=== PATIENT | female | born 1960 | race Caucasian/White ===

== ENCOUNTER → 2022-08-02 | Outpatient (CLI) | payer OTHER, SELFPAY ==
--- NOTE | 2022-08-02 07:02 | CT_ITS ---
STUDY: CTA HEAD AND NECK WITH CONTRAST REASON FOR EXAM: Female, 61 years old. Right carotid artery stenosis seen on Doppler ultrasound. RADIATION DOSAGE (If Supplied By Facility): CTDIvol = ( 28.53 ) mGy, DLP = ( 1526.28 ) mGycm TECHNIQUE: CT angiography was performed with a multi-detector CT scanner. Data acquisition was obtained from the skull base through the vertex following intravenous administration of IV 100mL Isovue-[id number]. MIP images were reconstructed from the axial data set. Post-processing of the angiographic images was performed, with multiplanar reformation and 3D reconstruction. Individualized dose optimization techniques were used for this CT. COMPARISON: No relevant priors. FINDINGS: Normal bilateral petrous carotid arteries. Normal right cavernous carotid artery with a normal supraclinoid bifurcation. Normal left cavernous carotid artery with a normal supraclinoid bifurcation. Normal right A1 segments of the anterior cerebral artery. Normal left A1 segments of the anterior cerebral artery. Normal intact anterior communicating artery (ACOM). Normal bilateral A2 segments of the anterior cerebral arteries. Normal right M1 and M2 segments of the middle cerebral arteries, with a normal M1 bifurcation. Normal left M1 and M2 segments of the middle cerebral arteries, with a normal M1 bifurcation. Normal right posterior communicating artery (PCOM). Normal left posterior communicating artery (PCOM). Normal bilateral vertebral arteries. Normal basilar artery with a normal basilar bifurcation. The visualized bilateral superior cerebellar (SCA) arteries are normal. Normal bilateral P1, P2 and visualized P3 segments of the posterior cerebral arteries. There is no demonstrated aneurysm of the [place]. There is no demonstrated abnormality of the visualized brain. AORTIC ARCH: There is atherosclerotic calcific plaque formation of the aortic arch and great vessels arising from the aortic arch, without a hemodynamically significant stenosis. There is a normal origin of the brachiocephalic, left common carotid, and left subclavian arteries. Atherosclerotic plaque calcification at the origin of the left subclavian artery. RIGHT CAROTID ARTERIES: There is atherosclerotic plaque formation of the common carotid artery, but without a hemodynamically significant stenosis. Normal right common carotid bulb. There is severe atherosclerotic plaque formation of the origin of the right internal carotid artery with a near complete occlusion. Normal visualized cervical portion of the right internal carotid artery. Normal origin of the right external carotid artery (ECA). LEFT CAROTID ARTERIES: There is atherosclerotic plaque formation of the common carotid artery, but without a hemodynamically significant stenosis. Normal left common carotid bulb. There is severe atherosclerotic plaque formation of the origin of the left internal carotid artery with a near complete occlusion. Normal visualized cervical portion of the left internal carotid artery. Normal origin of the left external carotid artery (ECA). VERTEBRAL ARTERIES: Normal bilateral vertebral arteries. CT/CTA Head AND Neck W/ Contrast IMPRESSION: Tight stenosis at the origin of both the right and left internal carotid arteries worse on the right side. There is a short total occlusion of the internal carotid artery at its origin with reconstitution. Electronically Signed: Wilfredo Klein MD at 10:47 EDT ,
[2022-08-02 07:40] LABS: EGFR FINGERSTICK > 60.0000 mL/min (>60)
== END | disposition home or self-care (01) ==
PROVIDERS: PCP Nurse Practitioner Primary Care; Referring Provider Physician Assistant; Visit Provider Physician Assistant
DX: I65.29 Occlusion and stenosis of unspecified carotid artery (principal)
CPT/HCPCS: 70496; 70498; Q9967

== ENCOUNTER → 2022-08-05 | Outpatient (CLI) | payer OTHER, SELFPAY ==
[2022-08-07 18:07] LABS: QNTFERON TB Mitogen Value > 10.00 IU/mL (.); QNTFERON TB Nil Value 0.24 IU/mL (.); QNTFERON TB1+ Ag Value 0.04 IU/mL (.); QNTFERON TB2+ Ag Value 0.03 IU/mL (.); QNTIFERON TB Positive Criteria Negative (Negative)
== END | disposition home or self-care (01) ==
LOC: LAB 08:38
PROVIDERS: PCP Nurse Practitioner Primary Care; Referring Provider Internal Medicine Rheumatology; Visit Provider Internal Medicine Rheumatology
DX: M06.00 Rheumatoid arthritis without rheumatoid factor, unspecified site (principal); Z79.899 Other long term (current) drug therapy
CPT/HCPCS: 36415; 86480

== ENCOUNTER → 2022-08-25 13:37 | Observation (INO) | payer OTHER, SELFPAY ==
[2022-08-25] VITALS (12 sets, daily range): BP systolic 125–170; BP diastolic 65–91; PULSE 67–86; RESP 12–17; TEMP 36.7; O2SAT 93–99; BMI 38.2
--- NOTE | 2022-08-25 13:39 | PCM.OPRPT ---
Report of Operation Date of Procedure: 08/25/22 Pre-Operative Diagnosis: right carotid occlusion Post-Operative Diagnosis: right carotid occlusion Surgery/Procedure Performed:: aortogram, right carotid angiogram Surgeon: Glen Chau Type of Anesthesia: Local and Sedation,Conscious Estimated Blood Loss (mL): 5 Description of Procedure: HPI: Patient is a 62-year-old female who initially had a screening carotid duplex which suggested patent internal carotid artery but limited by calcification. She has CT angiography which surprisingly showed high-grade stenosis or total occlusion of the right internal carotid artery but were unable to confirm whether patent or not. She presents now for right carotid selective angiography. Description of procedure: Upon obtaining form consent and verification correct patient procedure site patient taken to the [facility] where she was positioned prepped and draped in usual sterile fashion. Time was then performed conscious sedation administered with Versed and fentanyl. Under ultrasound guidance the right common femoral artery was accessed in retrograde fashion with micropuncture needle and wire was then exchanged out for micropuncture sheath. Through the micropuncture sheath femoral angiogram was performed revealed satisfactory positioning with no extravasation or dissection. There is micropuncture sheath a starter wire was advanced and the micropuncture sheath exchanged out for a 5 [place] sheath. Through the 5 [place] sheath a pigtail catheter and Glidewire were advanced ultimately positioning in the ascending aorta. Patient was heparinized and allowed to circulate 3 minutes after which digital traction arch aortogram was performed which revealed the origin of the innominate artery. Using a H1 catheter and the angled glide wire we selectively cannulated the innominate artery and ultimately advanced into the common carotid artery. From this position multiple view subtraction angiography of the carotid and its bifurcation was performed. Once satisfactory imaging was obtained the wire and catheter withdrawn and a 5 [place] minx deployed followed by 2 minutes of manual pressure. Shortly after relieving pressure the patient developed a small but firm hematoma accompanied by vagal response of bradycardia and hypotension. Manual pressure was held a total of 15 minutes and the patient's hemodynamics improved with atropine and a small fluid bolus. After completion of manual pressure satisfactory stasis was noted the patient was taken to the PCU for observation and bedrest before discharged home. Radiographic interpretation: Aortic arch normal caliber with minimal atherosclerosis or calcification. Type I arch. Patent ostia of the innominate, left common carotid, left subclavian artery. The innominate artery was patent with no significant atherosclerosis or stenosis and a normal bifurcation into the subclavian and common carotid artery with no significant stenosis or atherosclerosis. Right common carotid artery patent with no significant atherosclerosis or stenosis. Occlusion at the origin of the internal carotid artery with reconstitution via what appeared to be ophthalmic branches filling from the external carotid. There is retrograde flow in the internal carotid artery down towards the bifurcation. The external carotid artery is very large caliber mature collateral suggesting longstanding occlusion.
[2022-08-25] MEDS: Acetaminophen 325 MG Tablet 650 MG PO (15:18)
--- NOTE | 2022-08-25 20:25 | NURSING ---
Pt d/c for outpt procedure, vitals stable and site to groin was c/d/i. Pt walked hallway with no issues.
== END | disposition home or self-care (01) ==
LOC: CLSP 09:17 → PCU 14:19
PROVIDERS: Admitting Provider Surgery Trauma Surgery; PCP Nurse Practitioner Primary Care; Visit Provider Surgery Trauma Surgery
DX: I65.21 Occlusion and stenosis of right carotid artery (principal); M06.9 Rheumatoid arthritis, unspecified; I95.9 Hypotension, unspecified; I97.418 Intraoperative hemorrhage and hematoma of a circulatory system organ or structure complicating other circulatory system procedure; Y92.234 Operating room of hospital as the place of occurrence of the external cause; Z79.82 Long term (current) use of aspirin; Z79.899 Other long term (current) drug therapy; I10 Essential (primary) hypertension; M19.90 Unspecified osteoarthritis, unspecified site; K21.9 Gastro-esophageal reflux disease without esophagitis
CPT/HCPCS: 36223; 76937; 99152; 99153; C1760; J7040; C1769

== ENCOUNTER → 2022-08-25 | Outpatient (CLI) | payer OTHER, SELFPAY ==
[2022-08-25 08:36] LABS: Hematocrit 43.1 % (37-47); Hemoglobin 14.3 g/dL (12.0-15.0); Mean Corp Hgb Conc 33.2 g/dL (32-36); Mean Corpuscular Hgb 32.9 pg (27.0-32.0); Mean Corpuscular Volume 99.1 fL (81-99); Mean Platelet Vol. 8.8 fl (6.2-12.0); Platelet Count 188 K/mm3 (150-450); RBC Distribution Width CV 13.5 % (11.6-14.6); Red Blood Count 4.35 M/mm3 (4.2-5.4); White Blood Count 5.7 K/mm3 (4.4-11.0)
[2022-08-25 08:52] LABS: Anion Gap 4 (5-15); BUN 16 mg/dL (7-18); BUN/Creat Ratio 17.9 RATIO (10-20); Calcium,Total 9.3 mg/dL (8.5-10.1); Chloride 111 mmol/L (98-107); EST Glomerular Filtration Rate 68 mL/min (>60); Est Glom Filt Rate - Afr Amer 83 mL/min (>60); Glucose 108 mg/dL (74-106); Potassium 4.3 mmol/L (3.5-5.1); Sodium Level 141 mmol/L (136-145)
[2022-08-25 08:56] LABS: AST(SGOT) 20 U/L (15-37); Alanine Aminotransfer ALT/SGPT 22 U/L (13-56); Albumin, Serum 3.6 g/dL (3.2-5.0); Alkaline Phosphatase 108 U/L (45-117); Bilirubin, Direct 0.18 mg/dL (0.00-0.30); Globulin 3.6 g/dL (2.2-4.2); International Normalized Ratio 0.9; Protein, Total 7.2 g/dL (6.4-8.2); Prothrombin Time (Protime)PT. 12.5 SECONDS (11.7-14.9)
[2022-08-25 08:57] LABS: Partial Thromboplast Time 29.6 Seconds (24.1-36.2)
== END | disposition home or self-care (01) ==
LOC: PAT 09-20 10:19
PROVIDERS: Anesthesiology; PCP Nurse Practitioner Primary Care; Visit Provider Surgery Trauma Surgery
DX: Z01.818 Encounter for other preprocedural examination (principal)
CPT/HCPCS: 36415; 80048; 80076; 85027; 85610; 85730; 86850; 86900; 86901

== ENCOUNTER → 2023-03-24 | Outpatient (CLI) | payer OTHER, SELFPAY ==
--- NOTE | 2023-03-24 07:51 | CDU_ITS ---
Reason For Study: Rt ICA Occlusion / Lt ICA Stenosis Rt. Velocities/BP Lt. Velocities/BP Prox CCA 59.7/9.3 cm/sec. Prox CCA 65.0/24.4 cm/sec. Mid CCA 74.4/13.0 cm/sec. Mid CCA 67.4/29.3 cm/sec. Dist CCA 75.6/13.0 cm/sec. Dist CCA 74.9/25.7 cm/sec. Artery appears occluded. Prox ICA 131.9/46.4 cm/sec. Prox ECA 120.7/20.0 cm/sec. Mid ICA 144.4/49.5 cm/sec. Rt. Vert. 68.6/26.9 cm/sec. Dist ICA 87.9/28.3 cm/sec. Prox ECA 208.0/13.4 cm/sec. Lt. Vert. 67.4/26.9 cm/sec. Right Extracranial There is heterogeneous, irregular atherosclerotic plaque noted in the right common carotid artery. There is heterogeneous, irregular atherosclerotic plaque noted in the right internal carotid artery. The atherosclerotic plaque causes acoustic shadowing. The right internal carotid artery is occluded. There is heterogeneous, irregular atherosclerotic plaque noted in the right external carotid artery. The atherosclerotic plaque causes acoustic shadowing. Antegrade flow is noted in the right vertebral artery. Left Extracranial There is heterogeneous, irregular atherosclerotic plaque noted in the left common carotid artery. There is heterogeneous, irregular atherosclerotic plaque noted in the left internal carotid artery. The atherosclerotic plaque causes acoustic shadowing. There is heterogeneous, irregular atherosclerotic plaque noted in the left external carotid artery. The atherosclerotic plaque causes acoustic shadowing. Antegrade flow is noted in the left vertebral artery. Procedure Carotid Duplex [id number]. This is a Carotid Duplex examination using B-mode, color flow and specral Doppler. The exam was diagnostic. Exam performed in department. VL/Carotid Duplex Ultrasound Interpretation Summary Occlusion of the right extracranial internal carotid. Moderate (50-69%) stenosis left extracranial internal carotid. Patent and antegrade vertebrals bilaterally. Ordering Physician: Jamila Grossman Referring Physician: Joanna Owens Performed By: Ge King RVT
== END | disposition home or self-care (01) ==
LOC: CVS 07:50
PROVIDERS: PCP Nurse Practitioner Primary Care; Referring Provider Surgery Trauma Surgery; Visit Provider Surgery Trauma Surgery
DX: I65.23 Occlusion and stenosis of bilateral carotid arteries (principal)
CPT/HCPCS: 93880

== ENCOUNTER → 2023-04-27 | Outpatient (CLI) | payer OTHER, SELFPAY ==
--- OUTSIDE RECORDS SUMMARY | 2023-04-27 07:30 | XMS RPT_ITS | CCD ---
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 Name Role Phone ASHLEY LOPEZ Primary Care Physicia n Tanya Nicole PT Unavailable Unavailable Ashley Martin Primary Care Provider Ashley Martin Primary Care Provider Ashley Martin Primary Care Provider ASHLEY LOPEZ Attending Unava ilable ASHLEY LOPEZ Primary Care Unava ilable ASHLEY LOPEZ Attending Unava ilable ASHLEY LOPEZ S Primary Care Unava ilable Ashley Martin Primary Care Provider LEIGH KATZ Referring Unavailable ASHLEY MARTIN Primary Care Unavailable LEIGH KATZ Attending Unavailable ASHLEY MARTIN Primary Care Unavailable Allergies Allergy Classification Reported Allergen(s) Allergy Type Date of Onset Reaction(s) Facility (5 sources) Acetaminophen / HYDROcodone; Translations: [acetaminophen-hyd rocodone] Drug Allergy nausea [facility] (16 sources) Erythromycin; Translations: [erythromycin] Drug Allergy 0 Hives [facility] (5 sources) influenza A virus A//[id number] (H1N1) antigen / influenza A virus A/[place]/[id number] (H3N2) antigen / influenza B virus B/[place] antigen / influenza B virus B/ antigen; Translations: [influenza virus vaccine] Drug Allergy nausea, muscle loss, edema [facility] (16 sources) Morphine; Translations: [morphine] Drug Allergy 0 Mental Status Change [facility] (5 sources) tetanus toxoid vaccine, inactivated; Translations: [tetanus toxoid] Drug Allergy nausea, muscle loss, edema [facility] (11 sources) diphtheria toxoid vaccine, inactivated / tetanus toxoid vaccine, inactivated; Translations: [TETANUS AND DIPHTHER. TOX (PF)] Drug Allergy 0 GI Upset [facility] Medications Current Medications Medication Drug Class(es) Dates Sig (Normalized) Sig (Original) acetic acid 20 mg/ml / hydrocortisone 10 mg/ml otic solution (3 sources) Corticosteroid Start: 06-10-2021 acetic acid-hydrocortis one otic solution Dose = 3 drop(s), Ear, right, QID, # 10 mL, 1 Refill(s), [id number], 169, cm, 06/10/21 14:14:00 EST, Height, kg, 06/10/21 14:14:00 EST, Dosing Weight Start Date: 06/10/21 Status: Ordered acetic acid-hydrocortisone otic solution (2 sources) Start: 02-20-2019 acetic acid-hydrocortis one otic solution Dose = 3 drop(s), Ear, right, QID, # 10 mL, 1 Refill(s), [facility]: [id number] Start Date: 02/20/19 Status: Ordered amLODIPine 10 mg oral tablet (2 sources) Dihydropyridine Calcium Channel Cirilo Start: 04-20-2021 amLODIPine 10 mg oral tablet Dose : 10 mg = 1 tab(s), Oral, qDay, # 90 tab(s), 0 Refill(s), Pharmacy: [facility] #[id number], 169.9, cm, 12/11/20 14:01:00 EDT, Height, kg, 06/12/20 15:38:00 EST, Dosing Weight Start Date: 04/20/21 Status: Ordered Completed/Discontinued Medications Medication Drug Class(es) Dates Sig (Normalized) Sig (Original) Acetaminophen (1 source) acetaminophen (T YLENOL ARTHRITIS ORAL) Take by mouth. PRN 0 Active Problems Active Problems Problem Classification Problem Date Documented Date Episodic/Chronic Cardiac dysrhythmias (1 source) Paroxysmal supraventricular tachycardia; Translations: [Supraventricular tachycardia] Chronic Disorders of lipid metabolism (6 sources) Hyperlipidemia; Translations: [Pure hypercholesterolemia] Onset: 03-14-2023 06-10-2021 Chronic Essential hypertension (17 sources) Hypertensive disorder; Translations: [Essential hypertension] Onset: 05-25-2021 06-17-2020 Chronic Occlusion or stenosis of precerebral arteries (2 sources) Right carotid artery occlusion; Translations: [Occlusion and stenosis of right carotid artery] Onset: 03-14-2023 03-14-2023 Chronic Other connective tissue disease (5 sources) Fibromyalgia 05-06-2020 Episodic Other connective tissue disease (5 sources) Pain in lower limb 05-06-2020 Episodic Other diseases of veins and lymphatics (5 sources) Venous stasis 02-13-2020 Episodic Other nutritional; endocrine; and metabolic disorders (10 sources) Body mass index 40+ - severely obese; Translations: [Morbid (severe) obesity due to excess calories] Onset: 05-25-2021 05-25-2021 Chronic Other nutritional; endocrine; and metabolic disorders (7 sources) Obese class II; Translations: [Obesity, unspecified] Onset: 08-17-2021 Chronic Residual codes; unclassified (4 sources) Swelling - edema - symptom 05-24-2019 Episodic Rheumatoid arthritis and related disease (5 sources) Rheumatoid arthritis 10-22-2019 Chronic Spondylosis; intervertebral disc disorders; other back problems (5 sources) Sciatica 01-29-2014 Episodic Unclassified (5 sources) Patient encounter status 08-21-2019 Past or Other Problems Problem Classification Problem Date Documented Da te Episodic/Chronic Other lower respiratory disease (11 sources) Dyspnea; Translations: [Shortness of breath] Onset: 05-25-2021 Episodic Results Test Name Value Interpretation Reference Range Facil ity Vital Signs Date Time Vital Sign Value Performing Clinician Faci lity 12-11-2023 14:16-0500 Body weight 114.4 kg Leigh Katz MD Work Phone: [facility] 03-14-2023 14:16-0500 Diastolic blood pressure 81 mm[Hg] Leigh Katz MD Work Phone: [facility] 03-14-2023 14:16-0500 Heart rate 84 /min Leigh Katz MD Work Phone: [facility] 03-14-2023 14:16-0500 SaO2% (BldA) [Mass fraction] 93 % Leigh Katz MD Work Phone: [facility] 03-14-2023 14:16-0500 Systolic blood pressure 153 mm[Hg] Leigh Katz MD Work Phone: [facility] 03-01-2022 16:04-0500 Body weight 111.13 kg Leigh Katz MD Work Phone: [facility] 03-01-2022 16:04-0500 Diastolic blood pressure 94 mm[Hg] Leigh Katz MD Work Phone: [facility] 03-01-2022 16:04-0500 Heart rate 80 /min Leigh Katz MD Work Phone: [facility] 03-01-2022 16:04-0500 Systolic blood pressure 162 mm[Hg] Leigh Katz MD Work Phone: [facility] 08-17-2021 12:57-0400 Body height 172.7 cm Leigh Katz MD Work Phone: [facility] 08-17-2021 12:57-0400 Body weight 113.4 kg Leigh Katz MD Work Phone: [facility] 08-17-2021 12:57-0400 Diastolic blood pressure 92 mm[Hg] Leigh Katz MD Work Phone: [facility] 08-17-2021 12:57-0400 Heart rate 90 /min Leigh Katz MD Work Phone: [facility] 08-17-2021 12:57-0400 Respiratory rate 20 /min Leigh Katz MD Work Phone: [facility] 08-17-2021 12:57-0400 Systolic blood pressure 154 mm[Hg] Leigh Katz MD Work Phone: [facility] Encounters Encounter Date Encounter Type Care Provider Facility Start: 03-17-2023 End: 03-18-20[facility] Start: 03-14-2023 End: 03-14-2023 ambulatory LEIGH KATZ Facility:[facility] Start: 03-14-2023 End: 03-14-2023 Patient encounter procedure Leigh Katz MD Work Phone: Cardiology Procedures Date Procedure Procedure Detail Performing Clinician Start: 07-30-2021 Echo tthrc r-t 2d w/ wo m-mode complete rest&st Leigh Katz MD Work Phone: Start: 04-04-2013 Hysterectomy ASHLEY LAQUITA TMER [employer] Start: 04-04-2008 Knee region structur e (body structure) DR JUDY RODRIGES MD Plan of Treatment Date Care Activity Detail Author Start: 03-21-2023 End: 06-20-2023 Lipid 1996 panel - Serum or Plasma LIPID PANEL BASIC Lab Routine Pure hypercholesterolemia Expected: 03/21/2023, Expires: 06/20/2023 [facility] Work Phone: Immunizations Immunization Date Immunization Notes Care Provider Fa cility 12-18-2020 COVID-19 vaccine (ZAC) Echocardiogram Wstr Work Phone: [facility] Payers Date Payer Category Payer Private Health Insurance [employer] A ETNA CHOICE POS II [id number] 2017-Present [phone] [address] [place] [address] POS [id number] 2017 Private Health Insurance [id number] 2017 Private Health Insurance [id number] 1960 Unknown [id number] 1960 Unknown [id number] Social History Date Type Detail Facility Start: 02-20-2019 End: 03-01-2022 Never smoked tobacco (finding) [facility] Clinical Notes 07-13-2021 to 03-14-2023 Leigh Katz MD - 03/14/2023 2:37 PM ESTTelephone Encounter - Romy Gómez RN - 09/01/2022 12:32 PM EDTLeigh Katz MD - 03/01/2022 4:17 PM EST Note Date & Type Note Facility 03-14-2023 Note HNO ID: [id number] Author: Leigh Katz MD Service: ? Author Type: Physician Type: Progress Notes Filed: 03/14/2023 2:40 PM Note Text: Leigh Katz MD Interventional Cardiology [address] [place] [address] Chief Complaint Patient presents with: Follow Up: 1 year ROBERT 03/01/22 HISTORY OF PRESENT ILLNESS: Ms. Jelani Villa is a 62 year old female in my office today for assessment of management prior history of hypertensive heart disease doing well from the cardiac point of view patient blood pressure is well-controlled recently she had ultrasound of the carotid as a screening measure which shows occluded right coronary artery confirmed by carotid angiography August 2022 medical therapy is recommended Asymptomatic No angina or symptoms or signs of congestive heart failure tolerating medication very well Cardiac Risk Factors age (male over 45, female over 55), hyperlipidemia, hypertension PAST MEDICAL HISTORY Diagnosis Date GERD (gastroesophageal reflux disease) Rheumatoid arthritis (HCC) PAST SURGICAL HISTORY Procedure Laterality Date CAROTID ANGIOGRAM 08/2022 Right Carotid artery- branch developed KNEE SURGERY HX Bilateral TOTAL ABDOM HYSTERECTOMY FAMILY HISTORY Problem Relation Age of Onset other (varicose veins) Paternal Grandmother Social History Tobacco Use Smoking status: Never Smokeless tobacco: Never Vaping Use Vaping Use: Never used Substance Use Topics Alcohol use: Yes Comment: twice a year Drug use: Never ALLERGIES Allergen Reactions Erythromycin Hives Morphine Mental Status Change Gets violent Tetanus And Diphthe* GI Upset Nausea, muscle weakness, fever Medications: Current Outpatient Medications Medication Sig Dispense Refill aspirin 81 mg cap Take 1 tablet by mouth once daily. acetaminophen (TYLENOL ARTHRITIS ORAL) Take by mouth. PRN DULoxetine (CYMBALTA) 30 mg capsule Take 60 mg by mouth once daily. OTC NUTRITIONAL SUPPLEMENT once daily. Rusty Pro Multivitamin atorvastatin (LIPITOR) 10 mg tablet Take 40 mg by mouth once daily. pantoprazole DR (PROTONIX) 40 mg tablet Take 40 mg by mouth once daily. methotrexate sodium (METHOTREXATE, ANTI-RHEUMATIC, ORAL) Take 2.5 mg by mouth. 6 tabs of 2.5 mg/tab on tuesday Etanercept (ENBREL) 50 mg/mL (1 mL) injection Inject subcutaneously one time a week. calcium carbonate/vitamin D3 (CALCIUM 600 + D,3, ORAL) Take by mouth once daily. folic acid 1 mg tablet Take 1 mg by mouth once daily. 2 tabs daily acetic acid (ACETASOL OTIC) Use in the ears. In R ear as needed carvedilol (COREG) 12.5 mg tablet Take 1 tablet by mouth two times a day. 180 tablet 3 OTC PRODUCT Rusty Pro Multivitamin 1 tab daily (Patient not taking: Reported on 03/14/2023) No current facility-administered medications for this visit. Review of Systems Constitutional: Negative for chills, diaphoresis, fever, malaise/fatigue and weight loss. HENT: Negative for congestion, ear discharge, ear pain, hearing loss, nosebleeds, sinus pain, sore throat and tinnitus. Eyes: Negative for blurred vision, double vision, photophobia, pain, discharge and redness. Respiratory: Negative for cough, hemoptysis, sputum production, shortness of breath, wheezing and stridor. Cardiovascular: Negative for chest pain, palpitations, orthopnea, claudication, leg swelling and PND. Gastrointestinal: Negative for abdominal pain, blood in stool, constipation, diarrhea, heartburn, melena, nausea and vomiting. Genitourinary: Negative for dysuria, flank pain, frequency, hematuria and urgency. Musculoskeletal: Negative for back pain, falls, joint pain, myalgias and neck pain. Skin: Negative for itching and rash. Neurological: Negative for dizziness, tingling, tremors, sensory change, speech change, focal weakness, seizures, loss of consciousness, weakness and headaches. Endo/Heme/Allergies: Negative for environmental allergies and polydipsia. Does not bruise/bleed easily. Psychiatric/Behavioral: Negative for depression, hallucinations, memory loss, substance abuse and suicidal ideas. The patient is not nervous/anxious and does not have insomnia. Physical Examination: Vitals:BP 153/81 Pulse 84 Wt 252 lb 3.2 oz (114.4kg) SpO2 93% BP w/Orthostatic Vitals Date and Time Orthostatic BP Orthostatic Pulse BP Pulse BP Position BP Site BP Cuff Size 03/14/23 1416 -- -- 153/81 84 Sitting Right Arm Regular Adult Last 2 Encounter Wt Readings: Date: Wt: 03/14/2023 114.4 kg (252 lb 3.2 oz) 03/01/2022 111.1 kg (245 lb) Physical Exam Constitutional: General: She is not in acute distress. Appearance: She is not diaphoretic. HENT: Head: Normocephalic and atraumatic. Right Ear: External ear normal. Left Ear: External ear normal. Nose: Nose normal. Mouth/Throat: Pharynx: Oropharynx is clear. Eyes: General: Right eye: No discharge. Left eye: No discharge. Conjunctiva/scler (more content not included)... [facility] 03-14-2023 History of Present illness Narrative Images from the original note were not included. Leigh Katz MD Interventional Cardiology [address] [place] [address] Chief Complaint Patient presents with: Follow Up: 1 year ROBERT 03/01/22 HISTORY OF PRESENT ILLNESS: Ms. Jelani Villa is a 62 year old female in my office today for assessment of management prior history of hypertensive heart disease doing well from the cardiac point of view patient blood pressure is well-controlled recently she had ultrasound of the carotid as a screening measure which shows occluded right coronary artery confirmed by carotid angiography August 2022 medical therapy is recommended Asymptomatic No angina or symptoms or signs of congestive heart failure tolerating medication very well Cardiac Risk Factors age (male over 45, female over 55), hyperlipidemia, hypertension PAST MEDICAL HISTORY Diagnosis Date GERD (gastroesophageal reflux disease) Rheumatoid arthritis (HCC) PAST SURGICAL HISTORY Procedure Laterality Date CAROTID ANGIOGRAM 08/2022 Right Carotid artery- branch developed KNEE SURGERY HX Bilateral TOTAL ABDOM HYSTERECTOMY FAMILY HISTORY Problem Relation Age of Onset other (varicose veins) Paternal Grandmother Social History Tobacco Use Smoking status: Never Smokeless tobacco: Never Vaping Use Vaping Use: Never used Substance Use Topics Alcohol use: Yes Comment: twice a year Drug use: Never ALLERGIES Allergen Reactions Erythromycin Hives Morphine Mental Status Change Gets violent Tetanus And Diphthe* GI Upset Nausea, muscle weakness, fever Medications: Current Outpatient Medications Medication Sig Dispense Refill aspirin 81 mg cap Take 1 tablet by mouth once daily. acetaminophen (TYLENOL ARTHRITIS ORAL) Take by mouth. PRN DULoxetine (CYMBALTA) 30 mg capsule Take 60 mg by mouth once daily. OTC NUTRITIONAL SUPPLEMENT once daily. Rusty Pro Multivitamin atorvastatin (LIPITOR) 10 mg tablet Take 40 mg by mouth once daily. pantoprazole DR (PROTONIX) 40 mg tablet Take 40 mg by mouth once daily. methotrexate sodium (METHOTREXATE, ANTI-RHEUMATIC, ORAL) Take 2.5 mg by mouth. 6 tabs of 2.5 mg/tab on tuesday Etanercept (ENBREL) 50 mg/mL (1 mL) injection Inject subcutaneously one time a week. calcium carbonate/vitamin D3 (CALCIUM 600 + D,3, ORAL) Take by mouth once daily. folic acid 1 mg tablet Take 1 mg by mouth once daily. 2 tabs daily acetic acid (ACETASOL OTIC) Use in the ears. In R ear as needed carvedilol (COREG) 12.5 mg tablet Take 1 tablet by mouth two times a day. 180 tablet 3 OTC PRODUCT Rusty Pro Multivitamin 1 tab daily (Patient not taking: Reported on 03/14/2023) No current facility-administered medications for this visit. Review of Systems Constitutional: Negative for chills, diaphoresis, fever, malaise/fatigue and weight loss. HENT: Negative for congestion, ear discharge, ear pain, hearing loss, nosebleeds, sinus pain, sore throat and tinnitus. Eyes: Negative for blurred vision, double vision, photophobia, pain, discharge and redness. Respiratory: Negative for cough, hemoptysis, sputum production, shortness of breath, wheezing and stridor. Cardiovascular: Negative for chest pain, palpitations, orthopnea, claudication, leg swelling and PND. Gastrointestinal: Negative for abdominal pain, blood in stool, constipation, diarrhea, heartburn, melena, nausea and vomiting. Genitourinary: Negative for dysuria, flank pain, frequency, hematuria and urgency. Musculoskeletal: Negative for back pain, falls, joint pain, myalgias and neck pain. Skin: Negative for itching and rash. Neurological: Negative for dizziness, tingling, tremors, sensory change, speech change, focal weakness, seizures, loss of consciousness, weakness and headaches. Endo/Heme/Allergies: Negative for environmental allergies and polydipsia. Does not bruise/bleed easily. Psychiatric/Behavioral: Negative for depression, hallucinations, memory loss, substance abuse and suicidal ideas. The patient is not nervous/anxious and does not have insomnia. Physical Examination: Vitals:BP 153/81 Pulse 84 Wt 252 lb 3.2 oz (114.4kg) SpO2 93% BP w/Orthostatic Vitals Date and Time Orthostatic BP Orthostatic Pulse BP Pulse BP Position BP Site BP Cuff Size 03/14/23 1416 -- -- 153/81 84 Sitting Right Arm Regular Adult Last 2 Encounter Wt Readings: Date: Wt: 03/14/2023 114.4 kg (252 lb 3.2 oz) 03/01/2022 111.1 kg (245 lb) Physical Exam Constitutional: General: She is not in acute distress. Appearance: She is not diaphoretic. HENT: Head: Normocephalic and atraumatic. Right Ear: External ear normal. Left Ear: External ear normal. Nose: Nose normal. Mouth/Throat: Pharynx: Oropharynx is clear. Eyes: General: Right eye: No discharge. Left eye: No discharge. Conjunctiva/sclera: Conjunctivae normal. Pupils: Pupils are equal, round, and reactive to light. Cardiovascular: Rate and Rhythm: Normal rate and regular rhythm. Heart sounds: Normal heart sounds, S1 normal and S2 normal. No murmur heard. No friction rub. No gallop. No S3 or S4 sounds. Pulmonary: Effort: Pulmonary effort is normal. No respiratory distress. Breath sounds: Normal breath sounds. No wheezing or rales. Chest: Chest wall: No tenderness. Musculoskeletal: General: Normal range of motion. Cervical back: Normal range of motion and neck supple. Skin: General: Skin is warm and dry. Neurological: Mental Status: She is alert and oriented to person, place, and time. Psychiatric: Mood and Affect: Mood normal. Thought Content: Thought content normal. Judgment: Judgment normal. Pertinent Labs: CBC: No results found for: HB , HCT , WBC , PLT BMP: No results found for: GLUC , K , NA , CHLOR , CO2 , CREAT , BUN , ANION , CA INR: Lipid Profile: No results found for: CHOL , HDL , LDL , TG Hemoglobin A1C: No results found for: HGBA1C TSH: No results found for: TSHREFL Prior Cardiac Testing none Assessment and Plan: 62 years old female patient with hypertensive heart disease and carotid artery disease ASSESSMENT/PLAN: 1. Pure hypercholesterolemia - ICD9: 272.0, ICD10: E78.00 (primary diagnosis) On statin - LIPID PANEL BASIC 2. Primary hypertension - ICD9: 401.9, ICD10: I10 - Controlled - Continue current medications - Recommend home blood pressure monitoring, to bring results to next visit - Encouraged sodium restriction, DASH or Mediterranean diet - Recommend regular aerobic exercise 3. Occlusion of right carotid artery - ICD9: 433.10, ICD10: I65.21 Per vascular Leigh Katz MD Follow up planning: One year Electronically signed by Leigh Katz MD on March 14, 2023, 2:37 PM The above note was partially created using a dictation recognition software. A reasonable attempt has been made to correct any errors. documented in this encounter [facility] 09-01-2022 Miscellaneous Notes Copy of the attached operative report sent to medical records to be scanned into chart. Romy Gómez RN documented in this encounter [facility] 03-01-2022 History of Present illness Narrative Images from the original note were not included. Leigh Katz MD Interventional Cardiology [facility] [address] [place], [place] [address] [phone] Chief Complaint Patient presents with: 6 month check HISTORY OF PRESENT ILLNESS: Ms. Jelani Villa is a 61 year old female with hypertensive heart disease seen today for follow-up doing well from a cardiac point of view blood pressures well controlled with current medical treatment No angina No symptoms or signs of congestive heart failure Cardiac Risk Factors age (male over 45, female over 55), hypertension, family history of CAD PAST MEDICAL HISTORY Diagnosis Date GERD (gastroesophageal reflux disease) Rheumatoid arthritis (HCC) PAST SURGICAL HISTORY Procedure Laterality Date KNEE SURGERY HX Bilateral TOTAL ABDOM HYSTERECTOMY FAMILY HISTORY Problem Relation Age of Onset other (varicose veins) Paternal Grandmother Social History Tobacco Use Smoking status: Never Smokeless tobacco: Never Substance Use Topics Alcohol use: Yes Comment: twice a year Drug use: Never ALLERGIES Allergen Reactions Erythromycin Hives Morphine Mental Status Change Gets violent Tetanus And Diphthe* GI Upset Nausea, muscle weakness, fever Medications: Current Outpatient Medications Medication Sig Dispense Refill DULoxetine (CYMBALTA) 30 mg capsule Take 30 mg by mouth once daily. atorvastatin (LIPITOR) 10 mg tablet Take 10 mg by mouth once daily. pantoprazole DR (PROTONIX) 40 mg tablet Take 40 mg by mouth once daily. methotrexate sodium (METHOTREXATE, ANTI-RHEUMATIC, ORAL) Take 2.5 mg by mouth. 4 tabs on tuesday Etanercept (ENBREL) 50 mg/mL (1 mL) injection Inject subcutaneously one time a week. calcium carbonate/vitamin D3 (CALCIUM 600 + D,3, ORAL) Take by mouth once daily. OTC PRODUCT Rusty Pro Multivitamin 1 tab daily folic acid 1 mg tablet Take 1 mg by mouth once daily. 2 tabs daily acetic acid (ACETASOL OTIC) Use in the ears. In R ear as needed OTC NUTRITIONAL SUPPLEMENT once daily. Rusty Pro Multivitamin carvedilol (COREG) 12.5 mg tablet Take 1 tablet by mouth twice daily. 180 tablet 3 Current Facility-Administered Medications Medication Dose Route Frequency Provider Last Rate Last Admin perflutren lipid microspheres 1.3 mL in NaCl (PF) 0.9% 10 mL injection (DEFINITY) INTRAVENOUS DIRECTED PRN Leigh Katz MD sodium chloride 0.9 % (flush) 10 mL (BD POSIFLUSH) 10 mL INTRAVENOUS DIRECTED NEPTALI Katz MD perflutren lipid microspheres 1.3 mL in NaCl (PF) 0.9% 10 mL injection (DEFINITY) INTRAVENOUS DIRECTED NEPTALI Katz MD sodium chloride 0.9 % (flush) 10 mL (BD POSIFLUSH) 10 mL INTRAVENOUS DIRECTED NEPTALI Katz MD perflutren lipid microspheres 1.3 mL in NaCl (PF) 0.9% 10 mL injection (DEFINITY) INTRAVENOUS DIRECTED NEPTALI Katz MD sodium chloride 0.9 % (flush) 10 mL (BD POSIFLUSH) 10 mL INTRAVENOUS DIRECTED NEPTALI Katz MD Review of Systems Constitutional: Negative for chills, diaphoresis, fever, malaise/fatigue and weight loss. HENT: Negative for congestion, ear discharge, ear pain, hearing loss, nosebleeds, sinus pain, sore throat and tinnitus. Eyes: Negative for blurred vision, double vision, photophobia, pain, discharge and redness. Respiratory: Negative for cough, hemoptysis, sputum production, shortness of breath, wheezing and stridor. Cardiovascular: Negative for chest pain, palpitations, orthopnea, claudication, leg swelling and PND. Gastrointestinal: Negative for abdominal pain, blood in stool, constipation, diarrhea, heartburn, melena, nausea and vomiting. Genitourinary: Negative for dysuria, flank pain, frequency, hematuria and urgency. Musculoskeletal: Negative for back pain, falls, joint pain, myalgias and neck pain. Skin: Negative for itching and rash. Neurological: Negative for dizziness, tingling, tremors, sensory change, speech change, focal weakness, seizures, loss of consciousness, weakness and headaches. Endo/Heme/Allergies: Negative for environmental allergies and polydipsia. Does not bruise/bleed easily. Psychiatric/Behavioral: Negative for depression, hallucinations, memory loss, substance abuse and suicidal ideas. The patient is not nervous/anxious and does not have insomnia. Physical Examination: Vitals:BP 162/94 Pulse 80 Wt 245 lb (111.1kg) BP w/Orthostatic Vitals Date and Time Orthostatic BP Orthostatic Pulse BP Pulse BP Position BP Site BP Cuff Size 03/01/22 1604 -- -- 162/94 80 -- -- -- Last 2 Encounter Wt Readings: Date: Wt: 03/01/2022 245 lb (111.1 kg) 08/17/2021 250 lb (113.4 kg) Physical Exam Constitutional: General: She is not in acute distress. Appearance: She is not diaphoretic. HENT: Head: Normocephalic and atraumatic. Right Ear: External ear normal. Left Ear: External ear normal. Nose: Nose normal. Mouth/Throat: Pharynx: Oropharynx is clear. Eyes: General: Right eye: No discharge. Left eye: No discharge. Conjunctiva/sclera: Conjunctivae normal. Pupils: Pupils are equal, round, and reactive to light. Cardiovascular: Rate and Rhythm: Normal rate and regular rhythm. Heart sounds: Normal heart sounds, S1 normal and S2 normal. No murmur heard. No friction rub. No gallop. No S3 or S4 sounds. Pulmonary: Effort: Pulmonary effort is normal. No respiratory distress. Breath sounds: Normal breath sounds. No wheezing or rales. Chest: Chest wall: No tenderness. Musculoskeletal: General: Normal range of motion. Cervical back: Normal range of motion and neck supple. Skin: General: Skin is warm and dry. Neurological: Mental Status: She is alert and oriented to person, place, and time. Psychiatric: Mood and Affect: Mood normal. Thought Content: Thought content normal. Judgment: Judgment normal. Pertinent Labs: CBC: No results found for: HB, HCT, WBC, PLT BMP: No results found for: GLUC, K, NA, CHLOR, CO2, CREAT, BUN, ANION, CA INR: Lipid Profile: No results found for: CHOL, HDL, LDL, TG Hemoglobin A1C: No results found for: HGBA1C TSH: No results found for: TSHREFL Prior Cardiac Testing none Assessment and Plan: 61 years old with hypertensive heart disease blood pressures log at home shows well-controlled blood pressure number continue same cardiac medical therapy follow-up Follow up planning: One year Electronically signed by Leigh Katz MD on March 01, 2022, 4:17 PM The above note was partially created using a dictation recognition software. A reasonable attempt has been made to correct any errors. documented in this encounter [facility] 08-25-2021 Miscellaneous Notes Patient's request for medication is as follows: Pending Prescriptions Disp Refills CARVEDILOL 12.5 MG TABLET 180 tablet 3 Sig: Take 1 tablet by mouth twice daily. JEAN PAUL: No Last seen 08/17/2021. Dose increased to 12.5 mg twice daily. Pharmacy asking for new script for 90 day supply due to insurance coverage and cost. Prescription(s) as above. Please process accordingly. Ashley Montoya LPN documented in this encounter [facility] 08-20-2021 Miscellaneous Notes Patient's request for medication is as follows: Refused Prescriptions Disp Refills carvedilol (COREG) 6.25 mg tablet [Pharmacy Med Name: CARVEDILOL 6.25 MG TABLET] 30 tablet 7 Sig: TAKE 1/2 TABLET BY MOUTH TWICE DAILY JEAN PAUL: No Filled 08/17/2021 60 tabs 3 refills [facility] Prescription(s) as above. Please process accordingly. Brianna Beyer LPN documented in this encounter [facility] 08-17-2021 History of Present illness Narrative Images from the original note were not included. Leigh Katz MD Interventional Cardiology [facility] [address] [place], [place] [address] [phone] Chief Complaint Patient presents with: Established Patient Follow-Up: stress echo review HISTORY OF PRESENT ILLNESS: Ms. Jelani Villa is a 60 year old female hypertensive heart disease poorly controlled blood pressure doing well from the cardiac point of view stress echo shows no evidence of ischemia Blood pressure slightly improved but not completely controlled Patient is asymptomatic Cardiac Risk Factors age (male over 45, female over 55), hypertension, family history of CAD PAST MEDICAL HISTORY Diagnosis Date GERD (gastroesophageal reflux disease) Rheumatoid arthritis (HCC) PAST SURGICAL HISTORY Procedure Laterality Date KNEE SURGERY HX Bilateral TOTAL ABDOM HYSTERECTOMY FAMILY HISTORY Problem Relation Age of Onset other (varicose veins) Paternal Grandmother Social History Tobacco Use Smoking status: Never Smoker Smokeless tobacco: Never Used Substance Use Topics Alcohol use: Yes Comment: twice a year Drug use: Never ALLERGIES Allergen Reactions Erythromycin Hives Morphine Mental Status Change Gets violent Tetanus And Diphthe* GI Upset Nausea, muscle weakness, fever Medications: Current Outpatient Medications Medication Sig Dispense Refill carvedilol (COREG) 6.25 mg tablet Take 2 tablets by mouth twice daily. 60 tablet 3 atorvastatin (LIPITOR) 10 mg tablet Take 10 mg by mouth once daily. pantoprazole DR (PROTONIX) 40 mg tablet Take 40 mg by mouth once daily. methotrexate sodium (METHOTREXATE, ANTI-RHEUMATIC, ORAL) Take 2.5 mg by mouth. 4 tabs on tuesday Etanercept (ENBREL) 50 mg/mL (1 mL) injection Inject subcutaneously one time a week. calcium carbonate/vitamin D3 (CALCIUM 600 + D,3, ORAL) Take by mouth once daily. OTC PRODUCT Rusty Pro Multivitamin 1 tab daily folic acid 1 mg tablet Take 1 mg by mouth once daily. 2 tabs daily acetic acid (ACETASOL OTIC) Use in the ears. In R ear as needed Current Facility-Administered Medications Medication Dose Route Frequency Provider Last Rate Last Admin perflutren lipid microspheres 1.3 mL in NaCl (PF) 0.9% 10 mL injection (DEFINITY) INTRAVENOUS DIRECTED NEPTALI Katz MD sodium chloride 0.9 % (flush) 10 mL (BD POSIFLUSH) 10 mL INTRAVENOUS DIRECTED NEPTALI Katz MD perflutren lipid microspheres 1.3 mL in NaCl (PF) 0.9% 10 mL injection (DEFINITY) INTRAVENOUS DIRECTED NEPTALI Katz MD sodium chloride 0.9 % (flush) 10 mL (BD POSIFLUSH) 10 mL INTRAVENOUS DIRECTED NEPTALI Katz MD perflutren lipid microspheres 1.3 mL in NaCl (PF) 0.9% 10 mL injection (DEFINITY) INTRAVENOUS DIRECTED NEPTALI Katz MD sodium chloride 0.9 % (flush) 10 mL (BD POSIFLUSH) 10 mL INTRAVENOUS DIRECTED NEPTALI Katz MD Review of Systems Constitutional: Negative for chills, diaphoresis, fever, malaise/fatigue and weight loss. HENT: Negative for congestion, ear discharge, ear pain, hearing loss, nosebleeds, sinus pain, sore throat and tinnitus. Eyes: Negative for blurred vision, double vision, photophobia, pain, discharge and redness. Respiratory: Negative for cough, hemoptysis, sputum production, shortness of breath, wheezing and stridor. Cardiovascular: Negative for chest pain, palpitations, orthopnea, claudication, leg swelling and PND. Gastrointestinal: Negative for abdominal pain, blood in stool, constipation, diarrhea, heartburn, melena, nausea and vomiting. Genitourinary: Negative for dysuria, flank pain, frequency, hematuria and urgency. Musculoskeletal: Negative for back pain, falls, joint pain, myalgias and neck pain. Skin: Negative for itching and rash. Neurological: Negative for dizziness, tingling, tremors, sensory change, speech change, focal weakness, seizures, loss of consciousness, weakness and headaches. Endo/Heme/Allergies: Negative for environmental allergies and polydipsia. Does not bruise/bleed easily. Psychiatric/Behavioral: Negative for depression, hallucinations, memory loss, substance abuse and suicidal ideas. The patient is not nervous/anxious and does not have insomnia. Physical Examination: Vitals:BP 154/92 Pulse 90 Resp 20 Ht 5' 8 (1.73m) Wt 250 lb (113.4kg) BMI 38.02 kg/(m^2). BP w/Orthostatic Vitals Date and Time Orthostatic BP Orthostatic Pulse BP Pulse BP Position BP Site BP Cuff Size 08/17/21 1257 -- -- 154/92 90 Sitting Right Arm Large Adult Peak Flow Date and Time PF Resp 08/17/21 1257 -- 20 Last 2 Encounter Wt Readings: Date: Wt: 08/17/2021 113.4 kg (250 lb) 07/20/2021 113.4 kg (250 lb) Physical Exam Constitutional: General: She is not in acute distress. Appearance: She is not diaphoretic. HENT: Head: Normocephalic and atraumatic. Right Ear: External ear normal. Left Ear: External ear normal. Nose: Nose normal. Mouth/Throat: Mouth: Mucous membranes are moist. Eyes: General: Right eye: No discharge. Left eye: No discharge. Conjunctiva/sclera: Conjunctivae normal. Pupils: Pupils are equal, round, and reactive to light. Cardiovascular: Rate and Rhythm: Normal rate and regular rhythm. Heart sounds: Normal heart sounds, S1 normal and S2 normal. No murmur heard. No friction rub. No gallop. No S3 or S4 sounds. Pulmonary: Effort: Pulmonary effort is normal. No respiratory distress. Breath sounds: Normal breath sounds. No wheezing or rales. Chest: Chest wall: No tenderness. Musculoskeletal: General: Normal range of motion. Cervical back: Normal range of motion and neck supple. Skin: General: Skin is warm and dry. Neurological: Mental Status: She is alert and oriented to person, place, and time. Psychiatric: Mood and Affect: Mood normal. Thought Content: Thought content normal. Judgment: Judgment normal. Pertinent Labs: CBC: No results found for: HB, HCT, WBC, PLT BMP: No results found for: GLUC, K, NA, CHLOR, CO2, CREAT, BUN, ANION, CA INR: Lipid Profile: No results found for: CHOL, HDL, LDL, TG Hemoglobin A1C: No results found for: HGBA1C TSH: No results found for: TSHREFL Prior Cardiac Testing none Assessment and Plan: 60 years old doing well from the cardiac point of view. Her Coreg to 12.5 mg twice a day Continue with the monitor blood pressure Follow-up in 6 months Follow up plannin months Electronically signed by Leigh Katz MD on August 17, 2021, 1:09 PM The above note was partially created using a dictation recognition software. A reasonable attempt has been made to correct any errors. documented in this encounter [facility] 08-07-2021 Miscellaneous Notes Left detailed message on identified voicemail with below information. Instructed pt. to call back if any questions/ concerns. Erika Vogt RN LVM to contact office in regards to below ----- Message from Ashley Valdez APRN.CNP sent at 08/04/2021 10:37 AM EDT ----- Covering for Dr. Katz. Please call patient and notify them of normal results. Stress echo was without suggestion of ischemia. Thank you! documented in this encounter [facility] 07-29-2021 Miscellaneous Notes Left message regarding reminder for stress test tomorrow and given instructions. documented in this encounter [facility] 07-13-2021 Nurse Note Pt presented to Stress echo lab, pt prepped and obtained 12-lead EKG per protocol. Initial reading on automatic BP unattainable per technical project manager. Manual BP done by this RN 198/100. Consult with before proceeding with stress echo and concluded to hold stress test at this time and follow up with next week as scheduled and try to get BP under better control and then proceed with testing. Pt also stated she has had both knees and hip replaced and not sure if she will be capable of walking on treadmill, pt does not exercise at home. Joselyn Hernández RN documented in this encounter [facility] Evaluation + Plan note Future Appointments Appointment Date:06/10/2021 02:15:00 PM Scheduled Provider:ASHLEY MARTIN Location:[facility] Appointment Type:PC [facility] Evaluation + Plan note Future Appointments Appointment Date:12/16/2021 03:00:00 PM Scheduled Provider:ASHLEY MARTIN APRN-ROMERO Location:[facility] Appointment Type:PC Wellness Annual [facility] Evaluation + Plan note Future Appointments Appointment Date:06/15/2022 03:30:00 PM Scheduled Provider:ASHLEY MARTIN Location:[facility] Appointment Type:PC [facility] documented in this encounter [facility] note* Diagnosis Paroxysmal supraventricular tachycardia (HCC) Paroxysmal supraventricular tachycardia documented in this encounter [facility] note* Diagnosis Obesity, Class II, BMI 35-39.9 Obesity, unspecified documented in this encounter [facility] note* Diagnosis Primary hypertension- Primary Unspecified essential hypertension documented in this encounter [facility] note* Diagnosis Pure hypercholesterolemia- Primary Primary hypertension Unspecified essential hypertension Occlusion of right carotid artery Occlusion and stenosis of carotid artery without mention of cerebral infarction documented in this encounter [facility] course Narrative No data available for this section [facility] Hospital Discharge instructions No data available for this section [facility] Progress note No data available for this section [facility] Reason for referral (narrative)* Outpatient Procedure (Routine) - Closed Specialty Diagnoses / Procedures Referred By Adin toth Referred To Contact [facility] [place] Diagnoses Paroxysmal supraventricular tachycardia (HCC) Procedures STRESS ECHO TREADMILL ECHO TTHRC R-T 2D W/WO M-MODE COMPLETE REST&ST Leigh Katz MD [address] [place] [address] [facility] [place] [address] [place] [id number] Referral ID Status Reason Start Date Expiration Date V isits Requested Visits Authorized [id number] Closed Auto-Generate d Referral 07/27/2021 07/20/2022 1 1 [facility] for visit Narrative* Outpatient Procedure (Routine) - Authorized Specialty Diagnoses / Procedures Referred By Adin toth [facility] Diagnoses Shortness of breath Procedures STRESS ECHO TREADMILL ECHO TTHRC R-T 2D W/WO M-MODE COMPLETE REST&ST Leigh Katz MD [address] [place] [address] [facility] [address] [place] [address] Referral ID Status Reason Start Date Expiration Date Visits Requested Visits Authorized [id number] Authorized Auto-Generat ed Referral 05/25/2021 05/25/2022 1 1 [facility]patient Procedure (Routine) - Closed Specialty Diagnoses / Procedures Referred By Contac t Referred To Contact [facility] [place] Diagnoses Paroxysmal supraventricular tachycardia (HCC) Procedures STRESS ECHO TREADMILL ECHO TTHRC R-T 2D W/WO M-MODE COMPLETE REST&ST Leigh Katz MD [address] [place] [address] [facility] [address] [place] [address] Referral ID Status Reason Start Date Expiration Date V isits Requested Visits Authorized [id number] Closed Auto-Generate d Referral 07/27/2021 07/20/2022 1 1 [facility] Summary Purpose Family History No Family History Records FoundNo Family History Records FoundNo Family History Records FoundNo Family History Records Found Advance Directives No Advanced Directives Records FoundNo Advanced Directives Records FoundNo Advanced Directives Records FoundNo Advanced Directives Records Found Additional Source Comments Source Comments (unrecognize d section and content) In the event this informatio n is protected by the Federal Confidentiality of Alcohol and Drug Abuse Patient Records regulations: The Federal rules restrict any use of the information to criminally investigate or prosecute any alcohol or drug abuse patient.[facility] the event this information is protected by the Federal Confidentiality of Alcohol and Drug Abuse Patient Records regulations: The Federal rules restrict any use of the information to criminally investigate or prosecute any alcohol or drug abuse patient.[facility] the event this information is protected by the Federal Confidentiality of Alcohol and Drug Abuse Patient Records regulations: The Federal rules restrict any use of the information to criminally investigate or prosecute any alcohol or drug abuse patient.[facility] the event this information is protected by the Federal Confidentiality of Alcohol and Drug Abuse Patient Records regulations: The Federal rules restrict any use of the information to criminally investigate or prosecute any alcohol or drug abuse patient.[facility] the event this information is protected by the Federal Confidentiality of Alcohol and Drug Abuse Patient Records regulations: The Federal rules restrict any use of the information to criminally investigate or prosecute any alcohol or drug abuse patient.[facility] the event this information is protected by the Federal Confidentiality of Alcohol and Drug Abuse Patient Records regulations: The Federal rules restrict any use of the information to criminally investigate or prosecute any alcohol or drug abuse patient.[facility] the event this information is protected by the Federal Confidentiality of Alcohol and Drug Abuse Patient Records regulations: The Federal rules restrict any use of the information to criminally investigate or prosecute any alcohol or drug abuse patient.[facility] the event this information is protected by the Federal Confidentiality of Alcohol and Drug Abuse Patient Records regulations: The Federal rules restrict any use of the information to criminally investigate or prosecute any alcohol or drug abuse patient.[facility] the event this information is protected by the Federal Confidentiality of Alcohol and Drug Abuse Patient Records regulations: The Federal rules restrict any use of the information to criminally investigate or prosecute any alcohol or drug abuse patient.[facility] the event this information is protected by the Federal Confidentiality of Alcohol and Drug Abuse Patient Records regulations: The Federal rules restrict any use of the information to criminally investigate or prosecute any alcohol or drug abuse patient.[facility] Teams (unrecognized sec tion and content) Elevator Repairer Helper Relationship Specialty Start Date End Date Ashley Martin S [address] [place] [address] PCP - General Family Practice 03/03/20 Elevator Repairer Helper Relationship Specialty Start Date End Date Ashley Martin [address] [place] [address] PCP - General Family Practice 03/03/20 Elevator Repairer Helper Relationship Specialty Start Date End Date Ashley Martin [address] [place] [address] PCP - General Family Practice 03/03/20 Elevator Repairer Helper Relationship Specialty Start Date End Date Ashley Martin [address] [place] [address] PCP - General Family Practice 03/03/20 Elevator Repairer Helper Relationship Specialty Start Date End Date Ashley Martin [address] [place] [address] PCP - General Family Medicine 03/03/20 Elevator Repairer Helper Relationship Specialty Start Date End Date Ashley Martin [address] [place] [address] PCP - General Family Medicine 03/03/20 Elevator Repairer Helper Relationship Specialty Start Date End Date Ashley Martin [address] [place] [address] PCP - General Family Medicine 03/03/20 Reason for Visit (unrecogniz ed section and content) Reason Comments Results Reason Comments Established Patient Follow-Up stress ech o review Reason Comments Refill Request Reason Comments 6 month check Reason Comments Follow Up 1 year ROBERT 03/01/22 INFORMATION SOURCE (unrecogn ized section and content) DATE CREATED AUTHOR AUTHOR'S ORGANIZ ATION 10/24/2022 [facility] ([place]) DATE CREATED AUTHOR AUTHOR'S ORGANIZ ATION 03/19/2023 [facility] DATE CREATED AUTHOR AUTHOR'S ORGANIZ ATION 04/11/2023 [facility] Care Team (unrecognized sect ion and content) Care Team Personnel Name: Arturo Nicole Clerray Martínez PT Position: P3 Scheduling - Clerk General Office Advanced Member Role: Other Name: ASHLEY MARTIN Position: P4 Advanced Practice Nurse Med Service: Employed Provider Member Role: Primary Care Physician Address: Address: [address] [place] [address]- Care Team Related Persons Name: PANCHO BERRY Care Team Personnel Name: Arturo Nicole PT Position: P3 Scheduling - Clerk General Office Advanced Member Role: Other Name: ASHLEY MARTIN Position: P4 Advanced Practice Nurse Med Service: Employed Provider Member Role: Primary Care Physician Address: Address: [address] [place] [address] Care Team Related Persons Name: PANCHO BERRY FOR RECORDS PERTAINING TO PATIENTS WHO ARE OR HAVE BEEN ENROLLED IN A CHEMICAL DEPENDENCY/SUBSTANCEABUSE PROGRAM, SOME INFORMATION MAY BE OMITTED. This clinical summary was aggregated from multiple sources. Caution should be exercised in using it in the provision of clinical care. This summary normalizes information from multiple sources, and as a consequence, information in this document may materially change the coding, format and clinical context of patient data. In addition, data may be omitted in some cases. CLINICAL DECISIONS SHOULD BE BASED ON THE PRIMARY CLINICAL RECORDS. [facility]. provides no warranty or guarantee of the accuracy or completeness of information in this document.
[2023-04-27 08:34] LABS: Absolute Lymphocyte Count 1.11 X10^3/uL (0.83-4.51); Absolute Neutrophil Count 3.3 X10^3/uL (2.0-7.7); Basophil# 0.03 X10^3/uL; Basophil% 0.6 % (0-1); Eosinophil# 0.08 X10^3/uL; Eosinophils% 1.6 % (0-5); Hematocrit 43.3 % (37-47); Hemoglobin 13.8 g/dL (12.0-15.0); Lymphocyte # 1.11 X10^3/ul (0.83-4.51); Lymphocyte % 21.9 % (19-41); Mean Corp Hgb Conc 31.9 g/dL (32-36); Mean Corpuscular Hgb 31.7 pg (27.0-32.0); Mean Corpuscular Volume 99.3 fL (81-99); Mean Platelet Vol. 9.4 fl (6.2-12.0); Monocyte# 0.53 X10^3/uL; Monocyte% 10.4 % (0-10); NRBC Flagged by Analyzer 0 % (0-5); Neutrophil # 3.32 X10^3/uL (2.7-7.7); Neutrophil % 65.3 % (47-70); Platelet Count 206 K/mm3 (150-450); RBC Distribution Width CV 13.5 % (11.6-14.6); RBC Distribution Width SD 48.6 fl (35.1-43.9); Red Blood Count 4.36 M/mm3 (4.2-5.4); White Blood Count 5.1 K/mm3 (4.4-11.0)
[2023-04-27 09:00] LABS: AST(SGOT) 21 U/L (15-37); Alanine Aminotransfer ALT/SGPT 23 U/L (13-56); Albumin, Serum 3.7 g/dL (3.2-5.0); Alkaline Phosphatase 111 U/L (45-117); Anion Gap 4 (5-15); BUN 18 mg/dL (7-18); BUN/Creat Ratio 19.6 RATIO (10-20); Calcium,Total 9.4 mg/dL (8.5-10.1); Chloride 105 mmol/L (98-107); Creatinine, Serum 0.92 mg/dL (0.55-1.02); EST Glomerular Filtration Rate 66 mL/min (>60); Est Glom Filt Rate - Afr Amer 80 mL/min (>60); Globulin 3.8 g/dL (2.2-4.2); Glucose 105 mg/dL (74-106); Protein, Total 7.5 g/dL (6.4-8.2); Sodium Level 136 mmol/L (136-145)
== END | disposition home or self-care (01) ==
PROVIDERS: PCP Nurse Practitioner Primary Care; Referring Provider Internal Medicine Rheumatology; Visit Provider Internal Medicine Rheumatology
DX: M06.00 Rheumatoid arthritis without rheumatoid factor, unspecified site (principal); Z79.899 Other long term (current) drug therapy
CPT/HCPCS: 36415; 80053; 85025

== ENCOUNTER → 2023-07-22 | Outpatient (CLI) | payer OTHER, SELFPAY ==
[2023-07-22 10:31] LABS: Absolute Lymphocyte Count 1.24 X10^3/uL (0.83-4.51); Absolute Neutrophil Count 2.8 X10^3/uL (2.0-7.7); Basophil# 0.04 X10^3/uL; Basophil% 0.9 % (0-1); Eosinophil# 0.06 X10^3/uL; Eosinophils% 1.3 % (0-5); Hematocrit 41.6 % (37-47); Hemoglobin 13.5 g/dL (12.0-15.0); Lymphocyte # 1.24 X10^3/ul (0.83-4.51); Lymphocyte % 27.3 % (19-41); Mean Corp Hgb Conc 32.5 g/dL (32-36); Mean Corpuscular Hgb 31.8 pg (27.0-32.0); Mean Corpuscular Volume 97.9 fL (81-99); Mean Platelet Vol. 9.2 fl (6.2-12.0); Monocyte# 0.44 X10^3/uL; Monocyte% 9.7 % (0-10); NRBC Flagged by Analyzer 0 % (0-5); Neutrophil # 2.75 X10^3/uL (2.7-7.7); Neutrophil % 60.6 % (47-70); Platelet Count 188 K/mm3 (150-450); RBC Distribution Width CV 13.5 % (11.6-14.6); RBC Distribution Width SD 48.4 fl (35.1-43.9); Red Blood Count 4.25 M/mm3 (4.2-5.4); White Blood Count 4.5 K/mm3 (4.4-11.0)
[2023-07-22 11:09] LABS: AST(SGOT) 21 U/L (15-37); Alanine Aminotransfer ALT/SGPT 21 U/L (13-56); Albumin, Serum 3.6 g/dL (3.2-5.0); Alkaline Phosphatase 99 U/L (45-117); Anion Gap 6 (5-15); BUN 15 mg/dL (7-18); BUN/Creat Ratio 14.9 RATIO (10-20); Calcium,Total 9.1 mg/dL (8.5-10.1); Chloride 106 mmol/L (98-107); Creatinine, Serum 1.01 mg/dL (0.55-1.02); EST Glomerular Filtration Rate 59 mL/min (>60); Est Glom Filt Rate - Afr Amer 72 mL/min (>60); Globulin 3.6 g/dL (2.2-4.2); Glucose 112 mg/dL (74-106); Potassium 4.7 mmol/L (3.5-5.1); Protein, Total 7.2 g/dL (6.4-8.2); Sodium Level 140 mmol/L (136-145)
== END | disposition home or self-care (01) ==
LOC: LAB 09:55
PROVIDERS: PCP Nurse Practitioner Primary Care; Referring Provider Internal Medicine Rheumatology; Visit Provider Internal Medicine Rheumatology
DX: M06.00 Rheumatoid arthritis without rheumatoid factor, unspecified site (principal); Z79.899 Other long term (current) drug therapy
CPT/HCPCS: 36415; 80053; 85025

== ENCOUNTER → 2023-10-07 | Outpatient (CLI) | payer OTHER, SELFPAY ==
[2023-10-07 10:42] LABS: Absolute Neutrophil Count 2.3 X10^3/uL (2.0-7.7); Basophil# 0.05 X10^3/uL; Basophil% 1.2 % (0-1); Eosinophil# 0.11 X10^3/uL; Eosinophils% 2.7 % (0-5); Hematocrit 43.1 % (37-47); Hemoglobin 13.8 g/dL (12.0-15.0); Lymphocyte % 29.3 % (19-41); Mean Corpuscular Hgb 31.3 pg (27.0-32.0); Mean Corpuscular Volume 97.7 fL (81-99); Mean Platelet Vol. 9.3 fl (6.2-12.0); Monocyte# 0.42 X10^3/uL; Monocyte% 10.2 % (0-10); NRBC Flagged by Analyzer 0 % (0-5); Neutrophil # 2.28 X10^3/uL (2.7-7.7); Neutrophil % 55.6 % (47-70); Platelet Count 202 K/mm3 (150-450); RBC Distribution Width CV 13.3 % (11.6-14.6); RBC Distribution Width SD 47.8 fl (35.1-43.9); Red Blood Count 4.41 M/mm3 (4.2-5.4); White Blood Count 4.1 K/mm3 (4.4-11.0)
[2023-10-07 11:13] LABS: ALB/GLOB Ratio 0.9 RATIO (0.9-2.4); AST(SGOT) 19 U/L (15-37); Alanine Aminotransfer ALT/SGPT 17 U/L (13-56); Albumin, Serum 3.5 g/dL (3.2-5.0); Alkaline Phosphatase 112 U/L (45-117); Anion Gap 6 (5-15); BUN 14 mg/dL (7-18); BUN/Creat Ratio 14.2 RATIO (10-20); Calcium,Total 9.7 mg/dL (8.5-10.1); Chloride 105 mmol/L (98-107); Creatinine, Serum 0.98 mg/dL (0.55-1.02); EST Glomerular Filtration Rate 61 mL/min (>60); Est Glom Filt Rate - Afr Amer 74 mL/min (>60); Globulin 3.8 g/dL (2.2-4.2); Glucose 110 mg/dL (74-106); Potassium 4.8 mmol/L (3.5-5.1); Protein, Total 7.3 g/dL (6.4-8.2); Sodium Level 139 mmol/L (136-145)
== END | disposition home or self-care (01) ==
PROVIDERS: PCP Nurse Practitioner Primary Care; Referring Provider Internal Medicine Rheumatology; Visit Provider Internal Medicine Rheumatology
DX: M06.00 Rheumatoid arthritis without rheumatoid factor, unspecified site (principal); Z79.899 Other long term (current) drug therapy
CPT/HCPCS: 36415; 80053; 85025

== ENCOUNTER → 2023-12-30 | Outpatient (CLI) | payer OTHER, SELFPAY ==
[2023-12-30 08:28] LABS: Absolute Lymphocyte Count 1.13 X10^3/uL (0.83-4.51); Absolute Neutrophil Count 2.2 X10^3/uL (2.0-7.7); Basophil# 0.05 X10^3/uL; Basophil% 1.2 % (0-1); Eosinophil# 0.08 X10^3/uL; Eosinophils% 1.9 % (0-5); Hematocrit 43.2 % (37-47); Hemoglobin 13.8 g/dL (12.0-15.0); Lymphocyte # 1.13 X10^3/ul (0.83-4.51); Lymphocyte % 27.5 % (19-41); Mean Corp Hgb Conc 31.9 g/dL (32-36); Mean Corpuscular Hgb 31.1 pg (27.0-32.0); Mean Corpuscular Volume 97.3 fL (81-99); Mean Platelet Vol. 10.7 fl (6.2-12.0); Monocyte% 14.6 % (0-10); NRBC Flagged by Analyzer 0 % (0-5); Neutrophil # 2.24 X10^3/uL (2.7-7.7); Neutrophil % 54.6 % (47-70); Platelet Count 199 K/mm3 (150-450); RBC Distribution Width CV 14.2 % (11.6-14.6); RBC Distribution Width SD 50.6 fl (35.1-43.9); Red Blood Count 4.44 M/mm3 (4.2-5.4); White Blood Count 4.1 K/mm3 (4.4-11.0)
[2023-12-30 09:01] LABS: ALB/GLOB Ratio 1.2 RATIO (0.9-2.4); AST(SGOT) 31 U/L (15-37); Alanine Aminotransfer ALT/SGPT 33 U/L (13-56); Albumin, Serum 4.1 g/dL (3.2-5.0); Alkaline Phosphatase 97 U/L (45-117); Anion Gap 5 (5-15); BUN 14 mg/dL (7-18); BUN/Creat Ratio 13.5 RATIO (10-20); Calcium,Total 9.7 mg/dL (8.5-10.1); Chloride 105 mmol/L (98-107); Creatinine, Serum 1.04 mg/dL (0.55-1.02); EST Glomerular Filtration Rate 57 mL/min (>60); Est Glom Filt Rate - Afr Amer 69 mL/min (>60); Globulin 3.5 g/dL (2.2-4.2); Glucose 115 mg/dL (74-106); Potassium 4.3 mmol/L (3.5-5.1); Protein, Total 7.6 g/dL (6.4-8.2); Sodium Level 137 mmol/L (136-145)
== END | disposition home or self-care (01) ==
LOC: LAB 07:13
PROVIDERS: PCP Nurse Practitioner Primary Care; Referring Provider Internal Medicine Rheumatology; Visit Provider Internal Medicine Rheumatology
DX: M06.00 Rheumatoid arthritis without rheumatoid factor, unspecified site (principal); Z79.899 Other long term (current) drug therapy
CPT/HCPCS: 36415; 80053; 85025

== ENCOUNTER → 2024-03-29 | Outpatient (CLI) | payer OTHER, SELFPAY ==
[2024-03-29 11:36] LABS: Absolute Lymphocyte Count 1.14 X10^3/uL (0.83-4.51); Basophil# 0.05 X10^3/uL; Basophil% 1.1 % (0-1); Eosinophil# 0.08 X10^3/uL; Eosinophils% 1.7 % (0-5); Hematocrit 41.4 % (37-47); Hemoglobin 13.5 g/dL (12.0-15.0); Lymphocyte # 1.14 X10^3/ul (0.83-4.51); Lymphocyte % 24.1 % (19-41); Mean Corp Hgb Conc 32.6 g/dL (32-36); Mean Corpuscular Hgb 32.2 pg (27.0-32.0); Mean Corpuscular Volume 98.8 fL (81-99); Monocyte# 0.45 X10^3/uL; Monocyte% 9.5 % (0-10); NRBC Flagged by Analyzer 0 % (0-5); Neutrophil # 2.99 X10^3/uL (2.7-7.7); Neutrophil % 63.2 % (47-70); Platelet Count 214 K/mm3 (150-450); RBC Distribution Width CV 13.7 % (11.6-14.6); RBC Distribution Width SD 49.7 fl (35.1-43.9); Red Blood Count 4.19 M/mm3 (4.2-5.4); White Blood Count 4.7 K/mm3 (4.4-11.0)
[2024-03-29 12:08] LABS: AST(SGOT) 17 U/L (15-37); Alanine Aminotransfer ALT/SGPT 23 U/L (13-56); Albumin, Serum 3.7 g/dL (3.2-5.0); Alkaline Phosphatase 106 U/L (45-117); Anion Gap 2 (5-15); BUN 20 mg/dL (7-18); BUN/Creat Ratio 19.4 RATIO (10-20); Calcium,Total 9.6 mg/dL (8.5-10.1); Chloride 105 mmol/L (98-107); Creatinine, Serum 1.03 mg/dL (0.55-1.02); EST Glomerular Filtration Rate 58 mL/min (>60); Est Glom Filt Rate - Afr Amer 70 mL/min (>60); Globulin 3.6 g/dL (2.2-4.2); Glucose 107 mg/dL (74-106); Protein, Total 7.3 g/dL (6.4-8.2); Sodium Level 135 mmol/L (136-145)
== END | disposition home or self-care (01) ==
LOC: LAB 11:09
PROVIDERS: PCP Nurse Practitioner Primary Care; Referring Provider Internal Medicine Rheumatology; Visit Provider Internal Medicine Rheumatology
DX: M06.00 Rheumatoid arthritis without rheumatoid factor, unspecified site (principal); Z79.899 Other long term (current) drug therapy
CPT/HCPCS: 36415; 80053; 85025

== ENCOUNTER → 2024-09-03 | Outpatient (CLI) | payer OTHER, SELFPAY ==
--- NOTE | 2024-09-03 10:53 | CDU_ITS ---
Reason For Study Reason For Study: Rt ICA Occlusion Rt. Velocities/BP Lt. Velocities/BP Prox CCA 62.5/12.0 cm/sec. Prox CCA 49.7/21.4 cm/sec. Mid CCA 89.1/14.2 cm/sec. Mid CCA 55.4/26.1 cm/sec. Dist CCA 99.0/20.4 cm/sec. Dist CCA 94.2/41.3 cm/sec. Rt ICA Known Occlusion. Prox ICA 144.0/56.2 cm/sec. Prox ECA 205.5/24.1 cm/sec. Mid ICA 173.3/63.4 cm/sec. Rt. Vert. 80.2/34.5 cm/sec. Dist ICA 95.7/40.8 cm/sec. Lt. ICA/CCA = 3.1. Prox ECA 401.8/75.3 cm/sec. Lt. Vert. 95.2/32.5 cm/sec. Right Extracranial There is heterogeneous, irregular atherosclerotic plaque noted in the right common carotid artery. There is heterogeneous, irregular atherosclerotic plaque noted in the right internal carotid artery. The right internal carotid artery is occluded. There is heterogeneous, irregular atherosclerotic plaque noted in the right external carotid artery. Antegrade flow is noted in the right vertebral artery. Left Extracranial There is heterogeneous, irregular atherosclerotic plaque noted in the left common carotid artery. There is intimal thickening but no significant atherosclerotic plaque noted in the left internal carotid artery. There is intimal thickening but no significant atherosclerotic plaque noted in the left external carotid artery. The atherosclerotic plaque causes acoustic shadowing. Antegrade flow is noted in the left vertebral artery. Procedure Carotid Duplex 93610. This is a Carotid Duplex examination using B-mode, color flow and specral Doppler. The exam was diagnostic. Exam performed in department. VL/Carotid Duplex Ultrasound Interpretation Summary Occlusion of the right extracranial internal carotid. Moderate (50-69%) stenosis left extracranial internal carotid. Patent and antegrade vertebrals bilaterally. Ordering Physician: Jamila Grossman Referring Physician: Joanna Owens Performed By: Ge King RVT
== END | disposition home or self-care (01) ==
LOC: CVS 10:51
PROVIDERS: PCP Nurse Practitioner Primary Care; Referring Provider Physician Assistant; Visit Provider Physician Assistant
DX: I65.23 Occlusion and stenosis of bilateral carotid arteries (principal)
CPT/HCPCS: 93880

== ENCOUNTER → 2024-09-12 | Outpatient (CLI) | payer OTHER, SELFPAY ==
[2024-09-12 10:29] LABS: Absolute Lymphocyte Count 1.14 X10^3/uL (0.83-4.51); Basophil# 0.02 X10^3/uL; Basophil% 0.4 % (0-1); Eosinophil# 0.15 X10^3/uL; Eosinophils% 3.1 % (0-5); Hematocrit 41.6 % (37-47); Hemoglobin 13.5 g/dL (12.0-15.0); Lymphocyte # 1.14 X10^3/ul (0.83-4.51); Lymphocyte % 23.5 % (19-41); Mean Corp Hgb Conc 32.5 g/dL (32-36); Mean Corpuscular Hgb 31.4 pg (27.0-32.0); Mean Corpuscular Volume 96.7 fL (81-99); Mean Platelet Vol. 8.9 fl (6.2-12.0); Monocyte# 0.55 X10^3/uL; Monocyte% 11.3 % (0-10); NRBC Flagged by Analyzer 0 % (0-5); Neutrophil # 2.98 X10^3/uL (2.7-7.7); Neutrophil % 61.5 % (47-70); Platelet Count 197 K/mm3 (150-450); RBC Distribution Width CV 13.9 % (11.6-14.6); RBC Distribution Width SD 48.9 fl (35.1-43.9); White Blood Count 4.9 K/mm3 (4.4-11.0)
[2024-09-12 11:52] LABS: ALB/GLOB Ratio 1.4 RATIO (0.9-2.4); AST(SGOT) 30 U/L (<=31); Alanine Aminotransfer ALT/SGPT 20 U/L (<=34); Albumin, Serum 4.1 g/dL (3.4-4.8); Alkaline Phosphatase 106 U/L (35-104); Anion Gap 11 (5-15); BUN 19 mg/dL (4-19); BUN/Creat Ratio 21.2 RATIO (10-20); Calcium,Total 9.9 mg/dL (7.6-11.0); Carbon Dioxide 24.1 mmol/L (21.0-32.0); Chloride 104 mmol/L (98-108); Creatinine, Serum 0.88 mg/dL (0.70-1.20); EST Glomerular Filtration Rate 74 (>60); Globulin 2.9 g/dL (2.2-4.2); Glucose 113 mg/dL (70-99); Potassium 4.9 mmol/L (3.3-5.1); Sodium Level 139 mmol/L (133-145); Total Bilirubin 0.54 mg/dL (0.00-1.30)
== END | disposition home or self-care (01) ==
LOC: LAB 09:41
PROVIDERS: PCP Nurse Practitioner Primary Care; Referring Provider Internal Medicine Rheumatology; Visit Provider Internal Medicine Rheumatology
DX: M06.00 Rheumatoid arthritis without rheumatoid factor, unspecified site (principal); Z79.899 Other long term (current) drug therapy
CPT/HCPCS: 36415; 80053; 85025

== ENCOUNTER → 2024-12-10 | Outpatient (CLI) | payer OTHER, SELFPAY ==
--- OUTSIDE RECORDS SUMMARY | 2024-12-10 07:21 | XMS RPT_ITS | CCD ---
Author Organization [facility] Care Team Providers Care Revenue Cycle Analyst Name Role Phone GRACIELA WELL PULLER HEAD-REVENUE INSPECTOR, JOANNA S Primary Care Physicia n Corey PT, Tanya Unavailable Unavailable Lizzy Martinica S Primary Care Provider [phone] Lizzy Martinica S Primary Care Provider [phone] Efraín Martinssica S Primary Care Provider Graciela GRE TUTOR, GRE TUTOR-C Joanna Primary Care Provider [phone] Graciela GRE TUTOR, GRE TUTOR-C Joanna Referring Provider [phone] KANG Rodriges Attending Provider Dr. Glen Chau Attending Provider [phone] Dr. Glen Chau Referring Provider [phone] Dr. Glen Chau Other Provider Lizzy Martinica S Primary Care Provider [phone] Graciela GRE TUTOR, GRE TUTOR-C Joanna Referring Provider [phone] KANG Grossman Attending Provider [phone] Graciela GRE TUTOR, GRE TUTOR-C Joanna Primary Care Provider [phone] Dr. Glen Chau Attending Provider [phone] KANG Grossman Referring Provider [phone] GRACIELA ARIAS-EFRAÍN JASSOSSICA S Attending Unava ilable GRACIELA NGUYENN-REVENUE INSPECTOR, JOANNA S Primary Care Unava ilable Graciela JASSO, Joanna S Primary Care Provider [phone] ZOË KATZ Referring Unavailable ZOË KATZ Attending Unavailable GRACIELA, JOANNA S Primary Care Unavailable Graciela GRE TUTOR-C, Joanna Primary Care Provider [phone] Ngoc KAPADIA, Jamila Attending Provider [phone] Jamila Coburn Referring Provider [phone] Kandi MEZA, Dr. Carroll Attending Provider [phone] Jimmy MEZA, Dr. Ramírez Attending Provider Jimmy MEZA, Dr. Ramírez Referring Provider Graciela GRE TUTOR-C, Joanna Referring Provider [phone] Vellanki, Desiree Attending Unavailable Vellanki, Desiree Referring Unavailable Graciela GRE TUTOR, Joanna Primary Care Unavailable Vellanki, Desiree Attending Unavailable Vellanki, Desiree Referring Unavailable [place] GRE TUTOR, Joanna Primary Care Unavailable Grossman, Jamila Attending Unavailable Grossman, Jamila Referring Unavailable Graciela GRE TUTOR, Joanna Primary Care Unavailable Vellanki, Desiree Attending Unavailable Vellanki, Desiree Referring Unavailable [place] GRE TUTOR, Joanna Primary Care Unavailable Glen Chau Attending Unavailable Grossman, Jamila Referring Unavailable [place] GRE TUTOR, Joanna Primary Care Unavailable [place] GRE TUTOR, Joanna Referring Unavailable [place] GRE TUTOR, Joanna Primary Care Unavailable Grossman, Jamila Attending Unavailable Vellanki, Desiree Attending Unavailable Vellanki, Desiree Referring Unavailable Graciela GRE TUTOR, Joanna Primary Care Unavailable GRACIELA WELL PULLER HEAD-REVENUE INSPECTOR, JOANNA S Attending Unava ilable GRACIELA WELL PULLER HEAD-REVENUE INSPECTOR, JOANNA S Primary Care Unava ilable Nate MEZA, Glynn Duke Unavailable NONE, NONE Unavailable Unavailable Graciela DOUGHNUT ICER, Joanna S Unavailable [phone] Allergies Allergy Classification Reported Allergen(s) Allergy Type Date of Onset Reaction(s) Facility (7 sources) Acetaminophen / HYDROcodone; Translations: [acetaminophen-hydr ocodone] Drug Allergy nausea [facility] (20 sources) Erythromycin; Translations: [erythromycin] Drug Allergy 017 Hives [facility] (7 sources) influenza A virus A/[place]/2014 (H1N1) antigen / influenza A virus A/2014 (H3N2) antigen / influenza B virus B/[place] antigen / influenza B virus B/ antigen; Translations: [influenza virus vaccine] Drug Allergy nausea, muscle loss, edema [facility] (20 sources) Morphine; Translations: [morphine] Drug Allergy Mental Status Change [facility] (7 sources) tetanus toxoid vaccine, inactivated; Translations: [tetanus toxoid] Drug Allergy nausea, muscle loss, edema [facility] (12 sources) diphtheria toxoid vaccine, inactivated / tetanus toxoid vaccine, inactivated; Translations: [TETANUS AND DIPHTHER. TOX (PF)] Drug Allergy GI Upset [facility] (2 sources) DPT vaccine Propensity to adverse reactions 023 severe muscle weakness, nausea [facility] (8 sources) diphtheria, pertussis, tetanus vacc; Translations: [diphtheria, pertussis, tetanus vacc] Propensity to adverse reactions Nausea [facility] (7 sources) Opioids - Morphine Analogues Propensity to adverse reactions 023 Nausea/Vom/Diarr hea [facility] (1 source) Erythromycin Drug Allergy [facility] (1 source) Morphine Drug Allergy [facility] (1 source) Opioids - Morphine Analogues Drug allergy (disorder) 025 [facility] (1 source) Cortisone Drug Allergy 017 [facility] (1 source) Ibuprofen Drug Allergy 019 [facility] (1 source) Morphine Drug Allergy 019 itching [facility] (1 source) Sulfacetamide Drug Allergy 017 hives [facility] (1 source) Sulfamethoxazole / Trimethoprim Drug Allergy 019 rash [facility] (1 source) PLANT POLLENS Allergy to substance (disorder) hay fever [facility] (1 source) STINGING INSECTS Allergy to substance (disorder) anaphylaxis [facility] (1 source) PAIN MEDICATIONS Drug allergy (disorder) hallucinations [facility] (1 source) TETANUS TOXOID ADSORBED Drug allergy (disorder) [facility] Medications Current Medications Medication Drug Class(es) Dates Sig (Normalized) Sig (Original) 8 hr acetaminophen 650 mg extended release oral tablet (3 sources) Start: 09-11-2018 take 2 tablets by mouth every eight hours as needed for pain Tylenol Arthritis Pain 650 mg tablet,extended release 2 tablet by mouth every eight hours as needed for pain active [facility] acetaminophen (T YLENOL ARTHRITIS ORAL) Take by mouth. PRN Active acetaminophen (T YLENOL ARTHRITIS ORAL) Take by mouth. PRN 0 Active Comment on above: Take by mouth. PRN acetic acid 20 mg/ml / hydrocortisone 10 mg/ml otic solution (3 sources) Corticosteroid Start: 06-11-19 acetic acid-hydrocortison e otic solution Dose = 3 drop(s), Ear, right, QID, # 10 mL, 1 Refill(s), Pharmacy: [facility]/pharmacy #[id number], 169, cm, 06/10/21 14:14:00 EST, Height, kg, 06/10/21 14:14:00 EST, Dosing Weight Start Date: 06/10/21 Status: Ordered acetic acid-hydrocortisone otic solution (2 sources) Start: 02-21-20 acetic acid-hydrocortison e otic solution Dose = 3 drop(s), Ear, right, QID, # 10 mL, 1 Refill(s), Pharmacy: [facility]/pharmacy #[id number] Start Date: 02/20/19 Status: Ordered ACETOSAL EAR DROPS (1 source) Start: 05-05-19 ACETOSAL EAR DROPS Use as needed as directed active [facility] LPN [facility] Adult Low Dose Aspirin 81 mg tablet,delayed release (1 source) take 1 tablet by mouth once daily Adult Low Dose Aspirin 81 mg tablet,delayed release 1 tablet by mouth once a day active [facility]ence Covarrubias LPN [facility] amLODIPine 10 mg oral tablet (2 sources) Dihydropyridine Calcium Channel Cirilo Start: 04-20-19 amLODIPine 10 mg oral tablet Dose : 10 mg = 1 tab(s), Oral, qDay, # 90 tab(s), 0 Refill(s), Pharmacy: [facility]/pharmacy #[id number], 169.9, cm, 12/11/20 14:01:00 EDT, Height, kg, 06/12/20 15:38:00 EST, Dosing Weight Start Date: 04/20/21 Status: Ordered Start: 09-11-2020 amLODIPine 5 m g oral tablet Dose : 5 mg = 1 tab(s), Oral, qDay, # 90 tab(s), 3 Refill(s), Pharmacy: [facility]/pharmacy #[id number], 168, cm, 06/12/20 15:38:00 EST, Height, kg, 06/12/20 15:38:00 EST, Dosing Weight Start Date: 09/11/20 Status: Ordered aspirin 81 mg delayed release oral tablet (11 sources) Platelet Aggregation Inhibitor, Nonsteroidal Anti-inflammatory Drug Start: 08-24-2022 aspirin 81 mg ora l delayed release tablet Dose : 81 mg = 1 tab(s), Oral, qDay, 0 Refill(s) Start Date: 06/09/23 Status: Ordered Medication Dispense Status: Completed Total Allowed Fills: 1 Fills Dispensed: 0 take 1 tablet by mouth once felicita y aspirin 81 mg cap Take 1 tablet by mouth once daily. Active Comment on above: Take 1 tablet by rebekah once daily. atorvastatin 40 mg oral tablet (20 sources) HMG-CoA Reductase Inhibitor Start: 07-06-2022 End: 08-24-2024 atorvastatin 40 mg oral tablet Dose : 40 mg = 1 tab(s), Oral, qDay, # 30 tab(s), 0 Refill(s) Start Date: 12/16/22 Status: Ordered Medication Dispense Status: Completed Quantity: 30.0 Unit: tab(s) Total Allowed Fills: 1 Fills Dispensed: 0 Start: 06-10-2021 atorvastatin 1 0 mg oral tablet Dose : 10 mg = 1 tab(s), Oral, qDay, # 30 tab(s), 11 Refill(s), Pharmacy: [facility]/pharmacy #[id number], 169, cm, 06/10/21 14:14:00 EST, Height, kg, 06/10/21 14:14:00 EST, Dosing Weight Start Date: 06/10/21 Status: Ordered take 4 tablets by mo uth once daily atorvastatin (LIPITOR) 10 mg tablet Take 40 mg by mouth once daily. Active Comment on above: Take 10 mg by mouth once daily. Take 40 mg by mouth once daily. Calcium (8 sources) Phosphate Binder, Calcium Start: 05-05-2016 take 1 tablet by mouth once daily CALCIUM 600+D3 TABLET 1 tablet by mouth once a day active [facility] Cov[facility] LPN [facility] Start: 01-29-2014 take 1 tablet by rebekah th once daily Calcium 600+D Dose = 1 tab(s), Oral, Daily, 0 Refill(s) Start Date: 01/29/14 Status: Ordered Medication Dispense Status: Completed Total Allowed Fills: 1 Fills Dispensed: 0 Start: 01-29-2014 take 1 tablet by rebekah th once daily Calcium 600+D Dose = 1 tab(s), Oral, Daily, 0 Refill(s) Start Date: 01/29/14 Status: Ordered calcium carbonate 1500 mg / cholecalciferol 200 unt oral tablet (7 sources) Vitamin D Start: 08-24-2022 Calcium Carbon ate-Vitamin D3 (Calcium + D) 600 mg-5 mcg (200 unit) Tablet Active 1 {tbl} PO DAILY August 24, 2022 12:00am Calcium Carbonate / vitamin D3 (11 sources) calcium carbonat e/vitamin D3 (CALCIUM 600 + D,3, ORAL) Take by mouth once daily. Active calcium carbonat e/vitamin D3 (CALCIUM 600 + D,3, ORAL) Take by mouth once daily. 0 Active Comment on above: Take by mouth once d aily. carvedilol 12.5 mg oral tablet (20 sources) alpha-Adrenergic Cirilo, beta-Adrenergic Cirilo Start: 08-26-2021 End: 03-07-2025 carvedilol 12.5 mg oral tablet Dose : 12.5 mg = 1 tab(s), Oral, BID, 0 Refill(s) Start Date: 06/15/22 Status: Ordered Medication Dispense Status: Completed Total Allowed Fills: 1 Fills Dispensed: 0 Start: 08-17-2021 End: 11-15-2021 take 2 tablets by mouth twice daily carvedilol (COREG) 6.25 mg tablet Take 2 tablets by mouth twice daily. 60 tablet 3 08/17/2021 08/25/2021 Discontinued Start: 07-20-2021 End: 08-17-2021 take 0.5 tablet by mouth twice daily carvedilol (COREG) 6.25 mg tablet Take 0.5 tablets by mouth twice daily. 60 tablet 3 07/20/2021 08/17/2021 Discontinued Start: 06-18-2021 take 1 tablet by rebekah twice daily carvedilol (COREG) 3.125 mg tablet TAKE 1 TABLET BY MOUTH TWICE A DAY 180 tablet 3 06/18/2021 Active Start: 06-10-2021 carvedilol 3.1 25 mg oral tablet Dose : 3.125 mg = 1 tab(s), Oral, BIDM, 0 Refill(s) Start Date: 06/10/21 Status: Ordered Comment on above: TAKE 1 TABLET BY REBEKAH TWICE A DAY Take 0.5 tablets by mouth twice daily. Take 2 tablets by mo [facility] twice daily. Take 1 tablet by rebekah twice daily. Take 1 tablet by rebekah two times a day. DULoxetine 60 mg delayed release oral capsule (20 sources) Serotonin and Norepinephrine Reuptake Inhibitor Start: take 60 mg by mouth once daily Duloxetine Active 60 MG PO DAILY March 17, 2023 11:35am Start: 12-16-2022 Cymbalta 60 mg oral delayed release capsule Dose : 60 mg = 1 cap(s), Oral, qDay, # 90 cap(s), 3 Refill(s), Pharmacy: [facility]/pharmacy #[id number], 167.5, cm, 12/08/23 14:47:00 EDT, Height, kg, 12/08/23 14:47:00 EDT, Dosing Weight Start Date: 12/08/23 Status: Ordered Medication Dispense Status: Completed Quantity: 90.0 Unit: cap(s) Total Allowed Fills: 4 Fills Dispensed: 0 Start: 12-20-2021 take 2 capsules by m outh once daily Duloxetine 30 mg capsule,delayed release(DR/EC) Active 60 mg PO DAILY March 17, 2023 11:35am Start: 06-10-2021 End: 03-17-2023 take 1 capsule by mouth once daily Duloxetine 30 mg capsule,delayed release(DR/EC) Discontinued 30 mg PO DAILY July 06, 2022 12:00am March 17, 2023 11:37am Start: 06-26-2020 Cymbalta 30 mg oral delayed release capsule Dose : 30 mg = 1 cap(s), Oral, qDay, # 90 cap(s), 3 Refill(s), Pharmacy: [facility]/pharmacy #[id number], 168, cm, 06/12/20 15:38:00 EST, Height, kg, 06/12/20 15:38:00 EST, Dosing Weight Start Date: 06/26/20 Status: Ordered Comment on above: Take 30 mg by mouth once daily. Take 60 mg by mouth once daily. 1 ml etanercept 50 mg/ml auto-injector (20 sources) Tumor Necrosis Factor Cirilo Start: 07-06-2022 Etanercept (Enbrel Sureclick) 50 mg/mL (1 mL) pen injector Active 50 mg SC EVERY WEEK July 06, 2022 12:00am Start: 08-09-2018 Enbrel 50 mg/m L (1 mL) subcutaneous syringe 1 syringe subcutaneously once a week Sundays active [facility] LPN [facility] Start: 04-20-2018 Enbrel Prefill ed Syringe 50 mg/mL subcutaneous solution See Instructions, 1 mL Subcutaneous 1 x/week, 0 Refill(s) Start Date: 04/20/18 Status: Ordered Medication Dispense Status: Completed Total Allowed Fills: 1 Fills Dispensed: 0 Start: 04-20-2018 Enbrel Prefill ed Syringe 50 mg/mL subcutaneous solution See Instructions, 1 mL Subcutaneous 1 x/week, 0 Refill(s) Start Date: 04/20/18 Status: Ordered Enbrel SureClick 50 mg/mL (1 mL) subcutaneous pen injector active Not Available Not Available Not Available inject 50 mg by subc utaneous injection every week Etanercept (ENBREL) 50 mg/mL (1 mL) injection Inject subcutaneously one time a week. Active Comment on above: Inject subcutaneousl y one time a week. folic acid 1 mg oral tablet (20 sources) Start: 03-17-2023 take 2 tablets by mouth once daily Folic Acid 1 mg tablet Active 2 mg PO DAILY March 17, 2023 11:36am Start: 03-17-2023 take 2 mg by mouth once daily Folic Acid Active 2 MG PO DAILY March 17, 2023 11:36am Start: 02-20-2019 End: 03-17-2023 folic acid 1 mg oral tablet Dose : 2 mg = 2 tab(s), Oral, qDay, 0 Refill(s) Start Date: 02/20/19 Status: Ordered Medication Dispense Status: Completed Total Allowed Fills: 1 Fills Dispensed: 0 Comment on above: Take 1 mg by mouth o nce daily. 2 tabs daily methotrexate 2.5 mg oral tablet (20 sources) Folate Analog Metabolic Inhibitor Start: 07-06-2022 Methotrexate Sodium 2.5 mg tablet Active 15 mg PO July 06, 2022 12:00am Start: 07-06-2022 Methotrexate S odium Active 15 MG PO July 06, 2022 12:00am Start: 04-20-2018 methotrexate 2 .5 mg oral tablet Dose : 15 mg = 6 tab(s), Oral, qWeek, tu, 0 Refill(s) Start Date: 04/20/18 Status: Ordered Medication Dispense Status: Completed Total Allowed Fills: 1 Fills Dispensed: 0 methotrexate sod ium 2.5 mg tablet 6 tablet by mouth Tuesdays active [facility] Comment on above: Take 2.5 mg by mouth . 4 tabs on tuesday Take 2.5 mg by mouth . 6 tabs of 2.5 mg/tab on tuesday MULTIVITAMIN ADULT (MULTIPLE VITAMIN) TABS (1 source) Start: 7 take 1 tablet by mouth once daily MULTIVITAMIN ADULT (MULTIPLE VITAMIN) TABS 1 tablet by mouth once a day active [facility]ence Covarrub[facility] NURSE INFORMATICIST [facility] Multivitamin Capsule (3 sources) Start: 3 Multivitamin Capsule Active 1 NMA PO DAILY August 24, 2022 12:00am Multivitamin preparation (11 sources) Start: 3 take 1 capsule by mouth once daily Multivitamin Active 1 CAP PO DAILY August 23, 2022 11:00pm Start: 08-24-2022 take 1 capsule by mo [facility] once daily Multivitamin Active 1 CAP PO DAILY August 24, 2022 12:00am Start: 01-29-2014 take 1 tablet by rebekah th once daily Multivitamin Dose = 1 tab(s), Oral, Daily, 0 Refill(s) Start Date: 01/29/14 Status: Ordered Medication Dispense Status: Completed Total Allowed Fills: 1 Fills Dispensed: 0 Start: 01-29-2014 take 1 tablet by rebekah th once daily Multivitamin Dose = 1 tab(s), Oral, Daily, 0 Refill(s) Start Date: 01/29/14 Status: Ordered mupirocin 0.02 mg/mg topical ointment (1 source) RNA Synthetase Inhibitor Antibacterial Start: 06-09-2023 mupirocin 2% topical ointment Apply 1 david, Topical, TID, use x 3 days, # 15 gram(s), 0 Refill(s), Pharmacy: [facility]/pharmacy #[id number], Ointment, 167.5, cm, 06/09/23 14:25:00 EST, Height, 114.9, kg, 06/09/23 14:25:00 EST, Dosing Weight Start Date: 06/09/23 Status: Ordered omeprazole 40 mg delayed release oral capsule (1 source) Proton Pump Inhibitor Start: 08-09-2018 take 1 capsule by mouth once daily omeprazole 40 mg capsule,delayed release 1 capsule by mouth once a day active [facility] LPN [facility] OTC PRODUCT (11 sources) OTC PRODUCT Bosl ey Pro Multivitamin 1 tab daily Active OTC PRODUCT Bosl ey Pro Multivitamin 1 tab daily 0 Active Comment on above: Rusty Pro Multivita min 1 tab daily pantoprazole 40 mg delayed release oral tablet (20 sources) Proton Pump Inhibitor Start: 02-13-2020 pantoprazole 40 mg oral enteric coated tablet Dose : 40 mg = 1 tab(s), Oral, qDay, # 30 tab(s), 0 Refill(s) Start Date: 02/13/20 Status: Ordered Medication Dispense Status: Completed Quantity: 30.0 Unit: tab(s) Total Allowed Fills: 1 Fills Dispensed: 0 Comment on above: Take 40 mg by mouth once daily. perflutren lipid microspheres 1.3 mL in NaCl (PF) 0.9% 10 mL injection (DEFINITY) (20 sources) Start: 07-20-2021 End: 10-19-2022 perflutren lipid microspheres 1.3 mL in NaCl (PF) 0.9% 10 mL injection (DEFINITY) Start: 05-25-2021 End: 08-24-2022 perflutren lipid microsphere s 1.3 mL in NaCl (PF) 0.9% 10 mL injection (DEFINITY) Start: 05-25-2021 End: 08-24-2022 perflutren lipid microsphere s 1.3 mL in NaCl (PF) 0.9% 10 mL injection (DEFINITY) 125 ml sodium chloride 9 mg/ ml prefilled syringe (20 sources) Start: 05-25-2021 End: 10-19-2022 sodium chloride 0.9 % (flush ) 10 mL (BD POSIFLUSH) Completed/Discontinued Medications Medication Drug Class(es) Dates Sig (Normalized) Sig (Original) Acetic Acid (11 sources) End: 03-12-2024 acetic acid (ACETASOL OTIC) Use in the ears. In R ear as needed 03/12/2024 Discontinued (Course of therapy completed) acetic acid (LÓPEZ TASOL OTIC) Use in the ears. In R ear as needed 0 Active Comment on above: Use in the ears. In R ear as needed amoxicillin 500 mg oral tablet (1 source) Penicillin-class Antibacterial Start: 2 take 1 tablet by mouth three times daily Amoxicillin 500 mg tablet TAKE 1 TABLET BY MOUTH THREE TIMES A DAY FOR 7 DAYS 0 05/19/2021 Active Comment on above: TAKE 1 TABLET BY REBEKAH THREE TIMES A DAY FOR 7 DAYS OTC NUTRITIONAL SUPPLEMENT (4 sources) End: 4 OTC NUTRITIONAL SUPPLEMENT once daily. Rusty Pro Multivitamin 03/12/2024 Discontinued OTC NUTRITIONAL SUPPLEMENT once daily. Rusty Pro Multivitamin 0 Active Comment on above: once daily. Rusty stevens Multivitamin ticagrelor 90 mg oral tablet (16 sources) Start: 3 End: 3 take 1 tablet by mouth twice daily Ticagrelor (Brilinta) 90 mg tablet Discontinued 90 mg PO TWICE A DAY August 24, 2022 2:11pm March 17, 2023 11:37am Problems Active Problems Problem Classification Problem Date Documented Date Episodic/Chronic Cardiac dysrhythmias (1 source) Paroxysmal supraventricular tachycardia; Translations: [Supraventricular tachycardia] Chronic Disorders of lipid metabolism (9 sources) Hyperlipidemia; Translations: [Pure hypercholesterolemia] Onset: 03-14-2023 06-10-2021 Chronic Essential hypertension (20 sources) Hypertensive disorder; Translations: [Essential hypertension] Onset: 05-25-2021 06-17-2020 Chronic Occlusion or stenosis of precerebral arteries (20 sources) Carotid artery stenosis; Translations: [Occlusion and stenosis of unspecified carotid artery] Onset: 03-14-2023 07-06-2022 Chronic Osteoarthritis (2 sources) Osteoarthrosis of the carpometacarpal joint of the thumb; Translations: [Osteoarthritis of knee] Onset: 05-10-2016 09-11-2018 Chronic Other connective tissue disease (7 sources) Fibromyalgia 05-06-2020 Episodic Other connective tissue disease (7 sources) Pain in lower limb 05-06-2020 Episodic Other diseases of veins and lymphatics (7 sources) Venous stasis 02-13-2020 Episodic Other nutritional; endocrine; and metabolic disorders (11 sources) Body mass index 40+ - severely obese; Translations: [Morbid (severe) obesity due to excess calories] Onset: 05-25-2021 05-25-2021 Chronic Other nutritional; endocrine; and metabolic disorders (8 sources) Obese class II; Translations: [Obesity, unspecified] Onset: 08-17-2021 Chronic Residual codes; unclassified (4 sources) Swelling - edema - symptom 05-24-2019 Episodic Rheumatoid arthritis and related disease (9 sources) Rheumatoid arthritis; Translations: [Rheumatoid arthritis without rheumatoid factor, unspecified site] Onset: 09-16-2024 10-22-2019 Chronic Spondylosis; intervertebral disc disorders; other back problems (7 sources) Sciatica 01-29-2014 Episodic Unclassified (8 sources) Patient encounter status 08-21-2019 Unclassified (2 sources) Finding of systemic arterial pressure 06-16-2022 Past or Other Problems Problem Classification Problem Date Documented Da te Episodic/Chronic Administrative/social admission (1 source) Laboratory test due; Translations: [Persons encountering health services in other specified circumstances] Onset: 06-21-2024 Resolved: 06-21-2024 Episodic Other lower respiratory disease (12 sources) Dyspnea; Translations: [Shortness of breath] Onset: 05-25-2021 Episodic Results Test Name Value Interpretation Reference Range Facility Relevant diagnostic tests/la boratory data Narrativeon 12-04-2024 Fall risk assessment no [facility] Work Phone: MEDS REVIEW Done [employer] Work Phone: MEDS REVIEWD Medications reviewed with changes [employer] Work Phone: [place] MAMMOGRAM SCREENING BILAT ERAL W/TOMOon 11-28-2024 MA MAMMOGRAM SCREENING BILATERAL W/KADE ORIGINAL FROM: [address] [address] PROCEDURE FOR: FELICITA CRAWFORD [facility] [address] [place] [address] Home: PID#: [id number] Exam#: [id number] : 1960 Age: 64 TO: JOANNA GRACIELA WELL [employer] [address] [address] Fax: NO FAX EXAMINATION: SCREENING DIGITAL BILATERAL MAMMOGRAM WITH TOMOSYNTHESIS, 11/28/2024 8:05 am TECHNIQUE: Screening mammography of the bilateral breasts was performed with tomosynthesis. 2D standard and 3D tomosynthesis combination imaging performed through both breasts in the MLO and CC projection. Computer aided detection was utilized in the interpretation of this exam. COMPARISON: 11/21/2023 HISTORY: Breast cancer screening. FINDINGS: BREAST DENSITY: There are scattered areas of fibroglandular density. There are no significant masses or calcifications. IMPRESSION: No mammographic evidence of malignancy. Continued screening with annual mammograms is recommended. Cooper Porras risk calculations, generated with the history provided, report this patient's 10 year risk and lifetime risk for developing breast cancer at 4.5% and 10.5%, respectively. Based on this assessment tool, if the patient's calculated lifetime risk is below 20%, then the patient is considered at average risk for developing breast cancer. If the patient's calculated lifetime risk is at or above 20%, then the patient is considered high risk for developing breast cancer and may be a candidate for supplemental breast MRI screening in addition to annual mammographic screening per the [place] [employer]. BIRADS: BI-RADS: 1: Negative RECALL: 1 year screening RECALL TYPE: mammo LETTER SENT: Normal BI-RADS 1 and 2 Interpreted by: Ruddy Martínez MD Preliminary Report By: Ruddy Martínez MD Electronically signed By Ruddy Martínez MD Dictated Date: 11/28/2024 1:02:03 PM Prelim Date: 11/28/2024 1:05:58 PM Sign Date: 11/28/2024 1:05:58 PM Ordering Provider: JOANNA MARTIN Filter Tip Inspector: MAIKEL PATTON RT(R)(M)(CT) letter sent: Normal BI-RADS 1 and 2 Mammogram BI-RADS: 1 Negative Normal [facility] MR/BMS.BVSon 09-18-2024 MR/BMS.BVS [facility] Vascular Surgery [address] [facility] [place] [address] OFFICE VISIT Date of Service: 09/18/24 MR#: [id number] Acct: [id number] Name: FELICITA VILLA Rep #: [id number] : 1960 Provider: KANG Reece Age/Sex: 64/F Location: [facility] Status: Signed Intake Vital Signs 08/25/22 09:23 09/18/24 10:37 Height 5 ft 6 in Weight: 245 lb BP 146/84 H Blood Pressure Location Lt brachial Position Sitting Respiration 16 Pulse 94 Pulse Source Monitor Temp 97.8 F Temp Source Temporal Pulse Oximetry (%) 94 Oxygen Delivery Method room air Intake Visit Reasons: 2 Y FU Is patient in pain?: Yes Allergies erythromycin base Allergy (Verified 09/18/24 10:39) Hives morphine Adverse Reaction (Intermediate, Verified 09/18/24 10:39) violent hallucinations diphtheria, pertussis, tetanus vacc Adverse Reaction (Verified 09/18/24 10:39) Nausea Opioids - Morphine Analogues (narcotics) Adverse Reaction (Verified 09/18/24 10:39) Nausea/Vom/Diarrhea Medications ???Medication ???Instructions ???Recorded ???Confirmed ???Type carvedilol 12.5 mg tablet 12.5 mg PO BID HEART 07/06/2209/02 History etanercept 50 mg/mL (1 mL) 50 mg subcut QWEEK ARTHRITIS 07/0609/18/24 History subcutaneous pen injector (Enbrel SureClick) methotrexate sodium 2.5 mg tablet 15 mg PO TU RA 07/06/22 09/18/24 History pantoprazole 40 mg tablet,delayed 40 mg PO DAILY GERD 07/06/2209/02 History release (Protonix) aspirin 81 mg tablet,delayed 81 mg PO DAILY HEART 08/24/2209/02 History release calcium 600 mg (as 1 tab PO DAILY SUPPLEMENT 08/24/22 09/18/24 History carbonate)-vitamin D3 5 mcg (200 unit) tablet multivitamin 1 cap PO DAILY SUPPLEMENT 08/24/22 09/18/24 History duloxetine 30 mg capsule,delayed 60 mg PO DAILY DEPRESSION 03/17/23 09/18/24 History release folic acid 1 mg tablet 2 mg PO DAILY SUPPLEMENT 03/17/23 09/18/24 History atorvastatin 40 mg tablet 40 mg PO DAILY CHOLESTEROL #90 tab s 08/24/24 09/18/24 Rx Is last menstrual period known: No Post menopausal: Yes Patient : No Have you fallen in the past year?: Yes [facility] Medical History (Updated 09/18/24 @ 12:01 by KANG Reece) Vasovagal syncope Loss of hearing Wears glasses Wears partial dentures Post-menopausal Alcohol use Rheumatoid arthritis High cholesterol Easy bruising Restless legs Back pain Migraine headache History of hiatal hernia Gastric reflux Non-smoker Shortness of breath on exertion Leg cramps History of pain when walking History of edema History of echocardiogram History of stress test Cardiology follow-up encounter Hypertension Surgical History Hx of esophagogastroduodenoscopy Hx of colonoscopy History of dental surgery H/O: hysterectomy ( 2013) Hx of total knee arthroplasty ( 2018) History of total knee arthroplasty ( 2004) H/O oral surgery ( 1980) Family History Other Cancer Diabetes Sudden cardiac Uterine cancer Social History Smoking Status: Never smoker HPI HPI HPI: FELICITA VILLA, is a 64 F who presents to the office today for follow-up regarding her carotid artery disease. She was initially seen in the office in July 2022 after an abnormal blood flow screening which showed significant R ICA calcification. A CTA was obtained which suggested severe stenosis and possible occlusion of the R ICA. She had angiogram on 08/25/22 which confirmed R ICA occlusion. She does also have L carotid disease which we are continuing to monitor via duplex; most recent duplex 09/06/24 demonstrated moderate 50-69% L ICA stenosis with max PSV 144/56.2 cm/s which is stable from prior duplex in 2022. She reports no interval changes to her medical history or medications since her last office visit. She continues to take ASA 81mg daily and Atorvastatin 40mg daily without issue. She has no specific complaints today. ROS General General: Yes fatigue; No weight change, appetite, colon cancer, breast cancer or weakness HEENT HEENT: No difficulty swallowing, eye injury, eye surgery, swollen glands or hoarseness Endo Endocrine: Yes heat intolerance and cold intolerance; No thyroid disease, diabetes mellitus, thyroid cancer or Hair loss Skin Skin: No rash or changing moles Musc Musculoskeletal: Yes arthritis, rheumatoid arthritis and joint pain; No back problems or gout Cardio Cardiovascular: Yes high blood pressure; No murmur, pacemaker, heart disease, atrial fibrillation, heart attack, heart stent, palpitations, shortness of breath with exertion or chest (more content not included)... Normal [facility] Absolute lymphocyte countOrd ered By: Desiree Marquez on 09-12-2024 Lymphocytes Auto (Unsp spec) [#/Vol] 1.14 10*3/uL 0.83-4.51 [facility] Absolute neutrophil countOrd ered By: Desiree Marquez on 09-12-2024 Neutrophils (Bld) [#/Vol] 3.0 10*3/uL 2.0-7.7 [facility] Anion gap in Serum or Plasma Ordered By: Desiree Marquez on 09-12-2024 Anion gap [Moles/Vol] 11 mmol/L 5-15 [facility] Automated lymphocyte count a s percentage of total leukocytesOrdered By: Desiree Marquez on 09-12-2024 Lymphocytes/100 WBC Auto (Unsp spec) 23.5 % 19-41 [facility] BUN/creatinine ratioOrdered By: Desireeleatha Marquez on 09-12-2024 Urea nitrogen/Creatinine [Mass ratio] 21.2 mg/mg High 10-20 [facility] Basophil percentageOrdered B y: Desiree Marquez on 09-12-2024 Basophils/100 WBC (Bld) 0.4 % 0-1 [facility] Bilirubin, totalOrdered By: [facility] on 09-12-2024 Bilirubin [Mass/Vol] 0.54 mg/dL 0.00-1.30 [facility] CBC W/Diff, Automatedon 09-02 Absolute Lymph 1.14 X10 3/uL Normal 0.83-4.51 [facility] Comment on above: Performed By: #### L 500.4050, L100.0100 #### [facility] [address] [place], [address] Absolute Neut 3.0 X10 3/uL Normal 2.0-7.7 [facility] Comment on above: Performed By: #### L 500.4050, L100.0100 #### [facility] [address] [place], [address] Basophils/100 WBC (Bld) 0.4 % Normal 0-1 [facility] Comment on above: Performed By: #### L 500.4050, L100.0100 #### [facility] [address] [place], [address] Eosinophils/100 WBC (Bld) 3.1 % Normal 0-5 [facility] Comment on above: Performed By: #### L 500.4050, L100.0100 #### [facility] [address] [place], [address] Erythrocyte distribution width (RBC) [Ratio] 13.9 % Normal 11.6-14.6 [facility] Comment on above: Performed By: #### L 500.4050, L100.0100 #### [facility] [address] [place], [address] Hematocrit (Bld) [Volume fraction] 41.6 % Normal 37-47 [facility] Comment on above: Performed By: #### L 500.4050, L100.0100 #### [facility] [address] [place], [address] Hemoglobin (Bld) [Mass/Vol] 13.5 g/dL Normal 12.0-15.0 [facility] Comment on above: Performed By: #### L 500.4050, L100.0100 #### [facility] [address] [place], [address] IG% 0.200 Normal 0.0-0.9 [facility] Comment on above: Result Comment: IG% - Immature Granulocytes (promyelocytes, myelocytes and metamyelocytes) > 1% indicates that a LEFT SHIFT is Present. Performed By: #### L 500.4050, L100.0100 #### [facility] [address] [place], [address] Lymphocytes/100 WBC (Bld) 23.5 % Normal 19-41 [facility] Comment on above: Performed By: #### L 500.4050, L100.0100 #### [facility] [address] [place], [address] MCH (RBC) [Entitic mass] 31.4 pg Normal 27.0-32.0 [facility] Comment on above: Performed By: #### L 500.4050, L100.0100 #### [facility] [address] [place], [address] MCHC (RBC) [Mass/Vol] 32.5 g/dL Normal 32-36 [facility] Comment on above: Performed By: #### L 500.4050, L100.0100 #### [facility] [address] [place], [address] MCV (RBC) [Entitic vol] 96.7 fL Normal 81-99 [facility] Comment on above: Performed By: #### L 500.4050, L100.0100 #### [facility] [address] [place], [address] Monocytes/100 WBC (Bld) 11.3 % High 0-10 [facility] Comment on above: Performed By: #### L 500.4050, L100.0100 #### [facility] [address] [place], [address] Neutrophils/100 WBC (Bld) 61.5 % Normal 47-70 [facility] Comment on above: Performed By: #### L 500.4050, L100.0100 #### [facility] [address] [place], [address] Nucleated RBC (Bld) [#/Vol] 0 10*3/uL Normal 0-5 [facility] Comment on above: Performed By: #### L 500.4050, L100.0100 #### [facility] [address] [place], [address] Platelet mean volume (Bld) [Entitic vol] 8.9 fL Normal 6.2-12.0 [facility] Comment on above: Performed By: #### L 500.4050, L100.0100 #### [facility] [address] [place], [address] Platelets (Bld) [#/Vol] 197 10*3/uL Normal 150-450 [facility] Comment on above: Performed By: #### L 500.4050, L100.0100 #### [facility] [address] [place], [address] RBC (Bld) [#/Vol] 4.30 10*6/uL Normal 4.2-5.4 [facility] Comment on above: Performed By: #### L 500.4050, L100.0100 #### [facility] [address] [place], [address] RDW SD 48.9 fl High 35.1-43.9 [facility] Comment on above: Performed By: #### L 500.4050, L100.0100 #### [facility] [address] [place], [address] WBC (Bld) [#/Vol] 4.9 10*3/uL Normal 4.4-11.0 [facility] Comment on above: Performed By: #### L 500.4050, L100.0100 #### [facility] [address] [place], [address] Carbon dioxide, total [Moles /volume] in Central venous bloodOrdered By: Desiree Marquez on 09-12-2024 CO2 [Moles/Vol] 24.1 mmol/L 21.0-32.0 [facility] Chloride assayOrdered By: Kang Marquez on 09-12-2024 Chloride [Moles/Vol] 104 mmol/L 98-108 [facility] Comprehensive Metabolic Prof ilon 09-12-2024 Albumin [Mass/Vol] 4.1 g/dL Normal 3.4-4.8 [facility] Comment on above: Performed By: #### L 500.4050, L100.0100 #### [facility] [address] [place], [address] Albumin/Globulin [Mass ratio] 1.4 {ratio} Normal 0.9-2.4 [facility] Comment on above: Performed By: #### L 500.4050, L100.0100 #### [facility] [address] [place], [address] ALK PHOS 106 U/L High 35-104 [facility] Comment on above: Performed By: #### L 500.4050, L100.0100 #### [facility] [address] [place], [address] ALT [Catalytic activity/Vol] 20 U/L Normal <=34 [facility] Comment on above: Performed By: #### L 500.4050, L100.0100 #### [facility] [address] [place], [address] AST [Catalytic activity/Vol] 30 U/L Normal <=31 [facility] Comment on above: Performed By: #### L 500.4050, L100.0100 #### [facility] [address] [place], [address] Bilirubin [Mass/Vol] 0.54 mg/dL Normal 0.00-1.30 [facility] Comment on above: Performed By: #### L 500.4050, L100.0100 #### [facility] [address] [place], [address] BUN/CRE 21.2 RATIO High 10-20 [facility] Comment on above: Performed By: #### L 500.4050, L100.0100 #### [facility] [address] [place], [address] Calcium [Mass/Vol] 9.9 mg/dL Normal 7.6-11.0 [facility] Comment on above: Performed By: #### L 500.4050, L100.0100 #### [facility] [address] [place], [address] Chloride [Moles/Vol] 104 mmol/L Normal 98-108 [facility] Comment on above: Performed By: #### L 500.4050, L100.0100 #### [facility] [address] [place], [address] CO2 [Moles/Vol] 24.1 mmol/L Normal 21.0-32.0 [facility] Comment on above: Performed By: #### L 500.4050, L100.0100 #### [facility] [address] [place], [address] Creatinine [Mass/Vol] 0.88 mg/dL Normal 0.70-1.20 [facility] Comment on above: Performed By: #### L 500.4050, L100.0100 #### [facility] [address] [place], [address] GAP 11 Normal 5-15 [facility] Comment on above: Performed By: #### L 500.4050, L100.0100 #### [facility] [address] [place], [address] GFR/1.73 sq M.predicted among non-blacks MDRD (S/P/Bld) [Vol rate/Area] 74 mL/min/{1.73_m2} Normal >60 [facility] Comment on above: Result Comment: mL/m in/1.73m2 CKD-EPI Creatinine Equation (2020) Performed By: #### L 500.4050, L100.0100 #### [facility] [address] [place], [address] Globulin (S) [Mass/Vol] 2.9 g/dL Normal 2.2-4.2 [facility] Comment on above: Performed By: #### L 500.4050, L100.0100 #### [facility] [address] [place], [address] Glucose [Mass/Vol] 113 mg/dL High 70-99 [facility] Comment on above: Performed By: #### L 500.4050, L100.0100 #### [facility] [address] [place], [address] Potassium [Moles/Vol] 4.9 mmol/L Normal 3.3-5.1 [facility] Comment on above: Performed By: #### L 500.4050, L100.0100 #### [facility] [address] [place], [address] Sodium [Moles/Vol] 139 mmol/L Normal 133-145 [facility] Comment on above: Performed By: #### L 500.4050, L100.0100 #### [facility] [address] [place], [address] T PROT 7.0 g/dL Normal 5.9-8.4 [facility] Comment on above: Performed By: #### L 500.4050, L100.0100 #### [facility] [address] [place], [address] Urea nitrogen [Mass/Vol] 19 mg/dL Normal 4-19 [facility] Comment on above: Performed By: #### L 500.4050, L100.0100 #### [facility] [address] [place], [address] Eosinophil percentageOrdered By: Desiree Marquez on 09-12-2024 Eosinophils/100 WBC (Bld) 3.1 % 0-5 [facility] Erythrocyte distribution wid th ratioOrdered By: Desiree Marquez on 09-12-2024 Erythrocyte distribution width (RBC) [Ratio] 13.9 % 11.6-14.6 [facility] Erythrocyte distribution wid th standard deviationOrdered By: Desiree Marquez on 09-12-2024 Erythrocyte distribution width (RBC) [Ratio] 48.9 fl High 35.1-43.9 [facility] Glomerular filtration rate ( GFR) estimation/1.73 sq m using serum, plasma, or whole bOrdered By: Desiree Marquez on 09-12-2024 GFR/1.73 sq M.predicted among non-blacks MDRD (S/P/Bld) [Vol rate/Area] 74 mL/min/{1.73_m2} >60 [facility] Comment on above: mL/min/1.73m2 CKD-EP I Creatinine Equation (2020) Hematocrit Auto (Bld) [Volum e fraction]Ordered By: Desiree Marquez on 09-12-2024 Hematocrit (Bld) [Volume fraction] 41.6 % 37-47 [facility] Hemoglobin measurementOrdere d By: Desiree Marquez on 09-12-2024 Hemoglobin (Bld) [Mass/Vol] 13.5 g/dL 12.0-15.0 [facility] Immature granulocytes/100 WB C Auto (Bld)Ordered By: Desiree Marquez on 09-12-2024 Immature granulocytes/100 WBC (Bld) 0.200 % 0.0-0.9 [facility] Comment on above: IG% - Immature Granu locytes (promyelocytes, myelocytes and metamyelocytes) > 1% indicates that a LEFT SHIFT is Present. Laboratory - Chemistry and C hemistry - challengeOrdered By: Desiree Marquez on 09-12-2024 AST [Catalytic activity/Vol] 30 U/L <32 [facility] MCV (mean corpuscular volume ) determinationOrdered By: Desiree Marquez on 09-12-2024 MCV (RBC) [Entitic vol] 96.7 fL 81-99 [facility] Mean corpuscular hemoglobin (MCH) determinationOrdered By: Desiree Marquez on 09-12-2024 MCH (RBC) [Entitic mass] 31.4 pg 27.0-32.0 [facility] Mean corpuscular hemoglobin concentration (MCHC) determinationOrdered By: Desiree Marquez on 09-12-2024 MCHC (RBC) [Mass/Vol] 32.5 g/dL 32-36 [facility] Mean platelet volume determi nationOrdered By: Desiree Marquez on 09-12-2024 Platelet mean volume (Bld) [Entitic vol] 8.9 fL 6.2-12.0 [facility] Monocyte percentageOrdered B y: Desiree Marquez on 09-12-2024 Monocytes/100 WBC (Bld) 11.3 % High 0-10 [facility] Neutrophil percentageOrdered By: Desiree Marquez on 09-12-2024 Neutrophils/100 WBC (Bld) 61.5 % 47-70 [facility] Nucleated red blood cell per centageOrdered By: Desiree Marquez on 09-12-2024 Nucleated RBC/100 WBC (Bld) [Ratio] 0 % 0-5 [facility] Platelet countOrdered By: Kang Marquez on 09-12-2024 Platelets (Bld) [#/Vol] 197 10*3/uL 150-450 [facility] Potassium measurement (mass/ volume)Ordered By: Desiree Marquez on 09-12-2024 Potassium (Unsp spec) [Mass/Vol] 4.9 mmol/L 3.3-5.1 [facility] RBC Auto (Bld) [#/Vol]Ordere d By: Desiree Marquez on 09-12-2024 RBC (Bld) [#/Vol] 4.30 10*6/uL 4.2-5.4 [facility] Serum creatinine measurement (mass/volume)Ordered By: Desiree Marquez on 09-12-2024 Creatinine [Mass/Vol] 0.88 mg/dL 0.70-1.20 [facility] Serum globulin measurementOr dered By: Desiree Marquez on 09-12-2024 Globulin (S) [Mass/Vol] 2.9 g/dL 2.2-4.2 [facility] Serum glucose measurement (m ass/volume)Ordered By: Desiree Marquez on 09-12-2024 Glucose [Mass/Vol] 113 mg/dL High 70-99 [facility] Serum or plasma alanine nguyen otransferase (ALT) measurementOrdered By: Desiree Marquez on 09-12-2024 ALT [Catalytic activity/Vol] 20 U/L <35 [facility] Serum or plasma albumin susan urement (mass/volume)Ordered By: Desiree Marquez on 09-12-2024 Albumin [Mass/Vol] 4.1 g/dL 3.4-4.8 [facility] Serum or plasma albumin/glob ulin mass ratioOrdered By: Desiree Marquez on 09-12-2024 Albumin/Globulin [Mass ratio] 1.4 {ratio} 0.9-2.4 [facility] Serum or plasma alkaline raquel sphatase measurementOrdered By: Desiree Marquez on 09-12-2024 ALP [Catalytic activity/Vol] 106 U/L High 35-104 [facility] Serum or plasma calcium susan urement (mass/volume)Ordered By: Desiree Marquez on 09-12-2024 Calcium [Mass/Vol] 9.9 mg/dL 7.6-11.0 [facility] Serum or plasma urea nitroge n measurement (mass/volume)Ordered By: Desiree Marquez on 09-12-2024 Urea nitrogen [Mass/Vol] 19 mg/dL 4-19 [facility] Sodium levelOrdered By: Baron Marquez on 09-12-2024 Sodium [Moles/Vol] 139 mmol/L 133-145 [facility] Total proteinOrdered By: Messi Marquez on 09-12-2024 Protein [Mass/Vol] 7.0 g/dL 5.9-8.4 [facility] White blood cell (WBC) count Ordered By: Desiree Marquez on 09-12-2024 WBC (Bld) [#/Vol] 4.9 10*3/uL 4.4-11.0 [facility] Duplex ultrasound of carotid artery reportOrdered By: Glen Chau on 09-06-2024 Study report [facility] [address] [place] [address] Carotid Duplex Ultrasound 09/03/24 1102 MR#: [id number] Acct: [id number] Name: FELICITA VILLA BEHZAD CRAWFORD Rep #:[id number] : 1960 64 From: Glen Ellis Attending Dr: KANG Reece Stat us: REG CLI Ordering Dr: Jamila Grossman Date: Location: [facility] Sex: F C Admitted: Reason For Study Reason For Study: Rt ICA Occlusion Rt. Velocities/BP Lt. Velocities/BP Prox CCA 62.5/12.0 cm/sec. Prox CCA 49.7/21.4 cm/sec. Mid CCA 89.1/14.2 cm/sec. Mid CCA 55.4/26.1 cm/sec. Dist CCA 99.0/20.4 cm/sec. Dist CCA 94.2/41.3 cm/sec. Rt ICA Known Occlusion. Prox ICA 144.0/56.2 cm/sec. Prox ECA 205.5/24.1 cm/sec. Mid ICA 173.3/63.4 cm/sec. Rt. Vert. 80.2/34.5 cm/sec. Dist ICA 95.7/40.8 cm/sec. Lt. ICA/CCA = 3.1. Prox ECA 401.8/75.3 cm/sec. Lt. Vert. 95.2/32.5 cm/sec. Right Extracranial There is heterogeneous, irregular atherosclerotic plaque noted in the right common carotid artery. There is heterogeneous, irregular atherosclerotic plaque noted in the right internal carotid artery. The right internal carotid artery is occluded. There is heterogeneous, irregular atherosclerotic plaque noted in the right external carotid artery. Antegrade flow is noted in the right vertebral artery. Left Extracranial There is heterogeneous, irregular atherosclerotic plaque noted in the left common carotid artery. There is intimal thickening but no significant atherosclerotic plaque noted in the left internal carotid artery. There is intimal thickening but no significant atherosclerotic plaque noted in the left external carotid artery. The atherosclerotic plaque causes acoustic shadowing. Antegrade flow is noted in the left vertebral artery. Procedure Carotid Duplex [id number]. This is a Carotid Duplex examination using B-mode, color flow and specral Doppler. The exam was diagnostic. Exam performed in department. VL/Carotid Duplex Ultrasound Interpretation Summary Occlusion of the right extracranial internal carotid. Moderate (50-69%) stenosis left extracranial internal carotid. Patent and antegrade vertebrals bilaterally. Ordering Physician: Jamila Grossman Referring Physician: Joanna Martin Performed By: Ge King RVJuana 09/06/24 1034 Date _ Glen Chau MD CC: GRE TUTOR-C Joanna Martin; KANG Reece ~ Date Dictated: 09/03/24 1102 Date Transcribed: 09/06/24 1034 Registered Dental Hygienist: Signed [facility] Work Phone: Carotid Duplex Ultrasoundon 09-03-2024 Carotid Duplex Ultrasound [facility] [address] [place] [address] Carotid Duplex Ultrasound 09/03/24 110 MR#: [id number] Acct: [id number] Name: FELICITA VILLA Rep #: [id number] : 1960 64 From: Glen Chau MD Attending Dr: KANG Reece Status: REG CLI Ordering Dr: Jamila Grossman Date: 09/03/24 Location: [facility] Sex: F C Admitted: Reason For Study Reason For Study: Rt ICA Occlusion Rt. Velocities/BP Lt. Velocities/BP Prox CCA 62.5/12.0 cm/sec. Prox CCA 49.7/21.4 cm/sec. Mid CCA 89.1/14.2 cm/sec. Mid CCA 55.4/26.1 cm/sec. Dist CCA 99.0/20.4 cm/sec. Dist CCA 94.2/41.3 cm/sec. Rt ICA Known Occlusion. Prox ICA 144.0/56.2 cm/sec. Prox ECA 205.5/24.1 cm/sec. Mid ICA 173.3/63.4 cm/sec. Rt. Vert. 80.2/34.5 cm/sec. Dist ICA 95.7/40.8 cm/sec. Lt. ICA/CCA = 3.1. Prox ECA 401.8/75.3 cm/sec. Lt. Vert. 95.2/32.5 cm/sec. Right Extracranial There is heterogeneous, irregular atherosclerotic plaque noted in the right common carotid artery. There is heterogeneous, irregular atherosclerotic plaque noted in the right internal carotid artery. The right internal carotid artery is occluded. There is heterogeneous, irregular atherosclerotic plaque noted in the right external carotid artery. Antegrade flow is noted in the right vertebral artery. Left Extracranial There is heterogeneous, irregular atherosclerotic plaque noted in the left common carotid artery. There is intimal thickening but no significant atherosclerotic plaque noted in the left internal carotid artery. There is intimal thickening but no significant atherosclerotic plaque noted in the left external carotid artery. The atherosclerotic plaque causes acoustic shadowing. Antegrade flow is noted in the left vertebral artery. Procedure Carotid Duplex [id number]. This is a Carotid Duplex examination using B-mode, color flow and specral Doppler. The exam was diagnostic. Exam performed in department. VL/Carotid Duplex Ultrasound Interpretation Summary Occlusion of the right extracranial internal carotid. Moderate (50-69%) stenosis left extracranial internal carotid. Patent and antegrade vertebrals bilaterally. Ordering Physician: Jamila Grossman Referring Physician: Joanna Martin Performed By: Ge King, T 09/06/24 1034 Date Glen Chau MD CC: GRE TUTORBill Martin; KANG Reece Date Dictated: 09/03/24 1102 Date Transcribed: 09/06/24 1034 Registered Dental Hygienist: Signed Normal [facility] CBC W/Diff, Automatedon 12-2 Absolute Lymph 1.14 X10 3/uL Normal 0.83-4.51 [facility] Comment on above: Performed By: #### L 500.4050, L100.0100 #### [facility] [address] [place], [address] Absolute Neut 3.0 X10 3/uL Normal 2.0-7.7 [facility] Comment on above: Performed By: #### L 500.4050, L100.0100 #### [facility] [address] [place], [address] Basophils/100 WBC (Bld) 1.1 % High 0-1 [facility] Comment on above: Performed By: #### L 500.4050, L100.0100 #### [facility] [address] [place], [address] Eosinophils/100 WBC (Bld) 1.7 % Normal 0-5 [facility] Comment on above: Performed By: #### L 500.4050, L100.0100 #### [facility] [address] [place], [address] Erythrocyte distribution width (RBC) [Ratio] 13.7 % Normal 11.6-14.6 [facility] Comment on above: Performed By: #### L 500.4050, L100.0100 #### [facility] [address] [place], [address] Hematocrit (Bld) [Volume fraction] 41.4 % Normal 37-47 [facility] Comment on above: Performed By: #### L 500.4050, L100.0100 #### [facility] [address] [place], [address] Hemoglobin (Bld) [Mass/Vol] 13.5 g/dL Normal 12.0-15.0 [facility] Comment on above: Performed By: #### L 500.4050, L100.0100 #### [facility] [address] [place], [address] IG% 0.400 Normal 0.0-0.9 [facility] Comment on above: Result Comment: IG% - Immature Granulocytes (promyelocytes, myelocytes and metamyelocytes) > 1% indicates that a LEFT SHIFT is Present. Performed By: #### L 500.4050, L100.0100 #### [facility] [address] [place], [address] Lymphocytes/100 WBC (Bld) 24.1 % Normal 19-41 [facility] Comment on above: Performed By: #### L 500.4050, L100.0100 #### [facility] [address] [place], [address] MCH (RBC) [Entitic mass] 32.2 pg High 27.0-32.0 [facility] Comment on above: Performed By: #### L 500.4050, L100.0100 #### [facility] [address] [place], [address] MCHC (RBC) [Mass/Vol] 32.6 g/dL Normal 32-36 [facility] Comment on above: Performed By: #### L 500.4050, L100.0100 #### [facility] [address] [place], [address] MCV (RBC) [Entitic vol] 98.8 fL Normal 81-99 [facility] Comment on above: Performed By: #### L 500.4050, L100.0100 #### [facility] [address] [place], [address] Monocytes/100 WBC (Bld) 9.5 % Normal 0-10 [facility] Comment on above: Performed By: #### L 500.4050, L100.0100 #### [facility] [address] [place], [address] Neutrophils/100 WBC (Bld) 63.2 % Normal 47-70 [facility] Comment on above: Performed By: #### L 500.4050, L100.0100 #### [facility] [address] [place], [address] Nucleated RBC (Bld) [#/Vol] 0 10*3/uL Normal 0-5 [facility] Comment on above: Performed By: #### L 500.4050, L100.0100 #### [facility] [address] [place], [address] Platelet mean volume (Bld) [Entitic vol] 9.0 fL Normal 6.2-12.0 [facility] Comment on above: Performed By: #### L 500.4050, L100.0100 #### [facility] [address] [place], [address] Platelets (Bld) [#/Vol] 214 10*3/uL Normal 150-450 [facility] Comment on above: Performed By: #### L 500.4050, L100.0100 #### [facility] [address] [place], [address] RBC (Bld) [#/Vol] 4.19 10*6/uL Low 4.2-5.4 [facility] Comment on above: Performed By: #### L 500.4050, L100.0100 #### [facility] [address] [place], [address] RDW SD 49.7 fl High 35.1-43.9 [facility] Comment on above: Performed By: #### L 500.4050, L100.0100 #### [facility] [address] [place], [address] WBC (Bld) [#/Vol] 4.7 10*3/uL Normal 4.4-11.0 [facility] Comment on above: Performed By: #### L 500.4050, L100.0100 #### [facility] [address] [place], [address] Comprehensive Metabolic Prof ilon 03-29-2024 Albumin [Mass/Vol] 3.7 g/dL Normal 3.2-5.0 [facility] Comment on above: Performed By: #### L 500.4050, L100.0100 #### [facility] [address] [place], [address] Albumin/Globulin [Mass ratio] 1.0 {ratio} Normal 0.9-2.4 [facility] Comment on above: Performed By: #### L 500.4050, L100.0100 #### [facility] [address] [place], [address] ALK P 106 U/L Normal 45-117 [facility] Comment on above: Performed By: #### L 500.4050, L100.0100 #### [facility] [address] [place], [address] ALT [Catalytic activity/Vol] 23 U/L Normal 13-56 [facility] Comment on above: Performed By: #### L 500.4050, L100.0100 #### [facility] [address] [place], [address] AST [Catalytic activity/Vol] 17 U/L Normal 15-37 [facility] Comment on above: Performed By: #### L 500.4050, L100.0100 #### [facility] [address] [place], [address] Bilirubin [Mass/Vol] 0.70 mg/dL Normal 0.20-1.00 [facility] Comment on above: Result Comment: For patients on eltrombopag therapy, use of Dimension [place] TBIL is not recommended. Performed By: #### L 500.4050, L100.0100 #### [facility] [address] [place], [address] BUN/CRE 19.4 RATIO Normal 10-20 [facility] Comment on above: Performed By: #### L 500.4050, L100.0100 #### [facility] [address] [place], [address] CA,Total 9.6 mg/dL Normal 8.5-10.1 [facility] Comment on above: Performed By: #### L 500.4050, L100.0100 #### [facility] [address] [place], [address] Chloride [Moles/Vol] 105 mmol/L Normal 98-107 [facility] Comment on above: Performed By: #### L 500.4050, L100.0100 #### [facility] [address] [place], [address] CO2 [Moles/Vol] 28.0 mmol/L Normal 21.0-32.0 [facility] Comment on above: Performed By: #### L 500.4050, L100.0100 #### [facility] [address] [place], [address] Creatinine [Mass/Vol] 1.03 mg/dL High 0.55-1.02 [facility] Comment on above: Result Comment: The validity of the calculated GFR GFRAA in patients over 70 years has not been determined. Clinical correlation is essential. Performed By: #### L 500.4050, L100.0100 #### [facility] [address] [place], [address] EST GFR - AA 70 mL/min Normal >60 [facility] Comment on above: Result Comment: Afri can Danish GFR Calc Performed By: #### L 500.4050, L100.0100 #### [facility] [address] [place], [address] GAP 2 Low 5-15 [facility] Comment on above: Performed By: #### L 500.4050, L100.0100 #### [facility] [address] [place], [address] GFR/1.73 sq M.predicted among non-blacks MDRD (S/P/Bld) [Vol rate/Area] 58 mL/min/{1.73_m2} Low >60 [facility] Comment on above: Result Comment: Non- GFR Calc Performed By: #### L 500.4050, L100.0100 #### [facility] [address] [place], [address] Globulin (S) [Mass/Vol] 3.6 g/dL Normal 2.2-4.2 [facility] Comment on above: Performed By: #### L 500.4050, L100.0100 #### [facility] [address] [place], [address] Glucose [Mass/Vol] 107 mg/dL High 74-106 [facility] Comment on above: Result Comment: Fast ing Glucose result from 100 to 125 mg/dL suggests IMPAIRED HOMEOSTASIS per A.D.A. criteria. Performed By: #### L 500.4050, L100.0100 #### [facility] [address] [place], [address] Potassium [Moles/Vol] 5.0 mmol/L Normal 3.5-5.1 [facility] Comment on above: Performed By: #### L 500.4050, L100.0100 #### [facility] [address] [place], [address] Sodium [Moles/Vol] 135 mmol/L Low 136-145 [facility] Comment on above: Performed By: #### L 500.4050, L100.0100 #### [facility] [address] [place], [address] T PROT 7.3 g/dL Normal 6.4-8.2 [facility] Comment on above: Performed By: #### L 500.4050, L100.0100 #### [facility] [address] [place], [address] Urea nitrogen [Mass/Vol] 20 mg/dL High 7-18 [facility] Comment on above: Performed By: #### L 500.4050, L100.0100 #### [facility] [address] [place], [place], [id number] CNOVon 03-12-2024 CNOV Office Visit (CAWSTR ) JELANI VILLAFELICITA Leilani ([id number]) 1960 F Date Time Provider Department 03/12/24 3:20 PM ZOË KATZ [facility] During your visit today, we recorded the following information about you: Pulse Blood pressure Weight 87/minute 152/96 106.4 kg Zoë Katz MD 03/12/2024 5:35 PM Signed Zoë Katz MD Interventional Cardiology [address] [phone] Chief Complaint Patient presents with: Follow Up Established Patient Follow-Up: 1 year follow up HISTORY OF PRESENT ILLNESS: Ms. Jelani Villa is a 63 year old female seen in office today for assessment management prior history of hypertensive heart disease doing well from a cardiac point of view asymptomatic denies chest pain or shortness of breath EKG is normal sinus rhythm with no abnormality Pressure well-controlled Cardiac Risk Factors age (male over 45, female over 55), hypertension, family history of CAD PAST MEDICAL HISTORY Diagnosis Date GERD (gastroesophageal reflux disease) High blood pressure Hypercholesteremia Obesity Rheumatoid arthritis (HCC) PAST SURGICAL HISTORY Procedure Laterality Date CAROTID ANGIOGRAM 08/2022 Right Carotid artery- branch developed KNEE SURGERY HX Bilateral TOTAL ABDOM HYSTERECTOMY FAMILY HISTORY Problem Relation Age of Onset other (varicose veins) Paternal Grandmother Social History Tobacco Use Smoking status: Never Smokeless tobacco: Never Vaping Use Vaping status: Never Used Substance Use Topics Alcohol use: [...] Take 60 mg by mouth once daily. atorvastatin (LIPITOR) 10 mg tablet Take 40 [...] by mouth once daily. 2 tabs daily carvedilol (COREG) 12.5 mg tablet Take 1 tablet by mouth two times a day. 180 tablet 3 No current facility-administered medications for this visit. [...] does not have insomnia. Physical Examination: Vitals:BP 152/96 Pulse 87 Wt 234 lb 9.6 oz (106.4kg) SpO2 98% BP w/Orthostatic Vitals Date and Time Orthostatic BP Orthostatic Pulse BP Pulse BP Position BP Site BP Cuff Size 03/12/24 1510 -- -- 152/96 87 -- -- -- Last 2 Encounter Wt Readings: Date: Wt: 03/12/2024 106.4 kg (234 lb 9.6 oz) 03/14/2023 114.4 kg (252 lb 3.2 oz) Physical Exam Constitutional: General: She is not in acute distress. Appearance: She is not diaphoretic. HENT: Head: Normocephalic and atraumatic. Right Ear: External ear normal. Left Ear: External ear normal. Nose: Nose normal. Mouth/Throat: Mouth: Mucous membranes are moist. Eyes: General: Right eye: No discharge. Left eye: No discharge. Conjunctiva/sclera: Conjunctivae normal. Pupils: Pup (more content not included)... Normal [facility] ECG COMPLETEon 03-12-2024 ECG COMPLETE Ventricular Rate : 6 9 BPM Atrial Rate : 69 BPM P-R Interval : 164 ms QRS Duration : 74 ms Q-T Interval : 388 ms QTC Calculation(Bazett) : 415 ms Calculated P [place] : 55 degrees Calculated R [place] : 2 degrees Calculated T [place] : 19 degrees NORMAL SINUS RHYTHM MINIMAL VOLTAGE CRITERIA FOR LVH, MAY BE NORMAL VARIANT ( R in aVL ) BORDERLINE ECG Confirmed by MD TERRAZAS GREGORY () on 03/22/2024 9:35:13 AM NAME : FELICITA STUBBS PID : [id number] : 1960 Gender : Female Race : ORD : [id number] Procedure Date : Mar 12 2024 15:19:51 Edit Date : Mar 22 2024 09:35:19 Diagnosis: NORMAL SINUS RHYTHM MINIMAL VOLTAGE CRITERIA FOR LVH, MAY BE NORMAL VARIANT ( R in aVL ) BORDERLINE ECG Confirmed by MD TERRAZAS GREGORY () on 03/22/2024 9:35:13 AM Test Reason : Location : 136 : [facility] Overread By : MD TERRAZAS GREGORY Edited By : MD TERRAZAS GREGORY Referred By : ZOË KATZ Acquired by : lh, Normal [facility] CBC W/Diff, Automatedon 12-04 Absolute Lymph 1.13 X10 3/uL Normal 0.83-4.51 [facility] Comment on above: Performed By: #### L 100.0100, L500.4050 #### [facility] [address] [place], [address] Absolute Neut 2.2 X10 3/uL Normal 2.0-7.7 [facility] Comment on above: Performed By: #### L 100.0100, L500.4050 #### [facility] [address] [place], [address] Basophils/100 WBC (Bld) 1.2 % High 0-1 [facility] Comment on above: Performed By: #### L 100.0100, L500.4050 #### [facility] [address] [place], [address] Eosinophils/100 WBC (Bld) 1.9 % Normal 0-5 [facility] Comment on above: Performed By: #### L 100.0100, L500.4050 #### [facility] [address] [place], [address] Erythrocyte distribution width (RBC) [Ratio] 14.2 % Normal 11.6-14.6 [facility] Comment on above: Performed By: #### L 100.0100, L500.4050 #### [facility] [address] [place], [address] Hematocrit (Bld) [Volume fraction] 43.2 % Normal 37-47 [facility] Comment on above: Performed By: #### L 100.0100, L500.4050 #### [facility] [address] [place], [address] Hemoglobin (Bld) [Mass/Vol] 13.8 g/dL Normal 12.0-15.0 [facility] Comment on above: Performed By: #### L 100.0100, L500.4050 #### [facility] [address] [place], [address] IG% 0.200 Normal 0.0-0.9 [facility] Comment on above: Result Comment: IG% - Immature Granulocytes (promyelocytes, myelocytes and metamyelocytes) > 1% indicates that a LEFT SHIFT is Present. Performed By: #### L 100.0100, L500.4050 #### [facility] [address] [place], [address] Lymphocytes/100 WBC (Bld) 27.5 % Normal 19-41 [facility] Comment on above: Performed By: #### L 100.0100, L500.4050 #### [facility] [address] [place], [address] MCH (RBC) [Entitic mass] 31.1 pg Normal 27.0-32.0 [facility] Comment on above: Performed By: #### L 100.0100, L500.4050 #### [facility] [address] [place], [address] MCHC (RBC) [Mass/Vol] 31.9 g/dL Low 32-36 [facility] Comment on above: Performed By: #### L 100.0100, L500.4050 #### [facility] [address] [place], [address] MCV (RBC) [Entitic vol] 97.3 fL Normal 81-99 [facility] Comment on above: Performed By: #### L 100.0100, L500.4050 #### [facility] [address] [place], [address] Monocytes/100 WBC (Bld) 14.6 % High 0-10 [facility] Comment on above: Performed By: #### L 100.0100, L500.4050 #### [facility] [address] [place], [address] Neutrophils/100 WBC (Bld) 54.6 % Normal 47-70 [facility] Comment on above: Performed By: #### L 100.0100, L500.4050 #### [facility] [address] [place], [address] Nucleated RBC (Bld) [#/Vol] 0 10*3/uL Normal 0-5 [facility] Comment on above: Performed By: #### L 100.0100, L500.4050 #### [facility] [address] [place], [address] Platelet mean volume (Bld) [Entitic vol] 10.7 fL Normal 6.2-12.0 [facility] Comment on above: Performed By: #### L 100.0100, L500.4050 #### [facility] [address] [place], [address] Platelets (Bld) [#/Vol] 199 10*3/uL Normal 150-450 [facility] Comment on above: Performed By: #### L 100.0100, L500.4050 #### [facility] [address] [place], [address] RBC (Bld) [#/Vol] 4.44 10*6/uL Normal 4.2-5.4 [facility] Comment on above: Performed By: #### L 100.0100, L500.4050 #### [facility] [address] [place], [address] RDW SD 50.6 fl High 35.1-43.9 [facility] Comment on above: Performed By: #### L 100.0100, L500.4050 #### [facility] [address] [place], [address] WBC (Bld) [#/Vol] 4.1 10*3/uL Low 4.4-11.0 [facility] Comment on above: Performed By: #### L 100.0100, L500.4050 #### [facility] [address] [place], [address] Comprehensive Metabolic Prof ilon 12-30-2023 Albumin [Mass/Vol] 4.1 g/dL Normal 3.2-5.0 [facility] Comment on above: Performed By: #### L 100.0100, L500.4050 #### [facility] [address] [place], [address] Albumin/Globulin [Mass ratio] 1.2 {ratio} Normal 0.9-2.4 [facility] Comment on above: Performed By: #### L 100.0100, L500.4050 #### [facility] [address] [place], [address] ALK P 97 U/L Normal 45-117 [facility] Comment on above: Performed By: #### L 100.0100, L500.4050 #### [facility] [address] [place], [address] ALT [Catalytic activity/Vol] 33 U/L Normal 13-56 [facility] Comment on above: Performed By: #### L 100.0100, L500.4050 #### [facility] [address] [place], [address] AST [Catalytic activity/Vol] 31 U/L Normal 15-37 [facility] Comment on above: Performed By: #### L 100.0100, L500.4050 #### [facility] [address] [place], [address] Bilirubin [Mass/Vol] 0.60 mg/dL Normal 0.20-1.00 [facility] Comment on above: Result Comment: For patients on eltrombopag therapy, use of Dimension [place] TBIL is not recommended. Performed By: #### L 100.0100, L500.4050 #### [facility] [address] [place], [address] BUN/CRE 13.5 RATIO Normal 10-20 [facility] Comment on above: Performed By: #### L 100.0100, L500.4050 #### [facility] [address] [place], [address] CA,Total 9.7 mg/dL Normal 8.5-10.1 [facility] Comment on above: Performed By: #### L 100.0100, L500.4050 #### [facility] [address] [place], [address] Chloride [Moles/Vol] 105 mmol/L Normal 98-107 [facility] Comment on above: Performed By: #### L 100.0100, L500.4050 #### [facility] [address] [place], [address] CO2 [Moles/Vol] 27.0 mmol/L Normal 21.0-32.0 [facility] Comment on above: Performed By: #### L 100.0100, L500.4050 #### [facility] [address] [place], [address] Creatinine [Mass/Vol] 1.04 mg/dL High 0.55-1.02 [facility] Comment on above: Result Comment: The validity of the calculated GFR GFRAA in patients over 70 years has not been determined. Clinical correlation is essential. Performed By: #### L 100.0100, L500.4050 #### [facility] [address] [place], [address] EST GFR - AA 69 mL/min Normal >60 [facility] Comment on above: Result Comment: Afri can Danish GFR Calc Performed By: #### L 100.0100, L500.4050 #### [facility] [address] [place], [address] GAP 5 Normal 5-15 [facility] Comment on above: Performed By: #### L 100.0100, L500.4050 #### [facility] [address] [place], [address] GFR/1.73 sq M.predicted among non-blacks MDRD (S/P/Bld) [Vol rate/Area] 57 mL/min/{1.73_m2} Low >60 [facility] Comment on above: Result Comment: Non- GFR Calc Performed By: #### L 100.0100, L500.4050 #### [facility] [address] [place], [address] Globulin (S) [Mass/Vol] 3.5 g/dL Normal 2.2-4.2 [facility] Comment on above: Performed By: #### L 100.0100, L500.4050 #### [facility] [address] [place], [address] Glucose [Mass/Vol] 115 mg/dL High 74-106 [facility] Comment on above: Result Comment: Fast ing Glucose result from 100 to 125 mg/dL suggests IMPAIRED HOMEOSTASIS per A.D.A. criteria. Performed By: #### L 100.0100, L500.4050 #### [facility] [address] [place], [address] Potassium [Moles/Vol] 4.3 mmol/L Normal 3.5-5.1 [facility] Comment on above: Performed By: #### L 100.0100, L500.4050 #### [facility] [address] [place], [address] Sodium [Moles/Vol] 137 mmol/L Normal 136-145 [facility] Comment on above: Performed By: #### L 100.0100, L500.4050 #### [facility] [address] [place], [address] T PROT 7.6 g/dL Normal 6.4-8.2 [facility] Comment on above: Performed By: #### L 100.0100, L500.4050 #### [facility] [address] [place], [address] Urea nitrogen [Mass/Vol] 14 mg/dL Normal 7-18 [facility] Comment on above: Performed By: #### L 100.0100, L500.4050 #### [facility] [address] [place], [address] MA MAMMOGRAM SCREENING BILAT ERAL W/TOMOon 11-21-2023 MA MAMMOGRAM SCREENING BILATERAL W/KADE ORIGINAL FROM: [place] [address] PROCEDURE FOR: FELICITA CRAWFORD [facility] [address] [place] [id number] Home: PID#: [id number] Exam#: [id number] : 1960 Age: 63 TO: JOANNA MARTIN [address] [address] Fax: NO FAX EXAMINATION: SCREENING DIGITAL BILATERAL MAMMOGRAM WITH TOMOSYNTHESIS, 11/21/2023 7:26 am TECHNIQUE: Screening mammography of the bilateral breasts was performed with tomosynthesis. 2D standard and 3D tomosynthesis combination imaging performed through both breasts in the MLO and CC projection. Computer aided detection was utilized in the interpretation of this exam. COMPARISON: 10/22/2022, 10/13/2021 HISTORY: Breast cancer screening. FINDINGS: BREAST DENSITY: There are scattered areas of fibroglandular density. There are benign appearing calcifications in both breasts. There are no significant masses or calcifications. IMPRESSION: No mammographic evidence of malignancy. Continued screening with annual mammograms is recommended. Cooper Moonjosefina risk calculations, generated with the history provided, report this patient's 10 year risk and lifetime risk for developing breast cancer at 4.2% and 9.9%, respectively. Based on this assessment tool, if the patient's calculated lifetime risk is below 20%, then the patient is considered at average risk for developing breast cancer. If the patient's calculated lifetime risk is at or above 20%, then the patient is considered high risk for developing breast cancer and may be a candidate for supplemental breast MRI screening in addition to annual mammographic screening per the [place] [employer]. BIRADS: BI-RADS: 2: Benign RECALL: 1 year screening RECALL TYPE: mammo LETTER SENT: Normal BI-RADS 1 and 2 Interpreted by: Emmanuel Solorzano MD Preliminary Report By: Emmanuel Solorzano MD Electronically signed By Emmanuel Solorzano MD Dictated Date: 11/21/2023 9:17:56 AM Prelim Date: 11/21/2023 9:22:14 AM Sign Date: 11/21/2023 9:22:14 AM Ordering Provider: JOANNA MARTIN Filter Tip Inspector: GENARO LITTLE RT(R)(M)(CT) TICKET COLLECTOR OR USHER letter sent: Normal BI-RADS 1 and 2 Mammogram BI-RADS: 2 Benign Normal [facility] CBC W/Diff, Automatedon 07-0 Absolute Lymph 1.20 X10 3/uL Normal 0.83-4.51 [facility] Comment on above: Performed By: #### L 100.0100, L500.4050 #### [facility] [address] [facility] [place], [address] Absolute Neut 2.3 X10 3/uL Normal 2.0-7.7 [facility] Comment on above: Performed By: #### L 100.0100, L500.4050 #### [facility] [address] [place], [address] Basophils/100 WBC (Bld) 1.2 % High 0-1 [facility] Comment on above: Performed By: #### L 100.0100, L500.4050 #### [facility] [address] [place], [address] Eosinophils/100 WBC (Bld) 2.7 % Normal 0-5 [facility] Comment on above: Performed By: #### L 100.0100, L500.4050 #### [facility] [address] [place], [address] Erythrocyte distribution width (RBC) [Ratio] 13.3 % Normal 11.6-14.6 [facility] Comment on above: Performed By: #### L 100.0100, L500.4050 #### [facility] [address] [place], [address] Hematocrit (Bld) [Volume fraction] 43.1 % Normal 37-47 [facility] Comment on above: Performed By: #### L 100.0100, L500.4050 #### [facility] [address] [place], [address] Hemoglobin (Bld) [Mass/Vol] 13.8 g/dL Normal 12.0-15.0 [facility] Comment on above: Performed By: #### L 100.0100, L500.4050 #### [facility] [address] [place], [address] IG% 1.000 High 0.0-0.9 [facility] Comment on above: Result Comment: IG% - Immature Granulocytes (promyelocytes, myelocytes and metamyelocytes) > 1% indicates that a LEFT SHIFT is Present. Performed By: #### L 100.0100, L500.4050 #### [facility] [address] [place], [address] Lymphocytes/100 WBC (Bld) 29.3 % Normal 19-41 [facility] Comment on above: Performed By: #### L 100.0100, L500.4050 #### [facility] [address] [place], [address] MCH (RBC) [Entitic mass] 31.3 pg Normal 27.0-32.0 [facility] Comment on above: Performed By: #### L 100.0100, L500.4050 #### [facility] [address] [place], [address] MCHC (RBC) [Mass/Vol] 32.0 g/dL Normal 32-36 [facility] Comment on above: Performed By: #### L 100.0100, L500.4050 #### [facility] [address] [place], [address] MCV (RBC) [Entitic vol] 97.7 fL Normal 81-99 [facility] Comment on above: Performed By: #### L 100.0100, L500.4050 #### [facility] [address] [place], [address] Monocytes/100 WBC (Bld) 10.2 % High 0-10 [facility] Comment on above: Performed By: #### L 100.0100, L500.4050 #### [facility] [address] [place], [address] Neutrophils/100 WBC (Bld) 55.6 % Normal 47-70 [facility] Comment on above: Performed By: #### L 100.0100, L500.4050 #### [facility] [address] [place], [address] Nucleated RBC (Bld) [#/Vol] 0 10*3/uL Normal 0-5 [facility] Comment on above: Performed By: #### L 100.0100, L500.4050 #### [facility] [address] [place], [address] Platelet mean volume (Bld) [Entitic vol] 9.3 fL Normal 6.2-12.0 [facility] Comment on above: Performed By: #### L 100.0100, L500.4050 #### [facility] [address] [place], [address] Platelets (Bld) [#/Vol] 202 10*3/uL Normal 150-450 [facility] Comment on above: Performed By: #### L 100.0100, L500.4050 #### [facility] [address] [place], [address] RBC (Bld) [#/Vol] 4.41 10*6/uL Normal 4.2-5.4 [facility] Comment on above: Performed By: #### L 100.0100, L500.4050 #### [facility] [address] [place], [address] RDW SD 47.8 fl High 35.1-43.9 [facility] Comment on above: Performed By: #### L 100.0100, L500.4050 #### [facility] [address] [place], [address] WBC (Bld) [#/Vol] 4.1 10*3/uL Low 4.4-11.0 [facility] Comment on above: Performed By: #### L 100.0100, L500.4050 #### [facility] [address] [place], [address] Comprehensive Metabolic Prof [facility] 10-07-2023 Albumin [Mass/Vol] 3.5 g/dL Normal 3.2-5.0 [facility] Comment on above: Performed By: #### L 100.0100, L500.4050 #### [facility] [address] [place], [address] Albumin/Globulin [Mass ratio] 0.9 {ratio} Normal 0.9-2.4 [facility] Comment on above: Performed By: #### L 100.0100, L500.4050 #### [facility] [address] [place], [address] ALK P 112 U/L Normal 45-117 [facility] Comment on above: Performed By: #### L 100.0100, L500.4050 #### [facility] [address] [place], [address] ALT [Catalytic activity/Vol] 17 U/L Normal 13-56 [facility] Comment on above: Performed By: #### L 100.0100, L500.4050 #### [facility] [address] [place], [address] AST [Catalytic activity/Vol] 19 U/L Normal 15-37 [facility] Comment on above: Performed By: #### L 100.0100, L500.4050 #### [facility] [address] [place], [address] Bilirubin [Mass/Vol] 0.60 mg/dL Normal 0.20-1.00 [facility] Comment on above: Result Comment: For patients on eltrombopag therapy, use of Dimension [place] TBIL is not recommended. Performed By: #### L 100.0100, L500.4050 #### [facility] [address] [place], [address] BUN/CRE 14.2 RATIO Normal 10-20 [facility] Comment on above: Performed By: #### L 100.0100, L500.4050 #### [facility] [address] [place], [address] CA,Total 9.7 mg/dL Normal 8.5-10.1 [facility] Comment on above: Performed By: #### L 100.0100, L500.4050 #### [facility] [address] [place], [address] Chloride [Moles/Vol] 105 mmol/L Normal 98-107 [facility] Comment on above: Performed By: #### L 100.0100, L500.4050 #### [facility] [address] [place], [address] CO2 [Moles/Vol] 28.0 mmol/L Normal 21.0-32.0 [facility] Comment on above: Performed By: #### L 100.0100, L500.4050 #### [facility] [address] [place], [address] Creatinine [Mass/Vol] 0.98 mg/dL Normal 0.55-1.02 [facility] Comment on above: Result Comment: The validity of the calculated GFR GFRAA in patients over 70 years has not been determined. Clinical correlation is essential. Performed By: #### L 100.0100, L500.4050 #### [facility] [address] [place], [address] EST GFR - AA 74 mL/min Normal >60 [facility] Comment on above: Result Comment: Afri can Danish GFR Calc Performed By: #### L 100.0100, L500.4050 #### [facility] [address] [place], [address] GAP 6 Normal 5-15 [facility] Comment on above: Performed By: #### L 100.0100, L500.4050 #### [facility] [address] [place], [address] GFR/1.73 sq M.predicted among non-blacks MDRD (S/P/Bld) [Vol rate/Area] 61 mL/min/{1.73_m2} Normal >60 [facility] Comment on above: Result Comment: Non- GFR Calc Performed By: #### L 100.0100, L500.4050 #### [facility] [address] [place], [address] Globulin (S) [Mass/Vol] 3.8 g/dL Normal 2.2-4.2 [facility] Comment on above: Performed By: #### L 100.0100, L500.4050 #### [facility] [address] [place], [address] Glucose [Mass/Vol] 110 mg/dL High 74-106 [facility] Comment on above: Result Comment: Fast ing Glucose result from 100 to 125 mg/dL suggests IMPAIRED HOMEOSTASIS per A.D.A. criteria. Performed By: #### L 100.0100, L500.4050 #### [facility] [address] [place], [address] Potassium [Moles/Vol] 4.8 mmol/L Normal 3.5-5.1 [facility] Comment on above: Performed By: #### L 100.0100, L500.4050 #### [facility] [address] [place], [address] Sodium [Moles/Vol] 139 mmol/L Normal 136-145 [facility] Comment on above: Performed By: #### L 100.0100, L500.4050 #### [facility] [address] [place], [address] T PROT 7.3 g/dL Normal 6.4-8.2 [facility] Comment on above: Performed By: #### L 100.0100, L500.4050 #### [facility] [address] [place], [address] Urea nitrogen [Mass/Vol] 14 mg/dL Normal 7-18 [facility] Comment on above: Performed By: #### L 100.0100, L500.4050 #### [facility] [address] [place], [address] Absolute lymphocyte countOrd ered By: Desiree Marquez on 07-22-2023 Lymphocytes Auto (Unsp spec) [#/Vol] 1.24 10*3/uL 0.83-4.51 [facility] Automated lymphocyte count a s percentage of total leukocytesOrdered By: Desiree Marquez on 07-22-2023 Lymphocytes/100 WBC Auto (Unsp spec) 27.3 % 19-41 [facility] Basophil percentageOrdered B y: Desiree Marquez on 07-22-2023 Basophils/100 WBC (Bld) 0.9 % 0-1 [facility] Bilirubin [Mass/Vol] 0.80 mg/dL 0.20-1.00 [facility] Comment on above: For patients on eltr ombopag therapy, use of Dimension [place] TBIL is not recommended. Chloride [Moles/Vol] 106 mmol/L 98-107 [facility] Eosinophils/100 WBC (Bld) 1.3 % 0-5 [facility] Glucose [Mass/Vol] 112 mg/dL 74-106 [facility] Comment on above: Fasting Glucose resu lt from 100 to 125 mg/dL suggests IMPAIRED HOMEOSTASIS per A.D.A. criteria. Hemoglobin (Bld) [Mass/Vol] 13.5 g/dL 12.0-15.0 [facility] Monocytes/100 WBC (Bld) 9.7 % 0-10 [facility] Neutrophils (Bld) [#/Vol] 2.8 10*3/uL 2.0-7.7 [facility] Neutrophils/100 WBC (Bld) 60.6 % 47-70 [facility] Potassium [Moles/Vol] 4.7 mmol/L 3.5-5.1 [facility] Protein [Mass/Vol] 7.2 g/dL 6.4-8.2 [facility] Sodium [Moles/Vol] 140 mmol/L 136-145 [facility] WBC (Bld) [#/Vol] 4.5 10*3/uL 4.4-11.0 [facility] Determination of erythrocyte mean corpuscular volume (MCV)Ordered By: Desiree Marquez on 07-22-2023 MCV (RBC) [Entitic vol] 97.9 fL 81-99 [facility] Erythrocyte distribution wid th ratioOrdered By: Desiree Marquez on 07-22-2023 Erythrocyte distribution width (RBC) [Ratio] 13.5 % 11.6-14.6 [facility] Erythrocyte distribution wid th standard deviationOrdered By: Desiree Marquez on 07-22-2023 Erythrocyte distribution width (RBC) [Entitic vol] 48.4 fL 35.1-43.9 [facility] Hematocrit Auto (Bld) [Volum e fraction]Ordered By: Desiree Marquez on 07-22-2023 Hematocrit (Bld) [Volume fraction] 41.6 % 37-47 [facility] Immature granulocytes/100 WB C Auto (Bld)Ordered By: [facility] on 07-22-2023 Immature granulocytes/100 WBC (Bld) 0.200 % 0.0-0.9 [facility] Comment on above: IG% - Immature Granu locytes (promyelocytes, myelocytes and metamyelocytes) > 1% indicates that a LEFT SHIFT is Present. Laboratory - Chemistry and C hemistry - challengeOrdered By: Desireeleatha Marquez on 07-22-2023 Albumin/Globulin [Mass ratio] 1.0 {ratio} 0.9-2.4 [facility] ALP [Catalytic activity/Vol] 99 U/L 45-117 [facility] ALT [Catalytic activity/Vol] 21 U/L 13-56 [facility] CO2 [Moles/Vol] 28.0 mmol/L 21.0-32.0 [facility] Globulin (S) [Mass/Vol] 3.6 g/dL 2.2-4.2 [facility] Urea nitrogen/Creatinine [Mass ratio] 14.9 mg/mg 10-20 [facility] - Hematology and Cell countsOrdered By: Desireeleatha Marquez on 07-22-2023 MCH (RBC) [Entitic mass] 31.8 pg 27.0-32.0 [facility] MCHC (RBC) [Mass/Vol] 32.5 g/dL 32-36 [facility] Nucleated RBC/100 WBC (Bld) [Ratio] 0 % 0-5 [facility] Platelet mean volume (Bld) [Entitic vol] 9.2 fL 6.2-12.0 [facility] Platelets (Bld) [#/Vol] 188 10*3/uL 150-450 [facility] No Panel InformationOrdered By: Desiree Marquez on 07-22-2023 Estimated GFR (MDRD) Amer 72 mL/min >60 [facility] Comment on above: GFR Calc Estimated GFR (MDRD) Non-Af Amer 59 mL/min >60 [facility] Comment on above: Non- GFR Calc RBC Auto (Bld) [#/Vol]Ordere d By: Desiree Marquez on 07-22-2023 RBC (Bld) [#/Vol] 4.25 10*6/uL 4.2-5.4 [facility] Serum or plasma calcium susan urement (mass/volume)Ordered By: Desiree Marquez on 07-22-2023 Calcium [Mass/Vol] 9.1 mg/dL 8.5-10.1 [facility] Serum or plasma creatinine m easurement (mass/volume)Ordered By: Desiree Marquez on 07-22-2023 Creatinine [Mass/Vol] 1.01 mg/dL 0.55-1.02 [facility] Comment on above: The validity of the calculated GFR & GFRAA in patients over 70 years has not been determined. Clinical correlation is essential. Serum or plasma urea nitroge n measurement (mass/volume)Ordered By: Desiree Marquez on 07-22-2023 Urea nitrogen [Mass/Vol] 15 mg/dL 7-18 [facility] Thin prep Papanicolaou smear with manual screeningOrdered By: Desiree Marquez on 07-22-2023 Thin prep Papanicolaou smear with manual screening 3.6 g/dL 3.2-5.0 [facility] Thin prep Papanicolaou smear with manual screening 21 U/L 15-37 [facility] Thin prep Papanicolaou smear with manual screening 6 5-15 [facility] Absolute lymphocyte countOrd ered By: Desiree Marquez on 04-27-2023 Lymphocytes Auto (Unsp spec) [#/Vol] 1.11 10*3/uL 0.83-4.51 [facility] Automated lymphocyte count a s percentage of total leukocytesOrdered By: Desiree Marquez on 04-27-2023 Lymphocytes/100 WBC Auto (Unsp spec) 21.9 % 19-41 [facility] Basophil percentageOrdered B y: Desiree Marquez on 04-27-2023 Basophils/100 WBC (Bld) 0.6 % 0-1 [facility] Bilirubin [Mass/Vol] 0.60 mg/dL 0.20-1.00 [facility] Comment on above: For patients on eltr ombopag therapy, use of Dimension [place] TBIL is not recommended. Chloride [Moles/Vol] 105 mmol/L 98-107 [facility] Eosinophils/100 WBC (Bld) 1.6 % 0-5 [facility] Glucose [Mass/Vol] 105 mg/dL 74-106 [facility] Comment on above: Fasting Glucose resu lt from 100 to 125 mg/dL suggests IMPAIRED HOMEOSTASIS per A.D.A. criteria. Hemoglobin (Bld) [Mass/Vol] 13.8 g/dL 12.0-15.0 [facility] Monocytes/100 WBC (Bld) 10.4 % 0-10 [facility] Neutrophils (Bld) [#/Vol] 3.3 10*3/uL 2.0-7.7 [facility] Neutrophils/100 WBC (Bld) 65.3 % 47-70 [facility] Potassium [Moles/Vol] 4.0 mmol/L 3.5-5.1 [facility] Protein [Mass/Vol] 7.5 g/dL 6.4-8.2 [facility] Sodium [Moles/Vol] 136 mmol/L 136-145 [facility] WBC (Bld) [#/Vol] 5.1 10*3/uL 4.4-11.0 [facility] Determination of erythrocyte mean corpuscular volume (MCV)Ordered By: Desiree Marquez on 04-27-2023 MCV (RBC) [Entitic vol] 99.3 fL 81-99 [facility] Erythrocyte distribution wid th ratioOrdered By: Desiree Marquez on 04-27-2023 Erythrocyte distribution width (RBC) [Ratio] 13.5 % 11.6-14.6 [facility] Erythrocyte distribution wid th standard deviationOrdered By: Desiree Marquez on 04-27-2023 Erythrocyte distribution width (RBC) [Entitic vol] 48.6 fL 35.1-43.9 [facility] Hematocrit Auto (Bld) [Volum e fraction]Ordered By: Desiree Marquez on 04-27-2023 Hematocrit (Bld) [Volume fraction] 43.3 % 37-47 [facility] Immature granulocytes/100 WB C Auto (Bld)Ordered By: Desiree Marquez on 04-27-2023 Immature granulocytes/100 WBC (Bld) 0.200 % 0.0-0.9 [facility] Comment on above: IG% - Immature Granu locytes (promyelocytes, myelocytes and metamyelocytes) > 1% indicates that a LEFT SHIFT is Present. Laboratory - Chemistry and C hemistry - challengeOrdered By: Desiree Marquez on 04-27-2023 Albumin/Globulin [Mass ratio] 1.0 {ratio} 0.9-2.4 [facility] ALP [Catalytic activity/Vol] 111 U/L 45-117 [facility] ALT [Catalytic activity/Vol] 23 U/L 13-56 [facility] CO2 [Moles/Vol] 27.0 mmol/L 21.0-32.0 [facility] Globulin (S) [Mass/Vol] 3.8 g/dL 2.2-4.2 [facility] Urea nitrogen/Creatinine [Mass ratio] 19.6 mg/mg 10-20 [facility] - Hematology and Cell countsOrdered By: Desiree Marquez on 04-27-2023 MCH (RBC) [Entitic mass] 31.7 pg 27.0-32.0 [facility] MCHC (RBC) [Mass/Vol] 31.9 g/dL 32-36 [facility] Nucleated RBC/100 WBC (Bld) [Ratio] 0 % 0-5 [facility] Platelets (Bld) [#/Vol] 206 10*3/uL 150-450 [facility] No Panel InformationOrdered By: Desiree Marquez on 04-27-2023 Estimated GFR (MDRD) Amer 80 mL/min >60 [facility] Comment on above: GFR Calc Estimated GFR (MDRD) Non-Af Amer 66 mL/min >60 [facility] Comment on above: Non- GFR Calc Platelet mean volume Herminio-Ec ker (Bld) [Entitic vol]Ordered By: Desiree Marquez on 04-27-2023 Platelet mean volume (Bld) [Entitic vol] 9.4 fL 6.2-12.0 [facility] RBC Auto (Bld) [#/Vol]Ordere d By: Desiree Marquez on 04-27-2023 RBC (Bld) [#/Vol] 4.36 10*6/uL 4.2-5.4 [facility] Serum or plasma calcium susan urement (mass/volume)Ordered By: Desiree Marquez on 04-27-2023 Calcium [Mass/Vol] 9.4 mg/dL 8.5-10.1 [facility] Serum or plasma creatinine m easurement (mass/volume)Ordered By: Desiree Marquez on 04-27-2023 Creatinine [Mass/Vol] 0.92 mg/dL 0.55-1.02 [facility] Comment on above: The validity of the calculated GFR & GFRAA in patients over 70 years has not been determined. Clinical correlation is essential. Serum or plasma urea nitroge n measurement (mass/volume)Ordered By: Desiree Marquez on 04-27-2023 Urea nitrogen [Mass/Vol] 18 mg/dL 7-18 [facility] Thin prep Papanicolaou smear with manual screeningOrdered By: Desiree Marquez on 04-27-2023 Thin prep Papanicolaou smear with manual screening 3.7 g/dL 3.2-5.0 [facility] Thin prep Papanicolaou smear with manual screening 21 U/L 15-37 [facility] Thin prep Papanicolaou smear with manual screening 4 5-15 [facility] FELICITA STUBBS ([id number]) 1960 F Date Time Provider Department 04/11/23 ZOË KATZ During your visit today, we recorded the following information about you: Joanna Powell LPN 04/11/2023 12:42 PM Signed ----- Message from Zoë Katz MD sent at 04/11/2023 12:40 PM EST ----- Please call the patient The lipid profile is normal Joanna Perry LPN 04/11/2023 12:43 PM Signed I spoke to Ms.Leathers Villa and informed them of 's response to lipid panel results and recommendations. Patient voiced understanding. Joanna Powell LPN Allergies As of Date: 04/11/2023 Noted Allergy Reaction ERYTHROMYCIN 03/17/2020 4 - Hives MORPHINE 03/17/2020 1 - Mental Status Change Comments: Gets violent TETANUS AND DIPHTHER. TOX (PF) 03/17/2020 8 - GI Upset Comments: Nausea, muscle weakness, fever Date Reviewed: 03/14/2023 Reviewed by: Dinah Oconnor, RN - Fully Assessed Reason for Visit: Results [95] Prescriptions as of 04/11/2023 - aspirin 81 mg cap Take 1 tablet by mouth once daily. - acetaminophen (TYLENOL ARTHRITIS ORAL) Take by mouth. PRN - carvedilol (COREG) 12.5 mg tablet Take 1 tablet by mouth two times a day. - DULoxetine (CYMBALTA) 30 mg capsule Take 60 mg by mouth once daily. - OTC NUTRITIONAL SUPPLEMENT once daily. Rusty Pro Multivitamin - atorvastatin (LIPITOR) 10 mg tablet Take 40 mg by mouth once daily. - pantoprazole DR (PROTONIX) 40 mg tablet Take 40 mg by mouth once daily. - methotrexate sodium (METHOTREXATE, ANTI-RHEUMATIC, ORAL) Take 2.5 mg by mouth. 6 tabs of 2.5 mg/tab on tuesday - Etanercept (ENBREL) 50 mg/mL (1 mL) injection Inject subcutaneously one time a week. - calcium carbonate/vitamin D3 (CALCIUM 600 + D,3, ORAL) Take by mouth once daily. - OTC PRODUCT Rusty Pro Multivitamin 1 tab daily - folic acid 1 mg tablet Take 1 mg by mouth once daily. 2 tabs daily - acetic acid (ACETASOL OTIC) Use in the ears. In R ear as needed Problem List As Of Date 04/11/2023 Noted Resolved Obesity, Class III, BMI >= 40 [E66.01] 05/25/2021 Shortness of breath [R06.02] 05/25/2021 Primary hypertension [I10] 05/25/2021 Obesity, Class II, BMI 35-39.9 [E66.9] 08/17/2021 Occlusion of right carotid artery [I65.21] 03/14/2023 Pure hypercholesterolemia [E78.00] 03/14/2023 Encounter Status:Closed by JOANNA POWELL on 04/11/23 [facility] Basophil percentageOrdered B y: Glen Chau on 08-25-2022 Chloride [Moles/Vol] 111 mmol/L 98-107 [facility] Glucose [Mass/Vol] 108 mg/dL 74-106 [facility] Comment on above: Fasting Glucose resu lt from 100 to 125 mg/dL suggests IMPAIRED HOMEOSTASIS per A.D.A. criteria. Potassium [Moles/Vol] 4.3 mmol/L 3.5-5.1 [facility] Sodium [Moles/Vol] 141 mmol/L 136-145 [facility] WBC (Bld) [#/Vol] 5.7 10*3/uL 4.4-11.0 [facility] Basophil percentageOrdered B y: Glen Rodriguez on 08-25-2022 Bilirubin [Mass/Vol] 0.70 mg/dL 0.20-1.00 [facility] Comment on above: For patients on eltr ombopag therapy, use of Dimension [place] TBIL is not recommended. Protein [Mass/Vol] 7.2 g/dL 6.4-8.2 [facility] Blood erythrocytes count (nu mber/volume)Ordered By: Glen Chau on 08-25-2022 RBC (Bld) [#/Vol] 4.35 10*6/uL 4.2-5.4 [facility] Blood hemoglobin measurement (mass/volume)Ordered By: Glen Chau on 08-25-2022 Hemoglobin (Bld) [Mass/Vol] 14.3 g/dL 12.0-15.0 [facility] Blood platelet mean volumeOr dered By: Glen Chau on 08-25-2022 Platelet mean volume (Bld) [Entitic vol] 8.8 fL 6.2-12.0 [facility] Determination of erythrocyte mean corpuscular volume (MCV)Ordered By: Glen Chau on 08-25-2022 MCV (RBC) [Entitic vol] 99.1 fL 81-99 [facility] Direct bilirubinOrdered By: Glen Rodriguez on 08-25-2022 Bilirubin.direct [Mass/Vol] 0.18 mg/dL 0.00-0.30 [facility] Hematocrit Auto (Bld) [Volum e fraction]Ordered By: Glen Chau on 08-25-2022 Hematocrit (Bld) [Volume fraction] 43.1 % 37-47 [facility] INR in Blood by Coagulation assayOrdered By: Glen Rodriguez on 08-25-2022 INR Coag (Bld) [Relative time] 0.9 {INR} [facility] Laboratory - Chemistry and C hemistry - challengeOrdered By: Glen Chau on 08-25-2022 CO2 [Moles/Vol] 26.0 mmol/L 21.0-32.0 [facility] Urea nitrogen/Creatinine [Mass ratio] 17.9 mg/mg 10-20 [facility] - Chemistry and C hemistry - challengeOrdered By: Glen Rodriguez on 08-25-2022 ALP [Catalytic activity/Vol] 108 U/L 45-117 [facility] ALT [Catalytic activity/Vol] 22 U/L 13-56 [facility] Globulin (S) [Mass/Vol] 3.6 g/dL 2.2-4.2 [facility] - CoagulationOrde red By: Glen Rodriguez on 08-25-2022 aPTT Coag (Bld) [Time] 29.6 s 24.1-36.2 [facility] PT Coag (PPP) [Time] 12.5 s 11.7-14.9 [facility] - Hematology and Cell countsOrdered By: Glen Chau on 08-25-2022 Erythrocyte distribution width (RBC) [Entitic vol] 49.0 fL 35.1-43.9 [facility] Erythrocyte distribution width (RBC) [Ratio] 13.5 % 11.6-14.6 [facility] MCH (RBC) [Entitic mass] 32.9 pg 27.0-32.0 [facility] MCHC Auto (RBC) [Mass/Vol]Or dered By: Glen Chau on 08-25-2022 MCHC (RBC) [Mass/Vol] 33.2 g/dL 32-36 [facility] No Panel InformationOrdered By: Glen Chau on 08-25-2022 Estimated GFR (MDRD) Amer 83 mL/min >60 [facility] Comment on above: GFR Calc Estimated GFR (MDRD) Non-Af Amer 68 mL/min >60 [facility] Comment on above: Non- GFR Calc Platelets bldOrdered By: Alla Chau on 08-25-2022 Platelets (Bld) [#/Vol] 188 10*3/uL 150-450 [facility] Serum or plasma albumin susan urement (mass/volume)Ordered By: Glen Rodriguez on 08-25-2022 Albumin [Mass/Vol] 3.6 g/dL 3.2-5.0 [facility] Serum or plasma calcium susan urement (mass/volume)Ordered By: Glen Chau on 08-25-2022 Calcium [Mass/Vol] 9.3 mg/dL 8.5-10.1 [facility] Serum or plasma creatinine m easurement (mass/volume)Ordered By: Glen Chau on 08-25-2022 Creatinine [Mass/Vol] 0.90 mg/dL 0.55-1.02 [facility] Comment on above: The validity of the calculated GFR & GFRAA in patients over 70 years has not been determined. Clinical correlation is essential. Serum or plasma urea nitroge n measurement (mass/volume)Ordered By: Glen Chau on 08-25-2022 Urea nitrogen [Mass/Vol] 16 mg/dL 7-18 [facility] Thin prep Papanicolaou smear with manual screeningOrdered By: Glen Chau on 08-25-2022 Thin prep Papanicolaou smear with manual screening 4 5-15 [facility] Thin prep Papanicolaou smear with manual screeningOrdered By: Glen Rodriguez on 08-25-2022 Thin prep Papanicolaou smear with manual screening 20 U/L 15-37 [facility] Qualitative QuantiFERON-TB g old in tube testOrdered By: Dr. Marquez on 08-05-2022 M. tuberculosis tuberculin stim IFN-g Ql (Bld) 0.04 IU/mL . [facility] Thin prep Papanicolaou smear with manual screeningOrdered By: Dr. Marquez on 08-05-2022 Thin prep Papanicolaou smear with manual screening Comment . [facility] Comment on above: QuantiFERON-TB Gold Plus is a qualitative indirect test forM tuberculosis infection (including disease) and isintended for use in conjunction with risk assessment,radiography, and other medical and diagnostic evaluations.The QuantiFERON-TB Gold Plus result is determined bysubtracting the Nil value from either TB antigen (Ag)value. The Mitogen tube serves as a control for the test. Thin prep Papanicolaou smear with manual screening 0.03 IU/mL . [facility] Thin prep Papanicolaou smear with manual screening 0.24 IU/mL . [facility] Thin prep Papanicolaou smear with manual screening > 10.00 IU/mL . [facility] Thin prep Papanicolaou smear with manual screening Negative Negative [facility] Comment on above: No response to M tub erculosis antigens detected.Infection with M tuberculosis is unlikely, but high riskindividuals should be considered for additional testing(ATS/IDSA/CDC Clinical Practice Guidelines, 2017). Thereference range is an Antigen minus Nil result of <0.35IU/mL.The specimen received for QuantiFERON testing was incubatedby the ordering institution. Specific procedures outlinedin our Directory of Services and in the package insert forthe QuantiFERON Gold (In Tube) test must be followed toenable for proper stimulation of cells for the productionof interferon gamma. Chemiluminescence immunoassaymethodologyPerformed at: [employer] [facility] [address] [id number] Director: Robel Monteiro PhD, Phone: [phone] Basophil percentageOrdered B y: Jamila Rodriges on 08-02-2022 Creatinine [Mass/Vol] 1.0 mg/dL 0.55-1.02 [facility] No Panel InformationOrdered By: Jamila Rodriges on 08-02-2022 Bedside Estimated GFR (eGFR) > 60.0000 mL/min >60 [facility] LABORATORYOrdered By: Beatriz Garcia on 12-19-2021 Cholesterol [Mass/Vol] 185 mg/dL Invalid Interpretation Code 0 - 200 mg/dL AO ADM SS Cholesterol in HDL [Mass/Vol] 50 mg/dL Invalid Interpretation Code 40 - 60 mg/dL AO ADM SS Cholesterol in LDL [Mass/Vol] 99 mg/dL Invalid Interpretation Code 0 - 130 mg/dL AO ADM SS Triglyceride [Mass/Vol] 178 mg/dL Invalid Interpretation Code 0 - 150 mg/dL AO ADM SS LABORATORYOrdered By: Beartiz Garcia on 08-12-2021 Albumin BCP dye [Mass/Vol] 3.7 G/dL Invalid Interpretation Code 3.5 - 5.0 G/dL AO ADM SS Albumin/Globulin [Mass ratio] 1.1 {ratio} Invalid Interpretation Code 1.1 - 2.5 ratio AO ADM SS ALP [Catalytic activity/Vol] 122 U/L Invalid Interpretation Code 40 - 135 U/L AO ADM SS ALT With P-5'-P [Catalytic activity/Vol] 23 U/L Invalid Interpretation Code 14 - 59 U/L AO ADM SS AST With P-5'-P [Catalytic activity/Vol] 16 U/L Invalid Interpretation Code 10 - 40 U/L AO ADM SS Bilirubin [Mass/Vol] 0.6 mg/dL Invalid Interpretation Code 0.2 - 1.0 mg/dL AO ADM SS Calcium [Mass/Vol] 9.2 mg/dL Invalid Interpretation Code 8.4 - 10.2 mg/dL AO ADM SS Chloride [Moles/Vol] 103 mmol/L Invalid Interpretation Code 98 - 107 mmol/L AO ADM SS CO2 [Moles/Vol] 29 mmol/L Invalid Interpretation Code 22 - 29 mmol/L AO ADM SS Creatinine [Mass/Vol] 0.99 mg/dL Invalid Interpretation Code 0.55 - 1.02 mg/dL AO ADM SS Electrolyte Balance 7.0 mEq/L Invalid Interpretation Code 4.0 - 15.0 mEq/L AO ADM SS Globulin 3.5 G/dL Invalid Interpretation Code AO ADM SS Glucose [Mass/Vol] 94 mg/dL Invalid Interpretation Code 70 - 105 mg/dL AO ADM SS Potassium [Moles/Vol] 4.6 mmol/L Invalid Interpretation Code 3.5 - 5.1 mmol/L AO ADM SS Protein [Mass/Vol] 7.2 G/dL Invalid Interpretation Code 6.4 - 8.2 G/dL AO ADM SS Sodium [Moles/Vol] 139 mmol/L Invalid Interpretation Code 136 - 145 mmol/L AO ADM SS Urea nitrogen [Mass/Vol] 19 mg/dL Invalid Interpretation Code 7 - 18 mg/dL AO ADM SS Urea nitrogen/Creatinine [Mass ratio] 19 ratio Invalid Interpretation Code 7 - 27 ratio AO ADM SS LABORATORYOrdered By: Apolinar Ortiz on 08-12-2021 Basophil, Absolute 0.10 103/mcL Invalid Interpretation Code 0.00 - 0.19 10^3/mcL AO Auto Heme SS Basophils/100 WBC (Bld) 1.1 % Invalid Interpretation Code 0.0 - 2.5 % AO Auto Heme SS Eosinophil, Absolute 0.10 103/mcL Invalid Interpretation Code 0.00 - 0.40 10^3/mcL AO Auto Heme SS Eosinophils/100 WBC (Bld) 1.1 % Invalid Interpretation Code 0.0 - 7.0 % AO Auto Heme SS Erythrocyte distribution width (RBC) [Ratio] 14.6 % Invalid Interpretation Code 11.5 - 14.5 % AO Auto Heme SS Hematocrit (Bld) [Volume fraction] 41.0 % Invalid Interpretation Code 37.0 - 47.0 % AO Auto Heme SS Hemoglobin (Bld) [Mass/Vol] 13.6 G/dL Invalid Interpretation Code 12.0 - 16.0 G/dL AO Auto Heme SS Lymphocyte, Absolute 1.10 103/mcL Invalid Interpretation Code 0.77 - 3.85 10^3/mcL AO Auto Heme SS Lymphocytes/100 WBC (Bld) 22.4 % Invalid Interpretation Code 10.0 - 50.0 % AO Auto Heme SS MCH (RBC) [Entitic mass] 30.4 pg Invalid Interpretation Code 27.0 - 31.2 pg AO Auto Heme SS MCHC (RBC) [Mass/Vol] 33.2 G/dL Invalid Interpretation Code 33.0 - 37.0 G/dL AO Auto Heme SS MCV (RBC) [Entitic vol] 91.5 fL Invalid Interpretation Code 80.0 - 94.0 fL AO Auto Heme SS Monocyte, Absolute 0.40 103/mcL Invalid Interpretation Code 0.15 - 1.00 10^3/mcL AO Auto Heme SS Monocytes/100 WBC (Bld) 8.1 % Invalid Interpretation Code 1.7 - 13.0 % AO Auto Heme SS Neutrophil, Absolute 3.20 103/mcL Invalid Interpretation Code 2.85 - 6.16 10^3/mcL AO Auto Heme SS Neutrophils/100 WBC (Bld) 67.3 % Invalid Interpretation Code 37.0 - 80.0 % AO Auto Heme SS Platelet mean volume (Bld) [Entitic vol] 7.7 fL Invalid Interpretation Code 7.4 - 10.4 fL AO Auto Heme SS Platelets (Bld) [#/Vol] 215 103/mcL Invalid Interpretation Code 130 - 400 10^3/mcL AO Auto Heme SS RBC (Bld) [#/Vol] 4.49 106/mcL Invalid Interpretation Code 4.20 - 5.40 10^6/mcL AO Auto Heme SS WBC (Bld) [#/Vol] 4.80 103/mcL Invalid Interpretation Code 4.60 - 10.80 10^3/mcL AO Auto Heme SS LABORATORYOrdered By: SYSTEM SYSTEM on 08-12-2021 GFR 70 ml/min/1.73sqm Invalid Interpretation Code AO Chemistry S GFR Non- 58 ml/min/1.73sqm Invalid Interpretation Code AO Chemistry S STRESS ECHO TREADMILLon 04-2 [facility] FELICITA STUBBS ([id number]) 1960 F Date Time Provider Department 07/29/21 MARTINE LEGGETTEnrrique During your visit today, we recorded the following information about you: Martine Leggett RN 07/29/2021 2:24 PM Signed Left message regarding reminder for stress test tomorrow and given instructions. Allergies As of Date: 07/29/2021 Noted Allergy Reaction ERYTHROMYCIN 03/17/2020 4 - Hives MORPHINE 03/17/2020 1 - Mental Status Change Comments: Gets violent TETANUS AND DIPHTHER. TOX (PF) 03/17/2020 8 - GI Upset Comments: Nausea, muscle weakness, fever Date Reviewed: 07/20/2021 Reviewed by: Heydi Palm - Fully Assessed Reason for Visit: Reminder Call [[id number]] Prescriptions as of 07/29/2021 - atorvastatin (LIPITOR) 10 mg tablet Take 10 mg by mouth once daily. - carvedilol (COREG) 6.25 mg tablet Take 0.5 tablets by mouth twice daily. - pantoprazole DR (PROTONIX) 40 mg tablet Take 40 mg by mouth once daily. - methotrexate sodium (METHOTREXATE, ANTI-RHEUMATIC, ORAL) Take 2.5 mg by mouth. 4 tabs on tuesday - Etanercept (ENBREL) 50 mg/mL (1 mL) injection Inject subcutaneously one time a week. - calcium carbonate/vitamin D3 (CALCIUM 600 + D,3, ORAL) Take by mouth once daily. - OTC PRODUCT Rusty Pro Multivitamin 1 tab daily - folic acid 1 mg tablet Take 1 mg by mouth once daily. 2 tabs daily - acetic acid (ACETASOL OTIC) Use in the ears. In R ear as needed Facility-Administered Medications as of 07/29/2021 - perflutren lipid microspheres 1.3 mL in NaCl (PF) 0.9% 10 mL injection (DEFINITY) - sodium chloride 0.9 % (flush) 10 mL (BD POSIFLUSH) - perflutren lipid microspheres 1.3 mL in NaCl (PF) 0.9% 10 mL injection (DEFINITY) - sodium chloride 0.9 % (flush) 10 mL (BD POSIFLUSH) - perflutren lipid microspheres 1.3 mL in NaCl (PF) 0.9% 10 mL injection (DEFINITY) - sodium chloride 0.9 % (flush) 10 mL (BD POSIFLUSH) Problem List As Of Date 07/29/2021 Noted Resolved Obesity, Class III, BMI >= 40 [E66.01] 05/25/2021 Shortness of breath [R06.02] 05/25/2021 Primary hypertension [I10] 05/25/2021 Encounter Status:Closed by MARTINE LEGGETT on 07/29/21 [facility] LABORATORYOrdered By: Apolinar Ortiz on 05-19-2021 Calcium [Mass/Vol] 9.4 mg/dL Invalid Interpretation Code 8.4 - 10.2 mg/dL AO ADM SS Chloride [Moles/Vol] 101 mmol/L Invalid Interpretation Code 98 - 107 mmol/L AO ADM SS CO2 [Moles/Vol] 30 mmol/L Invalid Interpretation Code 22 - 29 mmol/L AO ADM SS Creatinine [Mass/Vol] 1.06 mg/dL Invalid Interpretation Code 0.55 - 1.02 mg/dL AO ADM SS Electrolyte Balance 9.0 mEq/L Invalid Interpretation Code 4.0 - 15.0 mEq/L AO ADM SS Glucose [Mass/Vol] 104 mg/dL Invalid Interpretation Code 70 - 105 mg/dL AO ADM SS Potassium [Moles/Vol] 4.4 mmol/L Invalid Interpretation Code 3.5 - 5.1 mmol/L AO ADM SS Sodium [Moles/Vol] 140 mmol/L Invalid Interpretation Code 136 - 145 mmol/L AO ADM SS Urea nitrogen [Mass/Vol] 12 mg/dL Invalid Interpretation Code 7 - 18 mg/dL AO ADM SS Urea nitrogen/Creatinine [Mass ratio] 11 ratio Invalid Interpretation Code 7 - 27 ratio AO ADM SS LABORATORYOrdered By: SYSTEM SYSTEM on 05-19-2021 GFR 65 ml/min/1.73sqm Invalid Interpretation Code AO Chemistry S GFR Non- 53 ml/min/1.73sqm Invalid Interpretation Code AO Chemistry S LABORATORYOrdered By: Apolinar Ortiz on 02-11-2021 Albumin BCP dye [Mass/Vol] 3.7 G/dL Invalid Interpretation Code 3.5 - 5.0 G/dL AO ADM SS Albumin/Globulin [Mass ratio] 1.1 {ratio} Invalid Interpretation Code 1.1 - 2.5 ratio AO ADM SS ALP [Catalytic activity/Vol] 119 U/L Invalid Interpretation Code 40 - 135 U/L AO ADM SS ALT With P-5'-P [Catalytic activity/Vol] 27 U/L Invalid Interpretation Code 14 - 59 U/L AO ADM SS AST With P-5'-P [Catalytic activity/Vol] 26 U/L Invalid Interpretation Code 10 - 40 U/L AO ADM SS Bilirubin [Mass/Vol] 0.6 mg/dL Invalid Interpretation Code 0.2 - 1.0 mg/dL AO ADM SS Calcium [Mass/Vol] 9.0 mg/dL Invalid Interpretation Code 8.4 - 10.2 mg/dL AO ADM SS Chloride [Moles/Vol] 100 mmol/L Invalid Interpretation Code 98 - 107 mmol/L AO ADM SS CO2 [Moles/Vol] 29 mmol/L Invalid Interpretation Code 22 - 29 mmol/L AO ADM SS Creatinine [Mass/Vol] 0.91 mg/dL Invalid Interpretation Code 0.55 - 1.02 mg/dL AO ADM SS Electrolyte Balance 9.0 mEq/L Invalid Interpretation Code AO ADM SS Globulin 3.4 G/dL Invalid Interpretation Code AO ADM SS Glucose [Mass/Vol] 87 mg/dL Invalid Interpretation Code 70 - 105 mg/dL AO ADM SS Potassium [Moles/Vol] 4.5 mmol/L Invalid Interpretation Code 3.5 - 5.1 mmol/L AO ADM SS Protein [Mass/Vol] 7.1 G/dL Invalid Interpretation Code 6.4 - 8.2 G/dL AO ADM SS Sodium [Moles/Vol] 138 mmol/L Invalid Interpretation Code 136 - 145 mmol/L AO ADM SS Urea nitrogen [Mass/Vol] 14 mg/dL Invalid Interpretation Code 7 - 18 mg/dL AO ADM SS Urea nitrogen/Creatinine [Mass ratio] 15 ratio Invalid Interpretation Code 7 - 27 ratio AO ADM SS LABORATORYOrdered By: Tomy Hall on 02-11-2021 Basophil, Absolute 0.00 103/mcL Invalid Interpretation Code 0.00 - 0.19 10^3/mcL AO Auto Heme SS Basophils/100 WBC (Bld) 1.0 % Invalid Interpretation Code 0.0 - 2.5 % AO Auto Heme SS Eosinophil, Absolute 0.10 103/mcL Invalid Interpretation Code 0.00 - 0.40 10^3/mcL AO Auto Heme SS Eosinophils/100 WBC (Bld) 1.6 % Invalid Interpretation Code 0.0 - 7.0 % AO Auto Heme SS Erythrocyte distribution width (RBC) [Ratio] 14.7 % Invalid Interpretation Code 11.5 - 14.5 % AO Auto Heme SS Hematocrit (Bld) [Volume fraction] 42.8 % Invalid Interpretation Code 37.0 - 47.0 % AO Auto Heme SS Hemoglobin (Bld) [Mass/Vol] 14.2 G/dL Invalid Interpretation Code 12.0 - 16.0 G/dL AO Auto Heme SS Lymphocyte, Absolute 1.10 103/mcL Invalid Interpretation Code 0.77 - 3.85 10^3/mcL AO Auto Heme SS Lymphocytes/100 WBC (Bld) 22.1 % Invalid Interpretation Code 10.0 - 50.0 % AO Auto Heme SS MCH (RBC) [Entitic mass] 31.4 pg Invalid Interpretation Code 27.0 - 31.2 pg AO Auto Heme SS MCHC (RBC) [Mass/Vol] 33.2 G/dL Invalid Interpretation Code 33.0 - 37.0 G/dL AO Auto Heme SS MCV (RBC) [Entitic vol] 94.4 fL Invalid Interpretation Code 80.0 - 94.0 fL AO Auto Heme SS Monocyte, Absolute 0.50 103/mcL Invalid Interpretation Code 0.15 - 1.00 10^3/mcL AO Auto Heme SS Monocytes/100 WBC (Bld) 9.9 % Invalid Interpretation Code 1.7 - 13.0 % AO Auto Heme SS Neutrophil, Absolute 3.30 103/mcL Invalid Interpretation Code 2.85 - 6.16 10^3/mcL AO Auto Heme SS Neutrophils/100 WBC (Bld) 65.4 % Invalid Interpretation Code 37.0 - 80.0 % AO Auto Heme SS Platelet mean volume (Bld) [Entitic vol] 7.5 fL Invalid Interpretation Code 7.4 - 10.4 fL AO Auto Heme SS Platelets (Bld) [#/Vol] 279 103/mcL Invalid Interpretation Code 130 - 400 10^3/mcL AO Auto Heme SS RBC (Bld) [#/Vol] 4.53 106/mcL Invalid Interpretation Code 4.20 - 5.40 10^6/mcL AO Auto Heme SS WBC (Bld) [#/Vol] 5.00 103/mcL Invalid Interpretation Code 4.60 - 10.80 10^3/mcL AO Auto Heme SS LABORATORYOrdered By: SYSTEM SYSTEM on 02-11-2021 GFR 77 ml/min/1.73sqm Invalid Interpretation Code AO Chemistry S GFR Non- 63 ml/min/1.73sqm Invalid Interpretation Code AO Chemistry S Vital Signs Date Time Vital Sign Value Performing Clinician Facility 12-04-2024 09:36-0400 Body height 166 cm Glynn Sullivan MD Work Phone: [facility] 12-04-2024 09:36-0400 Body height 166.37 cm Glynn Sullivan MD Work Phone: [facility] 12-04-2024 09:36-0400 Body mass index (BMI) [Ratio] 40.3 kg/m2 Glynn Sullivan MD Work Phone: [facility] 12-04-2024 09:36-0400 Body weight 111 kg Glynn Sullivan MD Work Phone: [facility] 12-04-2024 09:36-0400 Body weight 111.13 kg Glynn Sullivan MD Work Phone: [facility] 12-04-2024 09:36-0400 BP SITE #1 Glynn Sullivan MD Work Phone: [facility] 12-04-2024 09:36-0400 Diastolic blood pressure 80 mm[Hg] Glynn Sullivan MD Work Phone: [facility] 12-04-2024 09:36-0400 Heart rate 92 /min Glynn Sullivan MD Work Phone: [facility] 12-04-2024 09:36-0400 HGHTCHNVIS Glynn Sullivan MD Work Phone: [facility] 12-04-2024 09:36-0400 Systolic blood pressure 112 mm[Hg] Glynn Sullivan MD Work Phone: [facility] 12-04-2024 09:36-0400 VITALSDONE Glynn Sullivan MD Work Phone: [facility] 09-18-2024 10:37-0400 Body temperature 97.8 [degF] Joanna Martin GRE TUTORHernanC Work Phone: [facility] 09-18-2024 10:37-0400 Body weight 111.13 kg Joanna Dela Cruzmer GRE TUTOR-C Work Phone: [facility] 09-18-2024 10:37-0400 Diastolic blood pressure 84 mm[Hg] Joanna Dela Cruzmer GRE TUTOR-C Work Phone: [facility] 09-18-2024 10:37-0400 Heart rate 94 /min Joannajoe Dela Cruzmer GRE TUTOR-C Work Phone: [facility] 09-18-2024 10:37-0400 Respiratory rate 16 /min Joanna Dela Cruzmer GRE TUTOR-C Work Phone: [facility] 09-18-2024 10:37-0400 SaO2% (BldA) [Mass fraction] 94 % Joanna Martin GRE T[employer]OR-C Work Phone: [facility] 09-18-2024 10:37-0400 Systolic blood pressure 146 mm[Hg] Joanna Dela Cruzmer GRE TUTOR-C Work Phone: [facility] 06-21-2024 01:00-0400 Body height 167.64 cm Joanna Conklinr [place] [facility] 06-21-2024 01:00-0400 Body mass index (BMI) [Ratio] 38.7 kg/m2 Joanna Tyiller [place] [facility] 06-21-2024 01:00-0400 Body surface area Derived from formula 2.25 m2 Joanna Tyiller [place] [facility] 06-21-2024 01:00-0400 Body weight 108.86 kg Joanna Tyiller [place] [facility] 06-21-2024 01:00-0400 Diastolic blood pressure 85 mm[Hg] Joanna Tyiller [place] [facility] 06-21-2024 01:00-0400 Heart rate 80 /min Joanna Nicole [place] - [facility] 06-21-2024 01:00-0400 Respiratory rate 16 /min Joanna Nicole [place] - [facility] 06-21-2024 01:00-0400 Systolic blood pressure 130 mm[Hg] Joanna Nicole [place] - [facility] 03-12-2024 15:10-0500 Body mass index (BMI) [Ratio] 35.67 kg/m2 Zoë Katz MD Work Phone: [facility] 03-12-2024 15:10-0500 Body weight 106.41 kg Zoë Katz MD Work Phone: [facility] 03-12-2024 15:10-0500 Diastolic blood pressure 96 mm[Hg] Zoë Katz MD Work Phone: [facility] 03-12-2024 15:10-0500 Heart rate 87 /min Zoë aKtz MD Work Phone: [facility] 03-12-2024 15:10-0500 SaO2% (BldA) [Mass fraction] 98 % Zoë Katz MD Work Phone: [facility] 03-12-2024 15:10-0500 Systolic blood pressure 152 mm[Hg] Zoë Katz MD Work Phone: [facility] 03-17-2023 10:30-0500 Body temperature 97.7 [degF] GRE [employer]OR-C Joanna Martin GRE TUTOR Work Phone: [facility] 03-17-2023 10:30-0500 Body weight 114.3 kg GRE TUTOR-C Joanna Martin GRE TUTOR Work Phone: [facility] 03-17-2023 10:30-0500 Diastolic blood pressure 82 mm[Hg] GRE TUTOR-C Joanna Dela Cruzmer GRE TUTOR Work Phone: [facility] 03-17-2023 10:30-0500 Heart rate 88 /min GRE T[employer]OR-C Joanna Graciela GRE TUTOR Work Phone: [facility] 03-17-2023 10:30-0500 Respiratory rate 16 /min GRE T[employer]-C Joanna Graciela GRE TUTOR Work Phone: [facility] 03-17-2023 10:30-0500 SaO2% (BldA) [Mass fraction] 94 % GRE T[employer]OR-C Joanna Graciela GRE TUTOR Work Phone: [facility] 03-17-2023 10:30-0500 Systolic blood pressure 146 mm[Hg] GRE T[employer]OR-C Joanna Graciela GRE TUTOR Work Phone: [facility] 03-14-2023 14:16-0500 Body weight 114.4 kg Zoë Katz MD Work Phone: [facility] 03-14-2023 14:16-0500 Diastolic blood pressure 81 mm[Hg] Zoë Katz MD Work Phone: [facility] 03-14-2023 14:16-0500 Heart rate 84 /min Zoë Katz MD Work Phone: [facility] 03-14-2023 14:16-0500 SaO2% (BldA) [Mass fraction] 93 % Zoë Katz MD Work Phone: [facility] 03-14-2023 14:16-0500 Systolic blood pressure 153 mm[Hg] Zoë Katz MD Work Phone: [facility] 08-25-2022 20:02-0400 Body temperature 98 [degF] GRE TUTOR-C Joanna Martin GRE TUTOR Work Phone: [facility] 08-25-2022 20:02-0400 Diastolic blood pressure 84 mm[Hg] GRE TUTOR-C Joanna Martin GRE TUTOR Work Phone: [facility] 08-25-2022 20:02-0400 Heart rate 67 /min GRE T[employer]OR-C Joanna Graciela GRE TUTOR Work Phone: [facility] 08-25-2022 20:02-0400 Respiratory rate 17 /min GRE T[employer]OR-C Joanna Graciela GRE TUTOR Work Phone: [facility] 08-25-2022 20:02-0400 SaO2% (BldA) [Mass fraction] 93 % GRE T[employer]OR-C Joanna Martin GRE TUTOR Work Phone: [facility] 08-25-2022 20:02-0400 Systolic blood pressure 170 mm[Hg] GRE TUTOR-C Joanna Martin GRE TUTOR Work Phone: [facility] 08-25-2022 13:45-0400 Inhaled oxygen flow rate 2 L/min GRE T[employer]OR-C Joanna Martin GRE TUTOR Work Phone: [facility] 08-25-2022 09:23-0400 Body height 167.64 cm GRE TUTOR-C Joanna Martin GRE TUTOR Work Phone: [facility] 08-25-2022 09:23-0400 Body weight 107.5 kg GRE TUTOR-C Joanna Martin GRE TUTOR Work Phone: [facility] 08-25-2022 09:20-0400 Body mass index (BMI) [Ratio] 38.2 kg/m2 GRE T[employer]OR-C Joanna Martin GRE TUTOR Work Phone: [facility] 08-10-2022 14:42-0400 Body height 167.64 cm GRE TUTOR-C Joanna Martin GRE TUTOR Work Phone: [facility] 08-10-2022 14:42-0400 Body mass index (BMI) [Ratio] 39.6 kg/m2 GRE T[employer]OR-C Joanna Martin GRE TUTOR Work Phone: [facility] 08-10-2022 14:42-0400 Body weight 111.58 kg GRE T[employer]OR-C Joanna Martin GRE TUTOR Work Phone: [facility] 08-10-2022 14:42-0400 Diastolic blood pressure 96 mm[Hg] GRE T[employer]OR-C Joanna Martin GRE TUTOR Work Phone: [facility] 08-10-2022 14:42-0400 Heart rate 82 /min GRE T[employer]OR-C Joanna Dela Cruzmer GRE TUTOR Work Phone: [facility] 08-10-2022 14:42-0400 Respiratory rate 18 /min GRE T[employer]OR-C Joanna Dela Cruzmer GRE TUTOR Work Phone: [facility] 08-10-2022 14:42-0400 SaO2% (BldA) [Mass fraction] 97 % GRE T[employer]OR-C Joanna Dela Cruzmer GRE TUTOR Work Phone: [facility] 08-10-2022 14:42-0400 Systolic blood pressure 147 mm[Hg] GRE TUTOR-C Joanna Dela Cruzmer GRE TUTOR Work Phone: [facility] 07-06-2022 10:27-0400 Diastolic blood pressure 88 mm[Hg] GRE TUTOR-C Joanna Dela Cruzmer GRE TUTOR Work Phone: [facility] 07-06-2022 10:27-0400 Heart rate 67 /min GRE T[employer]OR-C Joanna Dela Cruzmer GRE TUTOR Work Phone: [facility] 07-06-2022 10:27-0400 SaO2% (BldA) [Mass fraction] 98 % GRE T[employer]OR-C Joanna Dela Cruzmer GRE TUTOR Work Phone: [facility] 07-06-2022 10:27-0400 Systolic blood pressure 150 mm[Hg] GRE TUTOR-C oJanna Dela Cruzmer GRE TUTOR Work Phone: [facility] 03-01-2022 16:04-0500 Body weight 111.13 kg Zoë Katz MD Work Phone: [facility] 03-01-2022 16:04-0500 Diastolic blood pressure 94 mm[Hg] Zoë Katz MD Work Phone: [facility] 03-01-2022 16:04-0500 Heart rate 80 /min Zoë Katz MD Work Phone: [facility] 03-01-2022 16:04-0500 Systolic blood pressure 162 mm[Hg] Zoë Katz MD Work Phone: [facility] 08-17-2021 12:57-0400 Body height 172.7 cm Zoë Katz MD Work Phone: [facility] 08-17-2021 12:57-0400 Body weight 113.4 kg Zoë Katz MD Work Phone: [facility] 08-17-2021 12:57-0400 Diastolic blood pressure 92 mm[Hg] Zoë Katz MD Work Phone: [facility] 08-17-2021 12:57-0400 Heart rate 90 /min Zoë Katz MD Work Phone: [facility] 08-17-2021 12:57-0400 Respiratory rate 20 /min Zoë Katz MD Work Phone: [facility] 08-17-2021 12:57-0400 Systolic blood pressure 154 mm[Hg] Zoë Katz MD Work Phone: [facility] Encounters Encounter Date Encounter Type Care Provider Facility Start: 12-04-2024 In-person encounter Glynn Sullivan MD Work Phone: [facility] Work Phone: Start: 12-04-2024 Visit out of hours Glynn Sullivan MD Work Phone: [facility] Work Phone: Start: 11-28-2024 End: 11-28-2024 ambulatory JOANNA MARTIN [employer]LL [employer] Facility:[facility] Start: 11-28-2024 End: 11-28-2024 Patient encounter procedure JOANNA MARTIN WELL [employer] [facility] Start: 09-18-2024 End: 09-18-2024 ambulatory Joanna Martin GRE TUTOR-C Work Phone: [facility] Work Phone: Start: 09-18-2024 End: 09-18-2024 Patient encounter procedure Jamila KAPADIA -[facility] Work Phone: Start: 09-12-2024 End: 09-12-2024 ambulatory Joanna Martin GRE TUTOR-C Work Phone: [facility] Work Phone: Start: 09-12-2024 End: 09-12-[address] Desiree Marquez MD -Laboratory Work Phone: Start: 09-12-2024 End: 09-12-2024 ambulatory [facility] Facility:[facility] Start: 09-03-2024 Non-patient / Non-visit Dr. Glen guerrero MD -[facility] Start: 09-03-2024 End: 09-03-2024 ambulatory Joanna Martin GRE T[employer]OR-C Work Phone: [facility] Work Phone: Start: 09-03-2024 End: 09-03-2024 Patient encounter procedure Jamila KAPADIA -[facility] Work Phone: Start: 09-03-2024 End: 09-03-2024 ambulatory Jamila Grossman Facility:[facility] Start: 06-21-2024 Joanna mckeon [facility] Start: 03-29-2024 End: 03-29-2024 ambulatory [facility] Facility:[facility] Start: 03-12-2024 End: 03-12-2024 ambulatory ZOË KATZ Facility:[facility] Start: 03-12-2024 End: 03-12-2024 Patient encounter procedure Zoë Katz MD Work Phone: Cardiology Comment on above: Pure hypercholestero lemia (Primary Dx); Primary hypertension Start: 12-30-2023 End: 12-30-2023 ambulatory [facility] [facility] Start: 11-21-2023 End: 11-21-2023 ambulatory JOANNA S GRACIELA WELL [employer]ER [employer]UE INSPECTOR Facility:B Start: 11-21-2023 End: 11-21-2023 Patient encounter procedure JOANNA S GRACIELA WELL [employer] HEAD-REVENUE INSPECTOR [facility] Start: 10-07-2023 End: 10-07-2023 [facility] Facility[facility] Start: 07-22-2023 End: 07-22-2023 ambulatory [facility] Work Phone: Start: 07-22-2023 End: 07-22-2023 Patient encounter procedure [facility] [place] Work Phone: Start: 04-27-2023 End: 04-27-2023 ambulatory GRE TUTOR-C Joanna Martin GRE TUTOR Work Phone: [facility] Work Phone: Start: 04-27-2023 End: 04-27-2023 Patient encounter procedure GRE TUTOR-C Joanna Martin GRE TUTOR Work Phone: [facility]-Laboratory Work Phone: Start: 03-24-2023 Non-patient / Non-visit GRE TUTOR-C Cynthia Martin GRE TUTOR Work Phone: [facility] Start: 03-24-2023 End: 03-24-2023 ambulatory GRE TUTOR-C Joanna Martin GRE TUTOR Work Phone: [facility] Work Phone: Start: 03-24-2023 End: 03-24-2023 Patient encounter procedure GRE TUTOR-C Joanna Martin GRE TUTOR Work Phone: [facility]-Cardiovascu lar Services Work Phone: Start: 03-17-2023 End: 03-17-2023 Patient encounter procedure GRE TUTOR-C Joanna Martin GRE TUTOR Work Phone: [facility] Work Phone: Start: 03-14-2023 End: 03-14-2023 Patient encounter procedure Zoë Katz MD Work Phone: Cardiology Comment on above: Pure hypercholestero lemia (Primary Dx); Primary hypertension; Occlusion of right carotid artery Start: 08-31-2022 ambulatory Zoë Katz MD Work Phone: Cardiology Comment on above: Medical Record to ad d Start: 08-25-2022 Non-patient / Non-visit GRE TUTOR-C Cynthia aMrtin GRE TUTOR Work Phone: [facility] Start: 08-25-2022 End: 08-25-2022 Evaluation and management of inpatient GRE TUTOR-C Joanna Martin GRE TUTOR Work Phone: [facility]-Progressive Care Unit Work Phone: Start: 08-25-2022 End: 08-25-2022 ambulatory GRE TUTOR-C Joanna Martin GRE TUTOR Work Phone: [facility] Work Phone: Start: 08-25-2022 End: 08-25-2022 Patient encounter procedure GRE TUTOR-C Joanna Martin GRE TUTOR Work Phone: [facility]-Pre-Admissi on Testing Work Phone: Start: 08-10-2022 End: 08-10-2022 Patient encounter procedure GRE TUTOR-C Joanna Martin GRE TUTOR Work Phone: [facility] Start: 08-05-2022 End: 08-05-2022 ambulatory GRE TUTOR-C Joanna Martin GRE TUTOR Work Phone: [facility] Work Phone: Start: 08-05-2022 End: 08-05-2022 Patient encounter procedure GRE TUTOR-C Joanna Martin GRE TUTOR Work Phone: [facility]-Laboratory Start: 08-02-2022 End: 08-02-2022 ambulatory GRE TUTOR-C Joanna Martin GRE TUTOR Work Phone: [facility] Work Phone: Start: 08-02-2022 End: 08-02-2022 Patient encounter procedure GRE TUTOR-Amarjit Martin GRE TUTOR Work Phone: [facility] Start: 07-06-2022 End: 07-06-2022 Patient encounter procedure GRE TUTOR-Amarjit Martin GRE TUTOR Work Phone: [facility] Start: 05-27-2022 Registered Referred GRE TUTOR-Amarjit Martin GRE TUTOR Work Phone: [facility]-Cardiovascu lar Services Start: 03-01-2022 End: 03-01-2022 Patient encounter procedure Zoë Katz MD Work Phone: Cardiology Comment on above: Primary hypertension (Primary Dx) Start: 12-19-2021 End: 12-19-2021 Patient encounter procedure JOANNA MARTIN WELL P[employer]ER HEAD-REVENUE INSPECTOR [facility] Start: 10-13-2021 End: 10-13-2021 Patient encounter procedure JOANNA MARTIN WELL P[employer]ER HEAD[employer]REVENUE INSPECTOR [facility] Start: 08-25-2021 Refill Zoë Katz MD Work Phone: Cardiology Comment on above: Refill Request Start: 08-20-2021 Refill Zoë Katz MD Work Phone: Cardiology Comment on above: Refill Request Start: 08-17-2021 End: 08-17-2021 Patient encounter procedure Zoë Katz MD Work Phone: Cardiology Comment on above: Obesity, Class II, B CT 35-39.9 Start: 08-12-2021 End: 08-12-[address] DESIREE MARQUEZ MD [facility] Start: 08-04-2021 Telephone encounter Zoë Katz MD Work Phone: Cardiology Comment on above: Results Start: 07-30-2021 End: 07-30-2021 Subsequent hospital visit by physician Kathie Devi Work Phone: Cardiology Lab Comment on above: Paroxysmal supravent ricular tachycardia (HCC) [I47.1] Start: 07-29-2021 Telephone encounter Martine Mireles RN Cardiology Lab Comment on above: Reminder Call Start: 07-13-2021 End: 07-13-2021 Patient encounter procedure Nurse Card Admin [facility] Work Phone: Cardiology Comment on above: Shortness of breath Start: 05-19-2021 End: 05-19-[address] DESIREE MARQUEZ MD [facility] Start: 02-11-2021 End: 02-11-[address] DESIREE MARQUEZ MD [facility] Procedures Date Procedure Procedure Detail Performing Clinician Start: 12-04-2024 Blood pressure withi n normal parameters - no follow-up required Glynn Sullivan MD Work Phone: Start: 12-04-2024 BMI documented as ab ove normal parameters - follow-up documented Glynn Sullivan MD Work Phone: Start: 12-04-2024 Current tobacco non- user cad cap copd pv dm Glynn Sullivan MD Work Phone: Start: 12-04-2024 Documentation of cur rent medications Glynn Sullivan MD Work Phone: Start: 12-04-2024 Pain assessment documented as positive - follow-up documented Glynn Sullivan MD Work Phone: Start: 12-04-2024 Physical therapy management Glynn Sullivan MD Work Phone: Start: 03-17-2023 Lipid 1996 panel - S donn or Plasma Zoë Katz MD Work Phone: Start: 08-02-2022 CT angiography of he ad and neck GRE TUTOR-C Joanna Martin GRE TUTOR Work Phone: Start: 07-30-2021 Echo tthrc r-t 2d w/ wo m-mode complete rest&st Zoë Katz MD Work Phone: Start: 05-10-2016 History of operative procedure on knee Status post right knee replacement Glynn Sullivan MD Work Phone: Start: 04-04-2013 Hysterectomy JOANNA COELHO TMER WE[employer]ER [employer]VENUE INSPECTOR Start: 04-04-2008 Knee region structur e (body structure) DR DESIREE MARQUEZ MD Comment on above: Right knee revision of top replacement Start: 04-04-[address] DESIREE MARQUEZ MD Comment on above: Right Start: 04-04-[address] DESIREE MARQUEZ MD Comment on above: Right knee Start: 04-04-[address] DESIREE MARQUEZ MD Comment on above: R knee Adult health examination Eliz Nicole Plan of Treatment Date Care Activity Detail Author Start: 03-17-2028 Lipid panel Lipid Screening [facility] Start: 03-25-2025 End: 03-25-2025 Patient encounter procedure 03/25/2025 3:00 PM EST Office Visit Cardiology [address] [place] [address] Zoë Katz MD [address] [place] [address] 1 year follow up Cardiology Comment on above: 1 year follow up Start: 06-21-2024 CBC W Auto Differential panel - Blood [facility] Start: 06-21-2024 Comprehensive metabolic 2000 panel - Serum or Plasma [facility] Start: 06-21-2024 Lipid 1995 panel - Serum or Plasma [facility] Start: 06-21-2024 InPerson; Nurse Triage InPerson; Nurse Triage IN [facility] Start: 12-04-2023 Influenza vaccination Influenza Vaccine (#[facility]) [facility] Start: 03-21-2023 End: 06-20-2023 Lipid 1995 panel - Serum or Plasma LIPID PANEL BASIC Lab Routine Pure hypercholesterolemia Expected: 03/21/2023, Expires: 06/20/2023 [facility] Work Phone: Comment on above: Expected: 03/21/2023, Expires: Start: 12-03-2022 Influenza vaccination [facility] Start: 08-25-2022 Admission procedure [facility] Start: 08-25-2022 Bedrest [facility] Start: 08-25-2022 Notification of physician [facility] Start: 08-25-2022 Patient discharge [facility] Start: 08-25-2022 Provision of activity privileges [facility] Start: 08-25-2022 Scheduling [facility] Start: 08-25-2022 Taking patient vital signs [facility] Start: 08-25-2022 Vascular disease risk assessment [facility] Start: 08-25-2022 [facility] Start: 2022 RSV Vaccine (1 - 1-dose 60+ series) RSV Vaccine (1 - 1-dose 60+ series) [facility] Start: 2022 RSV Vaccine (1 - Risk 60-74 years 1-dose series) RSV Vaccine (1 - Risk 60-74 years 1-dose series) [facility] Start: 04-04-2022 DEPRESSION ASSESSMENT DEPRESSION ASSESSMENT [facility] Start: 12-03-2021 Influenza vaccination [facility] Start: 04-04-2021 DEPRESSION ASSESSMENT DEPRESSION ASSESSMENT [facility] Start: 01-15-2021 COVID-19 VACCINE (2 - Zac risk 3-dose series) COVID-19 VACCINE (2 - Zac risk 3-dose series) [facility] Start: 01-15-2021 COVID-19 VACCINE (2 - Zac risk series) COVID-19 VACCINE (2 - Zac risk series) [facility] Start: 2012 SHINGRIX VACCINE (1 of 2) SHINGRIX VACCINE (1 of 2) [facility] Start: 08-19-2007 COLOGUARD (FIT-DNA) COLOGUARD (FIT-DNA) [facility] Start: 08-19-2007 Colonoscopy COLONOSCOPY [facility] Start: 08-19-2007 COLORECTAL CANCER SCREENING COLORECTAL CANCER SCREENING [facility] Start: 08-19-[address] COLONOGRAPHY [facility] Start: 08-19-2007 DIABETES SCREEN DIABETES SCREEN [facility] Start: 08-19-2007 Diabetes Screening Diabetes Screening [facility] Start: 08-19-2007 FECAL OCCULT BLOOD FECAL OCCULT BLOOD [facility] Start: 08-19-2007 Lipid 1996 panel - Serum or Plasma Lipid Screening [facility] Start: 08-19-2007 LIPID SCREEN LIPID SCREEN [facility] Start: 08-19-2007 Screening for malignant neoplasm of colon [facility] Start: 08-19-2007 SIGMOIDOSCOPY SIGMOIDOSCOPY [facility] Start: 2002 Mammography [facility] Start: 2002 Screening for malignant neoplasm of breast Mammogram Screening [facility] Start: 1992 HPV TESTING HPV TESTING [facility] Start: 08-19-1983 PAP TESTING PAP TESTING [facility] Start: 1981 SHINGRIX VACCINE (1 of 2) SHINGRIX VACCINE (1 of 2) [facility] Start: 1981 Urine microalbumin profile [facility] Start: 1980 ANNUAL PCP TEAM CHRONIC DISEASE VISIT ANNUAL PCP TEAM CHRONIC DISEASE VISIT [facility] Start: 1980 Anxiety Screening Anxiety Screening [facility] Start: 1980 BP CONTROLLED (<130/80) BP CONTROLLED (<130/80) [facility] Start: 1980 Depression Screening Depression Screening [facility] Start: 1980 HEPATITIS C SCREENING HEPATITIS C SCREENING [facility] Start: 1980 Hepatitis C screening Hepatitis C Screening [facility] Start: 1980 HIV SCREENING HIV SCREENING [facility] Start: 1980 HIV screening HIV Screening [facility] Start: 1974 Adult depression screening assessment DEPRESSION SCREENING [facility] Start: 1973 Screening for malignant neoplasm of cervix Cervical Cancer Screening [facility] Start: 1968 PNEUMOCOCCAL (1 - PCV) PNEUMOCOCCAL (1 - PCV) [facility] Start: 1968 Pneumococcal vaccination [facility] ECG COMPLETE ECG COMPLETE ECG Routine Pure hypercholesterolemia Primary hypertension Ordered: 03/12/2024 [facility] Work Phone: Comment on above: Ordered: 03/12/2024 Electrocardiographic procedure [facility] In-vitro immunologic test [facility] 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 [Presence] in Blood [facility] Patient referral [facility] Work Phone: [facility] Immunizations Immunization Date Immunization Notes Care Provider Doyle fisher 12-18-2020 COVID-19 vaccine (ZAC) Echocardiogram [facility] Work Phone: [facility] Payers Date Payer Category Payer Self-pay [id number] 2023 Self-pay [id number] 2023 Private Health Insurance [id number] 2017 Private Health Insurance AETNA A ETNA CHOICE POS II [id number] 2017-Present [phone] [address] [place] [address] POS [id number] 2017 Private Health Insurance [id number] 1962 Unknown [id number] 1962 Unknown [id number] Private Health Insurance [place] [id number] Unknown [id number] Unknown [id number] Unknown [id number] Unknown [id number] Unknown [id number] Unknown [id number] Unknown [id number] Social History Date Type Detail Facility Start: 02-20-2019 End: 06-06-2024 Never smoked tobacco (finding) [facility] Comment on above: no smoke exposure Sex Assigned At [facility] Start: 03-17-2020 End: 03-01-2022 Tobacco use and exposure Smokeless tobacco non-user [facility] Start: 05-25-2021 End: 03-12-2024 Alcohol intake Current drinker of alcohol (finding) [facility] Start: 04-21-2020 History SDOH Alcohol Frequency 1 [facility] Start: 04-21-2020 History SDOH Alcohol Comment twice a year [facility] Start: 1960 Sex Assigned At Female [facility] Start: 07-10-2021 End: 03-01-2022 Exposure to SARS-CoV-2 (event) Not sure [facility] Work Phone: Start: 07-06-2022 End: 03-17-2023 Tobacco smoking status NHIS Unknown if ever smoked [facility] Start: 04-21-2020 End: 03-12-2024 History of Social function [facility] Start: 04-21-2020 End: 12-04-2024 Alcohol Use Disorder Identification Test - Consumption [AUDIT-C] [facility] How often to you hav e a drink containing alcohol? Never [facility] Average Number of Drinks Not on file [facility] Start: 05-18-2021 Gender identity Identifies as female gender (finding) [facility] Start: 05-18-2021 Sexual orientation Bisexual (finding ) [facility] Start: 06-27-2013 Sex Female (finding) [facility] NEGATED: Highlighted row [facility] Medical Equipment Procedure Code Equipment Code Equipment Origin al Text Equipment Identifier Dates Implant ([id number]), [id number] Start: 08-25-2022 Clinical Notes 07-13-2021 to 03-12-2024 Zoë Katz MD - 03/12/2024 5:33 PM ESTSleikZoë MD - 03/14/2023 2:37 PM ESTTelephone Encounter - Romy Gómez RN - 09/01/2022 12:32 PM EDTRadiology Note Date & Type Note Facility 03-12-2024 Note HNO ID: [id number] Author: ZOË KATZ MD Service: ? Author Type: Physician Type: Progress Notes Filed: 03/12/2024 17:35 Note Text: Zoë Katz MD Interventional Cardiology [address] [place] [phone] Chief Complaint Patient presents with: Follow Up Established Patient Follow-Up: 1 year follow up HISTORY OF PRESENT ILLNESS: Ms. Jelani Villa is a 63 year old female seen in office today for assessment management prior history of hypertensive heart disease doing well from a cardiac point of view asymptomatic denies chest pain or shortness of breath EKG is normal sinus rhythm with no abnormality Pressure well-controlled Cardiac Risk Factors age (male over 45, female over 55), hypertension, family history of CAD PAST MEDICAL HISTORY Diagnosis Date GERD (gastroesophageal reflux disease) High blood pressure Hypercholesteremia Obesity Rheumatoid arthritis (HCC) PAST SURGICAL HISTORY Procedure Laterality Date CAROTID ANGIOGRAM 08/2022 Right Carotid artery- branch developed KNEE SURGERY HX Bilateral TOTAL ABDOM HYSTERECTOMY FAMILY HISTORY Problem Relation Age of Onset other (varicose veins) Paternal Grandmother Social History Tobacco Use Smoking status: Never Smokeless tobacco: Never Vaping Use Vaping status: Never Used Substance Use Topics Alcohol use: [...] Take 60 mg by mouth once daily. atorvastatin (LIPITOR) 10 mg tablet Take 40 [...] by mouth once daily. 2 tabs daily carvedilol (COREG) 12.5 mg tablet Take 1 tablet by mouth two times a day. 180 tablet 3 No current facility-administered medications for this visit. [...] does not have insomnia. Physical Examination: Vitals:BP 152/96 Pulse 87 Wt 234 lb 9.6 oz (106.4kg) SpO2 98% BP w/Orthostatic Vitals Date and Time Orthostatic BP Orthostatic Pulse BP Pulse BP Position BP Site BP Cuff Size 03/12/24 1510 -- -- 152/96 87 -- -- -- Last 2 Encounter Wt Readings: Date: Wt: 03/12/2024 106.4 kg (234 lb 9.6 oz) 03/14/2023 114.4 kg (252 lb 3.2 oz) Physical Exam Constitutional: General: She is not [...] No S3 or S4 sounds. Pulmonary: Effort: Pulmon (more content not included)... [facility] 03-12-2024 History of Present illness Narrative Images from the original note were not included. Zoë Katz MD Interventional Cardiology [address] [place] [address] [phone] Chief Complaint Patient presents with: Follow Up Established Patient Follow-Up: 1 year follow up HISTORY OF PRESENT ILLNESS: Ms. Jelani Villa is a 63 year old female seen in office today for assessment management prior history of hypertensive heart disease doing well from a cardiac point of view asymptomatic denies chest pain or shortness of breath EKG is normal sinus rhythm with no abnormality Pressure well-controlled Cardiac Risk Factors age (male over 45, female over 55), hypertension, family history of CAD PAST MEDICAL HISTORY Diagnosis Date GERD (gastroesophageal reflux disease) High blood pressure Hypercholesteremia Obesity Rheumatoid arthritis (HCC) PAST SURGICAL HISTORY Procedure Laterality Date CAROTID ANGIOGRAM 08/2022 Right Carotid artery- branch developed KNEE SURGERY HX Bilateral TOTAL ABDOM HYSTERECTOMY FAMILY HISTORY Problem Relation Age of Onset other (varicose veins) Paternal Grandmother Social History Tobacco Use Smoking status: Never Smokeless tobacco: Never Vaping Use Vaping status: Never Used Substance Use Topics Alcohol use: [...] Take 60 mg by mouth once daily. atorvastatin (LIPITOR) 10 mg tablet Take 40 [...] by mouth once daily. 2 tabs daily carvedilol (COREG) 12.5 mg tablet Take 1 tablet by mouth two times a day. 180 tablet 3 No current facility-administered medications for this visit. [...] does not have insomnia. Physical Examination: Vitals:BP 152/96 Pulse 87 Wt 234 lb 9.6 oz (106.4kg) SpO2 98% BP w/Orthostatic Vitals Date and Time Orthostatic BP Orthostatic Pulse BP Pulse BP Position BP Site BP Cuff Size 03/12/24 1510 -- -- 152/96 87 -- -- -- Last 2 Encounter Wt Readings: Date: Wt: 03/12/2024 106.4 kg (234 lb 9.6 oz) 03/14/2023 114.4 kg (252 lb 3.2 oz) Physical Exam Constitutional: General: She is not [...] or rales. Chest: Chest wall: No tenderness. Abdominal: General: Bowel sounds are normal. Musculoskeletal: General: Normal range of motion. Cervical back: Normal range of motion and neck supple. Skin: General: Skin is warm and dry. Neurological: Mental Status: She is alert and oriented to person, place, and time. Psychiatric: Mood and Affect: Mood normal. Thought Content: Thought content normal. Pertinent Labs: CBC: No results found for: HB, HCT, WBC, PLT BMP: No results found for: GLUC, K, NA, CHLOR, CO2, CREAT, BUN, ANION, CA INR: Lipid Profile: Cholesterol, Total Date Value Ref Range Status 03/17/2023 149 <200 mg/dL Final Comment: <200 mg/dL, Desirable 200-239 mg/dL, Borderline high >239 mg/dL, High HDL Cholesterol Date Value Ref Range Status 03/17/2023 51 >39 mg/dL Final Comment: 40-59 mg/dL, Acceptable >59 mg/dL, High: Negative risk factor for coronary heart disease <40 mg/dL, Low: Positive risk factor for coronary heart disease LDL Cholesterol Date Value Ref Range Status 03/17/2023 70 <100 mg/dL Final Comment: <100 mg/dL, Optimal 100-129 mg/dL, Near optimal/above optimal 130-159 mg/dL, Borderline high 160-189 mg/dL, High >189 mg/dL, Very high Secondary prevention optimal LDL Cholesterol levels are recommended to be < 70 mg/dL Triglyceride Date Value Ref Range Status 03/17/2023 141 <150 mg/dL Final Comment: <150 mg/dL, Normal 150-199 mg/dL, Borderline high 200-499 mg/dL, High >499 mg/dL, Very high Hemoglobin A1C: No results found for: HGBA1C TSH: No results found for: TSHREFL Prior Cardiac Testing EKG Assessment and Plan: 63 years old female patient with hypertensive heart disease ASSESSMENT/PLAN: 1. Pure hypercholesterolemia - ICD9: 272.0, ICD10: E78.00 (primary diagnosis) ON Therapy - ECG COMPLETE 2. Primary hypertension - ICD9: 401.9, ICD10: I10 - Controlled - Continue current medications - Recommend home blood pressure monitoring, to bring results to next visit - Encouraged sodium restriction, DASH or Mediterranean diet - Recommend regular aerobic exercise - ECG COMPLETE Zoë Katz MD Follow up planning: ONE YEAR Electronically signed by Zoë Katz MD on March 12, 2024, 5:33 PM The above note was partially created using a dictation recognition software. A reasonable attempt has been made to correct any errors. documented in this encounter [facility] 03-14-2023 History of Present illness Narrative Images from the original note were not included. Zoë Katz MD Interventional Cardiology [address] [place] [address] Chief Complaint Patient presents with: Follow Up: [...] - ICD9: 433.10, ICD10: I65.21 Per vascular Zoë Katz MD Follow up planning: One year Electronically signed by Zoë Katz MD on March 14, 2023, 2:37 PM The above note was partially created using a dictation recognition software. A reasonable attempt has been made to correct any errors. documented in this encounter [facility] 09-01-2022 Miscellaneous Notes Copy of the attached operative report sent to medical records to be scanned into chart. Romy Gómez RN documented in this encounter [facility] 03-01-2022 History of Present illness Narrative Images from the original note were not included. Zoë Katz MD Interventional Cardiology [facility] [address] [place], [place] [address] [phone] Chief Complaint Patient presents with: 6 month [...] 0.9% 10 mL injection (DEFINITY) INTRAVENOUS DIRECTED NEPTAIL Katz MD sodium chloride 0.9 % (flush) [...] up planning: One year Electronically signed by Zoë Katz MD on March 01, 2022, 4:17 PM The above note was partially created using a dictation recognition software. A reasonable attempt has been made to correct any errors. documented in this encounter [facility] 08-25-2021 Miscellaneous Notes Patient's request [...] cost. Prescription(s) as above. Please process accordingly. Joanna Powell LPN documented in this encounter [facility] 08-20-2021 Miscellaneous Notes Patient's request for medication is as follows: Refused Prescriptions Disp Refills carvedilol (COREG) 6.25 mg tablet [Pharmacy Med Name: CARVEDILOL 6.25 MG TABLET] 30 tablet 7 Sig: TAKE 1/2 TABLET BY MOUTH TWICE DAILY JEAN PAUL: No Filled 08/17/2021 60 tabs 3 refills [facility] Prescription(s) as above. Please process accordingly. Brianna Beyer LPN documented in this encounter [facility] 08-17-2021 History of Present illness Narrative Images from the original note were not included. Zoë Katz MD Interventional Cardiology [facility] [address] [place], [place] [address] [phone] Chief Complaint Patient presents with: Established Patient [...] Follow up plannin months Electronically signed by Zoë Katz MD on August 17, 2021, 1:09 PM The above note was partially created using a dictation recognition software. A reasonable attempt has been made to correct any errors. documented in this encounter [facility] 08-07-2021 Miscellaneous Notes Left detailed message on identified voicemail with below information. Instructed pt. to call back if any questions/ concerns. Erika Vogt RN LVM to contact office in regards to below ----- Message from Joanna Valdez APRN.REVENUE INSPECTOR sent at 08/04/2021 10:37 AM EDT ----- Covering for Dr. Katz. Please call patient and notify them of normal results. Stress echo was without suggestion of ischemia. Thank you! documented in this encounter [facility] 07-29-2021 Miscellaneous Notes Left message regarding reminder for stress test tomorrow and given instructions. documented in this encounter [facility] 07-13-2021 Nurse Note Pt presented to Stress echo lab, pt prepped and obtained 12-lead EKG per protocol. Initial reading on automatic BP unattainable per gas plant technician. Manual BP done by this RN 198/100. [...] Joselyn Hernández RN documented in this encounter [facility] Evaluation + Plan note Future Appointments Appointment Date:06/10/2021 02:15:00 PM Scheduled Provider:JOANNA MARTIN APRN-ROMERO Location:[facility] Appointment Type: OV [facility] Evaluation + Plan note Future Appointments Appointment Date:12/16/2021 03:00:00 PM Scheduled Provider:JOANNA MARTIN APRN-ROMERO Location:[facility] Appointment Type: Wellness Annual [facility] Evaluation + Plan note Future Appointments Appointment Date:06/15/2022 03:30:00 PM Scheduled Provider:JOANNA MARTIN APRN-REVENUE INSPECTOR Location:[facility] Appointment Type: OV [facility] Evaluation + Plan note Future Appointments Appointment Date:12/08/2023 03:00:00 PM Scheduled Provider:JOANNA MARTIN APRN-REVENUE INSPECTOR Location:[facility] Appointment Type: OV Future Scheduled TestsMA Mammo Screening Bilateral w/ Kade 10/31/23 [facility] Evaluation + Plan note Future Appointments Appointment Date:06/06/2025 03:30:00 PM Scheduled Provider:JOANNA MARTIN WELL PULLER HEAD-REVENUE INSPECTOR Location:[facility] Appointment Type: OV [facility] Evaluation note Diagnosis Shortness of breath [facility] Diagnosis Paroxysmal supraventricular tachycardia (HCC) Paroxysmal supraventricular tachycardia documented in this encounter [facility] note* Diagnosis Obesity, Class II, BMI 35-39.9 Obesity, unspecified [facility] Primary hypertension- Primary Unspecified essential hypertension [facility] Diagnosis Onset Date Resolution Status Carotid artery stenosis acut e [facility] Work Phone: Evaluation note* Diagnosis Onset Date Resolution Status Carotid artery stenosis german tutor zbigniew Carotid artery stenosis german tutor zbigniew [facility] Work Phone: Evaluation note* Diagnosis Pure hypercholesterolemia- Primary Primary hypertension Unspecified essential hypertension Occlusion of right carotid artery Occlusion and stenosis of carotid artery without mention of cerebral infarction [facility] Diagnosis Onset Date Resolution Status Carotid artery stenosis german tutor zbigniew [facility] Work Phone: Evaluation noteNo assessment information available [facility] Work Phone: Evaluation note* Diagnosis Pure hypercholesterolemia- Primary Primary hypertension Unspecified essential hypertension documented in this encounter [facility] note No assessment recorded. [place] [facility] History general Narrative - ReportedNo medical history recorded. Gynecological HistoryNo gynecological history recorded. Obstetrics History GPAL:G 0 P 0 0 0 0 [place] [facility] Hospital course Narrative No data available for this section [facility] Hospital Discharge instructions No data available for this section [facility] Progress note No data available for this section [facility] Reason for referral (narrative)* Outpatient Procedure (Routine) - Closed Specialty Diagnoses / Procedures Referred By Contac t Referred [facility] Diagnoses Paroxysmal supraventricular tachycardia (HCC) Procedures STRESS ECHO TREADMILL ECHO TTHRC R-T 2D W/WO M-MODE COMPLETE REST&ST Zëo Katz MD [address] [place] [address] [facility] [place] [address] [place] [address] Referral ID Status Reason Start Date Expiration Date V isits Requested Visits Authorized [id number] Closed Auto-Generate d Referral 07/27/2021 07/20/2022 1 1 [facility] for referral (narrative)* Outpatient Procedure (Routine) - New Request Specialty Diagnoses / Procedures Referred By Adin t Referred To Contact [facility] Diagnoses Pure hypercholesterolemia Primary hypertension Procedures ECG COMPLETE ECG ROUTINE ECG W/LEAST 12 LDS W/I&R Zoë Katz MD [address], [address] [place] [id number] [facility] [place] [address] [place] [address] Referral ID Status Reason Start Date Expiration Date Visits Requested Visits Authorized [id number] New Request Auto-Generat ed Referral 03/12/2024 03/12/2025 1 1 [facility] for referral (narrative)No reason for referral [facility] Narrative* Outpatient Procedure (Routine) - Authorized Specialty Diagnoses / Procedures Referred By Adin t Referred To Contact [facility] Diagnoses Shortness of breath Procedures STRESS ECHO TREADMILL ECHO TTHRC R-T 2D W/WO M-MODE COMPLETE REST&ST Zoë Katz MD [address] [place] [address] [facility] [place] [address] [place] [address] Referral ID Status Reason Start Date Expiration Date Visits Requested Visits Authorized [id number] Authorized Auto-Generat ed Referral 05/25/2021 05/25/2022 1 1 [facility] for visit Narrative* Outpatient Procedure (Routine) - Closed Specialty Diagnoses / Procedures Referred By Contziggy t Referred To Contact [facility] Diagnoses Paroxysmal supraventricular tachycardia (HCC) Procedures STRESS ECHO TREADMILL ECHO TTHRC R-T 2D W/WO M-MODE COMPLETE REST&ST Zoë Katz MD [address] [place] [address] Fax: [facility] [place] [address] [place], [place] [address] [address] Referral ID Status Reason Start Date Expiration Date V isits Requested Visits Authorized [id number] Closed Auto-Generate d Referral 07/27/2021 07/20/2022 1 1 [facility] Summary Purpose Family History Relationship Condition Age at Onset Recorded Date/T shayna Not Specified Diabetes mellitus Unknown Sudden cardiac Unknown Malignant neoplasm Unknown Malignant neoplasm of uterus Unknown Family Member Condition Father Heart disease Father Full Sister Obesity Full Sister Hyperthyroidism Full Sister High blood pressure Full Sister Arthritis Father Obesity Father Blood clots Mother Osteoporosis Mother Obesity Mother High blood pressure Mother Diabetes - non-insul in dependent Mother Cancer Mother Arthritis Mother Advance Directives Advance Directive Response Recorded Date/ Time Name of Medical Power of Lock Plater SPOUSE August 24, 2022 2:11pm Advance Directives on File Yes August 032022 9:23am Name of Medical Power of Lock Plater Chris garrett ou August 25, 2022 9:23am Advance Directives Yes August 25 9:23am Living Will Yes August 25, 2022 9 :23am Power of Lock Plater Yes August 25, 2022 9:23am Advance Directive Response Recorded Date/ Time Advance Directives Yes August 25 8:23am Living Will Yes August 25, 2022 8 :23am Power of Lock Plater Yes August 25, 2022 8:23am Advance Directive Response Recorded Date/ Time Advance Directives Yes August 25 9:23am Living Will Yes August 25, 2022 9 :23am Power of Lock Plater Yes August 25, 2022 9:23am Advance Directive Response Recorded Date/ Time Advance Directives Yes August 25 9:23am Chief Complaint and Reason for Visit Chief Complaint SCREENING CAROTID ARTERY STENOSIS Occlusion and stenosis of unspecified carotid amy Reason for Visit Carotid artery steno sis Chief Complaint SCREENING CAROTID ARTERY STENOSIS Occlusion and stenosis of unspecified carotid amy DISCUSS RESULTS Reason for Visit Carotid artery steno sis Carotid artery stenosis Chief Complaint CAROTID ARTERY STENO SIS Occlusion and stenosis of unspecified carotid amy DISCUSS RESULTS RT CAROTID ENDARTERECTOMY CAROTIS STENOISIS CAROTIS STENOISIS Reason for Visit Carotid artery steno sis Carotid artery stenosis Chief Complaint 6 M FU OCCLUSION AND STENOSIS OF ARTERY Reason for Visit Carotid artery steno sis Chief Complaint Admit Date R ICA occlusion, L ICA stenosis September 10:43am Chief Complaint Admit Date R ICA occlusion, L ICA stenosis September 10:43am 2 Y FU September 18, 2024 10:2 0am Additional Source Comments Source Comments (unrecognize d section and content) In the event this informatio n is protected by the Federal Confidentiality of Alcohol and Drug Abuse Patient Records regulations: The Federal rules restrict any use of the information to criminally investigate or prosecute any alcohol or drug abuse patient.[facility] the event this information is protected by the Federal Confidentiality of Alcohol and Drug Abuse Patient Records regulations: The Federal rules restrict any use of the information to criminally investigate or prosecute any alcohol or drug abuse patient.[facility] the event this information is protected by the Federal Confidentiality of Alcohol and Drug Abuse Patient Records regulations: The Federal rules restrict any use of the information to criminally investigate or prosecute any alcohol or drug abuse patient.[facility] the event this information is protected by the Federal Confidentiality of Alcohol and Drug Abuse Patient Records regulations: The Federal rules restrict any use of the information to criminally investigate or prosecute any alcohol or drug abuse patient.[facility] the event this information is protected by the Federal Confidentiality of Alcohol and Drug Abuse Patient Records regulations: The Federal rules restrict any use of the information to criminally investigate or prosecute any alcohol or drug abuse patient.[facility] the event this information is protected by the Federal Confidentiality of Alcohol and Drug Abuse Patient Records regulations: The Federal rules restrict any use of the information to criminally investigate or prosecute any alcohol or drug abuse patient.[facility] the event this information is protected by the Federal Confidentiality of Alcohol and Drug Abuse Patient Records regulations: The Federal rules restrict any use of the information to criminally investigate or prosecute any alcohol or drug abuse patient.[facility] the event this information is protected by the Federal Confidentiality of Alcohol and Drug Abuse Patient Records regulations: The Federal rules restrict any use of the information to criminally investigate or prosecute any alcohol or drug abuse patient.[facility] the event this information is protected by the Federal Confidentiality of Alcohol and Drug Abuse Patient Records regulations: The Federal rules restrict any use of the information to criminally investigate or prosecute any alcohol or drug abuse patient.[facility] the event this information is protected by the Federal Confidentiality of Alcohol and Drug Abuse Patient Records regulations: The Federal rules restrict any use of the information to criminally investigate or prosecute any alcohol or drug abuse patient.[facility] the event this information is protected by the Federal Confidentiality of Alcohol and Drug Abuse Patient Records regulations: The Federal rules restrict any use of the information to criminally investigate or prosecute any alcohol or drug abuse patient.[facility] Care Teams (unrecognized sec tion and content) Revenue Cycle Analyst Relationship Specialty Start Date End Date Joanna Martin [address] [place] [address] PCP - General Family Practice 03/03/20 Revenue Cycle Analyst Relationship Specialty Start Date End Date Joanna Martin [address] [place] [address] PCP - General Family Practice 03/03/20 Revenue Cycle Analyst Relationship Specialty Start Date End Date Joanna Martin [address] [place] [address] PCP - General Family Practice 03/03/20 Revenue Cycle Analyst Relationship Specialty Start Date End Date Joanna Martin [address] [place] [address] PCP - General Family Practice 03/03/20 Revenue Cycle Analyst Relationship Specialty Start Date End Date Joanna Martin [address] [place] [address] PCP - General Family Practice 03/03/20 Revenue Cycle Analyst Relationship Specialty Start Date End Date Joanna Martin [address] [place] [address] PCP - General Family Medicine 03/03/20 Team Status: Active Member Role Status Dates Joanna Martin GRE TUTOR, GRE TUTOR-C Primary Care Provider Active Team Status: Inactive Member Role Status Dates Joanna Martin GRE TUTOR, GRE TUTOR-C Primary Care Provider, Referri ng Provider Active KANG Isaac Attending Provider Active Team Status: Active Member Role Status Dates Self Referred Attending Provider Active Joanna Martin GRE TUTOR, GRE TUTOR-C Primary Care Provider Active Team Status: Inactive Member Role Status Dates Joanna Martin GRE TUTOR, GRE TUTOR-C Primary Care Provider Active KANG Isaac Attending Provider, Referring Provider Active Team Status: Active Member Role Status Dates Joanna Martin GRE TUTOR, GRE TUTOR-C Primary Care Provider Active Dr. Desiree Marquez MD Attending Provider, Referring Provider Active Team Status: Inactive Member Role Status Dates Joanna aMrtin GRE TUTOR, GRE TUTOR-C Primary Care Provider, Referri ng Provider Active Dr. Glen Chau MD Attending Provider Active Team Status: Inactive Member Role Status Dates Joanna Martin NP, GRE TUTOR-C Primary Care Provider Active Dr. Desiree Marquez MD Attending Provider, Referring Provider Active Revenue Cycle Analyst Relationship Specialty Start Date End Date Joanna Martin S [address] [place] [id number] (Work) PCP - General Family Medicine 03/03/20 Team Status: Active Member Role Status Dates Joanna Martin NP, GRE TUTOR-C Primary Care Provider Active Dr. Glen Chau MD Attending Provider, Referring Provider, Other Provider Active Team Status: Inactive Member Role Status Dates Joanna Martin NP, GRE TUTOR-C Primary Care Provider Active Dr. Glen Chau MD Attending Provider Active Team Status: Inactive Member Role Status Dates Joanna Martin GRE TUTOR, GRE TUTOR-C Primary Care Provider Active Dr. Glen Chau MD Admit Provider, Attending Provide r Active Revenue Cycle Analyst Relationship Specialty Start Date End Date Efraín Martinssica S [address] [place] [address] (Work) PCP - General Family Medicine 03/03/20 Team Status: Inactive Member Role Status Dates Joanna Martin GRE TUTOR, GRE TUTOR-C Referring Provider Active KANG Reece Attending Provider Active Team Status: Active Member Role Status Dates Joanna Martin GRE TUTOR, GRE TUTOR-C Primary Care Provider Active Dr. Glen Chau MD Attending Provider Active Team Status: Inactive Member Role Status Dates Dr. Glen Chau MD Attending Provider, Referring Pro vider Active Joanna Martin GRE TUTOR, GRE TUTOR-C Primary Care Provider Active Team Status: Active Member Role Status Dates Joanna Martin NP, GRE TUTOR-C Primary Care Provider Active Dr. Glen Chau MD Attending Provider Active KANG Reece Referring Provider Active Revenue Cycle Analyst Relationship Specialty Start Date End Date GracielaJoanna S, REVENUE INSPECTOR [address] [place] [address] PCP - General Family Medicine 03/03/20 Team Status: Inactive Member Role Status Dates Joanna Martin GRE TUTOR, GRE TUTOR-C Primary Care Provider Active Start: September 03, 2024 End: September 03, 2024 KANG Reece Attending Provider Active Star t: September 03, 2024 End: September 03, 2024 KANG Reece Referring Provider Active Star t: September 03, 2024 End: September 03, 2024 Team Status: Active Member Role Status Dates Joanna Martin NP, GRE TUTOR-C Primary Care Provider Active Start: September 03, 2024 Dr. Glen Chau MD Attending Provider Active S tart: September 03, 2024 Team Status: Active Member Role Status Dates Joanna Martin NP, GRE TUTOR-C Primary Care Provider Active Start: September 03, 2024 Dr. Glen Chau MD Attending Provider Active S tart: September 03, 2024 KANG Reece Referring Provider Active Star t: September 03, 2024 Team Status: Inactive Member Role Status Dates Joanna Martin NP, GRE TUTOR-C Primary Care Provider Active Start: September 12, 2024 End: September 12, 2024 Dr. Desiree Marquez MD Attending Provider Active Start: September 12, 2024 End: September 12, 2024 Dr. Desiree Marquez MD Referring Provider Active Start: September 12, 2024 End: September 12, 2024 Team Status: Inactive Member Role Status Dates Joanna Martin NP, GRE TUTOR-C Primary Care Provider Active Start: September 18, 2024 End: September 18, 2024 Joanna Martin NP, GRE TUTOR-C Referring Provider Active Start: September 18, 2024 End: September 18, 2024 KANG Reece Attending Provider Active Star t: September 18, 2024 End: September 18, 2024 Reason for Visit (unrecogniz ed section and content) bilateral knee pain, New - 1 st visit with practice Reason Comments Reminder Call Reason Comments Results Reason Comments Established Patient Follow-Up stress ech o review Reason Comments Refill Request Reason Comments 6 month check Reason Comments Follow Up 1 year ROBERT 03/01/22 Reason Comments Follow Up Established Patient Follow-Up 1 year fol low up INFORMATION SOURCE (unrecogn ized section and content) DATE CREATED AUTHOR 08/01/2021 [facility] DATE CREATED AUTHOR AUTHOR'S ORGANIZ ATION 04/11/2023 [facility] DATE CREATED AUTHOR AUTHOR'S ORGANIZ ATION 11/27/2023 [facility] ([place]) DATE CREATED AUTHOR AUTHOR'S ORGANIZ ATION 03/25/2024 [facility] DATE CREATED AUTHOR AUTHOR'S ORGANIZ ATION 09/25/2024 [facility] DATE CREATED AUTHOR AUTHOR'S ORGANIZ ATION 12/02/2024 [facility] Care Team (unrecognized sect ion and content) Care Team Personnel Name: Arturo Nicolerray Martínez PT Position: P3 Scheduling - Educational Resource Coordinator Advanced Member Role: Other Name: JOANNA MARTIN APRN-REVENUE INSPECTOR Position: P4 Advanced Practice Nurse Med Service: Employed Provider Member Role: Primary Care Physician Address: Address: [address] [place] [address] Care Team Related Persons Name: PANCHO BERRY Care Team Personnel Name: Arturo Nicole PT Position: P3 Scheduling - Educational Resource Coordinator Advanced Member Role: Other Name: JOANNA MARTIN WELL PULLER HEAD-REVENUE INSPECTOR Position: P4 Advanced Practice Nurse Med Service: Employed Provider Member Role: Primary Care Physician Address: Address: [address] [place] [address] Care Team Related Persons Name: PANCHO BERRY Goals (unrecognized section and content) Goals may be documented in a n alternate section FOR RECORDS PERTAINING TO PATIENTS WHO ARE [...] BE BASED ON THE PRIMARY CLINICAL RECORDS. [facility]. provides no warranty or guarantee of the accuracy or completeness of information in this document.
[2024-12-10 08:10] LABS: Hematocrit 41.2 % (37-47); Hemoglobin 13.6 g/dL (12.0-15.0); Immature Granulocytes Count 0.010 X10^3/uL (0.0-0.0); Mean Corp Hgb Conc 33.0 g/dL (32-36); Mean Corpuscular Volume 95.6 fL (81-99); Mean Platelet Vol. 9.2 fl (6.2-12.0); NRBC Flagged by Analyzer 0 % (0-5); Platelet Count 202 K/mm3 (150-450); RBC Distribution Width CV 13.2 % (11.6-14.6); RBC Distribution Width SD 46.3 fl (35.1-43.9); Red Blood Count 4.31 M/mm3 (4.2-5.4); White Blood Count 5.5 K/mm3 (4.4-11.0)
[2024-12-10 09:21] LABS: AST(SGOT) 23 U/L (<=31); Alanine Aminotransfer ALT/SGPT 13 U/L (<=34); Albumin, Serum 3.8 g/dL (3.4-4.8); Alkaline Phosphatase 115 U/L (35-104); Anion Gap 12 (5-15); BUN 17 mg/dL (4-19); BUN/Creat Ratio 19.0 RATIO (10-20); Calcium,Total 9.4 mg/dL (7.6-11.0); Carbon Dioxide 20.8 mmol/L (21.0-32.0); Chloride 105 mmol/L (98-108); Globulin 2.9 g/dL (2.2-4.2); Glucose 109 mg/dL (70-99); Potassium 4.3 mmol/L (3.3-5.1)
== END | disposition home or self-care (01) ==
LOC: LAB 07:04
PROVIDERS: PCP Nurse Practitioner Primary Care; Referring Provider Internal Medicine Rheumatology; Visit Provider Internal Medicine Rheumatology
DX: M06.00 Rheumatoid arthritis without rheumatoid factor, unspecified site (principal); R76.8 Other specified abnormal immunological findings in serum; Z79.899 Other long term (current) drug therapy
CPT/HCPCS: 36415; 80053; 85025

== ENCOUNTER 2025-01-28 16:30 | Outpatient (RCR) | payer OTHER, SELFPAY ==
--- NOTE | 2024-12-20 17:38 | HP.PTEVAL ---
Patient's Visit Information Visit Information Visit Information: FELICITA ROSAS is a 64 year old F referred to Physical Therapy by Dr. Glynn Sullivan MD with a diagnosis of S/P RIGHT TOTL KNEE REPLACEMENT. Date of Evaluation: 12/20/24 Physical Therapist: Osvaldo Pitt, PT, Cert MDT, OCS Visit Plan Frequency: 2x /Week Duration: 6 Weeks Plan: PT INTERVENTIONS BLE STRENGTHENING QUADS/HAMS/HIP ,FUNCTIONAL STRENGTHENING ,BALANCE/PROPRIOCEPTION TRAINING AND NUSTEP Subjective Subjective: This 64 y/o female presents to physical therapy with right TKA 2004 ~ 20 years ago . Then revised 2008. Seen Dr Sullivan for both TKA . Patient c/o right knee giving way and feels unstable. Did x-rays showed some a dark region. Recommended PT to stabilize knee. If PT doesn't help would do a bone scan. Patient has medial knee pain and tender. Aggravating unable to kneel or squat, little with stairs ,standing and extended walking. Alleviating rest ,stretches. Denies paresthesia .otherwise a small area . Patient sleeping okay. Patient to manage housework .Patient has difficulty with stiffness after sitting. Patient condition affects QOL and function. Patient goals to get stronger. 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 Right Back: Pain Intensity (Out of 10): 3 Pain Intensity Range: 8 Objective Objective: POSTURE: mild forward posture ,knee valgus GAIT :reciprocal pattern mild decrease stance time PALPATION: tender medial joint line tenderness STAIRS: alternating NEURO: denies paresthesia/tingling EDEMA: Has edema from old bursae per patient AROM: flexion 5-125 degrees MMT: quads/hams 4/5 ,hip flexion 21.1 ,abduction 14.4 ,ankle 4/5 FLEXABILITY: hamstrings min tight Special Tests R Knee Valgus - MCL: Negative Comments: INSTABIITY Balance/Special Test Scores Lower Extremity Functional Score: 38 Goals Goal 1:: Patient to be I with HEP for TKA to improve stability Goal Time Frame: 4-6 Weeks Goal 2:: Patient to normalize gait with improved stability Goal Time Frame: 4-6 Weeks Goal 3:: Patient to improve LFES score by 5 points to improve QOL and function /gait Goal Time Frame: 4-6 Weeks Goal 4:: Patient to improve peak force hip by 5 # to improve function and gait Goal Time Frame: 4-6 Weeks Rehabilitation Potential Physical Therapy Diagnosis: This patient underwent s/p right TKA 2004b and had revision 2008m ,noticed some pain and instability thus needs strengthening and will benefit from skilled PT Rehabilitation Potential: Good Anticipated Interventions Patient/Client Instruction: Educate patient on: Condition and Plan of Care For the Purpose of:: To decrease pain, To increase ROM, To improve muscle performance and motor function, To improve ability to perform ADL's, To increase tolerance to activity/condition/position, To improve ability of physical actions for home/community/work/leisure, To improve health of tissue, To decrease soft tissue restriction and To increase flexibility/ROM Therapeutic Exercise to Include: Strength training, Endurance training, Balance training, Flexibilty training and Active ROM Comment: QUADS/HAMS/HIP For the Purpose of:: To decrease pain, To increase oxygenation perfusion, To improve ability to perform ADL's, To increase tolerance to activity/condition/position, To improve ability of physical actions for home/community/work/leisure, To improve endurance, To improve balance and To improve tolerance to ADL's Text: Thank you for the opportunity to evaluate your patient. For Medicare and Medicare HMO plans, please review the plan of care and approve it. It will need to be FAXED BACK to us at [phone] for Medicare purposes. For Medicare only, by signing this I certify the plan of care. Please let me know if there are questions or concerns regarding this plan of care. Physician Signature: Date:
--- NOTE | 2025-01-28 17:16 | HP.PTDCSUM ---
Discharge Summary D/C summary: It has been my pleasure to treat FELICITA ROSAS referred by Dr. Glynn Sullivan MD, with the diagnosis of S/P RIGHT TOTL KNEE REPLACEMENT for a total of 12 visit(s). Discharge Date: 01/28/25 Please see the following information for a summary of their discharge status. Subjective Subjective: More stable in knee Knee is not giving Pain Right Back: Pain Intensity (Out of 10): 0 Overall Improvement % Improvement: 50 Objective Objective/Function: POSTURE: mild forward posture ,knee valgus GAIT :reciprocal pattern mild decrease stance time PALPATION: tender medial joint line tenderness STAIRS: alternating NEURO: denies paresthesia/tingling EDEMA: Has edema from old bursae per patient AROM: flexion 5-125 degrees MMT: quads/hams 4/5 ,hip flexion 38.1 ,abduction 29.1 ankle 4/5 FLEXABILITY: hamstrings min tight Goals Goal 1:: Patient to be I with HEP for TKA to improve stability Goal Progress: Goal Met Goal 2:: Patient to normalize gait with improved stability Goal Progress: Goal Met Goal 3:: Patient to improve LFES score by 5 points to improve QOL and function /gait Goal Progress: Goal Met Goal 4:: Patient to improve peak force hip by 5 # to improve function and gait Goal Progress: Goal Met Plan Plan: D/C TO HEP D/C Information Discharge Comments: HEP d/c sentence: If there are questions or concerns regarding this patient's physical therapy, please feel free to call me at [phone]. Thank you for the referral of this patient. Sincerely, Osvaldo Pitt, PT, Cert MDT, OCS Balance/Gait/Functional tests Balance/Special Test Scores Lower Extremity Functional Score: 61 Improvement % Improvement: 50
== END 2025-01-28 19:00 | disposition home or self-care (01) ==
LOC: PT 16:30
PROVIDERS: PCP Nurse Practitioner Primary Care; Referring Provider Orthopaedic Surgery; Visit Provider Orthopaedic Surgery
DX: Z96.651 Presence of right artificial knee joint (principal)
CPT/HCPCS: 97110; 97162; 97530

== ENCOUNTER → 2025-03-01 | Outpatient (CLI) | payer OTHER, SELFPAY ==
--- OUTSIDE RECORDS SUMMARY | 2025-03-01 12:23 | XMS RPT_ITS | CCD ---
Author Organization [facility] Care Team Providers Care Supervisor Receiving And Processing Name Role Phone JOANNA LOPEZ Primary Care Physicia n Corey PT, Tanya Unavailable Unavailable Joanna Owens Primary Care Provider [phone] Joanna Owens Primary Care Provider [phone] Joanna Owens Primary Care Provider Graciela FINANCIAL SYSTEMS DIRECTOR, FINANCIAL SYSTEMS DIRECTOR-C Joanna Primary Care Provider [phone] Graciela FINANCIAL SYSTEMS DIRECTOR, FINANCIAL SYSTEMS DIRECTOR-C Joanna Referring Provider [phone] KANG Rodriges Attending Provider Dr. Glen Chau Attending Provider [phone] Dr. Glen Chau Referring Provider [phone] Dr. Glen Chau Other Provider Joanna Owens Primary Care Provider Graciela FINANCIAL SYSTEMS DIRECTOR, FINANCIAL SYSTEMS DIRECTOR-C Joanna Referring Provider [phone] Grossman Attending Provider [phone] Graciela DE LA GARZA, FINANCIAL SYSTEMS DIRECTOR-C Joanna Primary Care Provider [phone] Dr. Glen Chau Attending Provider [phone] KANG Grossman Referring Provider [phone] JOANNA LOPEZ Attending Unava ilable JOANNA LOPEZ Primary Care Unava ilable [place] CLOTH WINDING SUPERVISOR, Joanna S Primary Care Provider [phone] ZOË KATZPAMELLA Referring Unavailable JESICA ZOË DEDRA Attending Unavailable GRACIELA, JOANNA S Primary Care Unavailable Graciela FINANCIAL SYSTEMS DIRECTOR-C, Joanna Primary Care Provider [phone] Ngoc PA, Jamila Attending Provider [phone] Ngoc PA, Jamila Referring Provider [phone] Kandi MEZA, Dr. Carroll Attending Provider [phone] Jimmy MEZA, Dr. Ramírez Attending Provider Jimmy MEZA, Dr. Ramírez Referring Provider Graciela FINANCIAL SYSTEMS DIRECTOR-C, Joanna Referring Provider [phone] GRACIELA CHEMICAL EQUIPMENT REPAIRER-CLOTH WINDING SUPERVISOR, JOANNA S Attending Unava ilable GRACIELA CHEMICAL EQUIPMENT REPAIRER-CLOTH WINDING SUPERVISOR, JOANNA S Primary Care Unava ilable Nate MEZA, Glynn Duke Unavailable NONE, NONE Unavailable Unavailable Graciela GOLF SUPERINTENDENT, Joanna S Unavailable [phone] Grossman, Jamila Attending Unavailable Grossman, Jamila Referring Unavailable Graciela FINANCIAL SYSTEMS DIRECTOR, Joanna Primary Care Unavailable Vellanki, Desiree Attending Unavailable Mehranlanki, Desiree Referring Unavailable Graciela FINANCIAL SYSTEMS DIRECTOR, Joanna Primary Care Unavailable Vellanki, Desiree Attending Unavailable Vellanki, Desiree Referring Unavailable Graciela FINANCIAL SYSTEMS DIRECTOR, Joanna Primary Care Unavailable Glynn Sullivan Attending Unavailable Graciela FINANCIAL SYSTEMS DIRECTOR, Joanna Primary Care Unavailable Glynn Sullivan Referring Unavailable Glen Chau Attending Unavailable Grossman, Jamila Referring Unavailable [place] FINANCIAL SYSTEMS DIRECTOR, Joanna Primary Care Unavailable Graciela FINANCIAL SYSTEMS DIRECTOR, Joanna Referring Unavailable Grossman, Jamila Attending Unavailable Graciela FINANCIAL SYSTEMS DIRECTOR, Joanna Primary Care Unavailable Vellanki, Desiree Attending Unavailable Vellanki, Desiree Referring Unavailable [place] FINANCIAL SYSTEMS DIRECTOR, Joanna Primary Care Unavailable Allergies Allergy Classification Reported Allergen(s) Allergy Type Date of Onset Reaction(s) Facility (7 sources) Acetaminophen / HYDROcodone; Translations: [acetaminophen-hydr ocodone] Drug Allergy nausea [facility] (20 sources) Erythromycin; Translations: [erythromycin] Drug Allergy 017 Hives [facility] (7 sources) influenza A virus A//2014 (H1N1) antigen / influenza A virus A/2014 (H3N2) antigen / influenza B virus B/[facility] antigen / influenza B virus B/ antigen; Translations: [influenza virus vaccine] Drug Allergy nausea, muscle loss, edema [facility] (20 sources) Morphine; Translations: [morphine] Drug Allergy Mental Status Change [facility] (7 sources) tetanus toxoid vaccine, inactivated; Translations: [tetanus toxoid] Drug Allergy nausea, muscle loss, edema [facility] (12 sources) diphtheria toxoid vaccine, inactivated / tetanus toxoid vaccine, inactivated; Translations: [TETANUS AND DIPHTHER. TOX (PF)] Drug Allergy GI Upset [facility] (2 sources) DPT vaccine Propensity to adverse reactions severe muscle weakness, nausea [facility] (9 sources) diphtheria, pertussis, tetanus vacc; Translations: [diphtheria, pertussis, tetanus vacc] Propensity to adverse reactions Nausea [facility] (8 sources) Opioids - Morphine Analogues Propensity to adverse reactions 023 Nausea/Vom/Diarr hea [facility] (1 source) Cortisone Drug Allergy 017 [facility] (1 source) Ibuprofen Drug Allergy [facility] (1 source) Morphine Drug Allergy itching [facility] (1 source) Sulfacetamide Drug Allergy 017 hives [facility] (1 source) Sulfamethoxazole / Trimethoprim Drug Allergy rash [facility] (1 source) PLANT POLLENS Allergy to substance (disorder) 05-29-2 020 hay fever [facility] (1 source) STINGING INSECTS Allergy to substance (disorder) anaphylaxis [facility] (1 source) PAIN MEDICATIONS Drug allergy (disorder) 017 hallucinations [facility] (1 source) TETANUS TOXOID ADSORBED Drug allergy (disorder) 017 [facility] (1 source) Erythromycin Drug Allergy [facility] (1 source) Morphine Drug Allergy [facility] (1 source) Opioids - Morphine Analogues Drug allergy (disorder) [facility] Medications Current Medications Medication Drug Class(es) Dates Sig (Normalized) Sig (Original) 8 hr acetaminophen 650 mg extended release oral tablet (3 sources) Start: 09-11-2018 take 2 tablets by mouth every eight hours as needed for pain Tylenol Arthritis Pain 650 mg tablet,extended release 2 tablet by mouth every eight hours as needed for pain active Essence Covarrubias LPN [facility] acetaminophen (T YLENOL ARTHRITIS ORAL) Take by mouth. PRN Active acetaminophen (T YLENOL ARTHRITIS ORAL) Take by mouth. PRN 0 Active Comment on above: Take by mouth. PRN acetic acid 20 mg/ml / hydrocortisone 10 mg/ml otic solution (3 sources) Corticosteroid Start: 06-11-19 acetic acid-hydrocortison e otic solution Dose = 3 drop(s), Ear, right, QID, # 10 mL, 1 Refill(s), Pharmacy: [id number], 169, cm, 06/10/21 14:14:00 EST, Height, kg, 06/10/21 14:14:00 EST, Dosing Weight Start Date: 06/10/21 Status: Ordered acetic acid-hydrocortisone otic solution (2 sources) Start: 02-21-20 acetic acid-hydrocortison e otic solution Dose = 3 drop(s), Ear, right, QID, # 10 mL, 1 Refill(s), Pharmacy: [id number] Start Date: 02/20/19 Status: Ordered ACETOSAL EAR DROPS (1 source) Start: 05-05-19 ACETOSAL EAR DROPS Use as needed as directed [facility] Low Dose Aspirin 81 mg tablet,delayed release (1 source) take 1 tablet by mouth once daily Adult Low Dose Aspirin 81 mg tablet,delayed release 1 tablet by mouth once a day active [facility] amLODIPine 10 mg oral tablet (2 sources) Dihydropyridine Calcium Channel Cirilo Start: 04-20-19 amLODIPine 10 mg oral tablet Dose : 10 mg = 1 tab(s), Oral, qDay, # 90 tab(s), 0 Refill(s), Pharmacy: [facility]/pharmacy #[id number], 169.9, cm, 12/11/20 14:01:00 EDT, Height, kg, 06/12/20 15:38:00 EST, Dosing Weight Start Date: 04/20/21 Status: Ordered Start: 09-11-2020 amLODIPine 5 m g oral tablet Dose : 5 mg = 1 tab(s), Oral, qDay, # 90 tab(s), 3 Refill(s), Pharmacy: [facility]/pharmacy #[id number], 168, cm, 06/12/20 15:38:00 EST, Height, kg, 06/12/20 15:38:00 EST, Dosing Weight Start Date: 09/11/20 Status: Ordered aspirin 81 mg delayed release oral tablet (12 sources) Platelet Aggregation Inhibitor, Nonsteroidal Anti-inflammatory Drug Start: 08-24-2022 take 1 tablet by mouth once daily Aspirin (Aspir-81) 81 mg Tablet,Delayed Release (Dr/Ec) Active 81 mg PO DAILY August 24, 2022 12:00am HEART take 1 tablet by mouth once felicita y aspirin 81 mg cap Take 1 tablet by mouth once daily. Active Comment on above: Take 1 tablet by rebekah th once daily. Calcium (8 sources) Phosphate Binder, Calcium Start: 05-05-2016 take 1 tablet by mouth once daily CALCIUM 600+D3 TABLET 1 tablet by mouth once a day active [facility] Start: 01-29-2014 take 1 tablet by rebekah [...] mg / cholecalciferol 200 unt oral tablet (8 sources) Vitamin D Start: 08-24-2022 Calcium Carbon ate-Vitamin D3 (Calcium + D) 600 mg-5 mcg (200 unit) Tablet Active 1 {tbl} PO DAILY August 24, 2022 12:00am SUPPLEMENT Calcium Carbonate / vitamin D3 (11 sources) calcium carbonat e/vitamin D3 (CALCIUM 600 + D,3, ORAL) Take by mouth once daily. Active calcium carbonat e/vitamin D3 (CALCIUM 600 + D,3, ORAL) Take by mouth once daily. 0 Active Comment on above: Take by mouth once d aily. carvedilol 12.5 mg oral tablet (20 sources) alpha-Adrenergic Cirilo, beta-Adrenergic Cirilo Start: 08-26-2021 End: 03-07-2025 take 1 tablet by mouth twice daily at mealtime Carvedilol 12.5 mg tablet Active 12.5 mg PO TWICE A DAY July 06, 2022 12:00am HEART must administer with a meal/food Start: 08-17-2021 End: 11-15-2021 take 2 tablets [...] Start: 06-18-2021 take 1 tablet by rebekah th twice daily carvedilol (COREG) 3.125 mg tablet TAKE 1 TABLET BY MOUTH TWICE A DAY 180 tablet 3 06/18/2021 Active Start: 06-10-2021 carvedilol 3.1 25 mg oral tablet Dose : 3.125 mg = 1 tab(s), Oral, BIDM, 0 Refill(s) Start Date: 06/10/21 Status: Ordered Comment on above: TAKE [address] [facility] TWICE A DAY Take 0.5 tablets by mouth twice daily. Take 2 tablets by [facility] twice daily. Take 1 tablet by [facility] twice daily. Take 1 tablet by [facility] two times a day. DULoxetine 30 mg delayed release oral capsule (20 sources) Serotonin and Norepinephrine Reuptake Inhibitor Start: take 60 mg by mouth once daily Duloxetine Active 60 MG PO DAILY March 17, 2023 11:35am Start: 12-16-2022 Cymbalta 60 mg oral delayed release capsule Dose : 60 mg = 1 cap(s), Oral, qDay, # 90 cap(s), 3 Refill(s), Pharmacy: [facility]/pharmacy #[id number], 167.5, cm, 12/08/23 14:47:00 EDT, Height, kg, 12/08/23 14:47:00 EDT, Dosing Weight Start Date: 12/08/23 Status: Ordered Medication Dispense Status: Completed Quantity: 90.0 Unit: cap(s) Total Allowed Fills: 4 Fills Dispensed: 0 Start: 12-20-2021 take 2 capsules by [facility] once daily Duloxetine 30 mg capsule,delayed release(DR/EC) Active 60 mg PO DAILY March 17, 2023 11:35am DEPRESSION Start: 06-10-2021 End: 03-17-2023 take 1 capsule by mouth once daily Duloxetine 30 mg capsule,delayed release(DR/EC) Discontinued 30 mg PO DAILY July 06, 2022 12:00am March 17, 2023 11:37am DEPRESSION Start: 06-26-2020 Cymbalta 30 mg oral delayed release capsule Dose : 30 mg = 1 cap(s), Oral, qDay, # 90 cap(s), 3 Refill(s), Pharmacy: [facility]/pharmacy #[id number], 168, cm, 06/12/20 15:38:00 EST, Height, [...] SC EVERY WEEK July 06, 2022 12:00am ARTHRITIS Start: 08-09-2018 Enbrel 50 mg/m L (1 mL) subcutaneous syringe 1 syringe subcutaneously once a week Sundays active Essence Covarrubias LPN [facility] Start: 04-20-2018 Enbrel Prefill ed Syringe 50 [...] 1 mg oral tablet (20 sources) Start: 3 take 2 tablets by mouth once daily Folic Acid 1 mg tablet Active 2 mg PO DAILY March 17, 2023 11:36am SUPPLEMENT Start: 03-17-2023 take 2 mg by mouth once daily Folic Acid Active 2 MG PO DAILY March 17, 2023 11:36am Start: 02-20-2019 End: 03-17-2023 take 1 tablet by mouth once daily Folic Acid 1 mg tablet Discontinued 1 mg PO DAILY July 06, 2022 12:00am March 17, 2023 11:37am SUPPLEMENT Comment on above: Take 1 mg by mouth o nce daily. 2 tabs daily methotrexate 2.5 mg oral tablet (20 sources) Folate Analog Metabolic Inhibitor Start: 07-06-2022 Methotrexate Sodium 2.5 mg tablet Active 15 mg PO July 06, 2022 12:00am RA Start: 07-06-2022 Methotrexate S odium Active 15 MG PO July 06, 2022 12:00am Start: 04-20-2018 methotrexate 2 .5 mg oral tablet Dose : 15 mg = 6 tab(s), Oral, qWeek, , 0 Refill(s) Start Date: 04/20/18 Status: Ordered Medication Dispense Status: Completed Total Allowed Fills: 1 Fills Dispensed: 0 methotrexate sod ium 2.5 mg tablet 6 tablet by mouth Tuesdays active Essence Covarrubias [facility] Comment on above: Take 2.5 mg by mouth . 4 tabs on tuesday Take 2.5 mg by mouth . 6 tabs of 2.5 mg/tab on tuesday MULTIVITAMIN ADULT (MULTIPLE VITAMIN) TABS (1 source) Start: 05-05-2016 take 1 tablet by mouth once daily MULTIVITAMIN ADULT (MULTIPLE VITAMIN) TABS 1 tablet by mouth once a day active Essence Covarrubias [facility] Multivitamin Capsule (4 sources) Start: 08-24-2022 Multivitamin Capsule Active 1 NMA PO DAILY August 24, 2022 12:00am SUPPLEMENT Start: 08-24-2022 Multivitamin C apsule Active 1 NMA PO DAILY August 24, 2022 12:00am Multivitamin preparation (11 sources) Start: 08-24-2022 take 1 capsule by mouth once daily Multivitamin Active 1 CAP PO DAILY August 23, 2022 11:00pm Start: 08-24-2022 take 1 capsule by mo uth once daily Multivitamin Active 1 CAP PO [...] days, # 15 gram(s), 0 Refill(s), Pharmacy: [facility]/pharmacy #[id number], Ointment, 167.5, cm, 06/09/23 14:25:00 EST, Height, 114.9, kg, 06/09/23 14:25:00 EST, Dosing Weight Start Date: 06/09/23 Status: Ordered omeprazole 40 mg delayed release oral capsule (1 source) Proton Pump Inhibitor Start: 08-09-2018 take 1 capsule by mouth once daily omeprazole 40 mg capsule,delayed release 1 capsule by mouth once a day active Essence Covarrubias LPN [facility] OTC PRODUCT (11 sources) OTC PRODUCT Bosl ey Pro Multivitamin 1 tab daily Active OTC PRODUCT Bosl ey Pro Multivitamin 1 tab daily 0 Active Comment on above: Rusty Pro Multivita min 1 tab daily pantoprazole 40 mg delayed release oral tablet (20 sources) Proton Pump Inhibitor Start: 0 take 1 tablet by mouth once daily Pantoprazole (Protonix) 40 mg tablet,delayed release (DR/EC) Active 40 mg PO DAILY July 06, 2022 12:00am GERD Comment on above: Take 40 mg by mouth once daily. perflutren lipid microspheres 1.3 mL in NaCl (PF) 0.9% 10 mL injection (DEFINITY) (20 sources) Start: 2 End: 3 perflutren lipid microspheres 1.3 mL in NaCl [...] oral tablet (1 source) Penicillin-class Antibacterial Start: 05-19-19 take 1 tablet by mouth three times daily Amoxicillin 500 mg tablet TAKE 1 TABLET BY MOUTH THREE TIMES A DAY FOR 7 DAYS 0 05/19/2021 Active Comment on above: [facility] A [facility] FOR 7 DAYS atorvastatin 40 mg oral tablet (20 sources) HMG-CoA Reductase Inhibitor Start: 07-07-19 End: 08-25-19 take 1 tablet by mouth once daily Atorvastatin 40 mg tablet Discontinued 40 mg PO DAILY 90 3 August 30, 2023 9:16am August 24, 2024 9:33am CHOLESTEROL Start: 06-10-2021 atorvastatin 1 0 mg oral tablet Dose : 10 mg = 1 tab(s), Oral, qDay, # 30 tab(s), 11 Refill(s), Pharmacy: [facility]/pharmacy #[id number], 169, cm, 06/10/21 14:14:00 EST, Height, kg, 06/10/21 14:14:00 EST, Dosing Weight Start Date: 06/10/21 Status: Ordered take 4 tablets by mo [facility] once daily atorvastatin (LIPITOR) 10 mg tablet Take 40 mg by mouth once daily. Active Comment on above: Take 10 mg by mouth once daily. Take 40 mg by mouth once daily. OTC NUTRITIONAL SUPPLEMENT (4 sources) End: 03-12-2024 OTC NUTRITIONAL SUPPLEMENT once daily. Rusty Pro Multivitamin 03/12/2024 Discontinued OTC NUTRITIONAL SUPPLEMENT once daily. Rusty Pro Multivitamin 0 Active Comment on above: once daily. 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 [place] [address] / REHABILITATION SERVICES DISCHARGE SUMMARY MR#: [id number] Acct: [id number] Name: FELICITA VILLA Rep #: [id number] : 1960 64 From: Osvaldo Pitt PT, Cert. T, OCS Referring Dr.: Dr. Glynn Sullivan MD Status: REG RCR Insurance: [employer] SELF PAY INSURANCE Discharge Summary D/C summary: It has been my pleasure to treat FELICITA VILLA referred by Dr. Glynn Sullivan MD, with the diagnosis of S/P RIGHT TOTL KNEE REPLACEMENT for a total of 12 visit(s). Discharge Date: 01/28/25 Please see the following information for a summary of their discharge status. Subjective Subjective: More stable in knee Knee is not giving Pain Right Back: Pain Intensity (Out of 10): 0 Overall Improvement % Improvement: 50 Objective Objective/Function: POSTURE: mild forward posture ,knee valgus GAIT :reciprocal pattern mild decrease stance time PALPATION: tender medial joint line tenderness STAIRS: alternating NEURO: denies paresthesia/tingling EDEMA: Has edema from old bursae per patient AROM: flexion 5-125 degrees MMT: quads/hams 4/5 ,hip flexion 38.1 ,abduction 29.1 ankle 4/5 FLEXABILITY: hamstrings min tight Goals Goal 1:: Patient to be I with HEP for TKA to improve stability Goal Progress: Goal Met Goal 2:: Patient to normalize gait with improved stability Goal Progress: Goal Met Goal 3:: Patient to improve LFES score by 5 points to improve QOL and function /gait Goal Progress: Goal Met Goal 4:: Patient to improve peak force hip by 5 # to improve function and gait Goal Progress: Goal Met Plan Plan: D/C TO HEP D/C Information Discharge Comments: HEP d/c sentence: If there are questions or concerns regarding this patient's physical therapy, please feel free to call me at [phone]. Thank you for the referral of this patient. Sincerely, Osvaldo Pitt PT, Wilmar ORTIZ, OCS Balance/Gait/Functional tests Balance/Special Test Scores Lower Extremity Functional Score: 61 Improvement % Improvement: 50 02/06/25 1721 CC: NIMO Owens; Dr. Glynn Sullivan MD JLA Signed Normal [facility] Inital Evaluation (1) - PTon 12-20-2024 Inital Evaluation (1) - PT [facility] [address] [place] [address] / REHABILITATION SERVICES INITIAL EVALUATION MR#: [id number] Acct: [id number] Name: FELICITA VILLA Rep #: [id number] : 1960 64 From: Wilmar Sharma PT. MD Arias, OCS Referring Dr.: Dr. Glynn Sullivan MD Status: REG R Insurance: [employer] SELF PAY INSURANCE Patient's Visit Information Visit Information Visit Information: FELICITA VILLA is a 64 year old F referred to Physical Therapy by Dr. Glynn Sullivan MD with a diagnosis of S/P RIGHT TOTL KNEE REPLACEMENT. Date of Evaluation: 12/20/24 Physical Therapist: Osvaldo Pitt PT, Cert MDT, OCS Visit Plan Frequency: 2x /Week Duration: 6 Weeks Plan: PT INTERVENTIONS BLE STRENGTHENING QUADS/HAMS/HIP ,FUNCTIONAL STRENGTHENING ,BALANCE/PROPRIOCEPTION TRAINING AND NUSTEP Subjective Subjective: This 64 y/o female presents to physical therapy with right TKA 2004 20 years ago . Then revised 2008. Seen Dr Sullivan for both TKA . Patient c/o right knee giving way and feels unstable. Did x-rays showed some a dark region. Recommended PT to stabilize knee. If PT doesn't help would do a bone scan. Patient has medial knee pain and tender. Aggravating unable to kneel or squat, little with stairs ,standing and extended walking. Alleviating rest ,stretches. Denies paresthesia .otherwise a small area . Patient sleeping okay. Patient to manage housework .Patient has difficulty with stiffness after sitting. Patient condition affects QOL and function. Patient goals to get stronger. 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 Pain Right Back: Pain Intensity (Out of 10): 3 Pain Intensity Range: 8 Objective Objective: POSTURE: mild forward posture ,knee valgus GAIT :reciprocal pattern mild decrease stance time PALPATION: tender medial joint line tenderness STAIRS: alternating NEURO: denies paresthesia/tingling EDEMA: Has edema from old bursae per patient AROM: flexion 5-125 degrees MMT: quads/hams 4/5 ,hip flexion 21.1 ,abduction 14.4 ,ankle 4/5 FLEXABILITY: hamstrings min tight Special Tests R Knee Valgus - MCL: Negative Comments: INSTABIITY Balance/Special Test Scores Lower Extremity Functional Score: 38 Goals Goal 1:: Patient to be I with HEP for TKA to improve stability Goal Time Frame: 4-6 Weeks Goal 2:: Patient to normalize gait with improved stability Goal Time Frame: 4-6 Weeks Goal 3:: Patient to improve LFES score by 5 points to improve QOL and function /gait Goal Time Frame: 4-6 Weeks Goal 4:: Patient to improve peak force hip by 5 # to improve function and gait Goal Time Frame: 4-6 Weeks Rehabilitation Potential Physical Therapy Diagnosis: This patient underwent s/p right TKA and had revision ,noticed some pain and instability thus needs strengthening and will benefit from skilled PT Rehabilitation Potential: Good Anticipated Interventions Patient/Client Instruction: Educate patient on: Condition and Plan of Care For the Purpose of:: To decrease pain, To increase ROM, To improve muscle performance and motor function, To improve ability to perform ADL's, To increase tolerance to activity/condition/position, To improve ability of physical actions for home/community/work/leisure, To improve health of tissue, To decrease soft tissue restriction and To increase flexibility/ROM Therapeutic Exercise to Include: Strength training, Endurance training, Balance training, Flexibilty training and Active ROM Comment: QUADS/HAMS/HIP For the Purpose of:: To decrease pain, To increase oxygenation perfusion, To improve ability to perform ADL's, To increase tolerance to activity/condition/position, To improve ability of physical actions for home/community/work/leisure, To improve endurance, To improve balance and To improve tolerance to ADL's Text: Thank you for the opportunity to evaluate your patient. For Medicare and Medicare HMO plans, please review the plan of care and approve it. It will need to be FAXED BACK to us at [phone] for Medicare purposes. For Medicare only, by signing this I certify the plan of care. Please let me know if there are questions or concerns regarding this plan of care. Physician Signature: ___Date: 12/21/24912 CC: NIMO Owens; Dr. Glynn Sullivan MD CESAR Signed Normal [facility] Absolute lymphocyte countOrd ered By: Desiree Marquez on 12-10-2024 Lymphocytes Auto (Unsp spec) [#/Vol] 1.56 10*3/uL 0.83-4.51 [facility] Absolute neutrophil countOrd ered By: Desireeleatha Marquez on 12-10-2024 Neutrophils (Bld) [#/Vol] 3.2 10*3/uL 2.0-7.7 [facility] Anion gap in Serum or Plasma Ordered By: Desiree Marquez on 12-10-2024 Anion gap [Moles/Vol] 12 mmol/L 5-15 [facility] Automated lymphocyte count a s percentage of total leukocytesOrdered By: Desiree Marquez on 12-10-2024 Lymphocytes/100 WBC Auto (Unsp spec) 28.6 % 19-41 [facility] BUN/creatinine ratioOrdered By: [facility] Jimmy on 12-10-2024 Urea nitrogen/Creatinine [Mass ratio] 19.0 mg/mg 10-20 [facility] Basophil percentageOrdered B y: Desiree Marquez on 12-10-2024 Basophils/100 WBC (Bld) 0.9 % 0-1 [facility] Bilirubin, totalOrdered By: Desiree Marquez on 12-10-2024 Bilirubin [Mass/Vol] 0.39 mg/dL 0.00-1.30 [facility] CBC W/Diff, Automatedon 09-0 8-2024 Absolute Lymph 1.56 X10 3/uL Normal 0.83-4.51 [facility] Comment on above: Performed By: #### L 100.0100, L500.4050 #### [facility] [address] [place], [address] Absolute Neut 3.2 X10 3/uL Normal 2.0-7.7 [facility] Comment on above: Performed By: #### L 100.0100, L500.4050 #### [facility] [address] [place], [address] Basophils/100 WBC (Bld) 0.9 % Normal 0-1 [facility] Comment on above: Performed By: #### L 100.0100, L500.4050 #### [facility] [address] [place], [address] Eosinophils/100 WBC (Bld) 1.8 % Normal 0-5 [facility] Comment on above: Performed By: #### L 100.0100, L500.4050 #### [facility] [address] [place], [address] Erythrocyte distribution width (RBC) [Ratio] 13.2 % Normal 11.6-14.6 [facility] Comment on above: Performed By: #### L 100.0100, L500.4050 #### [facility] [address] [place], [address] Hematocrit (Bld) [Volume fraction] 41.2 % Normal 37-47 [facility] Comment on above: Performed By: #### L 100.0100, L500.4050 #### [facility] [address] [place], [address] Hemoglobin (Bld) [Mass/Vol] 13.6 g/dL Normal 12.0-15.0 [facility] Comment on above: Performed By: #### L 100.0100, L500.4050 #### [facility] [address] [place], [address] IG% 0.200 Normal 0.0-0.9 [facility] Comment on above: Result Comment: IG% - Immature Granulocytes (promyelocytes, myelocytes and metamyelocytes) > 1% indicates that a LEFT SHIFT is Present. Performed By: #### L 100.0100, L500.4050 #### [facility] [address] [place], [address] Lymphocytes/100 WBC (Bld) 28.6 % Normal 19-41 [facility] Comment on above: Performed By: #### L 100.0100, L500.4050 #### [facility] [address] [place], [address] MCH (RBC) [Entitic mass] 31.6 pg Normal 27.0-32.0 [facility] Comment on above: Performed By: #### L 100.0100, L500.4050 #### [facility] [address] [place], [address] MCHC (RBC) [Mass/Vol] 33.0 g/dL Normal 32-36 [facility] Comment on above: Performed By: #### L 100.0100, L500.4050 #### [facility] [address] [place], [address] MCV (RBC) [Entitic vol] 95.6 fL Normal 81-99 [facility] Comment on above: Performed By: #### L 100.0100, L500.4050 #### [facility] [address] [place], [address] Monocytes/100 WBC (Bld) 10.4 % High 0-10 [facility] Comment on above: Performed By: #### L 100.0100, L500.4050 #### [facility] [address] [place], [address] Neutrophils/100 WBC (Bld) 58.1 % Normal 47-70 [facility] Comment on above: Performed By: #### L 100.0100, L500.4050 #### [facility] [address] [place], [address] Nucleated RBC (Bld) [#/Vol] 0 10*3/uL Normal 0-5 [facility] Comment on above: Performed By: #### L 100.0100, L500.4050 #### [facility] [address] [place], [address] Platelet mean volume (Bld) [Entitic vol] 9.2 fL Normal 6.2-12.0 [facility] Comment on above: Performed By: #### L 100.0100, L500.4050 #### [facility] [address] [place], [address] Platelets (Bld) [#/Vol] 202 10*3/uL Normal 150-450 [facility] Comment on above: Performed By: #### L 100.0100, L500.4050 #### [facility] [address] [place], [address] RBC (Bld) [#/Vol] 4.31 10*6/uL Normal 4.2-5.4 [facility] Comment on above: Performed By: #### L 100.0100, L500.4050 #### [facility] [address] [place], [address] RDW SD 46.3 fl High 35.1-43.9 [facility] Comment on above: Performed By: #### L 100.0100, L500.4050 #### [facility] [address] [place], [address] WBC (Bld) [#/Vol] 5.5 10*3/uL Normal 4.4-11.0 [facility] Comment on above: Performed By: #### L 100.0100, L500.4050 #### [facility] [address] [place], [address] Carbon dioxide, total [Moles /volume] in Central venous bloodOrdered By: Desiree Marquez on 12-10-2024 CO2 [Moles/Vol] 20.8 mmol/L Low 21.0-32.0 [facility] Chloride assayOrdered By: Kang Marquez on 12-10-2024 Chloride [Moles/Vol] 105 mmol/L 98-108 [facility] Comprehensive Metabolic Prof ilon 12-10-2024 Albumin [Mass/Vol] 3.8 g/dL Normal 3.4-4.8 [facility] Comment on above: Performed By: #### L 100.0100, L500.4050 #### [facility] [address] [place], [address] Albumin/Globulin [Mass ratio] 1.3 {ratio} Normal 0.9-2.4 [facility] Comment on above: Performed By: #### L 100.0100, L500.4050 #### [facility] [address] [place], [address] ALK PHOS 115 U/L High 35-104 [facility] Comment on above: Performed By: #### L 100.0100, L500.4050 #### [facility] [address] [place], [address] ALT [Catalytic activity/Vol] 13 U/L Normal <=34 [facility] Comment on above: Performed By: #### L 100.0100, L500.4050 #### [facility] [address] [place], [address] AST [Catalytic activity/Vol] 23 U/L Normal <=31 [facility] Comment on above: Performed By: #### L 100.0100, L500.4050 #### [facility] [address] [place], [address] Bilirubin [Mass/Vol] 0.39 mg/dL Normal 0.00-1.30 [facility] Comment on above: Performed By: #### L 100.0100, L500.4050 #### [facility] [address] [place], [address] BUN/CRE 19.0 RATIO Normal 10-20 [facility] Comment on above: Performed By: #### L 100.0100, L500.4050 #### [facility] [address] [place], [address] Calcium [Mass/Vol] 9.4 mg/dL Normal 7.6-11.0 [facility] Comment on above: Performed By: #### L 100.0100, L500.4050 #### [facility] [address] [place], [address] Chloride [Moles/Vol] 105 mmol/L Normal 98-108 [facility] Comment on above: Performed By: #### L 100.0100, L500.4050 #### [facility] [address] [place], [address] CO2 [Moles/Vol] 20.8 mmol/L Low 21.0-32.0 [facility] Comment on above: Performed By: #### L 100.0100, L500.4050 #### [facility] [address] [place], [address] Creatinine [Mass/Vol] 0.88 mg/dL Normal 0.70-1.20 [facility] Comment on above: Performed By: #### L 100.0100, L500.4050 #### [facility] [address] [place], [address] GAP 12 Normal 5-15 [facility] Comment on above: Performed By: #### L 100.0100, L500.4050 #### [facility] [address] [place], [address] GFR/1.73 sq M.predicted among non-blacks MDRD (S/P/Bld) [Vol rate/Area] 74 mL/min/{1.73_m2} Normal >60 [facility] Comment on above: Result Comment: mL/m in/1.73m2 CKD-EPI Creatinine Equation (2020) Performed By: #### L 100.0100, L500.4050 #### [facility] [address] [place], [address] Globulin (S) [Mass/Vol] 2.9 g/dL Normal 2.2-4.2 [facility] Comment on above: Performed By: #### L 100.0100, L500.4050 #### [facility] [address] [place], [address] Glucose [Mass/Vol] 109 mg/dL High 70-99 [facility] Comment on above: Performed By: #### L 100.0100, L500.4050 #### [facility] [address] [place], [address] Potassium [Moles/Vol] 4.3 mmol/L Normal 3.3-5.1 [facility] Comment on above: Performed By: #### L 100.0100, L500.4050 #### [facility] [address] [place], [address] Sodium [Moles/Vol] 138 mmol/L Normal 133-145 [facility] Comment on above: Performed By: #### L 100.0100, L500.4050 #### [facility] [address] [place], [address] T PROT 6.7 g/dL Normal 5.9-8.4 [facility] Comment on above: Performed By: #### L 100.0100, L500.4050 #### [facility] [address] [place], [place], [address] Urea nitrogen [Mass/Vol] 17 mg/dL Normal 4-19 [facility] Comment on above: Performed By: #### L 100.0100, L500.4050 #### [facility] [address] [place], [address] Eosinophil percentageOrdered By: Desiree Marquez on 12-10-2024 Eosinophils/100 WBC (Bld) 1.8 % 0-5 [facility] Erythrocyte distribution wid th ratioOrdered By: Desiree Marquez on 12-10-2024 Erythrocyte distribution width (RBC) [Ratio] 13.2 % 11.6-14.6 [facility] Erythrocyte distribution wid th standard deviationOrdered By: Desiree Marquez on 12-10-2024 Erythrocyte distribution width (RBC) [Ratio] 46.3 fl High 35.1-43.9 [facility] Glomerular filtration rate ( GFR) estimation/1.73 sq m using serum, plasma, or whole bOrdered By: Desiree Marquez on 12-10-2024 GFR/1.73 sq M.predicted among non-blacks MDRD (S/P/Bld) [Vol rate/Area] 74 mL/min/{1.73_m2} >60 [facility] Comment on above: mL/min/1.73m2 CKD-EP I Creatinine Equation (2020) Hematocrit Auto (Bld) [Volum e fraction]Ordered By: Desiree Marquez on 12-10-2024 Hematocrit (Bld) [Volume fraction] 41.2 % 37-47 [facility] Hemoglobin measurementOrdere d By: Desiree Marquez on 12-10-2024 Hemoglobin (Bld) [Mass/Vol] 13.6 g/dL 12.0-15.0 [facility] Immature granulocytes/100 WB C Auto (Bld)Ordered By: Desiree Marquez on 09-08-2025 Immature granulocytes/100 WBC (Bld) 0.200 % 0.0-0.9 [facility] Comment on above: IG% - Immature Granu locytes (promyelocytes, myelocytes and metamyelocytes) > 1% indicates that a LEFT SHIFT is Present. Laboratory - Chemistry and C hemistry - challengeOrdered By: Desiree Marquez on 12-10-2024 AST [Catalytic activity/Vol] 23 U/L <32 [facility] MCV (mean corpuscular volume ) determinationOrdered By: Desiree Marquez on 12-10-2024 MCV (RBC) [Entitic vol] 95.6 fL 81-99 [facility] Mean corpuscular hemoglobin (MCH) determinationOrdered By: Desiree Marquez on 12-10-2024 MCH (RBC) [Entitic mass] 31.6 pg 27.0-32.0 [facility] Mean corpuscular hemoglobin concentration (MCHC) determinationOrdered By: Desiree Marquez on 12-10-2024 MCHC (RBC) [Mass/Vol] 33.0 g/dL 32-36 [facility] Mean platelet volume determi nationOrdered By: Desiree Marquez on 12-10-2024 Platelet mean volume (Bld) [Entitic vol] 9.2 fL 6.2-12.0 [facility] Monocyte percentageOrdered B y: Desiree Marquez on 12-10-2024 Monocytes/100 WBC (Bld) 10.4 % High 0-10 [facility] Neutrophil percentageOrdered By: Desiree Marquez on 12-10-2024 Neutrophils/100 WBC (Bld) 58.1 % 47-70 [facility] Nucleated red blood cell per centageOrdered By: Desiree Marquez on 12-10-2024 Nucleated RBC/100 WBC (Bld) [Ratio] 0 % 0-5 [facility] Platelet countOrdered By: Kang Marquez on 12-10-2024 Platelets (Bld) [#/Vol] 202 10*3/uL 150-450 [facility] Potassium measurement (mass/ volume)Ordered By: Desiree Marquez on 12-10-2024 Potassium (Unsp spec) [Mass/Vol] 4.3 mmol/L 3.3-5.1 [facility] RBC Auto (Bld) [#/Vol]Ordere d By: Desiree Marquez on 12-10-2024 RBC (Bld) [#/Vol] 4.31 10*6/uL 4.2-5.4 [facility] Serum creatinine measurement (mass/volume)Ordered By: Desiree Marquez on 12-10-2024 Creatinine [Mass/Vol] 0.88 mg/dL 0.70-1.20 [facility] Serum globulin measurementOr dered By: Desiree Marquez on 12-10-2024 Globulin (S) [Mass/Vol] 2.9 g/dL 2.2-4.2 [facility] Serum glucose measurement (m ass/volume)Ordered By: Desiree Marquez on 12-10-2024 Glucose [Mass/Vol] 109 mg/dL High 70-99 [facility] Serum or plasma alanine nguyen otransferase (ALT) measurementOrdered By: Desiree Marquez on 12-10-2024 ALT [Catalytic activity/Vol] 13 U/L <35 [facility] Serum or plasma albumin susan urement (mass/volume)Ordered By: Desiree Marquez on 12-10-2024 Albumin [Mass/Vol] 3.8 g/dL 3.4-4.8 [facility] Serum or plasma albumin/glob ulin mass ratioOrdered By: Desiree Marquez on 12-10-2024 Albumin/Globulin [Mass ratio] 1.3 {ratio} 0.9-2.4 [facility] Serum or plasma alkaline raquel sphatase measurementOrdered By: Desiree Marquez on 12-10-2024 ALP [Catalytic activity/Vol] 115 U/L High 35-104 [facility] Serum or plasma calcium susan urement (mass/volume)Ordered By: Desiree Marquez on 12-10-2024 Calcium [Mass/Vol] 9.4 mg/dL 7.6-11.0 [facility] Serum or plasma urea nitroge n measurement (mass/volume)Ordered By: Desiree Marquez on 12-10-2024 Urea nitrogen [Mass/Vol] 17 mg/dL 4-19 [facility] Sodium levelOrdered By: Baron Marquez on 12-10-2024 Sodium [Moles/Vol] 138 mmol/L 133-145 [facility] Total proteinOrdered By: Messi zhang Jimmy on 12-10-2024 Protein [Mass/Vol] 6.7 g/dL 5.9-8.4 [facility] White blood cell (WBC) count Ordered By: Desiree Jimmy on 12-10-2024 WBC (Bld) [#/Vol] 5.5 10*3/uL 4.4-11.0 [facility] Relevant diagnostic tests/la boratory data Narrativeon 12-04-2024 Fall risk assessment no [employer] Work Phone: MEDS REVIEW Done [employer] Work Phone: MEDS REVIEWD Medications reviewed with changes [employer] Work Phone: [place] MAMMOGRAM SCREENING BILAT ERAL W/TOMOon 11-28-2024 MA MAMMOGRAM SCREENING BILATERAL W/KADE ORIGINAL FROM: [address] [address] PROCEDURE FOR: FELICITA CRAWFORD [address] [address] Home: PID#: [id number] Exam#: [id number] : 1960 Age: 64 TO: JOANNA OWENS [address] [address] Fax: NO FAX EXAMINATION: SCREENING DIGITAL BILATERAL [...] addition to annual mammographic screening per the [employer]. BIRADS: BI-RADS: 1: Negative RECALL: 1 year screening RECALL TYPE: mammo LETTER SENT: Normal BI-RADS 1 and 2 Interpreted by: Ruddy Martínez MD Preliminary Report By: Ruddy Martínez MD Electronically signed By Ruddy Martínez MD Dictated Date: 11/28/2024 1:02:03 PM Prelim Date: 11/28/2024 1:05:58 PM Sign Date: 11/28/2024 1:05:58 PM Ordering Provider: JOANNA OWENS Pain Coordinator: MAIKEL PATTON RT(R)(M)(CT) letter sent: Normal BI-RADS 1 and 2 Mammogram BI-RADS: 1 Negative Normal [facility] MR/BMS.Clemente 09-18-2024 MR/BMS.S [facility] Vascular Surgery [address] [place] [address]. 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 Normal [facility] Absolute lymphocyte countOrd ered By: Desiree Marquez on 09-12-2024 Lymphocytes Auto (Unsp spec) [#/Vol] 1.14 10*3/uL 0.83-4.51 [facility] Absolute neutrophil countOrd ered By: Desiree Marquez on 06-11-2025 Neutrophils (Bld) [#/Vol] 3.0 10*3/uL 2.0-7.7 [facility] Anion gap in Serum or Plasma Ordered By: Desiree Marquez on 09-12-2024 Anion gap [Moles/Vol] 11 mmol/L - [facility] Automated lymphocyte count a s percentage of total leukocytesOrdered By: Desiree Marquez on 09-12-2024 Lymphocytes/100 WBC Auto (Unsp spec) 23.5 % - [facility] BUN/creatinine ratioOrdered By: Desireeleatha Marquez on 09-12-2024 Urea nitrogen/Creatinine [Mass ratio] 21.2 mg/mg High 10- [facility] Basophil percentageOrdered B y: Desiree Marquez on 09-12-2024 Basophils/100 WBC (Bld) 0.4 % 0- [facility] Bilirubin, totalOrdered By: Desiree Marquez on 09-12-2024 Bilirubin [Mass/Vol] 0.54 mg/dL 0.00-1.30 [facility] CBC W/Diff, Automatedon 09-02 Absolute Lymph 1.14 X10 3/uL Normal 0.83-4.51 [facility] Comment on above: Performed By: #### L 500.4050, L100.0100 #### [facility] [address] [place], [address] Absolute Neut 3.0 X10 3/uL Normal 2.0-7.7 [facility] Comment on above: Performed By: #### L 500.4050, L100.0100 #### [facility] [address] [place], [address] Basophils/100 WBC (Bld) 0.4 % Normal 0-1 [facility] Comment on above: Performed By: #### L 500.4050, L100.0100 #### [facility] [address] [place], [address] Eosinophils/100 WBC (Bld) 3.1 % Normal 0-5 [facility] Comment on above: Performed By: #### L 500.4050, L100.0100 #### [facility] [address] [place], [address] Erythrocyte distribution width (RBC) [Ratio] 13.9 % Normal 11.6-14.6 [facility] Comment on above: Performed By: #### L 500.4050, L100.0100 #### [facility] [address] [place], [address] Hematocrit (Bld) [Volume fraction] 41.6 % Normal 37-47 [facility] Comment on above: Performed By: #### L 500.4050, L100.0100 #### [facility] [address] [place], [address] Hemoglobin (Bld) [Mass/Vol] 13.5 g/dL Normal 12.0-15.0 [facility] Comment on above: Performed By: #### L 500.4050, L100.0100 #### [facility] [address] [place], [address] IG% 0.200 Normal 0.0-0.9 [facility] Comment on above: Result Comment: IG% - Immature Granulocytes (promyelocytes, myelocytes and metamyelocytes) > 1% indicates that a LEFT SHIFT is Present. Performed By: #### L 500.4050, L100.0100 #### [facility] [address] [place], [address] Lymphocytes/100 WBC (Bld) 23.5 % Normal 19-41 [facility] Comment on above: Performed By: #### L 500.4050, L100.0100 #### [facility] [address] [place], [address] MCH (RBC) [Entitic mass] 31.4 pg Normal 27.0-32.0 [facility] Comment on above: Performed By: #### L 500.4050, L100.0100 #### [facility] [address] [place], [address] MCHC (RBC) [Mass/Vol] 32.5 g/dL Normal 32-36 [facility] Comment on above: Performed By: #### L 500.4050, L100.0100 #### [facility] [address] [place], [address] MCV (RBC) [Entitic vol] 96.7 fL Normal 81-99 [facility] Comment on above: Performed By: #### L 500.4050, L100.0100 #### [facility] [address] [place], [address] Monocytes/100 WBC (Bld) 11.3 % High 0-10 [facility] Comment on above: Performed By: #### L 500.4050, L100.0100 #### [facility] [address] [place], [address] Neutrophils/100 WBC (Bld) 61.5 % Normal 47-70 [facility] Comment on above: Performed By: #### L 500.4050, L100.0100 #### [facility] [address] [place], [address] Nucleated RBC (Bld) [#/Vol] 0 10*3/uL Normal 0-5 [facility] Comment on above: Performed By: #### L 500.4050, L100.0100 #### [facility] [address] [place], [address] Platelet mean volume (Bld) [Entitic vol] 8.9 fL Normal 6.2-12.0 [facility] Comment on above: Performed By: #### L 500.4050, L100.0100 #### [facility] [address] [place], [address] Platelets (Bld) [#/Vol] 197 10*3/uL Normal 150-450 [facility] Comment on above: Performed By: #### L 500.4050, L100.0100 #### [facility] [address] [place], [address] RBC (Bld) [#/Vol] 4.30 10*6/uL Normal 4.2-5.4 [facility] Comment on above: Performed By: #### L 500.4050, L100.0100 #### [facility] [address] [place], [address] RDW SD 48.9 fl High 35.1-43.9 [facility] Comment on above: Performed By: #### L 500.4050, L100.0100 #### [facility] [address] [place], [address] WBC (Bld) [#/Vol] 4.9 10*3/uL Normal 4.4-11.0 [facility] Comment on above: Performed By: #### L 500.4050, L100.0100 #### [facility] [address] [place], [address] Carbon dioxide, total [Moles /volume] in Central venous bloodOrdered By: Desiree Marquez on 09-12-2024 CO2 [Moles/Vol] 24.1 mmol/L 21.0-32.0 [facility] Chloride assayOrdered By: Kang Marquez on 09-12-2024 Chloride [Moles/Vol] 104 mmol/L 98-108 [facility] Comprehensive Metabolic Prof ilon 09-12-2024 Albumin [Mass/Vol] 4.1 g/dL Normal 3.4-4.8 [facility] Comment on above: Performed By: #### L 500.4050, L100.0100 #### [facility] [address] [place], [address] Albumin/Globulin [Mass ratio] 1.4 {ratio} Normal 0.9-2.4 [facility] Comment on above: Performed By: #### L 500.4050, L100.0100 #### [facility] [address] [place], [address] ALK PHOS 106 U/L High 35-104 [facility] Comment on above: Performed By: #### L 500.4050, L100.0100 #### [facility] [address] [place], [address] ALT [Catalytic activity/Vol] 20 U/L Normal <=34 [facility] Comment on above: Performed By: #### L 500.4050, L100.0100 #### [facility] [address] [place], [address] AST [Catalytic activity/Vol] 30 U/L Normal <=31 [facility] Comment on above: Performed By: #### L 500.4050, L100.0100 #### [facility] [address] [place], [address] Bilirubin [Mass/Vol] 0.54 mg/dL Normal 0.00-1.30 [facility] Comment on above: Performed By: #### L 500.4050, L100.0100 #### [facility] [address] [place], [address] BUN/CRE 21.2 RATIO High 10-20 [facility] Comment on above: Performed By: #### L 500.4050, L100.0100 #### [facility] [address] [place], [address] Calcium [Mass/Vol] 9.9 mg/dL Normal 7.6-11.0 [facility] Comment on above: Performed By: #### L 500.4050, L100.0100 #### [facility] [address] [place], [address] Chloride [Moles/Vol] 104 mmol/L Normal 98-108 [facility] Comment on above: Performed By: #### L 500.4050, L100.0100 #### [facility] [address] [place], [address] CO2 [Moles/Vol] 24.1 mmol/L Normal 21.0-32.0 [facility] Comment on above: Performed By: #### L 500.4050, L100.0100 #### [facility] [address] [place], [address] Creatinine [Mass/Vol] 0.88 mg/dL Normal 0.70-1.20 [facility] Comment on above: Performed By: #### L 500.4050, L100.0100 #### [facility] [address] [place], [address] GAP 11 Normal 5-15 [facility] Comment on above: Performed By: #### L 500.4050, L100.0100 #### [facility] [facility] [address] [place], [address] GFR/1.73 sq M.predicted among non-blacks MDRD (S/P/Bld) [Vol rate/Area] 74 mL/min/{1.73_m2} Normal >60 [facility] Comment on above: Result Comment: mL/m in/1.73m2 CKD-EPI Creatinine Equation (2020) Performed By: #### L 500.4050, L100.0100 #### [facility] [address] [place], [address] Globulin (S) [Mass/Vol] 2.9 g/dL Normal 2.2-4.2 [facility] Comment on above: Performed By: #### L 500.4050, L100.0100 #### [facility] [address] [place], [address] Glucose [Mass/Vol] 113 mg/dL High 70-99 [facility] Comment on above: Performed By: #### L 500.4050, L100.0100 #### [facility] [address] [place], [address] Potassium [Moles/Vol] 4.9 mmol/L Normal 3.3-5.1 [facility] Comment on above: Performed By: #### L 500.4050, L100.0100 #### [facility] [address] [place], [address] Sodium [Moles/Vol] 139 mmol/L Normal 133-145 [facility] Comment on above: Performed By: #### L 500.4050, L100.0100 #### [facility] [address] [place], [address] T PROT 7.0 g/dL Normal 5.9-8.4 [facility] Comment on above: Performed By: #### L 500.4050, L100.0100 #### [facility] [address] [place], [address] Urea nitrogen [Mass/Vol] 19 mg/dL Normal 4-19 [facility] Comment on above: Performed By: #### L 500.4050, L100.0100 #### [facility] [address] [place], [address] Eosinophil percentageOrdered By: Desiree Marquez on 09-12-2024 Eosinophils/100 WBC (Bld) 3.1 % 0-5 [facility] Erythrocyte distribution wid th ratioOrdered By: Desiree Marquez on 09-12-2024 Erythrocyte distribution width (RBC) [Ratio] 13.9 % 11.6-14.6 [facility] Erythrocyte distribution wid th standard deviationOrdered By: Desiree Marquez on 09-12-2024 Erythrocyte distribution width (RBC) [Ratio] 48.9 fl High 35.1-43.9 [facility] Glomerular filtration rate ( GFR) estimation/1.73 sq m using serum, plasma, or whole bOrdered By: Desiree Marquez on 09-12-2024 GFR/1.73 sq M.predicted among non-blacks MDRD (S/P/Bld) [Vol rate/Area] 74 mL/min/{1.73_m2} >60 [facility] Comment on above: mL/min/1.73m2 CKD-EP I Creatinine Equation (2020) Hematocrit Auto (Bld) [Volum e fraction]Ordered By: Desiree Marquez on 09-12-2024 Hematocrit (Bld) [Volume fraction] 41.6 % 37-47 [facility] Hemoglobin measurementOrdere d By: Desiree Marquez on 09-12-2024 Hemoglobin (Bld) [Mass/Vol] 13.5 g/dL 12.0-15.0 [facility] Immature granulocytes/100 WB C Auto (Bld)Ordered By: Desiree Marquez on 09-12-2024 Immature granulocytes/100 WBC (Bld) 0.200 % 0.0-0.9 [facility] Comment on above: IG% - Immature Granu locytes (promyelocytes, myelocytes and metamyelocytes) > 1% indicates that a LEFT SHIFT is Present. Laboratory - Chemistry and C hemistry - challengeOrdered By: Desiree Marquez on 09-12-2024 AST [Catalytic activity/Vol] 30 U/L <32 [facility] MCV (mean corpuscular volume ) determinationOrdered By: Desiree Marquez 09-12-2024 MCV (RBC) [Entitic vol] 96.7 fL 81-99 [facility] Mean corpuscular hemoglobin (MCH) determinationOrdered By: Desiree Marquez on 09-12-2024 MCH (RBC) [Entitic mass] 31.4 pg 27.0-32.0 [facility] Mean corpuscular hemoglobin concentration (MCHC) determinationOrdered By: Desiree Marquez on 09-12-2024 MCHC (RBC) [Mass/Vol] 32.5 g/dL 32-36 [facility] Mean platelet volume determi nationOrdered By: Desiree Marquez on 09-12-2024 Platelet mean volume (Bld) [Entitic vol] 8.9 fL 6.2-12.0 [facility] Monocyte percentageOrdered B y: Desiree Marquez on 09-12-2024 Monocytes/100 WBC (Bld) 11.3 % High 0-10 [facility] Neutrophil percentageOrdered By: Desiree Marquez on 09-12-2024 Neutrophils/100 WBC (Bld) 61.5 % 47-70 [facility] Nucleated red blood cell per centageOrdered By: Desiree Marquez on 09-12-2024 Nucleated RBC/100 WBC (Bld) [Ratio] 0 % 0-5 [facility] Platelet countOrdered By: Kang Marquez on 09-12-2024 Platelets (Bld) [#/Vol] 197 10*3/uL 150-450 [facility] Potassium measurement (mass/ volume)Ordered By: Desiree Marquez on 09-12-2024 Potassium (Unsp spec) [Mass/Vol] 4.9 mmol/L 3.3-5.1 [facility] RBC Auto (Bld) [#/Vol]Ordere d By: Desiree Marquez on 09-12-2024 RBC (Bld) [#/Vol] 4.30 10*6/uL 4.2-5.4 [facility] Serum creatinine measurement (mass/volume)Ordered By: Desiree Marquez on 09-12-2024 Creatinine [Mass/Vol] 0.88 mg/dL 0.70-1.20 [facility] Serum globulin measurementOr dered By: Desiree Marquez on 09-12-2024 Globulin (S) [Mass/Vol] 2.9 g/dL 2.2-4.2 [facility] Serum glucose measurement (m ass/volume)Ordered By: Desiree Marquez on 09-12-2024 Glucose [Mass/Vol] 113 mg/dL High 70-99 [facility] Serum or plasma alanine nguyen otransferase (ALT) measurementOrdered By: Desiree Marquez on 09-12-2024 ALT [Catalytic activity/Vol] 20 U/L <35 [facility] Serum or plasma albumin susan urement (mass/volume)Ordered By: Desiree Marquez on 09-12-2024 Albumin [Mass/Vol] 4.1 g/dL 3.4-4.8 [facility] Serum or plasma albumin/glob ulin mass ratioOrdered By: Desiree Marquez on 09-12-2024 Albumin/Globulin [Mass ratio] 1.4 {ratio} 0.9-2.4 [facility] Serum or plasma alkaline raquel sphatase measurementOrdered By: Desiree Marquez on 09-12-2024 ALP [Catalytic activity/Vol] 106 U/L High 35-104 [facility] Serum or plasma calcium susan urement (mass/volume)Ordered By: Desiree Marquez on 09-12-2024 Calcium [Mass/Vol] 9.9 mg/dL 7.6-11.0 [facility] Serum or plasma urea nitroge n measurement (mass/volume)Ordered By: Desiree Marquez on 09-12-2024 Urea nitrogen [Mass/Vol] 19 mg/dL 4-19 [facility] Sodium levelOrdered By: Baron Marquez on 09-12-2024 Sodium [Moles/Vol] 139 mmol/L 133-145 [facility] Total proteinOrdered By: Messi Marquez on 09-12-2024 Protein [Mass/Vol] 7.0 g/dL 5.9-8.4 [facility] White blood cell (WBC) count Ordered By: Desiree Marquez on 09-12-2024 WBC (Bld) [#/Vol] 4.9 10*3/uL 4.4-11.0 [facility] Duplex ultrasound of carotid artery reportOrdered By: Glen Chau on 09-06-2024 Study report [facility] [address] [place] [address] Carotid Duplex Ultrasound 09/03/24 1102 MR#: [id number] Acct: [id number] Name: FELICITA VILLA Rep #:[id number] : 1960 64 From: [place] Attending [...] the left vertebral artery. Procedure Carotid Duplex 33573. This is a Carotid Duplex examination using B-mode, color flow and specral Doppler. The exam was diagnostic. Exam performed in department. VL/Carotid Duplex Ultrasound Interpretation Summary Occlusion of the right extracranial internal carotid. Moderate (50-69%) stenosis left extracranial internal carotid. Patent and antegrade vertebrals bilaterally. Ordering Physician: Jamila Grossman Referring Physician: Joanna Owens Performed By: Ge King, RVT 09/06/24 1034 Date _ Glen Chau MD CC: FINANCIAL SYSTEMS DIRECTOR-C Joanna Owens; KANG Reece ~ Date Dictated: 09/03/24 1102 Date Transcribed: 09/06/24 1034 Office Clerk Routine: Signed [facility] Work Phone: Carotid Duplex Ultrasoundon 09-03-2024 Carotid Duplex Ultrasound [facility] [address] [place] [address] Carotid Duplex Ultrasound 09/03/24 110 MR#: [id number] Acct: [id number] Name: FELICITA VILLA Rep #: [id number] : 1960 64 From: Glen Chau MD [...] the left vertebral artery. Procedure Carotid Duplex 31587. This is a Carotid Duplex examination using B-mode, color flow and specral Doppler. The exam was diagnostic. Exam performed in department. VL/Carotid Duplex Ultrasound Interpretation Summary Occlusion of the right extracranial internal carotid. Moderate (50-69%) stenosis left extracranial internal carotid. Patent and antegrade vertebrals bilaterally. Ordering Physician: Jamila Grossman Referring Physician: Joanna Owens Performed By: Ge King, T 09/06/24 1034 Date Glen Chau MD CC: NIMO Owens; KANG Reece Date Dictated: 09/03/24 1102 Date Transcribed: 09/06/24 103 Office Clerk Routine: Signed Normal [facility] CBC W/Diff, Automatedon 12-2 Absolute Lymph 1.14 X10 3/uL Normal 0.83-4.51 [facility] Comment on above: Performed By: #### L 100.0100, L500.4050 #### [facility] [address] [place], [address] Absolute Neut 3.0 X10 3/uL Normal 2.0-7.7 [facility] Comment on above: Performed By: #### L 100.0100, L500.4050 #### [facility] [address] [place], [address] Basophils/100 WBC (Bld) 1.1 % High 0-1 [facility] Comment on above: Performed By: #### L 100.0100, L500.4050 #### [facility] [address] [place], [address] Eosinophils/100 WBC (Bld) 1.7 % Normal 0-5 [facility] Comment on above: Performed By: #### L 100.0100, L500.4050 #### [facility] [address] [place], [address] Erythrocyte distribution width (RBC) [Ratio] 13.7 % Normal 11.6-14.6 [facility] Comment on above: Performed By: #### L 100.0100, L500.4050 #### [facility] [address] [place], [address] Hematocrit (Bld) [Volume fraction] 41.4 % Normal 37-47 [facility] Comment on above: Performed By: #### L 100.0100, L500.4050 #### [facility] [address] [place], [address] Hemoglobin (Bld) [Mass/Vol] 13.5 g/dL Normal 12.0-15.0 [facility] Comment on above: Performed By: #### L 100.0100, L500.4050 #### [facility] [address] [place], [address] IG% 0.400 Normal 0.0-0.9 [facility] Comment on above: Result Comment: IG% - Immature Granulocytes (promyelocytes, myelocytes and metamyelocytes) > 1% indicates that a LEFT SHIFT is Present. Performed By: #### L 100.0100, L500.4050 #### [facility] [address] [place], [address] Lymphocytes/100 WBC (Bld) 24.1 % Normal 19-41 [facility] Comment on above: Performed By: #### L 100.0100, L500.4050 #### [facility] [address] [place], [address] MCH (RBC) [Entitic mass] 32.2 pg High 27.0-32.0 [facility] Comment on above: Performed By: #### L 100.0100, L500.4050 #### [facility] [address] [place], [address] MCHC (RBC) [Mass/Vol] 32.6 g/dL Normal 32-36 [facility] Comment on above: Performed By: #### L 100.0100, L500.4050 #### [facility] [address] [place], [address] MCV (RBC) [Entitic vol] 98.8 fL Normal 81-99 [facility] Comment on above: Performed By: #### L 100.0100, L500.4050 #### [facility] [address] [place], [address] Monocytes/100 WBC (Bld) 9.5 % Normal 0-10 [facility] Comment on above: Performed By: #### L 100.0100, L500.4050 #### [facility] [address] [place], [address] Neutrophils/100 WBC (Bld) 63.2 % Normal 47-70 [facility] Comment on above: Performed By: #### L 100.0100, L500.4050 #### [facility] [address] [place], [address] Nucleated RBC (Bld) [#/Vol] 0 10*3/uL Normal 0-5 [facility] Comment on above: Performed By: #### L 100.0100, L500.4050 #### [facility] [address] [place], [address] Platelet mean volume (Bld) [Entitic vol] 9.0 fL Normal 6.2-12.0 [facility] Comment on above: Performed By: #### L 100.0100, L500.4050 #### [facility] [address] [place], [address] Platelets (Bld) [#/Vol] 214 10*3/uL Normal 150-450 [facility] Comment on above: Performed By: #### L 100.0100, L500.4050 #### [facility] [address] [place], [address] RBC (Bld) [#/Vol] 4.19 10*6/uL Low 4.2-5.4 [facility] Comment on above: Performed By: #### L 100.0100, L500.4050 #### [facility] [address] [place], [address] RDW SD 49.7 fl High 35.1-43.9 [facility] Comment on above: Performed By: #### L 100.0100, L500.4050 #### [facility] [address] [place], [address] WBC (Bld) [#/Vol] 4.7 10*3/uL Normal 4.4-11.0 [facility] Comment on above: Performed By: #### L 100.0100, L500.4050 #### [facility] [address] [place], [address] Comprehensive Metabolic Prof ilon 03-29-2024 Albumin [Mass/Vol] 3.7 g/dL Normal 3.2-5.0 [facility] Comment on above: Performed By: #### L 100.0100, L500.4050 #### [facility] [address] [place], [address] Albumin/Globulin [Mass ratio] 1.0 {ratio} Normal 0.9-2.4 [facility] Comment on above: Performed By: #### L 100.0100, L500.4050 #### [facility] [address] [place], [address] ALK P 106 U/L Normal 45-117 [facility] Comment on above: Performed By: #### L 100.0100, L500.4050 #### [facility] [address] [place], [address] ALT [Catalytic activity/Vol] 23 U/L Normal 13-56 [facility] Comment on above: Performed By: #### L 100.0100, L500.4050 #### [facility] [address] [place], [address] AST [Catalytic activity/Vol] 17 U/L Normal 15-37 [facility] Comment on above: Performed By: #### L 100.0100, L500.4050 #### [facility] [address] [place], [address] Bilirubin [Mass/Vol] 0.70 mg/dL Normal 0.20-1.00 [facility] Comment on above: Result Comment: For patients on eltrombopag therapy, use of Dimension [place] TBIL is not recommended. Performed By: #### L 100.0100, L500.4050 #### [facility] [address] [place], [address] BUN/CRE 19.4 RATIO Normal 10-20 [facility] Comment on above: Performed By: #### L 100.0100, L500.4050 #### [facility] [address] [place], [address] CA,Total 9.6 mg/dL Normal 8.5-10.1 [facility] Comment on above: Performed By: #### L 100.0100, L500.4050 #### [facility] [address] [place], [address] Chloride [Moles/Vol] 105 mmol/L Normal 98-107 [facility] Comment on above: Performed By: #### L 100.0100, L500.4050 #### [facility] [address] [place], [address] CO2 [Moles/Vol] 28.0 mmol/L Normal 21.0-32.0 [facility] Comment on above: Performed By: #### L 100.0100, L500.4050 #### [facility] [address] [place], [address] Creatinine [Mass/Vol] 1.03 mg/dL High 0.55-1.02 [facility] Comment on above: Result Comment: The validity of the calculated GFR GFRAA in patients over 70 years has not been determined. Clinical correlation is essential. Performed By: #### L 100.0100, L500.4050 #### [facility] [address] [place], [address] EST GFR - AA 70 mL/min Normal >60 [facility] Comment on above: Result Comment: Afri can [place] GFR Calc Performed By: #### L 100.0100, L500.4050 #### [facility] [address] [place], [address] GAP 2 Low 5-15 [facility] Comment on above: Performed By: #### L 100.0100, L500.4050 #### [facility] [address] [place], [address] GFR/1.73 sq M.predicted among non-blacks MDRD (S/P/Bld) [Vol rate/Area] 58 mL/min/{1.73_m2} Low >60 [facility] Comment on above: Result Comment: Non- GFR Calc Performed By: #### L 100.0100, L500.4050 #### [facility] [address] [place], [address] Globulin (S) [Mass/Vol] 3.6 g/dL Normal 2.2-4.2 [facility] Comment on above: Performed By: #### L 100.0100, L500.4050 #### [facility] [address] [place], [address] Glucose [Mass/Vol] 107 mg/dL High 74-106 [facility] Comment on above: Result Comment: Fast ing Glucose result from 100 to 125 mg/dL suggests IMPAIRED HOMEOSTASIS per A.D.A. criteria. Performed By: #### L 100.0100, L500.4050 #### [facility] [address] [place], [address] Potassium [Moles/Vol] 5.0 mmol/L Normal 3.5-5.1 [facility] Comment on above: Performed By: #### L 100.0100, L500.4050 #### [facility] [address] [place], [address] Sodium [Moles/Vol] 135 mmol/L Low 136-145 [facility] Comment on above: Performed By: #### L 100.0100, L500.4050 #### [facility] [address] [place], [address] T PROT 7.3 g/dL Normal 6.4-8.2 [facility] Comment on above: Performed By: #### L 100.0100, L500.4050 #### [facility] [address] [place], [place], [address] Urea nitrogen [Mass/Vol] 20 mg/dL High 7-18 [facility] Comment on above: Performed By: #### L 100.0100, L500.4050 #### [facility] [address] [place], [place], [address] CNOVon 03-12-2024 CNOV Office Visit (CAWSTR ) JELANI FELICITA VILLA ([id number]) 1960 F Date Time Provider Department 03/12/24 3:20 PM ZOË KATZ [facility] During your visit today, we recorded the following information about you: Pulse Blood pressure Weight 87/minute 152/96 106.4 kg Zoë Katz MD 03/12/2024 5:35 PM Signed Zoë Katz MD Interventional Cardiology [address] [place] [address] [phone] Chief Complaint Patient presents with: Follow Up [...] Pupils: Pup (more content not included)... Normal [facility] ECG COMPLETEon 03-12-2024 ECG COMPLETE Ventricular Rate : 6 9 BPM Atrial Rate : 69 BPM P-R Interval : 164 ms QRS Duration : 74 ms Q-T Interval : 388 ms QTC Calculation(Bazett) : 415 ms Calculated P [place] : 55 degrees Calculated R [place] : 2 degrees Calculated T [place] : 19 degrees NORMAL SINUS RHYTHM MINIMAL VOLTAGE CRITERIA FOR LVH, MAY BE NORMAL VARIANT ( R in aVL ) BORDERLINE ECG Confirmed by MD TERRAZAS GREGORY () on 03/22/2024 9:35:13 AM NAME : FELICITA STUBBS PID : [id number] : 1960 Gender : Female Race : ORD : [id number] Procedure Date : Mar 12 2024 15:19:51 [...] By : ZOË KATZ Acquired by : Brenda garcia [facility] MAMMOGRAM SCREENING BILAT ERAL W/TOMOon 11-21-2023 MA MAMMOGRAM SCREENING BILATERAL W/KADE ORIGINAL FROM: [facility] [address] [place] [address] PROCEDURE FOR: FELICITA CRAWFORD [facility] [address] [place] [address] Home: PID#: [id number] Exam#: [id number] : 1960 Age: 63 TO: JOANNA OWENS [place] [address] Fax: NO FAX EXAMINATION: SCREENING DIGITAL BILATERAL [...] screening with annual mammograms is recommended. Cooper Mustafazick risk calculations, generated with the history provided, [...] addition to annual mammographic screening per the [employer]. BIRADS: BI-RADS: 2: Benign RECALL: 1 year screening RECALL TYPE: mammo LETTER SENT: Normal BI-RADS 1 and 2 Interpreted by: Emmanuel Solorzano MD Preliminary Report By: Emmanuel Solorzano MD Electronically signed By Emmanuel Solorzano MD Dictated Date: 11/21/2023 9:17:56 AM Prelim Date: 11/21/2023 9:22:14 AM Sign Date: 11/21/2023 9:22:14 AM Ordering Provider: JOANNA OWENS Pain Coordinator: GENARO LITTLE RT(R)(M)(CT) [employer] letter sent: Normal BI-RADS 1 and 2 Mammogram BI-RADS: 2 Benign Normal [facility] ([place]) Absolute lymphocyte countOrd ered By: Desiree Marquez on 07-22-2023 Lymphocytes Auto (Unsp spec) [#/Vol] 1.24 10*3/uL 0.83-4.51 [facility] Automated lymphocyte count a s percentage of total leukocytesOrdered By: Desiree Maqruez on 07-22-2023 Lymphocytes/100 WBC Auto (Unsp spec) 27.3 % 19-41 [facility] Basophil percentageOrdered B y: Desiree Marquez on 07-22-2023 Basophils/100 WBC (Bld) 0.9 % 0-1 [facility] Bilirubin [Mass/Vol] 0.80 mg/dL 0.20-1.00 [facility] Comment on above: For patients on eltr ombopag therapy, use of Dimension [place] TBIL is not recommended. Chloride [Moles/Vol] 106 mmol/L 98-107 [facility] Eosinophils/100 WBC (Bld) 1.3 % 0-5 [facility] Glucose [Mass/Vol] 112 mg/dL 74-106 [facility] Comment on above: Fasting Glucose resu lt from 100 to 125 mg/dL suggests IMPAIRED HOMEOSTASIS per A.D.A. criteria. Hemoglobin (Bld) [Mass/Vol] 13.5 g/dL 12.0-15.0 [facility] Monocytes/100 WBC (Bld) 9.7 % 0-10 [facility] Neutrophils (Bld) [#/Vol] 2.8 10*3/uL 2.0-7.7 [facility] Neutrophils/100 WBC (Bld) 60.6 % 47-70 [facility] Potassium [Moles/Vol] 4.7 mmol/L 3.5-5.1 [facility] Protein [Mass/Vol] 7.2 g/dL 6.4-8.2 [facility] Sodium [Moles/Vol] 140 mmol/L 136-145 [facility] WBC (Bld) [#/Vol] 4.5 10*3/uL 4.4-11.0 [facility] Determination of erythrocyte mean corpuscular volume (MCV)Ordered By: Desiree Marquez on 07-22-2023 MCV (RBC) [Entitic vol] 97.9 fL 81-99 [facility] Erythrocyte distribution wid th ratioOrdered By: Desiree Marquez on 07-22-2023 Erythrocyte distribution width (RBC) [Ratio] 13.5 % 11.6-14.6 [facility] Erythrocyte distribution wid th standard deviationOrdered By: Desiree Marquez on 07-22-2023 Erythrocyte distribution width (RBC) [Entitic vol] 48.4 fL 35.1-43.9 [facility] Hematocrit Auto (Bld) [Volum e fraction]Ordered By: Desiree Marquez on 07-22-2023 Hematocrit (Bld) [Volume fraction] 41.6 % 37-47 [facility] Immature granulocytes/100 WB C Auto (Bld)Ordered By: Desiree Marquez on 07-22-2023 Immature granulocytes/100 WBC (Bld) 0.200 % 0.0-0.9 [facility] Comment on above: IG% - Immature Granu locytes (promyelocytes, myelocytes and metamyelocytes) > 1% indicates that a LEFT SHIFT is Present. Laboratory - Chemistry and C hemistry - challengeOrdered By: Desiree Marquez on 07-22-2023 Albumin/Globulin [Mass ratio] 1.0 {ratio} 0.9-2.4 [facility] ALP [Catalytic activity/Vol] 99 U/L 45-117 [facility] ALT [Catalytic activity/Vol] 21 U/L 13-56 [facility] CO2 [Moles/Vol] 28.0 mmol/L 21.0-32.0 [facility] Globulin (S) [Mass/Vol] 3.6 g/dL 2.2-4.2 [facility] Urea nitrogen/Creatinine [Mass ratio] 14.9 mg/mg 10-20 [facility] - Hematology and Cell countsOrdered By: Desiree Marquez on 07-22-2023 MCH (RBC) [Entitic mass] 31.8 pg 27.0-32.0 [facility] MCHC (RBC) [Mass/Vol] 32.5 g/dL 32-36 [facility] Nucleated RBC/100 WBC (Bld) [Ratio] 0 % 0-5 [facility] Platelet mean volume (Bld) [Entitic vol] 9.2 fL 6.2-12.0 [facility] Platelets (Bld) [#/Vol] 188 10*3/uL 150-450 [facility] No Panel InformationOrdered By: Desiree Marquez on 07-22-2023 Estimated GFR (MDRD) Amer 72 mL/min >60 [facility] Comment on above: GFR Calc Estimated GFR (MDRD) Non-Af Amer 59 mL/min >60 [facility] Comment on above: Non- GFR Calc RBC Auto (Bld) [#/Vol]Ordere d By: Desiree Marquez on 07-22-2023 RBC (Bld) [#/Vol] 4.25 10*6/uL 4.2-5.4 [facility] Serum or plasma calcium susan urement (mass/volume)Ordered By: Desiree Marquez on 07-22-2023 Calcium [Mass/Vol] 9.1 mg/dL 8.5-10.1 [facility] Serum or plasma creatinine m easurement (mass/volume)Ordered By: Desiree Marquez on 07-22-2023 Creatinine [Mass/Vol] 1.01 mg/dL 0.55-1.02 [facility] Comment on above: The validity of the calculated GFR & GFRAA in patients over 70 years has not been determined. Clinical correlation is essential. Serum or plasma urea nitroge n measurement (mass/volume)Ordered By: Desiree Marquez on 07-22-2023 Urea nitrogen [Mass/Vol] 15 mg/dL 7-18 [facility] Thin prep Papanicolaou smear with manual screeningOrdered By: Desiree Marquez on 07-22-2023 Thin prep Papanicolaou smear with manual screening 3.6 g/dL 3.2-5.0 [facility] Thin prep Papanicolaou smear with manual screening 21 U/L 15-37 [facility] Thin prep Papanicolaou smear with manual screening 6 5-15 [facility] Absolute lymphocyte countOrd ered By: Desiree Marquez on 04-27-2023 Lymphocytes Auto (Unsp spec) [#/Vol] 1.11 10*3/uL 0.83-4.51 [facility] Automated lymphocyte count a s percentage of total leukocytesOrdered By: Desiree Marquez on 04-27-2023 Lymphocytes/100 WBC Auto (Unsp spec) 21.9 % 19-41 [facility] Basophil percentageOrdered B y: Desiree Marquez on 04-27-2023 Basophils/100 WBC (Bld) 0.6 % 0-1 [facility] Bilirubin [Mass/Vol] 0.60 mg/dL 0.20-1.00 [facility] Comment on above: For patients on eltr ombopag therapy, use of Dimension [place] TBIL is not recommended. Chloride [Moles/Vol] 105 mmol/L 98-107 [facility] Eosinophils/100 WBC (Bld) 1.6 % 0-5 [facility] Glucose [Mass/Vol] 105 mg/dL 74-106 [facility] Comment on above: Fasting Glucose resu lt from 100 to 125 mg/dL suggests IMPAIRED HOMEOSTASIS per A.D.A. criteria. Hemoglobin (Bld) [Mass/Vol] 13.8 g/dL 12.0-15.0 [facility] Monocytes/100 WBC (Bld) 10.4 % 0-10 [facility] Neutrophils (Bld) [#/Vol] 3.3 10*3/uL 2.0-7.7 [facility] Neutrophils/100 WBC (Bld) 65.3 % 47-70 [facility] Potassium [Moles/Vol] 4.0 mmol/L 3.5-5.1 [facility] Protein [Mass/Vol] 7.5 g/dL 6.4-8.2 [facility] Sodium [Moles/Vol] 136 mmol/L 136-145 [facility] WBC (Bld) [#/Vol] 5.1 10*3/uL 4.4-11.0 [facility] Determination of erythrocyte mean corpuscular volume (MCV)Ordered By: Desiree Marquez on 04-27-2023 MCV (RBC) [Entitic vol] 99.3 fL 81-99 [facility] Erythrocyte distribution wid th ratioOrdered By: [facility] Jimmy on 04-27-2023 Erythrocyte distribution width (RBC) [Ratio] 13.5 % 11.6-14.6 [facility] Erythrocyte distribution wid th standard deviationOrdered By: [facility] Jimmy on 04-27-2023 Erythrocyte distribution width (RBC) [Entitic vol] 48.6 fL 35.1-43.9 [facility] Hematocrit Auto (Bld) [Volum e fraction]Ordered By: Desiree Marquez on 04-27-2023 Hematocrit (Bld) [Volume fraction] 43.3 % 37-47 [facility] Immature granulocytes/100 WB C Auto (Bld)Ordered By: [facility] Jimmy on 04-27-2023 Immature granulocytes/100 WBC (Bld) 0.200 % 0.0-0.9 [facility] Comment on above: IG% - Immature Granu locytes (promyelocytes, myelocytes and metamyelocytes) > 1% indicates that a LEFT SHIFT is Present. Laboratory - Chemistry and C hemistry - challengeOrdered By: Desiree Marquez on 04-27-2023 Albumin/Globulin [Mass ratio] 1.0 {ratio} 0.9-2.4 [facility] ALP [Catalytic activity/Vol] 111 U/L 45-117 [facility] ALT [Catalytic activity/Vol] 23 U/L 13-56 [facility] CO2 [Moles/Vol] 27.0 mmol/L 21.0-32.0 [facility] Globulin (S) [Mass/Vol] 3.8 g/dL 2.2-4.2 [facility] Urea nitrogen/Creatinine [Mass ratio] 19.6 mg/mg 10-20 [facility] Laboratory - Hematology and Cell countsOrdered By: Desiree Marquez on 04-27-2023 MCH (RBC) [Entitic mass] 31.7 pg 27.0-32.0 [facility] MCHC (RBC) [Mass/Vol] 31.9 g/dL 32-36 [facility] Nucleated RBC/100 WBC (Bld) [Ratio] 0 % 0-5 [facility] Platelets (Bld) [#/Vol] 206 10*3/uL 150-450 [facility] No Panel InformationOrdered By: Desiree Marquez on 04-27-2023 Estimated GFR (MDRD) Amer 80 mL/min >60 [facility] Comment on above: GFR Calc Estimated GFR (MDRD) Non-Af Amer 66 mL/min >60 [facility] Comment on above: Non- GFR Calc Platelet mean volume Herminio-Ec ker (Bld) [Entitic vol]Ordered By: Desiree Marquez on 04-27-2023 Platelet mean volume (Bld) [Entitic vol] 9.4 fL 6.2-12.0 [facility] RBC Auto (Bld) [#/Vol]Ordere d By: Desiree Marquez on 04-27-2023 RBC (Bld) [#/Vol] 4.36 10*6/uL 4.2-5.4 [facility] Serum or plasma calcium susan urement (mass/volume)Ordered By: Desiree Marquez on 04-27-2023 Calcium [Mass/Vol] 9.4 mg/dL 8.5-10.1 [facility] Serum or plasma creatinine m easurement (mass/volume)Ordered By: Desiree Marquez on 04-27-2023 Creatinine [Mass/Vol] 0.92 mg/dL 0.55-1.02 [facility] Comment on above: The validity of the calculated GFR & GFRAA in patients over 70 years has not been determined. Clinical correlation is essential. Serum or plasma urea nitroge n measurement (mass/volume)Ordered By: Desiree Marquez on 04-27-2023 Urea nitrogen [Mass/Vol] 18 mg/dL 7-18 [facility] Thin prep Papanicolaou smear with manual screeningOrdered By: Desriee Marquez on 04-27-2023 Thin prep Papanicolaou smear with manual screening 3.7 g/dL 3.2-5.0 [facility] Thin prep Papanicolaou smear with manual screening 21 U/L 15-37 [facility] Thin prep Papanicolaou smear with manual screening 4 5-15 [facility] CNPNon 04-11-2023 CNPN Telephone (AGCARN) FELICITA STUBBS ([id number]) 1960 F Date Time Provider Department 04/11/23 [...] Encounter Status:Closed by JOANNA POWELL on 04/11/23 Normal [facility] Basophil percentageOrdered B y: Glen Chau on 08-25-2022 Chloride [Moles/Vol] 111 mmol/L 98-107 [facility] Glucose [Mass/Vol] 108 mg/dL 74-106 [facility] Comment on above: Fasting Glucose resu lt from 100 to 125 mg/dL suggests IMPAIRED HOMEOSTASIS per A.D.A. criteria. Potassium [Moles/Vol] 4.3 mmol/L 3.5-5.1 [facility] Sodium [Moles/Vol] 141 mmol/L 136-145 [facility] WBC (Bld) [#/Vol] 5.7 10*3/uL 4.4-11.0 [facility] Basophil percentageOrdered B y: Glen Rodriguez on 08-25-2022 Bilirubin [Mass/Vol] 0.70 mg/dL 0.20-1.00 [facility] Comment on above: For patients on eltr ombopag therapy, use of Dimension [place] TBIL is not recommended. Protein [Mass/Vol] 7.2 g/dL 6.4-8.2 [facility] Blood erythrocytes count (nu mber/volume)Ordered By: Glen Chau on 08-25-2022 RBC (Bld) [#/Vol] 4.35 10*6/uL 4.2-5.4 [facility] Blood hemoglobin measurement (mass/volume)Ordered By: Glen Chau on 08-25-2022 Hemoglobin (Bld) [Mass/Vol] 14.3 g/dL 12.0-15.0 [facility] Blood platelet mean volumeOr dered By: Glen Chau on 08-25-2022 Platelet mean volume (Bld) [Entitic vol] 8.8 fL 6.2-12.0 [facility] Determination of erythrocyte mean corpuscular volume (MCV)Ordered By: Glen Chau on 08-25-2022 MCV (RBC) [Entitic vol] 99.1 fL 81-99 [facility] Direct bilirubinOrdered By: Glen Rodriguez on 08-25-2022 Bilirubin.direct [Mass/Vol] 0.18 mg/dL 0.00-0.30 [facility] Hematocrit Auto (Bld) [Volum e fraction]Ordered By: Glen Chau on 08-25-2022 Hematocrit (Bld) [Volume fraction] 43.1 % 37-47 [facility] INR in Blood by Coagulation assayOrdered By: Glen Rodriguez on 08-25-2022 INR Coag (Bld) [Relative time] 0.9 {INR} [facility] Laboratory - Chemistry and C hemistry - challengeOrdered By: Glen Chau on 08-25-2022 CO2 [Moles/Vol] 26.0 mmol/L 21.0-32.0 [facility] Urea nitrogen/Creatinine [Mass ratio] 17.9 mg/mg 10-20 [facility] Laboratory - Chemistry and C hemistry - challengeOrdered By: Glen Rodriguez on 08-25-2022 ALP [Catalytic activity/Vol] 108 U/L 45-117 [facility] ALT [Catalytic activity/Vol] 22 U/L 13-56 [facility] Globulin (S) [Mass/Vol] 3.6 g/dL 2.2-4.2 [facility] Laboratory - CoagulationOrde red By: Glen Rodriguez on 08-25-2022 aPTT Coag (Bld) [Time] 29.6 s 24.1-36.2 [facility] PT Coag (PPP) [Time] 12.5 s 11.7-14.9 [facility] Laboratory - Hematology and Cell countsOrdered By: Glen Chau on 08-25-2022 Erythrocyte distribution width (RBC) [Entitic vol] 49.0 fL 35.1-43.9 [facility] Erythrocyte distribution width (RBC) [Ratio] 13.5 % 11.6-14.6 [facility] MCH (RBC) [Entitic mass] 32.9 pg 27.0-32.0 [facility] MCHC Auto (RBC) [Mass/Vol]Or dered By: Glen Chau on 08-25-2022 MCHC (RBC) [Mass/Vol] 33.2 g/dL 32-36 [facility] No Panel InformationOrdered By: Glen Chau on 08-25-2022 Estimated GFR (MDRD) Amer 83 mL/min >60 [facility] Comment on above: GFR Calc Estimated GFR (MDRD) Non-Af Amer 68 mL/min >60 [facility] Comment on above: Non- GFR Calc Platelets bldOrdered By: Alla Chau on 08-25-2022 Platelets (Bld) [#/Vol] 188 10*3/uL 150-450 [facility] Serum or plasma albumin susan urement (mass/volume)Ordered By: Glen Rodriguez on 08-25-2022 Albumin [Mass/Vol] 3.6 g/dL 3.2-5.0 [facility] Serum or plasma calcium susan urement (mass/volume)Ordered By: Glen Chau on 08-25-2022 Calcium [Mass/Vol] 9.3 mg/dL 8.5-10.1 [facility] Serum or plasma creatinine m easurement (mass/volume)Ordered By: Glen Chau on 08-25-2022 Creatinine [Mass/Vol] 0.90 mg/dL 0.55-1.02 [facility] Comment on above: The validity of the calculated GFR & GFRAA in patients over 70 years has not been determined. Clinical correlation is essential. Serum or plasma urea nitroge n measurement (mass/volume)Ordered By: Glen Chau on 08-25-2022 Urea nitrogen [Mass/Vol] 16 mg/dL 7-18 [facility] Thin prep Papanicolaou smear with manual screeningOrdered By: Glen Chau on 08-25-2022 Thin prep Papanicolaou smear with manual screening 4 5-15 [facility] Thin prep Papanicolaou smear with manual screeningOrdered By: Glen Rodriguez on 08-25-2022 Thin prep Papanicolaou smear with manual screening 20 U/L 15-37 [facility] Qualitative QuantiFERON-TB g old in tube testOrdered By: Dr. Marquez on 08-05-2022 M. tuberculosis tuberculin stim IFN-g Ql (Bld) 0.04 IU/mL . [facility] Thin prep Papanicolaou smear with manual screeningOrdered By: Dr. Marquez on 08-05-2022 Thin prep Papanicolaou smear with manual screening Comment . [facility] Comment on above: QuantiFERON-TB Gold Plus is [...] smear with manual screening 0.03 IU/mL . [facility] Thin prep Papanicolaou smear with manual screening 0.24 IU/mL . [facility] Thin prep Papanicolaou smear with manual screening > 10.00 IU/mL . [facility] Thin prep Papanicolaou smear with manual screening Negative Negative [facility] Comment on above: No response to M [...] the productionof interferon gamma. Chemiluminescence immunoassaymethodologyPerformed at: [facility] [id number] Director: Robel Monteiro PhD, Phone: [phone] Basophil percentageOrdered B y: Jamila Rodriges on 08-02-2022 Creatinine [Mass/Vol] 1.0 mg/dL 0.55-1.02 [facility] No Panel InformationOrdered By: Jamila Rodriges on 08-02-2022 Bedside Estimated GFR (eGFR) > 60.0000 mL/min >60 [facility] LABORATORYOrdered By: Beatriz Garcia on 12-19-2021 Cholesterol [...] 150 mg/dL AO ADM SS LABORATORYOrdered By: Beatriz Garcia on 08-12-2021 Albumin BCP dye [Mass/Vol] [...] Code AO Chemistry S STRESS ECHO TREADMILLon 07-04 [facility] CNPRebecca 07-29-2021 CNPN Telephone (CDLBME) FELICITA STUBBS ([id number]) 1960 F Date Time Provider Department 07/29/21 MARTINE LEGGETTE During your visit today, we recorded the [...] Fully Assessed Reason for Visit: Reminder Call [[id number]] Prescriptions as of 07/29/2021 - atorvastatin (LIPITOR) [...] Encounter Status:Closed by MARTINE LEGGETT on 07/29/21 [facility] LABORATORYOrdered By: Apolinar Ortiz on 05-19-2021 Calcium [...] 166 cm Glynn Sullivan MD Work Phone: [facility] 12-04-2024 09:36-0400 Body height 166.37 cm Glynn Sullivan MD Work Phone: [facility] 12-04-2024 09:36-0400 Body mass index (BMI) [Ratio] 40.3 kg/m2 Glynn Sullivan MD Work Phone: [facility] 12-04-2024 09:36-0400 Body weight 111 kg Glynn Sullivan MD Work Phone: [facility] 12-04-2024 09:36-0400 Body weight 111.13 kg Glynn Sullivan MD Work Phone: [facility] 12-04-2024 09:36-0400 BP SITE #1 Glynn Sullivan MD Work Phone: [facility] 12-04-2024 09:36-0400 Diastolic blood pressure 80 mm[Hg] Glynn Sullivan MD Work Phone: [facility] 12-04-2024 09:36-0400 Heart rate 92 /min Glynn Sullivan MD Work Phone: [facility] 12-04-2024 09:36-0400 HGHTCHNVIS Glynn Sullivan MD Work Phone: [facility] 12-04-2024 09:36-0400 Systolic blood pressure 112 mm[Hg] Glynn Sullivan MD Work Phone: [facility] 12-04-2024 09:36-0400 VITALSDONE Glynn Sullivan MD Work Phone: [facility] 09-18-2024 10:37-0400 Body temperature 97.8 [degF] Joanna Owens FINANCIAL SYSTEMS DIRECTOR-C Work Phone: [facility] 09-18-2024 10:37-0400 Body weight 111.13 kg Joanna Owens FINANCIAL SYSTEMS DIRECTOR-C Work Phone: [facility] 09-18-2024 10:37-0400 Diastolic blood pressure 84 mm[Hg] Joanna Owens FINANCIAL SYSTEMS DIRECTOR-C Work Phone: [facility] 09-18-2024 10:37-0400 Heart rate 94 /min Joanna Owens FINANCIAL SYSTEMS DIRECTOR-C Work Phone: [facility] 09-18-2024 10:37-0400 Respiratory rate 16 /min Joanna Owens FINANCIAL SYSTEMS DIRECTOR-C Work Phone: [facility] 09-18-2024 10:37-0400 SaO2% (BldA) [Mass fraction] 94 % Joanna Owens FINANCIAL SYSTEMS DIRECTOR-C Work Phone: [facility] 09-18-2024 10:37-0400 Systolic blood pressure 146 mm[Hg] Joanna Owens FINANCIAL SYSTEMS DIRECTOR-C Work Phone: [facility] 06-21-2024 01:00-0400 Body height 167.64 cm Joanna Nicole [place] [facility] 06-21-2024 01:00-0400 Body mass index (BMI) [Ratio] 38.7 kg/m2 Joanna [place] [facility] 06-21-2024 01:00-0400 Body surface area Derived from formula 2.25 m2 Joanna Hermiller [place] [facility] 06-21-2024 01:00-0400 Body weight 108.86 kg Joanna Hermiller [place] [facility] 06-21-2024 01:00-0400 Diastolic blood pressure 85 mm[Hg] Joanna Hermiller [place] [facility] 06-21-2024 01:00-0400 Heart rate 80 /min Joanna Hermiller [place] [facility] 06-21-2024 01:00-0400 Respiratory rate 16 /min Joanna Karsoniller [place] [facility] 06-21-2024 01:00-0400 Systolic blood pressure 130 mm[Hg] Joanna Hermiller [place] [facility] 03-12-2024 15:10-0500 Body mass index (BMI) [Ratio] 35.67 kg/m2 Zoë Katz MD Work Phone: [facility] 03-12-2024 15:10-0500 Body weight 106.41 kg Zoë Katz MD Work Phone: [facility] 03-12-2024 15:10-0500 Diastolic blood pressure 96 mm[Hg] Zoë Katz MD Work Phone: [facility] 03-12-2024 15:10-0500 Heart rate 87 /min Zoë Katz MD Work Phone: [facility] 03-12-2024 15:10-0500 SaO2% (BldA) [Mass fraction] 98 % Zoë Katz MD Work Phone: [facility] 03-12-2024 15:10-0500 Systolic blood pressure 152 mm[Hg] Zoë Katz MD Work Phone: [facility] 03-17-2023 10:30-0500 Body temperature 97.7 [degF] FINANCIAL SYSTEMS DIRECTOR-C Joanna Graciela FINANCIAL SYSTEMS DIRECTOR Work Phone: [facility] 03-17-2023 10:30-0500 Body weight 114.3 kg FINANCIAL SYSTEMS DIRECTOR-C Joanna [place] FINANCIAL SYSTEMS DIRECTOR Work Phone: [facility] 03-17-2023 10:30-0500 Diastolic blood pressure 82 mm[Hg] FINANCIAL SYSTEMS DIRECTOR-C Joanna [place] FINANCIAL SYSTEMS DIRECTOR Work Phone: [facility] 03-17-2023 10:30-0500 Heart rate 88 /min FINANCIAL SYSTEMS DIRECTOR-C Joanna [place] FINANCIAL SYSTEMS DIRECTOR Work Phone: [facility] 03-17-2023 10:30-0500 Respiratory rate 16 /min FINANCIAL SYSTEMS DIRECTOR-C Joanna [place] FINANCIAL SYSTEMS DIRECTOR Work Phone: [facility] 03-17-2023 10:30-0500 SaO2% (BldA) [Mass fraction] 94 % FINANCIAL SYSTEMS DIRECTOR-C Joanna [place] FINANCIAL SYSTEMS DIRECTOR Work Phone: [facility] 03-17-2023 10:30-0500 Systolic blood pressure 146 mm[Hg] FINANCIAL SYSTEMS DIRECTOR-C Joanna [place] FINANCIAL SYSTEMS DIRECTOR Work Phone: [facility] 03-14-2023 14:16-0500 Body weight 114.4 kg Zoë Katz MD Work Phone: [facility] 03-14-2023 14:16-0500 Diastolic blood pressure 81 mm[Hg] Zoë Katz MD Work Phone: [facility] 03-14-2023 14:16-0500 Heart rate 84 /min Zoë Katz MD Work Phone: [facility] 03-14-2023 14:16-0500 SaO2% (BldA) [Mass fraction] 93 % Zoë Katz MD Work Phone: [facility] 03-14-2023 14:16-0500 Systolic blood pressure 153 mm[Hg] Zoë Katz MD Work Phone: [facility] 08-25-2022 20:02-0400 Body temperature 98 [degF] FINANCIAL SYSTEMS DIRECTOR-C Joanna Owens FINANCIAL SYSTEMS DIRECTOR Work Phone: [facility] 08-25-2022 20:02-0400 Diastolic blood pressure 84 mm[Hg] FINANCIAL SYSTEMS DIRECTOR-C Joanna Owens FINANCIAL SYSTEMS DIRECTOR Work Phone: [facility] 08-25-2022 20:02-0400 Heart rate 67 /min FINANCIAL SYSTEMS DIRECTOR-C Joanna Owens FINANCIAL SYSTEMS DIRECTOR Work Phone: [facility] 08-25-2022 20:02-0400 Respiratory rate 17 /min FINANCIAL SYSTEMS DIRECTOR-C Joanna Owens FINANCIAL SYSTEMS DIRECTOR Work Phone: [facility] 08-25-2022 20:02-0400 SaO2% (BldA) [Mass fraction] 93 % FINANCIAL SYSTEMS DIRECTOR-C Joanna Owens FINANCIAL SYSTEMS DIRECTOR Work Phone: [facility] 08-25-2022 20:02-0400 Systolic blood pressure 170 mm[Hg] FINANCIAL SYSTEMS DIRECTOR-C Joanna Owens FINANCIAL SYSTEMS DIRECTOR Work Phone: [facility] 08-25-2022 13:45-0400 Inhaled oxygen flow rate 2 L/min FINANCIAL SYSTEMS DIRECTOR-C Joanna Owens FINANCIAL SYSTEMS DIRECTOR Work Phone: [facility] 08-25-2022 09:23-0400 Body height 167.64 cm FINANCIAL SYSTEMS DIRECTOR-C Joanna Owens FINANCIAL SYSTEMS DIRECTOR Work Phone: [facility] 08-25-2022 09:23-0400 Body weight 107.5 kg FINANCIAL SYSTEMS DIRECTOR-C Joanna Owens FINANCIAL SYSTEMS DIRECTOR Work Phone: [facility] 08-25-2022 09:20-0400 Body mass index (BMI) [Ratio] 38.2 kg/m2 FINANCIAL SYSTEMS DIRECTOR-C Joanna Graciela FINANCIAL SYSTEMS DIRECTOR Work Phone: [facility] 08-10-2022 14:42-0400 Body height 167.64 cm FINANCIAL SYSTEMS DIRECTOR-C Joanna Graciela FINANCIAL SYSTEMS DIRECTOR Work Phone: [facility] 08-10-2022 14:42-0400 Body mass index (BMI) [Ratio] 39.6 kg/m2 FINANCIAL SYSTEMS DIRECTOR-C Joanna [place] FINANCIAL SYSTEMS DIRECTOR Work Phone: [facility] 08-10-2022 14:42-0400 Body weight 111.58 kg FINANCIAL SYSTEMS DIRECTOR-C Joanna Graciela FINANCIAL SYSTEMS DIRECTOR Work Phone: [facility] 08-10-2022 14:42-0400 Diastolic blood pressure 96 mm[Hg] FINANCIAL SYSTEMS DIRECTOR-C Joanna [place] FINANCIAL SYSTEMS DIRECTOR Work Phone: [facility] 08-10-2022 14:42-0400 Heart rate 82 /min FINANCIAL SYSTEMS DIRECTOR-C Joanna [place] FINANCIAL SYSTEMS DIRECTOR Work Phone: [facility] 08-10-2022 14:42-0400 Respiratory rate 18 /min FINANCIAL SYSTEMS DIRECTOR-C Joanna [place] FINANCIAL SYSTEMS DIRECTOR Work Phone: [facility] 08-10-2022 14:42-0400 SaO2% (BldA) [Mass fraction] 97 % FINANCIAL SYSTEMS DIRECTOR-C Joanna Graciela FINANCIAL SYSTEMS DIRECTOR Work Phone: [facility] 08-10-2022 14:42-0400 Systolic blood pressure 147 mm[Hg] FINANCIAL SYSTEMS DIRECTOR-C Joanna [place] FINANCIAL SYSTEMS DIRECTOR Work Phone: [facility] 07-06-2022 10:27-0400 Diastolic blood pressure 88 mm[Hg] FINANCIAL SYSTEMS DIRECTOR-C Joanna [place] FINANCIAL SYSTEMS DIRECTOR Work Phone: [facility] 07-06-2022 10:27-0400 Heart rate 67 /min FINANCIAL SYSTEMS DIRECTOR-C Joanna Graciela FINANCIAL SYSTEMS DIRECTOR Work Phone: [facility] 07-06-2022 10:27-0400 SaO2% (BldA) [Mass fraction] 98 % FINANCIAL SYSTEMS DIRECTOR-C Joanna Owens FINANCIAL SYSTEMS DIRECTOR Work Phone: [facility] 07-06-2022 10:27-0400 Systolic blood pressure 150 mm[Hg] FINANCIAL SYSTEMS DIRECTOR-C Joanna Owens FINANCIAL SYSTEMS DIRECTOR Work Phone: [facility] 03-01-2022 16:04-0500 Body weight 111.13 kg Zoë Katz MD Work Phone: [facility] 03-01-2022 16:04-0500 Diastolic blood pressure 94 mm[Hg] Zoë Katz MD Work Phone: [facility] 03-01-2022 16:04-0500 Heart rate 80 /min Zoë Katz MD Work Phone: [facility] 03-01-2022 16:04-0500 Systolic blood pressure 162 mm[Hg] Zoë Katz MD Work Phone: [facility] 08-17-2021 12:57-0400 Body height 172.7 cm Zoë Katz MD Work Phone: [facility] 08-17-2021 12:57-0400 Body weight 113.4 kg Zoë Katz MD Work Phone: [facility] 08-17-2021 12:57-0400 Diastolic blood pressure 92 mm[Hg] Zoë Katz MD Work Phone: [facility] 08-17-2021 12:57-0400 Heart rate 90 /min Zoë Katz MD Work Phone: [facility] 08-17-2021 12:57-0400 Respiratory rate 20 /min Zoë Katz MD Work Phone: [facility] 08-17-2021 12:57-0400 Systolic blood pressure 154 mm[Hg] Zoë Katz MD Work Phone: [facility] Encounters Encounter Date Encounter Type Care Provider Facility Start: 01-28-2025 ambulatory Glynn Burns y:[facility] Start: 12-10-2024 End: 12-10-2024 ambulatory Joanna Graciela FINANCIAL SYSTEMS DIRECTOR-C Work Phone: -Laboratory Start: 12-10-2024 End: 12-10-[address] Desiree Marquez MD -Laboratory Work Phone: Start: 12-10-2024 End: 12-10-2024 ambulatory Desiree Jimmy Facility:[facility] Start: 12-04-2024 In-person encounter Glynn Sullivan MD Work Phone: [facility] Work Phone: Start: 12-04-2024 Visit out of hours Glynn Sullivan MD Work Phone: [facility] Work Phone: Start: 11-28-2024 End: 11-28-2024 ambulatory JOANNA Diez GRACIELA CHEMICAL EQUIPMENT REPAIRER-[employer] SUPERVISOR Facility:[facility] Start: 11-28-2024 End: 11-28-2024 Patient encounter procedure JOANNA Diez GRACIELA CHEMICAL EQUIPMENT REPAIRER-[employer] SUPERVISOR [facility] Start: 09-18-2024 End: 09-18-2024 ambulatory Joanna [place] FINANCIAL SYSTEMS DIRECTOR-C Work Phone: [facility] Work Phone: Start: 09-18-2024 End: 09-18-2024 Patient encounter procedure Jamila KAPADIA -[facility] Work Phone: Start: 09-12-2024 End: 09-12-2024 ambulatory Joanna Graciela FINANCIAL SYSTEMS DIRECTOR-C Work Phone: [facility] Work Phone: Start: 09-12-2024 End: 09-12-[address] Desiree Marquez MD -Laboratory Work Phone: Start: 09-12-2024 End: 09-12-2024 ambulatory Desiree Marquez Facility:[facility] Start: 09-03-2024 Non-patient / Non-visit Dr. Glen guerrero MD -[facility] Start: 09-03-2024 End: 09-03-2024 ambulatory Joanna Owens FINANCIAL SYSTEMS DIRECTOR-C Work Phone: [facility] Work Phone: Start: 09-03-2024 End: 09-03-2024 Patient encounter procedure Jamila Grossman PA -[facility] Services Work Phone: Start: 09-03-2024 End: 09-03-2024 ambulatory Jamila Grossman Facility:[facility] Start: 06-21-2024 Joanna mckeon [facility] Start: 03-29-2024 End: 03-29-2024 ambulatory Desiree Marquez Facility:[facility] Start: 03-12-2024 End: 03-12-2024 ambulatory ZOË KATZ Facility:[facility] Start: 03-12-2024 End: 03-12-2024 Patient encounter procedure Zoë Katz MD Work Phone: Cardiology Comment on above: Pure hypercholestero lemia (Primary Dx); Primary hypertension Start: 11-21-2023 End: 11-21-2023 ambulatory JOANNA OWENS CHEMICAL EQUIPMENT REPAIRER-CLOTH WINDING SUPERVISOR Facility:B Start: 11-21-2023 End: 11-21-2023 Patient encounter procedure JOANNA OWENS CHEMICAL EQUIPMENT REPAIRER-CLOTH WINDING SUPERVISOR [facility] Start: 07-22-2023 End: 07-22-2023 ambulatory [facility] Work Phone: Start: 07-22-2023 End: 07-22-2023 Patient encounter procedure [facility] Work Phone: Start: 04-27-2023 End: 04-27-2023 ambulatory FINANCIAL SYSTEMS DIRECTOR-C Joanna Owens NP Work Phone: [facility] Work Phone: Start: 04-27-2023 End: 04-27-2023 Patient encounter procedure FINANCIAL SYSTEMS DIRECTOR-C Joanna Graciela FINANCIAL SYSTEMS DIRECTOR Work Phone: [facility]Laboratory Work Phone: Start: 03-24-2023 Non-patient / Non-visit FINANCIAL SYSTEMS DIRECTOR-C Cynthia Owens FINANCIAL SYSTEMS DIRECTOR Work Phone: [facility] Start: 03-24-2023 End: 03-24-2023 ambulatory FINANCIAL SYSTEMS DIRECTOR-C Joanna Owens FINANCIAL SYSTEMS DIRECTOR Work Phone: [facility] Work Phone: Start: 03-24-2023 End: 03-24-2023 Patient encounter procedure FINANCIAL SYSTEMS DIRECTOR-C Joanna Owens FINANCIAL SYSTEMS DIRECTOR Work Phone: [facility]-Cardiovascu lar Services Work Phone: Start: 03-17-2023 End: 03-17-2023 Patient encounter procedure FINANCIAL SYSTEMS DIRECTOR-C Joanna Owens FINANCIAL SYSTEMS DIRECTOR Work Phone: [facility] Surgery Work Phone: Start: 03-14-2023 End: 03-14-2023 Patient encounter procedure Zoë Katz MD Work Phone: Cardiology Comment on above: Pure hypercholestero lemia (Primary Dx); Primary hypertension; Occlusion of right carotid artery Start: 08-31-2022 ambulatory Zoë Katz MD Work Phone: Cardiology Comment on above: Medical Record to ad d Start: 08-25-2022 Non-patient / Non-visit FINANCIAL SYSTEMS DIRECTOR-C Cynthia Owens FINANCIAL SYSTEMS DIRECTOR Work Phone: [facility] Start: 08-25-2022 End: 08-25-2022 Evaluation and management of inpatient FINANCIAL SYSTEMS DIRECTOR-C Joanna Owens FINANCIAL SYSTEMS DIRECTOR Work Phone: [facility]-Progressive Care Unit Work Phone: Start: 08-25-2022 End: 08-25-2022 ambulatory FINANCIAL SYSTEMS DIRECTOR-C Joanna Owens FINANCIAL SYSTEMS DIRECTOR Work Phone: [facility] Work Phone: Start: 08-25-2022 End: 08-25-2022 Patient encounter procedure FINANCIAL SYSTEMS DIRECTOR-C Joanna Owens FINANCIAL SYSTEMS DIRECTOR Work Phone: [facility]-Pre-Admissi on Testing Work Phone: Start: 08-10-2022 End: 08-10-2022 Patient encounter procedure FINANCIAL SYSTEMS DIRECTOR-C Joanna Owens FINANCIAL SYSTEMS DIRECTOR Work Phone: [facility] Vascular Surgery Start: 08-05-2022 End: 08-05-2022 ambulatory FINANCIAL SYSTEMS DIRECTOR-C Joanna Owens FINANCIAL SYSTEMS DIRECTOR Work Phone: [facility] Work Phone: Start: 08-05-2022 End: 08-05-2022 Patient encounter procedure FINANCIAL SYSTEMS DIRECTOR-C Joanna Owens FINANCIAL SYSTEMS DIRECTOR Work Phone: [facility]-Laboratory Start: 08-02-2022 End: 08-02-2022 ambulatory FINANCIAL SYSTEMS DIRECTOR-C Joanna Owens FINANCIAL SYSTEMS DIRECTOR Work Phone: [facility] Work Phone: Start: 08-02-2022 End: 08-02-2022 Patient encounter procedure FINANCIAL SYSTEMS DIRECTOR-C Joanna Owens FINANCIAL SYSTEMS DIRECTOR Work Phone: [facility] Start: 07-06-2022 End: 07-06-2022 Patient encounter procedure FINANCIAL SYSTEMS DIRECTOR-C Joanna Owens FINANCIAL SYSTEMS DIRECTOR Work Phone: [facility] Vascular Surgery Start: 05-27-2022 Registered Referred FINANCIAL SYSTEMS DIRECTOR-Amarjit Owens FINANCIAL SYSTEMS DIRECTOR Work Phone: [facility]-Cardiovascu lar Services Start: 03-01-2022 End: 03-01-2022 Patient encounter procedure Zoë Katz MD Work Phone: Cardiology Comment on above: Primary hypertension (Primary Dx) Start: 12-19-2021 End: 12-19-2021 Patient encounter procedure JOANNA OWENS CHEMICAL EQUIPMENT REPAIRER-CLOTH WINDING SUPERVISOR [facility] Start: 10-13-2021 End: 10-13-2021 Patient encounter procedure JOANNA OWENS CHEMICAL EQUIPMENT REPAIRER-CLOTH WINDING SUPERVISOR [facility] Start: 08-25-2021 Refill Zoë Katz MD Work Phone: Cardiology Comment on above: Refill Request Start: 08-20-2021 Refill Zoë Katz MD Work Phone: Cardiology Comment on above: Refill Request Start: 08-17-2021 End: 08-17-2021 Patient encounter procedure Zoë Katz MD Work Phone: Cardiology Comment on above: Obesity, Class II, B NV 35-39.9 Start: 08-12-2021 End: 08-12-[address] DESIREE MARQUEZ MD [facility] Start: 08-04-2021 Telephone encounter Zoë Katz MD Work Phone: Cardiology Comment on above: Results Start: 07-30-2021 End: 07-30-2021 Subsequent hospital visit by physician [facility] Work Phone: Cardiology Lab Comment on above: Paroxysmal supravent ricular tachycardia (HCC) [I47.1] Start: 07-29-2021 Telephone encounter Martine Mireles RN Cardiology Lab Comment on above: Reminder Call Start: 07-13-2021 End: 07-13-2021 Patient encounter procedure Nurse Card Admin [facility] Work Phone: Cardiology Comment on above: Shortness of breath Start: 05-19-2021 End: 05-19-[address] DESIREE MARQUEZ MD [facility] Start: 02-11-2021 End: 02-11-[address] DESIREE MARQUEZ MD [facility] Procedures Date Procedure Procedure Detail Performing Clinician [...] CT angiography of he ad and neck FINANCIAL SYSTEMS DIRECTOR-C Joanna Owens FINANCIAL SYSTEMS DIRECTOR Work Phone: Start: 07-30-2021 Echo tthrc r-t 2d w/ wo m-mode complete rest&st Zoë Katz MD Work Phone: Start: 05-10-2016 History of operative procedure on knee Status post right knee replacement Glynn Sullivan MD Work Phone: Start: 04-04-2013 Hysterectomy JOANNA COELHO TMER CHEMICAL EQUIPMENT REPAIRER-CLOTH WINDING SUPERVISOR Start: 04-04-2008 Knee region structur e (body [...] Author Start: 03-17-2028 Lipid panel Lipid Screening [facility] Start: 03-25-2025 End: 03-25-2025 Patient encounter procedure 03/25/2025 3:00 PM EST Office Visit Cardiology [address] [place] [id number] Zoë Katz MD [address], [address] [place] [address] 1 year follow up Cardiology Comment on above: 1 year follow up Start: 06-21-2024 CBC W Auto Differential panel - Blood [facility] ([place] Start: 06-21-2024 Comprehensive metabolic 1999 panel - Serum or Plasma [facility] Start: 06-21-2024 Lipid 1996 panel - Serum or Plasma [facility] ([place] Start: 06-21-2024 InPerson; Nurse Triage InPerson; Nurse Triage [place] - [facility] Start: 12-04-2023 Influenza vaccination Influenza Vaccine (#1) [facility] Start: 03-21-2023 End: 06-20-2023 Lipid 1996 panel - Serum or Plasma LIPID PANEL BASIC Lab Routine Pure hypercholesterolemia Expected: 03/21/2023, Expires: 06/20/2023 [facility] Work Phone: Comment on above: Expected: 03/21/2023, Expires: Start: 12-03-2022 Influenza vaccination [facility] Start: 08-25-2022 Admission procedure [facility] Start: 08-25-2022 Bedrest [facility] Start: 08-25-2022 Notification of physician [facility] Start: 08-25-2022 Patient discharge [facility] Start: 08-25-2022 Provision of activity privileges [facility] Start: 08-25-2022 Scheduling [facility] Start: 08-25-2022 Taking patient vital signs [facility] Start: 08-25-2022 Vascular disease risk assessment [facility] Start: 08-25-2022 [facility] Start: 2022 RSV Vaccine (1 - 1-dose 60+ series) RSV Vaccine (1 - 1-dose 60+ series) [facility] Start: 2022 RSV Vaccine (1 - Risk 60-74 years 1-dose series) RSV Vaccine (1 - Risk 60-74 years 1-dose series) [facility] Start: 04-04-2022 DEPRESSION ASSESSMENT DEPRESSION ASSESSMENT [facility] Start: 12-03-2021 Influenza vaccination [facility] Start: 04-04-2021 DEPRESSION ASSESSMENT DEPRESSION ASSESSMENT [facility] Start: 01-15-2021 COVID-19 VACCINE (2 - Zac risk 3-dose series) COVID-19 VACCINE (2 - Zac risk 3-dose series) [facility] Start: 01-15-2021 COVID-19 VACCINE (2 - Zac risk series) COVID-19 VACCINE (2 - Zac risk series) [facility] Start: 2012 SHINGRIX VACCINE (1 of 2) SHINGRIX VACCINE (1 of 2) [facility] Start: 08-19-2007 COLOGUARD (FIT-DNA) COLOGUARD (FIT-DNA) [facility] Start: 08-19-2007 Colonoscopy COLONOSCOPY [facility] Start: 08-19-2007 COLORECTAL CANCER SCREENING COLORECTAL CANCER SCREENING [facility] Start: 08-19-[address] COLONOGRAPHY [facility] Start: 08-19-2007 DIABETES SCREEN DIABETES SCREEN [facility] Start: 08-19-2007 Diabetes Screening Diabetes Screening [facility] Start: 08-19-2007 FECAL OCCULT BLOOD FECAL OCCULT BLOOD [facility] Start: 08-19-2007 Lipid 1996 panel - Serum or Plasma Lipid Screening [facility] Start: 08-19-2007 LIPID SCREEN LIPID SCREEN [facility] Start: 08-19-2007 Screening for malignant neoplasm of colon [facility] Start: 08-19-2007 SIGMOIDOSCOPY SIGMOIDOSCOPY [facility] Start: 2002 Mammography [facility] Start: 2002 Screening for malignant neoplasm of breast Mammogram Screening [facility] Start: 1992 HPV TESTING HPV TESTING [facility] Start: 08-19-1983 PAP TESTING PAP TESTING [facility] Start: 1981 SHINGRIX VACCINE (1 of 2) SHINGRIX VACCINE (1 of 2) [facility] Start: 1981 Urine microalbumin profile [facility] Start: 1980 ANNUAL PCP TEAM CHRONIC DISEASE VISIT ANNUAL PCP TEAM CHRONIC DISEASE VISIT [facility] Start: 1980 Anxiety Screening Anxiety Screening [facility] Start: 1980 BP CONTROLLED (<130/80) BP CONTROLLED (<130/80) [facility] Start: 1980 Depression Screening Depression Screening [facility] Start: 1980 HEPATITIS C SCREENING HEPATITIS C SCREENING [facility] Start: 1980 Hepatitis C screening Hepatitis C Screening [facility] Start: 1980 HIV SCREENING HIV SCREENING [facility] Start: 1980 HIV screening HIV Screening [facility] Start: 1974 Adult depression screening assessment DEPRESSION SCREENING [facility] Start: 1973 Screening for malignant neoplasm of cervix Cervical Cancer Screening [facility] Start: 1968 PNEUMOCOCCAL (1 - PCV) PNEUMOCOCCAL (1 - PCV) [facility] Start: 1968 Pneumococcal vaccination [facility] ECG COMPLETE ECG COMPLETE ECG Routine Pure hypercholesterolemia Primary hypertension Ordered: 03/12/2024 [facility] Work Phone: Comment on above: Ordered: 03/12/2024 Electrocardiographic procedure [facility] In-vitro immunologic test [facility] 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 [Presence] in Blood [facility] Patient referral [facility] Work Phone: [place] Carotid arteries [facility] Immunizations Immunization Date Immunization Notes Care Provider Doyle fisher 12-18-2020 COVID-19 vaccine (ZAC) [facility] Work Phone: [facility] Payers Date Payer Category Payer Self-pay [id number] 2024 Self-pay [id number] 2023 Private Health Insurance [id number] 2017 Private Health Insurance AETNA A ETNA CHOICE POS II [id number] 2017-Present [phone] [address] [place] [address] POS [id number] 2017 Private Health Insurance [id number] 1962 Unknown [id number] 1962 Unknown [id number] Private Health Insurance [id number] Unknown [id number] Unknown [id number] Unknown [id number] Unknown [id number] Unknown [id number] Unknown [id number] Unknown [id number] Social History Date Type Detail Facility Start: 02-20-2019 End: 03-17-2023 Never smoked tobacco (finding) [facility] Comment on above: no smoke exposure Sex Assigned At [facility] Start: 03-17-2020 End: 03-01-2022 Tobacco use and exposure Smokeless tobacco non-user [facility] Start: 05-25-2021 End: 03-12-2024 Alcohol intake Current drinker of alcohol (finding) [facility] Start: 04-21-2020 History SDOH Alcohol Frequency 1 [facility] Start: 04-21-2020 History SDOH Alcohol Comment twice a year [facility] Start: 1960 Sex Assigned At Female [facility] Start: 07-10-2021 End: 03-01-2022 Exposure to SARS-CoV-2 (event) Not sure [facility] Work Phone: Start: 07-06-2022 End: 03-17-2023 Tobacco smoking status NHIS Unknown if ever smoked [facility] Start: 04-21-2020 End: 03-12-2024 History of Social function [facility] Start: 04-21-2020 End: 12-04-2024 Alcohol Use Disorder Identification Test - Consumption [AUDIT-C] [facility] How often to you hav e a drink containing alcohol? Never [facility] Average Number of Drinks Not on file [facility] Start: 05-18-2021 Gender identity Identifies as female gender (finding) [facility] Start: 05-18-2021 Sexual orientation Bisexual (finding ) [facility] Start: 06-27-2013 Sex Female (finding) [facility] NEGATED: Highlighted row [facility] Medical Equipment Procedure Code Equipment Code Equipment Origin al Text Equipment Identifier Dates Implant ([id number]), ([id number]) [id number] FDA Start: 08-25-2022 Clinical Notes 07-13-2021 to 09-18-2024 Note Date & Type Note Facility 06-17-2025 Evaluation note Diagnosis Onset Date Resolution Occlusion of right internal carotid artery acute September 18, 2024 10:20am Stenosis of left internal carotid artery acute September 18, 2024 10:20am [facility] Work Phone: 1(789) 959-490012-09-2024 NoteHNO ID: [id number] Author: ZOË KATZ MD Service: ? Author Type: Physician Type: Progress Notes Filed: 03/12/2024 17:35 Note Text: Zoë Katz MD Interventional Cardiology [address] [address] [id number] Chief Complaint Patient presents with: Follow Up [...] sounds. Pulmonary: Effort: Pulmon (more content not included)...[facility] 03-12-2024 History of Present illness Narrative* Zoë Katz MD - 03/12/2024 5:33 PM EST Images from the original note were not included. Zoë Katz MD Interventional Cardiology [address] [place] [phone] Chief Complaint Patient presents with: Follow Up Established Patient Follow-Up: 1 year follow up HISTORY OF PRESENT ILLNESS: Ms. Jelani Villa is a 63 year old female seen in office today for assessment management prior history of hypertensive heart disease doing well from a cardiac point of view asymptomatic denies chestpain or shortness of breath EKG is normal [...] mg by mouth. 6 tabs of 2.5 mg/tabon tuesday Etanercept (ENBREL) 50 mg/mL (1 mL) [...] to correct any errors. [facility] History of Present illness Narrative* Zoë Katz MD - 03/14/2023 2:37 PM EST Images from the original note were not included. Zoë Katz MD Interventional Cardiology [address] [place] [address] Chief Complaint Patient presents with: Follow Up: 1 year ROBERT 03/01/22 HISTORY OF PRESENT ILLNESS: Ms. Jelani Villa is a 62 year old female in my office today for assessment of management prior history of hypertensive heart disease doing well from the cardiac point of view patient blood pressureis well-controlled recently she had ultrasound of the [...] mg by mouth. 6 tabs of 2.5 mg/tabon tuesday Etanercept (ENBREL) 50 mg/mL (1 mL) [...] a day. 180 tablet 3 OTC PRODUCT Rutsy Pro Multivitamin 1 tab daily (Patient not [...] to correct any errors. documented in [facility] encounter[facility]05-31-2023 Miscellaneous Notes* Telephone Encounter - Romy Gómez RN - 09/01/2022 12:32 PM EDT Copy of the attached operative report sent to medical records to be scanned into chart. Romy Gómez RN documented in this encounterGood [facility]11-28-2022 History of Present illness Narrative* Zoë Katz MD - 03/01/2022 4:17 PM EST Images from the original note were not included. Zoë Katz MD Interventional Cardiology [facility] [address] [place], [place] [address] [phone] Chief Complaint Patient presents with: 6 month check HISTORY OF PRESENT ILLNESS: Ms. Jelani Villa is a 61 year old female with hypertensive heart disease seen today for follow-updoing well from a cardiac point of view [...] to correct any errors. documented in this encounterGood [facility]05-24-2022 Miscellaneous Notes* Telephone Encounter - Joanna Powell LPN - 08/25/2021 1:57 PM EDT Patient's request for medication is as follows: [...] accordingly. Joanna Powell LPN documented in this encounterGood [facility]05-19-2022 Miscellaneous Notes* Telephone Encounter - Brianna Beyer LPN - 08/20/2021 9:42 AM EDT Patient's request for medication is as follows: Refused Prescriptions Disp Refills carvedilol (COREG) 6.25 mg tablet [Pharmacy Med Name: CARVEDILOL 6.25 MG TABLET] 30 tablet 7 Sig: TAKE 1/2 TABLET BY MOUTH TWICE DAILY JEAN PAUL: No Filled 08/17/2021 60 tabs 3 refills [facility] Prescription(s) as above. Please process accordingly. Brianna Beyer LPN documented in this encounterGood [facility]itan [facility]05-16-2022 History of Present illness Narrative* Zoë Katz MD - 08/17/2021 1:09 PM EDT Images from the original note were not included. Zoë Katz MD Interventional Cardiology [facility] [address] [place], [place] [phone] Chief Complaint Patient presents with: Established Patient [...] 10 mL injection (DEFINITY) INTRAVENOUS DIRECTED PRN Zoë Katz MD sodium chloride 0.9 % (flush) [...] to correct any errors. documented in this [facility]05-06-2022 Miscellaneous Notes* Telephone Encounter - Erika Vogt RN - 08/07/2021 9:41 AM EDT Left detailed message on identified voicemail with below information. Instructed pt. to call back if any questions/ concerns. Erika Vogt RN * Telephone Encounter - Joselyn Hernández RN - 08/04/2021 3:13 PM EDT LVM to contact office in regards to below * Telephone Encounter - Joselyn Hernández RN - 08/04/2021 3:12 PM EDT ----- Message from Joanna Valdez APRN.CLOTH WINDING SUPERVISOR sent at 08/04/2021 10:37 AM EDT ----- Covering for Dr. Katz. Please call patient and notify them of normal results. Stress echo was without suggestion of ischemia. Thank you! documented in this [facility]04-27-2022 Miscellaneous Notes* Telephone Encounter - Martine Leggett RN - 07/29/2021 2:22 PM EDT Left message regarding reminder for stress test tomorrow and given instructions. documented in this [facility]04-11-2022 Nurse Note* Joselyn Hernández RN - 07/13/2021 11:43 AM EDT Pt presented to Stress echo lab, pt prepped and obtained 12-lead EKG per protocol. Initial reading on automatic BP unattainable per industrial hygiene technician. Manual BP done by this RN [...] home. Joselyn Hernández RN documented in this encounterGood [facility]aritan HospitalEvaluation + Plan note Future Appointments Appointment Date:06/10/2021 02:15:00 PM Scheduled Provider:JOANNA OWENS Location:[facility] Appointment Type: OV [facility] Evaluation + Plan note Future Appointments Appointment Date:12/16/2021 03:00:00 PM Scheduled Provider:JOANNA OWENS APRN-ROMERO Location:[facility] Appointment Type: Wellness Annual [facility] Evaluation + Plan note Future Appointments Appointment Date:06/15/2022 03:30:00 PM Scheduled Provider:JOANNA OWENS APRN-ROMERO Location:[facility] Appointment Type: OV [facility] Evaluation + Plan note Future Appointments Appointment Date:12/08/2023 03:00:00 PM Scheduled Provider:JOANNA OWENS APRN-ROMERO Location:[facility] Appointment Type: OV Future Scheduled Tests Radiology* MA Mammo Screening Bilateral w/ Kade 10/31/23 [facility] Evaluation + Plan note Future Appointments Appointment Date:06/06/2025 03:30:00 PM Scheduled Provider:JOANNA OWENS APRN-CLOTH WINDING SUPERVISOR Location:[facility] Appointment Type: OV [facility] Evaluation note* Diagnosis Shortness of breath documented in this encounter [facility] note* Diagnosis Paroxysmal supraventricular tachycardia (HCC) Paroxysmal supraventricular tachycardia documented in this encounter [facility] note* Diagnosis Obesity, Class II, BMI 35-39.9 Obesity, unspecified documented in this encounter [facility] note* Diagnosis Primary hypertension- Primary Unspecified essential hypertension documented in this encounter [facility] note* Diagnosis Onset Date Resolution Status Carotid artery stenosis acut e [facility] Work Phone: Evaluation note* Diagnosis Onset Date Resolution Status Carotid artery stenosis operation supervisor zbigniew Carotid artery stenosis [facility] Work Phone: Evaluation note* Diagnosis Pure hypercholesterolemia- Primary Primary hypertension Unspecified essential hypertension Occlusion of right carotid artery Occlusion and stenosis of carotid artery without mention of cerebral infarction documented in this encounter [facility] note* Diagnosis Onset Date Resolution Status Carotid artery stenosis [facility] Work Phone: Evaluation noteNo assessment information available [facility] Work Phone: Evaluation note* Diagnosis Pure hypercholesterolemia- Primary Primary hypertension Unspecified essential hypertension documented in this encounter [facility] note No assessment recorded. [place] - [facility] History general Narrative - ReportedNo medical history recorded. Gynecological HistoryNo gynecological history recorded. Obstetrics History GPAL:G 0 P 0 0 0 0 [place] [facility] Hospital course Narrative No data available for this section [facility] Hospital Discharge instructions No data available for this section [facility] Progress note No data available for this section [facility] Reason for referral (narrative)* Outpatient Procedure (Routine) - Closed Specialty Diagnoses / Procedures Referred By Contac t Referred To [facility] Diagnoses Paroxysmal supraventricular tachycardia (HCC) Procedures STRESS ECHO TREADMILL ECHO TTHRC R-T 2D W/WO M-MODE COMPLETE REST&ST Zoë Katz MD [address] [place] [address] [facility] [address] [place] [address] Referral ID Status Reason Start Date Expiration Date V isits Requested Visits Authorized [id number] Closed Auto-Generate d Referral 07/27/2021 07/20/2022 1 1 [facility] for referral (narrative)* Outpatient Procedure (Routine) - New Request Specialty Diagnoses / Procedures Referred By Contac t Referred To Contact [facility] Diagnoses Pure hypercholesterolemia Primary hypertension Procedures ECG COMPLETE ECG ROUTINE ECG W/LEAST 12 LDS W/I&R Zoë Katz MD [address], [address] [place] [address] [facility] [place] [id number] [address] Referral ID Status Reason Start Date Expiration Date Visits Requested Visits Authorized [id number] New Request Auto-Generat ed Referral 03/12/2024 03/12/2025 1 1 [facility] for referral (narrative)No reason for referral information availableWKettering Health [facility] Work Phone: Reason for visit Narrative* Outpatient Procedure (Routine) - Authorized Specialty Diagnoses / Procedures Referred By Contac t Referred To Contact [facility] Diagnoses Shortness of breath Procedures STRESS ECHO TREADMILL ECHO TTHRC R-T 2D W/WO M-MODE COMPLETE REST&ST Zoë Katz MD [address] [place] [address] [facility] [address] [address] Referral ID Status Reason Start Date Expiration Date Visits Requested Visits Authorized [id number] Authorized Auto-Generat ed Referral 05/25/2021 05/25/2022 1 1 [facility] for visit Narrative* Outpatient Procedure (Routine) - Closed Specialty Diagnoses / Procedures Referred By Contac t Referred To [facility] Diagnoses Paroxysmal supraventricular tachycardia (HCC) Procedures STRESS ECHO TREADMILL ECHO TTHRC R-T 2D W/WO M-MODE COMPLETE REST&ST Sleileana, Zoë Frost MD [address] [place] [address] [facility] [place] [address] [place] [address] Referral ID Status Reason Start Date Expiration Date V isits Requested Visits Authorized [id number] Closed Auto-Generate d Referral 07/27/2021 07/20/2022 1 1 [facility] Summary Purpose Family History No Family History Records Found Relationship Condition Age at Onset Recorded Date/T [...] Mother Cancer Mother Arthritis Mother Advance Directives No Advanced Directives Records Found Advance Directive Response Recorded Date/ Time Name of Medical Power of Early Childhood Associate SPOUSE August 24, 2022 2:11pm Advance Directives on File Yes August 032022 9:23am Name of Medical Power of Early Childhood Associate Chris maldonado August 25, 2022 9:23am Advance Directives Yes August 25 9:23am Living Will Yes August 25, 2022 9 :23am Power of Early Childhood Associate Yes August 25, 2022 9:23am Advance Directive Response Recorded Date/ Time Advance Directives Yes August 25 8:23am Living Will Yes August 25, 2022 8 :23am Power of Early Childhood Associate Yes August 25, 2022 8:23am Advance Directive Response Recorded Date/ Time Advance Directives Yes August 25 9:23am Living Will Yes August 25, 2022 9 :23am Power of Early Childhood Associate Yes August 25, 2022 9:23am Advance Directive [...] Y FU September 18, 2024 10:2 0am Reason for Visit Admit Date Occlusion of right internal carotid amy ry September 18, 2024 10:20am Stenosis of left internal carotid artery September 18, 2024 10:20am Additional Source Comments Source Comments (unrecognize d section and content) In the event this informatio n is protected by the Federal Confidentiality of Alcohol and Drug Abuse Patient Records regulations: The Federal rules restrict any use of the information to criminally investigate or prosecute any alcohol or drug abuse patient.[facility] the event this information is protected by the Federal Confidentiality of Alcohol and Drug Abuse Patient Records regulations: The Federal rules restrict any use of the information to criminally investigate or prosecute any alcohol or drug abuse patient.[facility] the event this information is protected by the Federal Confidentiality of Alcohol and Drug Abuse Patient Records regulations: The Federal rules restrict any use of the information to criminally investigate or prosecute any alcohol or drug abuse patient.[facility] the event this information is protected by the Federal Confidentiality of Alcohol and Drug Abuse Patient Records regulations: The Federal rules restrict any use of the information to criminally investigate or prosecute any alcohol or drug abuse patient.[facility] the event this information is protected by the Federal Confidentiality of Alcohol and Drug Abuse Patient Records regulations: The Federal rules restrict any use of the information to criminally investigate or prosecute any alcohol or drug abuse patient.[facility] the event this information is protected by the Federal Confidentiality of Alcohol and Drug Abuse Patient Records regulations: The Federal rules restrict any use of the information to criminally investigate or prosecute any alcohol or drug abuse patient.[facility] the event this information is protected by the Federal Confidentiality of Alcohol and Drug Abuse Patient Records regulations: The Federal rules restrict any use of the information to criminally investigate or prosecute any alcohol or drug abuse patient.[facility] the event this information is protected by the Federal Confidentiality of Alcohol and Drug Abuse Patient Records regulations: The Federal rules restrict any use of the information to criminally investigate or prosecute any alcohol or drug abuse patient.[facility] the event this information is protected by the Federal Confidentiality of Alcohol and Drug Abuse Patient Records regulations: The Federal rules restrict any use of the information to criminally investigate or prosecute any alcohol or drug abuse patient.[facility] the event this information is protected by the Federal Confidentiality of Alcohol and Drug Abuse Patient Records regulations: The Federal rules restrict any use of the information to criminally investigate or prosecute any alcohol or drug abuse patient.[facility] the event this information is protected by the Federal Confidentiality of Alcohol and Drug Abuse Patient Records regulations: The Federal rules restrict any use of the information to criminally investigate or prosecute any alcohol or drug abuse patient.[facility] Care Teams (unrecognized sec tion and content) Supervisor Receiving And Processing Relationship Specialty Start Date End Date GracielaJoanna austin [address] [phone] PCP - General Family Practice 03/03/20 Supervisor Receiving And Processing Relationship Specialty Start Date End Date GracielaJoanna austin [address] [phone] PCP - General Family Practice 03/03/20 Supervisor Receiving And Processing Relationship Specialty Start Date End Date [place]on[place]stownJoanna [place]in [address] [place] [phone] PCP - General Family Practice 03/03/20 Supervisor Receiving And Processing Relationship Specialty Start Date End Date Joanna Owens [address] [place] [phone] PCP - General Family Practice 03/03/20 Supervisor Receiving And Processing Relationship Specialty Start Date End Date Joanna Owens [address] [place] [phone] PCP - General Family Practice 03/03/20 Supervisor Receiving And Processing Relationship Specialty Start Date End Date GracielaLizzyJoanna Rg [address] [place] [phone] PCP - General Family Medicine 03/03/20 Team Status: Active Member Role Status Dates Joanna Owens FINANCIAL SYSTEMS DIRECTOR, FINANCIAL SYSTEMS DIRECTOR-C Primary Care Provider Active Team Status: Inactive Member Role Status Dates Joanna Owens FINANCIAL SYSTEMS DIRECTOR, FINANCIAL SYSTEMS DIRECTOR-C Primary Care Provider, Referri ng Provider Active KANG Isaac Attending Provider Active Team Status: Active Member Role Status Dates Self Referred Attending Provider Active Joanna Owens FINANCIAL SYSTEMS DIRECTOR, FINANCIAL SYSTEMS DIRECTOR-C Primary Care Provider Active Team Status: Inactive Member Role Status Dates Joanna Owens FINANCIAL SYSTEMS DIRECTOR, FINANCIAL SYSTEMS DIRECTOR-C Primary Care Provider Active KANG Isaac Attending Provider, Referring Provider Active Team Status: Active Member Role Status Dates Joanna Owens FINANCIAL SYSTEMS DIRECTOR, FINANCIAL SYSTEMS DIRECTOR-C Primary Care Provider Active Dr. Desiree Marquez MD Attending Provider, Referring Provider Active Team Status: Inactive Member Role Status Dates Joanna Owens NP, FINANCIAL SYSTEMS DIRECTOR-C Primary Care Provider, Referri ng Provider Active Dr. Glen Chau MD Attending Provider Active Team Status: Inactive Member Role Status Dates Joanna Owens NP, FINANCIAL SYSTEMS DIRECTOR-C Primary Care Provider Active Dr. Desiree Marquez MD Attending Provider, Referring Provider Active Supervisor Receiving And Processing Relationship Specialty Start Date End Date Joanna Owens [address] [place] [address] (Work) PCP - General Family Medicine 03/03/20 Team Status: Active Member Role Status Dates Joanna Owens NP, FINANCIAL SYSTEMS DIRECTOR-C Primary Care Provider Active Dr. Glen Chau MD Attending Provider, Referring Provider, Other Provider Active Team Status: Inactive Member Role Status Dates Joanna Owens NP, FINANCIAL SYSTEMS DIRECTOR-C Primary Care Provider Active Dr. Glen Chau MD Attending Provider Active Team Status: Inactive Member Role Status Dates Joanna Owens NP, FINANCIAL SYSTEMS DIRECTOR-C Primary Care Provider Active Dr. Glen Chau MD Admit Provider, Attending Provide r Active Supervisor Receiving And Processing Relationship Specialty Start Date End Date Joanna Owens [address] [place] [phone] (Work) PCP - General Family Medicine 03/03/20 Team Status: Inactive Member Role Status Dates Joanna Owens NP, FINANCIAL SYSTEMS DIRECTOR-C Referring Provider Active KANG Reece Attending Provider Active Team Status: Active Member Role Status Dates Joanna Owens NP, FINANCIAL SYSTEMS DIRECTOR-C Primary Care Provider Active Dr. Glen Chau MD Attending Provider Active Team Status: Inactive Member Role Status Dates Dr. Glen Chau MD Attending Provider, Referring Pro vider Active Joanna Owens FINANCIAL SYSTEMS DIRECTOR, FINANCIAL SYSTEMS DIRECTOR-C Primary Care Provider Active Team Status: Active Member Role Status Dates Joanna Owens NP, FINANCIAL SYSTEMS DIRECTOR-C Primary Care Provider Active Dr. Glen Chau MD Attending Provider Active KANG Reece Referring Provider Active Supervisor Receiving And Processing Relationship Specialty Start Date End Date Graciela Joanna Diez CLOTH WINDING SUPERVISOR [address] [place] [phone] PCP - General Family Medicine 03/03/20 Team Status: Inactive Member Role Status Dates Joanna Owens FINANCIAL SYSTEMS DIRECTOR, FINANCIAL SYSTEMS DIRECTOR-C Primary Care Provider Active Start: September 03, 2024 End: September 03, 2024 KANG Reece Attending Provider Active Star t: September 03, 2024 End: September 03, 2024 KANG Reece Referring Provider Active Star t: September 03, 2024 End: September 03, 2024 Team Status: Active Member Role Status Dates Joanna Owens NP, FINANCIAL SYSTEMS DIRECTOR-C Primary Care Provider Active Start: September 03, 2024 Dr. Glen Chau MD Attending Provider Active S tart: September 03, 2024 Team Status: Active Member Role Status Dates Joanna Owens FINANCIAL SYSTEMS DIRECTOR, FINANCIAL SYSTEMS DIRECTOR-C Primary Care Provider Active Start: September 03, 2024 Dr. Glen Chau MD Attending Provider Active S tart: September 03, 2024 KANG Reece Referring Provider Active Star t: September 03, 2024 Team Status: Inactive Member Role Status Dates Joanna Owens FINANCIAL SYSTEMS DIRECTOR, FINANCIAL SYSTEMS DIRECTOR-C Primary Care Provider Active Start: September 12, 2024 End: September 12, 2024 Dr. Desiree Marquez MD Attending Provider Active Start: September 12, 2024 End: September 12, 2024 Dr. Desiree Marquez MD Referring Provider Active Start: September 12, 2024 End: September 12, 2024 Team Status: Inactive Member Role Status Dates Joanna Owens FINANCIAL SYSTEMS DIRECTOR, FINANCIAL SYSTEMS DIRECTOR-C Primary Care Provider Active Start: September 18, 2024 End: September 18, 2024 Joanna Owens FINANCIAL SYSTEMS DIRECTOR, FINANCIAL SYSTEMS DIRECTOR-C Referring Provider Active Start: September 18, 2024 End: September 18, 2024 KANG Reece Attending Provider Active Star t: September 18, 2024 End: September 18, 2024 Team Status: Active Member Role/Relationship Status Dates Joanna Owens FINANCIAL SYSTEMS DIRECTOR, FINANCIAL SYSTEMS DIRECTOR-C Primary Care Provider Active Team Status: Inactive Member Role/Relationship Status Dates Joanna Owens FINANCIAL SYSTEMS DIRECTOR, FINANCIAL SYSTEMS DIRECTOR-C Primary Care Provider Active Start: September 03, 2024 End: September 03, 2024 KANG Reece Attending Provider Active Star t: September 03, 2024 End: September 03, 2024 KANG Reece Referring Provider Active Star t: September 03, 2024 End: September 03, 2024 Team Status: Active Member Role/Relationship Status Dates Joanna Owens FINANCIAL SYSTEMS DIRECTOR, FINANCIAL SYSTEMS DIRECTOR-C Primary Care Provider Active Start: September 03, 2024 Dr. Glen Chau MD Attending Provider Active S tart: September 03, 2024 KANG Reece Referring Provider Active Star t: September 03, 2024 Team Status: Inactive Member Role/Relationship Status Dates Joanna Owens FINANCIAL SYSTEMS DIRECTOR, FINANCIAL SYSTEMS DIRECTOR-C Primary Care Provider Active Start: September 12, 2024 End: September 12, 2024 Dr. Desiree Marquez MD Attending Provider Active Start: September 12, 2024 End: September 12, 2024 Dr. Desiree Marquez MD Referring Provider Active Start: September 12, 2024 End: September 12, 2024 Team Status: Inactive Member Role/Relationship Status Dates Joanna Owens FINANCIAL SYSTEMS DIRECTOR, FINANCIAL SYSTEMS DIRECTOR-C Primary Care Provider Active Start: September 18, 2024 End: September 18, 2024 Joanna Owens FINANCIAL SYSTEMS DIRECTOR, FINANCIAL SYSTEMS DIRECTOR-C Referring Provider Active Start: September 18, 2024 End: September 18, 2024 KANG Reece Attending Provider Active Star t: September 18, 2024 End: September 18, 2024 Team Status: Inactive Member Role/Relationship Status Dates Joanna Owens FINANCIAL SYSTEMS DIRECTOR, FINANCIAL SYSTEMS DIRECTOR-C Primary Care Provider Active Start: December 10, 2024 End: December 10, 2024 Dr. Desiree Marquez MD Attending Provider Active Start: December 10, 2024 End: December 10, 2024 Dr. Desiree Marquez MD Referring Provider Active Start: December 10, 2024 End: December 10, 2024 Reason for Visit (unrecogniz ed section and content) Reason Comments Reminder Call Reason Comments Results Reason Comments Established Patient Follow-Up stress ech o review Reason Comments Refill Request Reason Comments 6 month check Reason Comments Follow Up 1 year ROBERT 03/01/22 Reason Comments Follow Up Established Patient Follow-Up 1 year fol low up INFORMATION SOURCE (unrecogn ized section and content) DATE CREATED AUTHOR 08/01/2021 [facility] DATE CREATED AUTHOR AUTHOR'S ORGANIZ ATION 04/11/2023 [facility] DATE CREATED AUTHOR AUTHOR'S ORGANIZ ATION 11/27/2023 [facility] ([place] DATE CREATED AUTHOR AUTHOR'S ORGANIZ ATION 03/25/2024 [facility] DATE CREATED AUTHOR AUTHOR'S ORGANIZ ATION 12/02/2024 [facility] DATE CREATED AUTHOR AUTHOR'S ORGANIZ ATION 02/08/2025 [facility] Care Team (unrecognized sect ion and content) Care Team Personnel Name: Arturo Nicole PT Position: P3 Scheduling - Industrial Pipefitter Journeyman Advanced Member Role: Other Name: JOANNA OWENS APRN-CLOTH WINDING SUPERVISOR Position: P4 Advanced Practice Nurse Med Service: Employed Provider Member Role: Primary Care Physician Address: Address: [address] [place] [address]- Care Team Related Persons Name: PANCHO BERRY Care Team Personnel Name: Arturo Nicole PT Position: P3 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 [employer] [facility]. provides no warranty or guarantee of the accuracy or completeness of information in this document.
[2025-03-01 12:51] LABS: Hematocrit 41.0 % (37-47); Hemoglobin 13.5 g/dL (12.0-15.0); Immature Granulocytes Count 0.020 X10^3/uL (0.0-0.0); Mean Corp Hgb Conc 32.9 g/dL (32-36); Mean Corpuscular Volume 96.2 fL (81-99); Mean Platelet Vol. 9.1 fl (6.2-12.0); NRBC Flagged by Analyzer 0 % (0-5); Platelet Count 210 K/mm3 (150-450); RBC Distribution Width CV 14.0 % (11.6-14.6); RBC Distribution Width SD 48.7 fl (35.1-43.9); Red Blood Count 4.26 M/mm3 (4.2-5.4); White Blood Count 5.2 K/mm3 (4.4-11.0)
[2025-03-01 13:15] LABS: AST(SGOT) 22 U/L (<=31); Alanine Aminotransfer ALT/SGPT 13 U/L (<=34); Albumin, Serum 3.9 g/dL (3.4-4.8); Alkaline Phosphatase 108 U/L (35-104); Anion Gap 9 (5-15); BUN 14 mg/dL (4-19); BUN/Creat Ratio 14.7 RATIO (10-20); Calcium,Total 9.2 mg/dL (7.6-11.0); Carbon Dioxide 25.3 mmol/L (21.0-32.0); Chloride 107 mmol/L (98-108); Globulin 2.8 g/dL (2.2-4.2); Glucose 105 mg/dL (70-99); Potassium 4.3 mmol/L (3.3-5.1)
== END | disposition home or self-care (01) ==
LOC: LAB 12:16
PROVIDERS: PCP Nurse Practitioner Primary Care; Referring Provider Internal Medicine Rheumatology; Visit Provider Internal Medicine Rheumatology
DX: M06.00 Rheumatoid arthritis without rheumatoid factor, unspecified site (principal); Z79.899 Other long term (current) drug therapy
CPT/HCPCS: 36415; 80053; 85025